=== PATIENT | female | born 1950 | race Caucasian/White ===

== ENCOUNTER → 2016-12-15 | Outpatient (CLI) | payer BC ==
[~2016-12-15] MED LIST: ACET-1256 PO; ALLO300T2 PO; CARV25TA2 PO; CLC6 PO; CLON0.1T12 PO; ERGO500037 PO; FRS/40 PO; HMLI SC; HYDR100T12 PO; INSDGI SC; ISOS30TA3 PO; LORA0.5T12 PO; LOSA50TA6 PO; PANT40TA PO; SIMV40TA2 PO
== END | disposition home or self-care (01) ==
LOC: C.PATHSPEC 14:11
PROVIDERS: ATTEND Dermatology
DX: D22.39 Melanocytic nevi of other parts of face (principal)

== ENCOUNTER → 2017-01-24 | Outpatient (CLI) | payer BC ==
[2017-01-24 13:48] VITALS: BP 151/55; PULSE 63; TEMP 36.9; O2SAT 96
--- NOTE | 2017-01-24 15:37 | Radiation Oncology Follow-Up ---
Radiation Oncology Follow-Up Date of Visit Jan 24, 2017. Reason For Visit 6 month follow-up Radiation Completion Date 05/09/16 Diagnosis (1) Non-Hodgkin's lymphoma of left eye Status: Resolved Onset Date: 03/10/2016 Histology Subtype: MALT lymphoma Permanent Comment: Incidental finding of mass left conjunctiva at the time of cataract surgery Status post excision 03/02/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 Status post completion of radiation [id number]/09/2016 received 3060 cGy Last Edited By: Colleen Jasso on May 18, 2016 16:36 History of Present Illness Ms. Marika Poe is a 66-year-old female who was being followed by the [facility]. She had shown no evidence of diabetic retinopathy however in July 2015 was noted to be developing a cataract in the right eye. She was referred to the [facility] for cataract evaluation and was seen by Dr. Gonzalez for evaluation of cataract surgery. During the procedure he noted a small salmon-colored lesion in the lateral conjunctiva of the left eye. The patient ultimately did undergo bilateral cataract surgery. The patient subsequently noted a sensation of "dirt" in her eye and did develop some sensitivity to light. On 02/29/2016 a biopsy of the lesion was performed. 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 The tissue removed measured 1.2 x 0.7 x 0.2 cm. Patient was subsequently sent to Dr. Javier Sagastume for medical oncology evaluation and treatment recommendations. He recommended a PET CT scan for staging. This is been scheduled for next Sunday. After reviewing the NCCN Guidelines with the patient recommended consideration of local radiation plus or minus Rituxan. She completed radiation therapy 05/09/2016 received 3060 cGy Interim History She continues to have some blurred vision of the left eye over this past 6 months. She's been seen regularly at the [facility]. She stated that there is a small area of scar tissue that is will require laser surgery. This is going be performed in February. She has some dryness of the eye. This does not require regular use of eyedrops. She requires glasses only for reading. She did have a skin lesion biopsied and then had cryo-treatment on the left cheek. She states this was a small area of cancer. She also had some "precancer" lesions on her nose. She also is currently having upper respiratory infection. She has a cough with congestion. This is mildly productive. She's had no fever or chills. She has had minimal wheezing. She does have a inhaler available. Allergies Coded Allergies: Tramadol (Unverified Allergy, Mild, "FELT WEIRD", 09/03/10) Uncoded Allergies: AMLODOPINE (Allergy, Intermediate, SWELLING, 03/16/16) Home Medications Scheduled Allopurinol (Zyloprim), 1 TAB PO DAILY Carvedilol (Coreg), 1 TAB PO BID Clonidine Hcl (Catapres), 1 TAB PO BID Ergocalciferol (Vitamin D 64879 Unit), 1 CAP PO MONTHLY Furosemide (Lasix), 40 MG PO QD Hydralazine Hcl (Apresoline), 1 TAB PO TID Insulin Glargine (Lantus), 75 UNITS SC HS Insulin Glargine (Lantus), 70 SC QAM Insulin Lispro (Humalog), 50 UNITS SC TID Isosorbide Mononitrate Ext Rel (Imdur Ext Rel), 1 TAB PO DAILY Losartan Potassium (Cozaar), 1 TAB PO DAILY Pantoprazole (Protonix), 40 MG PO DAILY Simvastatin (Zocor), 40 MG PO QPM Scheduled PRN Acetaminophen (Tylenol), 2 TAB PO Q6 PRN for Moderate Pain Colchicine (Colcrys), 1 TAB PO BID PRN for Documentation Review of Systems Gastrointestinal: Symptoms: WNL Oral: Symptoms: No Problems Respiratory: Symptoms: WNL, Dry Cough, SOB With Exertion Other Respiratory: patient currently has cold with dry cough and JOINER, moist cough at times Urinary: Symptoms: WNL Skin: Symptoms: No Problems Other Skin Symptoms: Residual hyperpigmentation around left eye; Physical Exam Vital Signs Date Time Temp Pulse Resp B/P Pulse Ox O2 Delivery O2 Flow Rate FiO2 01/24/17 13:48 36.9 63 18 151/55 96 Fatigue: None General Appearance: no apparent distress Eyes: normal inspection, EOMI, + pertinent finding (I examination is unchanged from previous. With both eyes distance is 20/50.) ENT: normal ENT inspection, hearing grossly normal Neck: no adenopathy, thyroid normal Respiratory/Chest: no respiratory distress, no accessory muscle use, + pertinent finding (mild transtracheal congestion, no wheezing) Cardiovascular: regular rate, rhythm, no gallop, no murmur Extremities: no pedal edema Neurologic/Psychiatric: no motor/sensory deficits, alert, normal mood/affect Skin: warm/dry Assessment & Plan Plan: Continue regular follow-up at [facility]. Continue regular follow- up with Dr. Rossi and her primary care physician. We asked her to return to our office in 1 year. She may call she has been questions or concerns in the interim. Total Time In Follow-Up I spent 20 minutes speaking to the patient performing examination. I spent 15 minutes reviewing information in completing this note. Copy To Piter Wei M.D.; Obie Sagastume D.O.
== END | disposition home or self-care (01) ==
LOC: C.ONC 13:37
PROVIDERS: ATTEND Physician Assistant Medical
DX: Z08 Encounter for follow-up examination after completed treatment for malignant neoplasm (principal); Z92.3 Personal history of irradiation; Z85.72 Personal history of non-Hodgkin lymphomas

== ENCOUNTER → 2017-02-07 | Outpatient (CLI) | payer BC ==
[~2017-02-07] MED LIST changes: -LORA0.5T12 PO
[2017-02-07 14:49] LABS: BLOOD UREA NITROGEN 34 mg/dl (7-18); BUN/CREATININE RATIO 20.3 (10-20); CALCIUM 9.1 mg/dl (8.5-10.1); CARBON DIOXIDE 28 mmol/L (21-32); CHLORIDE 106 mmol/L (98-107); GLUCOSE 142 mg/dl (70-99); POTASSIUM 4.3 mmol/L (3.5-5.1); SODIUM 142 mmol/L (136-145)
[2017-02-07 15:00] LABS: CHOLESTEROL 141 mg/dl (0-200); CHOLESTEROL/HDL RATIO 3.4; HDL CHOLESTEROL 41 mg/dl; LDL CHOLESTEROL CALCULATED 61 mg/dl; PHOSPHORUS 3.2 mg/dl (2.5-4.9); TRIGLYCERIDES 196 mg/dl (0-150); VERY LOW DENSITY LIPOPROT CALC 39 mg/dl
[2017-02-07 15:02] LABS: HEMATOCRIT 34.5 % (37-47); MEAN CELL VOLUME 85.8 fL (80-100); MEAN CORPUSCULAR HEMOGLOBIN 27.4 pg (25-34); MEAN CORPUSCULAR HGB CONC 31.9 g/dl (32-36); MEAN PLATELET VOLUME 9.5 fL (7.4-10.4); PLATELET COUNT 301 K/uL (130-400); RED BLOOD COUNT 4.02 M/uL (4.2-5.4); WHITE BLOOD COUNT 9.55 K/uL (4.8-10.8)
[2017-02-07 15:07] LABS: URINE APPEARANCE CLEAR (CLEAR); URINE BILIRUBIN NEG (NEG); URINE COLOR YELLOW; URINE EPITHELIAL CELL AUTO >30 /lpf (0-5); URINE NITRITE NEG (NEG); URINE PH 6.5 (4.5-7.5); URINE PROTIEN/CREAT RATIO 0.5 (0-0.2); URINE SPECIFIC GRAVITY 1.019 (1.000-1.030); URINE TOTAL PROTEIN 68.9 mg/dl (0-11.9); UROBILINOGEN NEG (NEG)
[2017-02-07 15:22] LABS: MANUAL MICROSCOPIC REQUIRED? NO; REVIEW REQ? NO
[2017-02-08 08:21] LABS: ESTIMATED AVERAGE GLUCOSE 160 mg/dl; HA1C FLAG Normal (Normal)
== END | disposition home or self-care (01) ==
LOC: C.LABBC 10:57
PROVIDERS: ATTEND Internal Medicine Nephrology
DX: E11.65 Type 2 diabetes mellitus with hyperglycemia (principal); E78.5 Hyperlipidemia, unspecified; I10 Essential (primary) hypertension; E55.9 Vitamin D deficiency, unspecified; D64.9 Anemia, unspecified; N18.3 Chronic kidney disease, stage 3 (moderate); N25.81 Secondary hyperparathyroidism of renal origin

== ENCOUNTER → 2017-02-09 | Outpatient (CLI) | payer BC ==
--- NOTE | 2017-02-12 15:15 | MAMMOGRAPHY REPORT ---
BILATERAL DIGITAL SCREENING MAMMOGRAM WITH CAD: 02/09/2017 CLINICAL HISTORY: Routine screening. Patient has no complaints. TECHNIQUE: Current study was also evaluated with a Computer Aided Detection (CAD) system. Bilatera l CC and MLO views were obtained. COMPARISON: Comparison is made to exams dated: 08/29/2013 mammogram, 09/09/2012 mammogram, 1 mammogram, and 08/19/2009 mammogram. BREAST COMPOSITION: There are scattered areas of fibroglandular density in both breasts. FINDINGS: There is a possible oval 8 mm mass seen within the right upper outer quadrant, for which spot compression tomosynthesis views and possible breast ultrasound are recommended for further eval uation. The remainder of both breasts are stable compared to prior exams, without suspicious masses, calcifi cations, or areas of architectural distortion noted. IMPRESSION: ACR BI-RADS CATEGORY 0: INCOMPLETE EVALUATION: NEED ADDITIONAL IMAGING EVALUATION Possible right upper outer quadrant breast mass, for which additional imaging evaluation is recommen ded. The patient will be called to schedule an appointment. Approximately 10% of breast cancers are not detected with mammography. A negative mammographic repor t should not delay biopsy if a clinically suggestive mass is present. Yvonne Catalan M.D. /:02/10/2017 12:27:40 Programming Internship: Lisbeth CAREY)([place]), [facility] letter sent: Addl Imaging 0 BI-RADS Code: ACR BI-RADS Category 0: Incomplete Evaluation: Need Additional Imaging Evaluation
== END | disposition home or self-care (01) ==
LOC: C.MAMM 14:19
PROVIDERS: ATTEND Internal Medicine Geriatric Medicine
DX: Z12.31 Encounter for screening mammogram for malignant neoplasm of breast (principal); R92.8 Other abnormal and inconclusive findings on diagnostic imaging of breast

== ENCOUNTER → 2017-02-23 | Outpatient (CLI) | payer BC ==
[~2017-02-23] MED LIST changes: +LORA0.5T12 PO
--- NOTE | 2017-02-23 14:58 | MAMMOGRAPHY REPORT ---
UNILATERAL RIGHT DIGITAL DIAGNOSTIC MAMMOGRAM TOMOSYNTHESIS AND TARGETED RIGHT ULTRASOUND: 02/23/2017 CLINICAL HISTORY: Callback from screening mammogram for possible right breast mass. TECHNIQUE: Breast tomosynthesis in addition to standard 2D mammography was performed. Spot alireza lyla right CC and MLO 2-D and tomosynthesis images were obtained. COMPARISON: Comparison is made to exams dated: 02/09/2017 mammogram - [facility], 08/29/2013 mammogram, 09/09/2012 mammogram, 08/24/2011 mammogram, and 08/19/2009 mammogram. BREAST COMPOSITION: There are scattered areas of fibroglandular density in the right breast. FINDINGS: The previously described asymmetry within the right upper outer quadrant effaces to a bas ny appearance on the additional views, with appearance of this region similar to prior exams incl uding the 2011 exam. No suspicious mass or architectural distortion is seen in this region on the a dditional views. Targeted ultrasound was performed of the right upper outer quadrant laterally in the region of the m ammographic asymmetry. No suspicious masses or other suspicious sonographic abnormalities are evide nt. IMPRESSION: ACR BI-RADS CATEGORY 2: BENIGN, TARGETED ULTRASOUND ACR BI-RADS CATEGORY 2: BENIGN The right upper outer quadrant asymmetry effaces to a baseline appearance on the additional views, w ithout corresponding suspicious sonographic abnormality evident. Findings are benign and likely rep resent normal fibroglandular tissue. There is no mammographic or targeted sonographic evidence of m alignancy. A 1 year screening mammogram is recommended. The patient has been verbally notified of t he results. Approximately 10% of breast cancers are not detected with mammography. A negative mammographic repor t should not delay biopsy if a clinically suggestive mass is present. Yvonne Catalan M.D. ah/:02/23/2017 10:22:58 Accountant Controller: Nathalia MARTINEZ(Donna)([place]), [facility] letter sent: Normal 1/2 BI-RADS Code: ACR BI-RADS Category 2: Benign Ultrasound BI-RADS: ACR BI-RADS Category 2: Benign
== END | disposition home or self-care (01) ==
LOC: C.MAMM 09:41
PROVIDERS: ATTEND Internal Medicine Geriatric Medicine
DX: N63 Unspecified lump in breast (principal)

== ENCOUNTER → 2017-05-25 | Outpatient (CLI) | payer BC ==
[~2017-05-25] MED LIST changes: -LORA0.5T12 PO
[2017-05-25 13:06] LABS: THYROID STIMULATING HORMONE 1.95 uIu/ml (0.300-4.500)
== END | disposition home or self-care (01) ==
LOC: C.LABPBG 09:25
PROVIDERS: ATTEND Internal Medicine Geriatric Medicine
DX: E03.9 Hypothyroidism, unspecified (principal)

== ENCOUNTER → 2017-05-29 | Outpatient (CLI) | payer BC ==
[2017-05-30 06:17] LABS: ESTIMATED AVERAGE GLUCOSE 157 mg/dl; HA1C FLAG Normal (Normal)
--- NOTE | 2017-06-05 09:19 | CODING QUERY MEDICAL NECESSITY ---
SUPPORTING DIAGNOSIS NEEDED A supporting diagnosis is required for the test/procedure performed on this patient in order for us to be reimbursed by the patient's insurance. Please provide a supporting diagnosis for the following test/procedure listed below next to the test name along with your signature. *If there is no additional diagnosis for this patient that would support the following test/procedure please document that below next to the test/procedure. Test(s)/Procedure(s) that require a supporting diagnosis: * VITAMIN B12 DIAGNOSIS: Provider Signature: Date: Thank you Latasha [place]lin[place] [employer] Once completed, please kindly fax back to [phone] For questions please call [phone]
== END | disposition home or self-care (01) ==
LOC: C.LABPBG 13:39
PROVIDERS: ATTEND Nurse Practitioner Family
DX: Z11.59 Encounter for screening for other viral diseases (principal); M10.9 Gout, unspecified; D64.9 Anemia, unspecified; E11.29 Type 2 diabetes mellitus with other diabetic kidney complication; E53.8 Deficiency of other specified B group vitamins

== ENCOUNTER → 2017-07-06 | Outpatient (CLI) | payer BC ==
[2017-07-06 12:22] LABS: HEMATOCRIT 36.1 % (37-47); MEAN CELL VOLUME 88.9 fL (80-100); MEAN CORPUSCULAR HEMOGLOBIN 27.8 pg (25-34); MEAN CORPUSCULAR HGB CONC 31.3 g/dl (32-36); PLATELET COUNT 298 K/uL (130-400); RED BLOOD COUNT 4.06 M/uL (4.2-5.4); WHITE BLOOD COUNT 9.31 K/uL (4.8-10.8)
[2017-07-06 12:59] LABS: URINE APPEARANCE CLOUDY (CLEAR); URINE BILIRUBIN NEG (NEG); URINE COLOR YELLOW; URINE EPITHELIAL CELL AUTO >30 /lpf (0-5); URINE NITRITE NEG (NEG); URINE SPECIFIC GRAVITY 1.019 (1.000-1.030); UROBILINOGEN NEG (NEG)
[2017-07-06 13:11] LABS: MANUAL MICROSCOPIC REQUIRED? NO; REVIEW REQ? NO
[2017-07-06 13:26] LABS: URINE PROTIEN/CREAT RATIO 0.6 (0-0.2); URINE TOTAL PROTEIN 68.9 mg/dl (0-11.9)
[2017-07-06 13:56] LABS: BLOOD UREA NITROGEN 41 mg/dl (7-18); BUN/CREATININE RATIO 25.6 (10-20); CALCIUM 9.1 mg/dl (8.5-10.1); CARBON DIOXIDE 27 mmol/L (21-32); CHLORIDE 106 mmol/L (98-107); GLUCOSE 208 mg/dl (70-99); POTASSIUM 4.3 mmol/L (3.5-5.1); SODIUM 140 mmol/L (136-145)
[2017-07-06 13:57] LABS: PHOSPHORUS 2.8 mg/dl (2.5-4.9)
== END | disposition home or self-care (01) ==
LOC: C.LABPBG 09:29
PROVIDERS: ATTEND Internal Medicine Nephrology
DX: I12.9 Hypertensive chronic kidney disease with stage 1 through stage 4 chronic kidney disease, or unspecified chronic kidney disease (principal); N18.3 Chronic kidney disease, stage 3 (moderate); E55.9 Vitamin D deficiency, unspecified; D64.9 Anemia, unspecified; R60.9 Edema, unspecified

== ENCOUNTER → 2017-10-02 | Outpatient (CLI) | payer BC ==
[2017-10-03 06:19] LABS: ESTIMATED AVERAGE GLUCOSE 157 mg/dl; HA1C FLAG Normal (Normal)
== END | disposition home or self-care (01) ==
LOC: C.LABPBG 13:04
PROVIDERS: ATTEND Nurse Practitioner Family
DX: E11.29 Type 2 diabetes mellitus with other diabetic kidney complication (principal)

== ENCOUNTER → 2017-11-08 | Day surgery (SDC) | payer BC ==
[2017-11-01 12:39] VITALS: BMI 43.0
[~2017-11-08] VITALS: Ht 162.6 cm; Wt 113.6 kg
[~2017-11-08] MED LIST changes: -HMLI SC; +INSPMPHMLG SC; +ISOS-10 PO; -ISOS30TA3 PO; +LIDOCAINE HCL 2% 2 ML VIAL (20MG/ML) ONE; +LOSA100T65 PO; -LOSA50TA6 PO; +OXGN; +PROPOFOL IV EMULSION 10 MG/ML 20 ML VIAL IV ONE; +SODIUM CHLORIDE 0.9% 500ML 500 ML IV ONE
[2017-11-08 08:03] VITALS: Ht 162.6 cm; Wt 113.6 kg
--- NOTE | 2017-11-08 08:50 | Endo History and Physical ---
History & Physical Date of Service: Nov 08, 2017. Chief Complaint: screening, anemia Referring Physician: Dr. Gomez History of Present Illness Anemia, for screening colonoscopy. Past Medical History Diabetes, Arthritis, Reflux, Cancer, High Cholesterol, Sleep Apnea, Heart Disease, Hypertension, Kidney Disease Past Surgical History Hx Cardiac Surgery: No Hx Internal Defibrillator: No Hx Pacemaker: No Hx Abdominal Surgery: Yes (CHERISE, D&C, TUBAL LIGATION) Hx of Implantable Prosthesis: No Hx Post-Op Nausea and Vomiting: No Hx Cancer Surgery: No Hx Thoracic Surgery: No Hx Orthopedic: Yes (RT CTR, RT/LEFT KNEE ARTHROSCOPY) Hx Urinary Tract Surgery: No Family History None Social History Smoking Status: Never Smoker Hx Substance Use: No Hx Alcohol Use: Yes (OCCASIONALLY) Allergies Coded Allergies: Tramadol (Unverified Allergy, Mild, "FELT WEIRD", 11/08/17) Amlodipine (Verified Allergy, Unknown, SWELLING, 11/08/17) Current Medications Reported Home Medications Medications Dose Route/Sig Max Daily Dose Days Date Category Dose Instructions Oxygen Gas 2 Liters NA HS 11/01/17 Reported Cozaar (Losartan Potassium) 100 Mg Tab 100 Mg PO QAM 11/01/17 Reported Isosorbide Mononitrate ER (Isosorbide Mononitrate) 60 Mg Tabcr 1 Tab PO QAM 11/01/17 Reported Humalog (Insulin Human Lispro) 1 Ea Inj 50 Units SC TID 11/01/17 Reported PT ALSO USES SLIDING SCALE Lantus (Insulin Glargine) 100 Unit/Ml Inj 75 Units SC BID 01/24/17 Reported Apresoline (Hydralazine Hcl) 100 Mg Tab 1 Tab PO TID 07/25/16 Reported Tylenol (Acetaminophen) 500 Mg Tab 2 Tab PO Q6 PRN 2 03/24/16 Reported Catapres (Clonidine Hcl) 0.1 Mg Tab 1 Tab PO BID 90 03/24/16 Reported Lasix (Furosemide) 40 Mg Tab 40 Mg PO QAM 03/16/16 Reported Vitamin D 56833 Unit (Ergocalciferol) 50,000 Unit Cap 1 Cap PO MONTHLY 28 03/16/16 Reported Colcrys (Colchicine) 0.6 Mg Tab 1 Tab PO BID PRN 03/16/16 Reported GOUT FLARE UPS Coreg (Carvedilol) 25 Mg Tab 1 Tab PO BID 90 03/16/16 Reported Zyloprim (Allopurinol) 300 Mg Tab 1 Tab PO QAM 30 03/16/16 Reported Zocor (Simvastatin) 40 Mg Tab 40 Mg PO QPM 09/01/10 Reported Protonix (Pantoprazole Sodium) 40 Mg Tab 40 Mg PO QAM 09/01/10 Reported Vital Signs Weight (Kilograms): 113.64 Height (Feet): 5 Height (Inches): 4 Date Time Temp Pulse Resp B/P (MAP) Pulse Ox O2 Delivery O2 Flow Rate FiO2 11/08/17 08:09 36.6 57 18 188/65 (106) 95 Room Air Physical Exam General Appearance: WD/WN, no apparent distress, + obese Respiratory/Chest: Auscultation: breath sounds normal, no wheezing Cardiovascular: Heart Auscultation: RRR, no murmurs Assessment and Plan Colonoscopy today.
--- NOTE | 2017-11-08 09:29 | GI REPORT ---
Procedure Date: 11/08/2017 8:44 AM Procedure: Colonoscopy Indications: Screening for colorectal malignant neoplasm, Incidental - Iron deficiency anemia Medicines: Monitored Anesthesia Care Complications: No immediate complications. Estimated blood loss: None. Estimated Blood Loss: Estimated blood loss: none. Procedure: Pre-Anesthesia Assessment: - Prior to the procedure, a History and Physical was performed, and patient medications, allergies and sensitivities were reviewed. The patient's tolerance of previous anesthesia was reviewed. - ASA Grade Assessment: III - A patient with severe systemic disease. After I obtained informed consent, the scope was passed under direct vision. Throughout the procedure, the patient's blood pressure, pulse, and oxygen saturations were monitored continuously. The Scope was introduced through the anus and advanced to the terminal ileum, with identification of the appendiceal orifice and IC valve. The colonoscopy was performed without difficulty. The patient tolerated the procedure well. The quality of the bowel preparation was adequate to identify polyps. The bowel preparation used was split dose MIralax. Findings: The entire examined colon appeared normal. Impression: - The entire examined colon is normal to the terminal ileum with retroflexed views of the rectum. - No specimens collected. Recommendation: - Repeat colonoscopy in 10 years for screening purposes. - Discharge patient to home (with escort). Jermain Vergara M.D. Jermain Vergara MD 11/08/2017 9:28:35 AM This report has been signed electronically. Note Initiated On: 11/08/2017 8:44 AM I attest to the content of the Intraoperative Record and orders documented therein, exceptions below
--- NOTE | 2017-11-08 09:34 | Discharge Instructions ---
Endoscopy Patient Instructions Date / Procedure(s) Performed Nov 08, 2017. Colonoscopy Allergy Information Coded Allergies: Tramadol (Unverified Allergy, Mild, "FELT WEIRD", 11/08/17) Amlodipine (Verified Allergy, Unknown, SWELLING, 11/08/17) Discharge Date / Findings Nov 08, 2017. Normal Colonoscopy Medication Instructions Stopped Medication(s): told to only take blood pressure medicine. Restart Stopped Medication(s): Restart all medication today Provider Instructions Activity Restrictions - No exercising or heavy lifting for 24 hours. - Do not drink alcohol the day of the procedure. - Do not drive a car or operate machinery until the day after the procedure. - Do not make any important decisions or sign important papers in 24 hours after the procedure. Following Day: - Return to full activity which may include returning to work/school. Diet Start your diet with liquids and light foods (jello, soup, juice, toast). Then eat your usual diet if not nauseated. Treatment For Common After Affects For mild abdominal pain, bloating, or excessive gas: - Rest - Eat lightly - Lie on right side Follow-Up Information Follow-up with Dr. Gomez as scheduled Anesthesia Information What You Should Know You have had a procedure that required some medicine to reduce anxiety and discomfort. This treatment is called moderate sedation. After receiving the treatment, you may be sleepy, but you will be able to breathe on your own. The effects of the treatment may last for several hours. Follow these instructions along with Activity/Diet recommendations noted above: * Do NOT do anything where dizziness or clumsiness would be dangerous. * Rest quietly at home today, then you can be up and about tomorrow. * Have a responsible person stay with you the rest of today. * You may have had an I.V. today. If so, you may take the dressing off later today. Recommendations Call your doctor if: * Trouble breathing * Continuous vomiting for more than 24 hours * Temperature above 101 degrees * Severe abdominal pain or bloating * Pain not relieved by pain medicine ordered * There is increased drainage or redness from any incision * A large amount of rectal bleeding greater than 2-3 tablespoons. (If you had a polyp/s removed or have hemorrhoids, a small amount of blood - from the rectum is to be expected.) * You have any unanswered questions or concerns. IN THE EVENT OF A SERIOUS EMERGENCY, GO TO THE NEAREST EMERGENCY ROOM Your discharge instructions were prepared by provider Jermain Vergara. Patient Instructions Signature Page Marika Poe Patient (or Guardian) Signature/Date: I have read and understand the instructions given to me by my caregivers. Caregiver/RN/Doctor Signature/Date: The above-named patient and/or guardian has received patient instructions on this date. + Original Patient Signature Page (only) stays with chart. Please make copy for patient.
--- NOTE | 2017-11-08 09:49 | Anesthesiology Progress Note ---
Anesthesia Post Op Note Date & Time Nov 08, 2017 at 09:49 Vital Signs Pain Intensity: 0 Vital Signs Past 12 Hours Date Time Temp Pulse Resp B/P (MAP) Pulse Ox O2 Delivery O2 Flow Rate FiO2 11/08/17 09:42 55 18 101/41 (61) 95 Room Air 11/08/17 09:27 60 18 106/44 (64) 93 Room Air 11/08/17 08:09 36.6 57 18 188/65 (106) 95 Room Air Notes Mental Status: alert / awake / arousable, participated in evaluation Pt Amnestic to Procedure: Yes Nausea / Vomiting: adequately controlled Pain: adequately controlled Airway Patency, RR, SpO2: stable & adequate BP & HR: stable & adequate Hydration State: stable & adequate Anesthetic Complications: no major complications apparent The patient did well. Her BSG in recovery was in the 60s so she was given orange juice and crackers. The patient feels fine.
[2017-11-08 09:57] VITALS: BP 136/45; PULSE 54; O2SAT 94
== END | disposition home or self-care (01) ==
LOC: C.GI 07:36
PROVIDERS: ATTEND Internal Medicine Gastroenterology
DX: Z12.11 Encounter for screening for malignant neoplasm of colon (principal); D50.9 Iron deficiency anemia, unspecified; E11.9 Type 2 diabetes mellitus without complications; M19.90 Unspecified osteoarthritis, unspecified site; K21.9 Gastro-esophageal reflux disease without esophagitis; E78.00 Pure hypercholesterolemia, unspecified; G47.30 Sleep apnea, unspecified; I51.9 Heart disease, unspecified; I10 Essential (primary) hypertension; N28.9 Disorder of kidney and ureter, unspecified; Z79.899 Other long term (current) drug therapy; Z79.4 Long term (current) use of insulin

== ENCOUNTER → 2017-11-22 | Outpatient (CLI) | payer BC ==
[~2017-11-22] VITALS: Ht 157.5 cm; Wt 118.1 kg
[~2017-11-22] MED LIST changes: -LIDOCAINE HCL 2% 2 ML VIAL (20MG/ML) ONE; -PROPOFOL IV EMULSION 10 MG/ML 20 ML VIAL IV ONE; -SODIUM CHLORIDE 0.9% 500ML 500 ML IV ONE
[2017-11-22 11:23] VITALS: BP 181/69; PULSE 63; Ht 157.5 cm; Wt 118.1 kg
== END | disposition home or self-care (01) ==
LOC: C.NEUR 10:42
PROVIDERS: ATTEND Internal Medicine Pulmonary Disease
DX: G47.33 Obstructive sleep apnea (adult) (pediatric) (principal)

== ENCOUNTER → 2018-01-22 | Outpatient (CLI) | payer BC ==
--- NOTE | 2018-01-22 11:16 | DIAGNOSTIC IMAGING REPORT ---
CHEST 2 VIEWS ROUTINE CLINICAL HISTORY: 67 years-old Female presenting with J20.9 illness for 2 weeks. TECHNIQUE: PA and lateral views of the chest were obtained. COMPARISON: 09/04/2010. FINDINGS: Atherosclerosis of aortic arch. Cardiac silhouette enlarged. Mild prominence of pulmonary vasculature. No focal opacity. Small left pleural effusion. No pneumothorax. Degenerative changes of the thoracic spine. Cholecystectomy clips noted. IMPRESSION: 1. Cardiomegaly with suggestion of volume overload and trace left pleural effusion. No annie pulmonary edema or other evidence of acute cardiopulmonary disease. Electronically signed by: Evan Jackson M.D. 01/22/2018 11:15 AM Dictated Date/Time: 01/22/2018 11:13 AM
[2018-01-22 13:12] LABS: HEMATOCRIT 33.3 % (37-47); HEMOGLOBIN 10.3 g/dL (12.0-16.0); MEAN CELL VOLUME 86.3 fL (80-100); MEAN CORPUSCULAR HEMOGLOBIN 26.7 pg (25-34); MEAN CORPUSCULAR HGB CONC 30.9 g/dl (32-36); MEAN PLATELET VOLUME 9.7 fL (7.4-10.4); PLATELET COUNT 288 K/uL (130-400); RED CELL DISTRIBUTION WIDTH CV 17.9 % (11.5-14.5); RED CELL DISTRIBUTION WIDTH SD 56.4 fL (36.4-46.3); WHITE BLOOD COUNT 10.41 K/uL (4.8-10.8)
[2018-01-22 14:07] LABS: BLOOD UREA NITROGEN 41 mg/dl (7-18); CALCIUM 8.8 mg/dl (8.5-10.1); CARBON DIOXIDE 24 mmol/L (21-32); GLUCOSE 211 mg/dl (70-99); PHOSPHORUS 3.2 mg/dl (2.5-4.9); POTASSIUM 4.4 mmol/L (3.5-5.1); SODIUM 137 mmol/L (136-145)
== END | disposition home or self-care (01) ==
LOC: C.RADBC 10:35
PROVIDERS: ATTEND Family Medicine
DX: J20.9 Acute bronchitis, unspecified (principal); I12.9 Hypertensive chronic kidney disease with stage 1 through stage 4 chronic kidney disease, or unspecified chronic kidney disease; E55.9 Vitamin D deficiency, unspecified; N18.3 Chronic kidney disease, stage 3 (moderate); N25.81 Secondary hyperparathyroidism of renal origin; D64.9 Anemia, unspecified; R60.9 Edema, unspecified; I51.7 Cardiomegaly

== ENCOUNTER → 2018-01-23 | Outpatient (CLI) | payer BC | END | disposition home or self-care (01) | LOC: C.LABPBG 08:50 | PROVIDERS: ATTEND Family Medicine | DX: I10 Essential (primary) hypertension (principal); E55.9 Vitamin D deficiency, unspecified; N18.3 Chronic kidney disease, stage 3 (moderate); N25.81 Secondary hyperparathyroidism of renal origin; D64.9 Anemia, unspecified; R60.9 Edema, unspecified; R06.02 Shortness of breath ==

== ENCOUNTER → 2018-01-29 | Outpatient (CLI) | payer BC ==
[~2018-01-29] MED LIST changes: +GUAISYP4 PO; +IPRA1AER2 INH; +PRT40 PO; +RGL10 PO
[2018-01-29 13:32] VITALS: BP 150/60; PULSE 58; TEMP 36.7; O2SAT 94
--- NOTE | 2018-01-29 16:58 | Radiation Oncology Follow-Up ---
Radiation Oncology Follow-Up Date of Visit Jan 29, 2018. Reason For Visit Annual follow-up Radiation Completion Date 05/09/16 Diagnosis (1) Non-Hodgkin's lymphoma of left eye Status: Resolved Onset Date: 03/10/2016 Permanent Comment: Incidental finding of mass left conjunctiva at the time of cataract surgery Status post excision 03/02/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 Status post completion of radiation [id number]/09/2016 received 3060 cGy Last Edited By: Colleen Jasso on May 18, 2016 16:36 History of Present Illness Ms. Marika Poe has been followed by the [facility]. She had shown no evidence of diabetic retinopathy however in July 2015 was noted to be developing a cataract in the right eye. She was referred to the [facility] for cataract evaluation and was seen by Dr. Gonzalez for evaluation of cataract surgery. During the procedure he noted a small salmon-colored lesion in the lateral conjunctiva of the left eye. The patient ultimately did undergo bilateral cataract surgery. The patient subsequently noted a sensation of "dirt " in her eye and did develop some sensitivity to light. On 02/29/2016 a biopsy of the lesion was performed. 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 The tissue removed measured 1.2 x 0.7 x 0.2 cm. Patient was subsequently sent to Dr. Javier Sagastume for medical oncology evaluation and treatment recommendations. He recommended a PET CT scan for staging. This is been scheduled for next Sunday. After reviewing the NCCN Guidelines with the patient recommended consideration of local radiation plus or minus Rituxan. She completed radiation therapy 05/09/2016 received 3060 cGy Interim History She has been doing well over this past year. She does have some dryness of her eye. She does not use eyedrops on a regular basis. Her vision is stable. She is seeing the facilities and grounds director on a regular basis. There is been no recurrence found on examination by the facilities and grounds director. She has had regular follow-ups with medical oncology. She has not required any recheck scanning. Laboratory studies have been followed. She has a mild anemia that is being rechecked. Allergies Coded Allergies: Tramadol (Unverified Allergy, Mild, "FELT WEIRD", 11/08/17) Amlodipine (Verified Allergy, Unknown, SWELLING, 11/08/17) Home Medications Scheduled Allopurinol (Zyloprim), 1 TAB PO QAM Carvedilol (Coreg), 1 TAB PO BID Clonidine Hcl (Catapres), 1 TAB PO BID Ergocalciferol (Vitamin D 84298 Unit), 1 CAP PO MONTHLY Furosemide (Lasix), 40 MG PO QAM Home O2 Therapy (Oxygen), 2 LITERS NA HS Hydralazine Hcl (Apresoline), 1 TAB PO TID Insulin Glargine (Lantus), 75 UNITS SC BID Insulin Human Lispro (Humalog), 50 UNITS SC TID Isosorbide Mononitrate (Isosorbide Mononitrate ER), 1 TAB PO QAM Losartan Potassium (Cozaar), 100 MG PO QAM Pantoprazole (Protonix), 40 MG PO QAM Simvastatin (Zocor), 40 MG PO QPM Scheduled PRN Acetaminophen (Tylenol), 2 TAB PO Q6 PRN for Moderate Pain Colchicine (Colcrys), 1 TAB PO BID PRN for Documentation Review of Systems Gastrointestinal: Symptoms: WNL Oral: Symptoms: No Problems Respiratory: Symptoms: Moist Cough Respiratory Comments: getting over a cough. Was SOB with chest congestion Other Respiratory: patient currently has cold with dry cough and JOINER, moist cough at times Urinary: Symptoms: WNL Skin: Symptoms: No Problems Other Skin Symptoms: Residual hyperpigmentation around left eye; Physical Exam Vital Signs Date Time Temp Pulse Resp B/P (MAP) Pulse Ox O2 Delivery O2 Flow Rate FiO2 01/29/18 13:32 36.7 58 18 150/60 94 Fatigue: None General Appearance: no apparent distress Eyes: normal inspection, PERRL, EOMI, + pertinent finding (Visual acuity examination was performed. The left eye was 20/40 in the right eye was 20/50. Inspection of the superior conjunctival fornix reveals no recurrence.) Neck: no adenopathy, thyroid normal Respiratory/Chest: lungs clear, no respiratory distress, no accessory muscle use Cardiovascular: regular rate, rhythm, no gallop, no murmur Extremities: no pedal edema Neurologic/Psychiatric: no motor/sensory deficits, alert, normal mood/affect Pain Management Patient Reports Pain: No Pain Location: None Patient Preferred Pain Scale: 0 - 10 Initial Pain Intensity: 0.0 Pain Management Plan She denies pain therefore requires no pain management. Laboratory Laboratory Results: were reviewed Laboratory Comments: Discussed in the interim history. Pathology Pathology Results: were reviewed, and pertinent findings noted in HPI Imaging Imaging Studies: were reviewed, and pertinent findings noted in HPI Assessment & Plan Plan: Continue regular follow-up with her primary care provider and medical oncologist. She has regular visits with the facilities and grounds director. We asked her to return to our office in 1 year. She may call if she has any questions or concerns. Total Time In Follow-Up I spent 20 minutes speaking to the patient in performing examination. I spent 15 minutes reviewing information and completing this note. Copy To Piter Wei M.D.; Obie Sagastume D.O.
== END | disposition home or self-care (01) ==
LOC: C.ONC 12:59
PROVIDERS: ATTEND Physician Assistant Medical
DX: Z08 Encounter for follow-up examination after completed treatment for malignant neoplasm (principal); Z92.3 Personal history of irradiation; Z85.72 Personal history of non-Hodgkin lymphomas

== ENCOUNTER → 2018-01-31 | Outpatient (CLI) | payer BC ==
[~2018-01-31] MED LIST changes: -GUAISYP4 PO; -IPRA1AER2 INH; -PRT40 PO; -RGL10 PO
[2018-01-31 12:54] LABS: BLOOD UREA NITROGEN 71 mg/dl (7-18); CALCIUM 8.7 mg/dl (8.5-10.1); CARBON DIOXIDE 28 mmol/L (21-32); CREATININE 2.04 mg/dl (0.60-1.20); GLUCOSE 72 mg/dl (70-99); POTASSIUM 3.7 mmol/L (3.5-5.1); SODIUM 139 mmol/L (136-145)
== END | disposition home or self-care (01) ==
LOC: C.LABPBG 08:48
PROVIDERS: ATTEND Family Medicine
DX: N18.3 Chronic kidney disease, stage 3 (moderate) (principal)

== ENCOUNTER 2018-02-11 12:43 | Inpatient (IN) | payer BC, OTHER ==
[~2018-02-11] VITALS: Ht 162.6 cm; Wt 113.7 kg
[2018-02-11] MEDS ORDERED: MAGNESIUM HYDROXIDE SUSP 30 ML UDC PO PRN (14:15)
[2018-02-11] MEDS ORDERED: ACETAMINOPHEN 500 MG TAB PO PRN (14:15)
[2018-02-11] MEDS ORDERED: GLUCAGON FOR INJ 1 MG VIAL SQ PRN (14:15)
[2018-02-11] MEDS ORDERED: ACETAMINOPHEN 325 MG TAB PO PRN (14:15)
[2018-02-11] MEDS ORDERED: GLUCOSE 40% GEL 15 GM TUBE PO PRN (14:15)
[2018-02-11] MEDS ORDERED: COLCHICINE 0.6 MG TAB PO PRN (14:15)
[2018-02-11] MEDS ORDERED: GLUCOSE 10 TABS/TUBE PO PRN (14:15)
[2018-02-11] MEDS ORDERED: ONDANSETRON INJ 2 MG/ML 2 ML VIAL IV PRN (14:15)
[2018-02-11] MEDS ORDERED: DEXTROSE 50% 50 ML SYR IV PRN (14:15)
[2018-02-11 14:44] VITALS: BP 199/70; PULSE 75; TEMP 36.9; O2SAT 90
[2018-02-11 14:52] LABS: HEMATOCRIT 33.7 % (37-47); HEMOGLOBIN 10.2 g/dL (12.0-16.0); MEAN CELL VOLUME 85.8 fL (80-100); MEAN CORPUSCULAR HGB CONC 30.3 g/dl (32-36); MEAN PLATELET VOLUME 8.6 fL (7.4-10.4); PLATELET COUNT 285 K/uL (130-400); RED CELL DISTRIBUTION WIDTH CV 17.8 % (11.5-14.5); RED CELL DISTRIBUTION WIDTH SD 55.7 fL (36.4-46.3)
[2018-02-11 15:09] LABS: BLOOD UREA NITROGEN 34 mg/dl (7-18); CARBON DIOXIDE 30 mmol/L (21-32); GLUCOSE 82 mg/dl (70-99); POTASSIUM 3.8 mmol/L (3.5-5.1); SODIUM 140 mmol/L (136-145)
[2018-02-11] MEDS ORDERED: HOME MED ADMINISTRATION ONE (15:15)
--- NOTE | 2018-02-11 15:15 | DIAGNOSTIC IMAGING REPORT ---
CHEST 2 VIEWS ROUTINE CLINICAL HISTORY: Congestive failure COMPARISON STUDY: 01/22/2018 FINDINGS: The heart is enlarged. There is no overt failure. There is equivocal trace right pleural effusion. Bibasilar opacities are likely atelectatic[ IMPRESSION: 1. Cardiomegaly with a probable trace right pleural effusion 2. No evidence of overt failure 3. Bibasilar opacities likely atelectatic. 4. No evidence of lobar consolidation Electronically signed by: Magdi Vogel M.D. 02/11/2018 3:14 PM Dictated Date/Time: 02/11/2018 3:13 PM
--- NOTE | 2018-02-11 15:24 | History and Physical ---
History & Physical Date & Time of Service: Feb 11, 2018 at 15:03 Chief Complaint: Copd Exacerbation Primary Care Physician: Shawanda Gomez DO History of Present Illness Source: patient, clinic records 67 y/o F who was a direct admit from Dr. Carpenter this afternoon for failed outpt management of CHF. Pt has been working with Dr. Carpenter for about 6 weeks for worsening cough and SOB. She has been on nebs, doxy, a steroid taper , and increased lasix without improvement of sx. She is currently on levaquin for L OM and has 3 days left. She states she did feel a bit better for about 2 days after the steroid taper, however this did not last. Her cough and SOB are worsening. She develops SOB with lying flat and ambulation now. She notes that she get LE "puffiness" frequently. She takes lasix 40mg daily at baseline. Dr. Carpenter had her add 20mg in the afternoon x5 days, however it was noted that her cr went from 1.7-2.0 with this change and Dr. Carpenter did not want to increase lasix further given this change. Pt states she has chest pressure at times as well but more related to prolonged coughing spells. She has been able to eat without issue, although she states nothing tastes good to her lately. Pt was noted to be 86% on RA in the office today, which is not usual for her. She was given a neb tx in the office, but she states this did not help. Pt denies fever, abd pain, n/v/c/d, LE pain. Past Medical/Surgical History Medical Problems: (1) CHF (congestive heart failure) (2) Non-Hodgkin's lymphoma of left eye DM HTN NAE--noncompliant due to mask issues CKD III, baseline cr 1.6-1.7 L otitis media, on levaquin Family History Mother with hx of NE and CVA Social History Smoking Status: Never Smoker Alcohol Use: occasionally (1 beer every , however not recently due to feeling unwell) Drug Use: none Marital Status: Housing status: lives with family Immunizations History of Influenza Vaccine: Yes Influenza Vaccine Date: Aug 16, 2015 History of Tetanus Vaccine?: Yes Tetanus Immunization Date: Oct 16, 2015 History of Pneumococcal: Unknown History of Hepatitis B Vaccine: Unknown Allergies Coded Allergies: Tramadol (Unverified Allergy, Mild, "FELT WEIRD", 11/08/17) Amlodipine (Verified Allergy, Unknown, SWELLING, 11/08/17) Home Medications Scheduled Allopurinol (Zyloprim), 1 TAB PO QAM Carvedilol (Coreg), 1 TAB PO BID Clonidine Hcl (Catapres), 1 TAB PO BID Ergocalciferol (Vitamin D 98435 Unit), 1 CAP PO MONTHLY Furosemide (Lasix), 40 MG PO QAM Home O2 Therapy (Oxygen), 2 LITERS NA HS Hydralazine Hcl (Apresoline), 1 TAB PO TID Insulin Glargine (Lantus), 75 UNITS SC BID Insulin Human Lispro (Humalog), 50 UNITS SC TID Isosorbide Mononitrate (Isosorbide Mononitrate ER), 1 TAB PO QAM Losartan Potassium (Cozaar), 100 MG PO QAM Pantoprazole (Protonix), 40 MG PO QAM Simvastatin (Zocor), 40 MG PO QPM Scheduled PRN Acetaminophen (Tylenol), 2 TAB PO Q6 PRN for Moderate Pain Colchicine (Colcrys), 1 TAB PO BID PRN for Documentation Review of Systems Pertinent positives and negatives reviewed in HPI--all others negative Physical Exam Vital Signs Date Time Temp Pulse Resp B/P (MAP) Pulse Ox O2 Delivery O2 Flow Rate FiO2 02/11/18 14:44 36.9 75 18 199/70 (113) 90 Room Air General Appearance: no apparent distress, + obese Head: normocephalic, atraumatic Eyes: normal inspection, sclerae normal Respiratory/Chest: no respiratory distress, + crackles Cardiovascular: regular rate, rhythm, normal peripheral pulses Abdomen/GI: non tender, soft Extremities/Musculoskelatal: no calf tenderness, + pedal edema (1+ pitting, b/l ) Neurologic/Psych: alert, normal mood/affect, oriented x 3 Skin: normal color, warm/dry Diagnostics Laboratory Results Results Past 24 Hours Test 02/11/18 14:26 Range/Units White Blood Count 13.60 4.8-10.8 K/uL Red Blood Count 3.93 4.2-5.4 M/uL Hemoglobin 10.2 12.0-16.0 g/dL Hematocrit 33.7 37-47 % Mean Corpuscular Volume 85.8 80-100 fL Mean Corpuscular Hemoglobin 26.0 25-34 pg Mean Corpuscular Hemoglobin Concent 30.3 32-36 g/dl RDW Standard Deviation 55.7 36.4-46.3 fL RDW Coefficient of Variation 17.8 11.5-14.5 % Platelet Count 285 130-400 K/uL Mean Platelet Volume 8.6 7.4-10.4 fL Impression Assessment and Plan 67 y/o F who was a direct admission from the office for cough, SOB. Cough, SOB: mild CHF noted on CXR 01/22/18 and failed outpt tx for this Repeat CXR pending Trop, BNP, CBC, PRP pending Continue home dose lasix 40mg PO and will add additional lasix pending labs and imaging findings Has been on nebs, prednisone, and multiple abx without improvement. Will hold on further for now unless CXR noted for PNA ECHO pending, last was 2009 and noted for LVH, EF 65-70%, and type II diastolic dysfunction If trop is neg, will not repeat serials given this has been ongoing for 6 weeks EKG pending Acute on chronic kidney disease: baseline cr is 1.6-1.7 Increased to 2.0 on outpt labs, repeat pending DM: as at home with SSI PRN HTN: stable, continue home meds Likely elevated at baseline in the setting of uncontrolled NAE NAE: noncompliant with CPAP due to mask issues L otitis media: finish course of levaquin, 3 doses left Other: Full code SCDs for DVT proph DM low sodium diet Resuscitation Status VTE Prophylaxis Will order VTE Prophylaxis: Yes
[2018-02-11 15:30] VITALS: O2SAT 90; O2SAT 94
[2018-02-11 15:53] VITALS: BP 199/70; PULSE 75; TEMP 36.9; O2SAT 94; BMI 44.4
--- NOTE | 2018-02-11 17:08 | DIAGNOSTIC IMAGING REPORT ---
(CHEST) THORAX WITHOUT CLINICAL HISTORY: 67 years-old Female presenting with cough, SOB. TECHNIQUE: Multidetector CT imaging of the chest was performed without the use of intravenous contrast. IV contrast: None. A dose lowering technique was used consistent with the principles of ALARA (as low as reasonably achievable). COMPARISON: Chest x-ray performed earlier the same day. CT DOSE (mGy.cm): The estimated cumulative dose is 820.89 mGy.cm. FINDINGS: [employer] topogram: Unremarkable. On soft tissue windows, normal thyroid and thoracic inlet. Scattered subcentimeter mediastinal lymph nodes possibly reactive. The largest in the subcarinal region measure up to 8 mm in the short axis. Evaluation of the eliseo is limited in the absence of intravenous contrast. Atherosclerosis of the aorta. Mild multichamber enlargement of the heart. Mild coronary artery, aortic valve, and mitral annular calcification. No pericardial or pleural effusion. Hepatic steatosis. Cholecystectomy clips. On lung windows, prominent bandlike opacities in the right middle and left lower lobes. Patchy and peripheral groundglass opacities with a basilar predominance. Smooth interlobular septal thickening evident in the left lower lobe. Respiratory motion artifact somewhat degrades evaluation of the lung parenchyma, especially the lung bases. The pulmonary arteries are enlarged relative to their adjacent bronchi. Bronchial wall thickening evident. Minimal subsegmental bronchial debris evident in the right lower lobe. No significant evidence of emphysema. Central airways patent. On bone windows, degenerative changes of the spine. IMPRESSION: 1. Cardiomegaly with suspected volume overload and congestive change. Developing pulmonary edema may be present. Infection is considered unlikely. 2. Extensive atelectasis. 3. Mildly prominent mediastinal lymph nodes possibly reactive. 4. Hepatic steatosis. Electronically signed by: Evan Jackson M.D. 02/11/2018 5:07 PM Dictated Date/Time: 02/11/2018 5:01 PM
[2018-02-11] MEDS: INSULIN ASPART 100 UNITS/ML 3 ML PEN SC SCH ×2 (17:38→20:41)
[2018-02-11] MEDS ORDERED: BUMETANIDE IV 1 MG in SYRINGE 0 ML IV ONE (18:00)
[2018-02-11] MEDS ORDERED: INSULIN ASPART 100 UNITS/ML 3 ML PEN SC SCH (20:00)
--- NOTE | 2018-02-11 20:16 | DIAGNOSTIC IMAGING REPORT ---
BILATERAL LOWER EXTREMITY VENOUS DOPPLER HISTORY: Acute shortness of breath with bilateral lower extremity swelling SOB COMPARISON STUDY: Duplex venous Doppler study 03/20/2014 FINDINGS: There is normal compressibility, flow, and augmentation within the bilateral lower extremity deep venous systems. IMPRESSION: No sonographic evidence of deep venous thrombosis within the right or left lower extremity. Electronically signed by: Britton Watts M.D. 02/11/2018 8:15 PM Dictated Date/Time: 02/11/2018 8:14 PM
[2018-02-11] MEDS: CLONIDINE HCL 0.1 MG TAB PO SCH (20:41)
[2018-02-11] MEDS: SIMVASTATIN 40 MG TAB PO SCH (20:41)
[2018-02-11] MEDS: CARVEDILOL 25 MG TAB PO SCH (20:41)
[2018-02-11] MEDS: INSULIN GLARGINE SC SCH (20:45)
[2018-02-11] MEDS ORDERED: BENZONATATE 100MG CAP PO ONE (22:00)
[2018-02-11 23:04] VITALS: BP 190/72; PULSE 77; TEMP 37.3; O2SAT 95
[2018-02-12] VITALS (9 sets, daily range): BP systolic 137–158; BP diastolic 61–80; PULSE 59–89; TEMP 36.3–36.9; O2SAT 90–98; BMI 44.4
[2018-02-12 06:44] LABS: HEMOGLOBIN A1C 7.5 % (4.5-5.6)
[2018-02-12] MEDS: PANTOprazole SOD 40 MG TAB PO SCH (08:14)
[2018-02-12] MEDS: BENZONATATE 100MG CAP PO SCH ×3 (08:14→20:34)
[2018-02-12] MEDS: ALLOPURINOL 300 MG TAB PO SCH (08:14)
[2018-02-12] MEDS: ISOSORBIDE MONONITRATE 60 MG TABCR PO SCH (08:14)
[2018-02-12] MEDS: LEVOFLOXACIN 250 MG TAB PO SCH (08:15)
[2018-02-12] MEDS: CLONIDINE HCL 0.1 MG TAB PO SCH ×2 (08:15→20:33)
[2018-02-12] MEDS: LOSARTAN POTASSIUM 50 MG TAB PO SCH (08:15)
[2018-02-12] MEDS: CARVEDILOL 25 MG TAB PO SCH ×2 (08:16→20:34)
[2018-02-12] MEDS: FUROSEMIDE 40 MG TAB PO SCH (08:16)
[2018-02-12] MEDS: INSULIN GLARGINE SC SCH ×2 (08:21→20:51)
[2018-02-12] MEDS: INSULIN ASPART 100 UNITS/ML 3 ML PEN SC SCH ×4 (08:22→20:49)
[2018-02-12] MEDS ORDERED: NURSING VERBAL MED ORDER ONE (08:30)
[2018-02-12] MEDS ORDERED: ALBUT/IPRATROP 3MG/0.5MG NEB 3 ML VIAL INH STA (08:31)
[2018-02-12] MEDS ORDERED: ALBUT/IPRATROP 3MG/0.5MG NEB 3 ML VIAL INH PRN (09:00)
--- NOTE | 2018-02-12 09:04 | Progress Note ---
Subjective Date of Service: Feb 12, 2018. Subjective this pt feels somewhat improved, she still have fairly significant shortness of breath and coughing with a deep breath Review of Systems Constitutional: + weakness, + fatigue, No fever, No chills Respiratory: + cough, + sputum (yellow), + wheezing, + shortness of breath, + dyspnea on exertion Cardiac: + edema, No chest pain Abdomen: No pain, No nausea, No vomiting, No diarrhea Musculoskeletal: No joint pain Female : No dysuria, No urinary frequency Psychiatric: No depression symptoms, No anhedonism Objective Vital Signs Date Time Temp Pulse Resp B/P (MAP) Pulse Ox O2 Delivery O2 Flow Rate FiO2 02/12/18 08:35 65 18 98 Nasal Cannula 2.0 02/12/18 06:51 36.9 59 14 151/61 (91) 98 Nasal Cannula 2.0 02/12/18 00:15 Nasal Cannula 2.0 02/11/18 23:04 37.3 77 18 190/72 (111) 95 Nasal Cannula 2.0 02/11/18 20:10 Nasal Cannula 2.0 02/11/18 15:53 36.9 75 18 199/70 94 Nasal Cannula 2.0 02/11/18 15:30 94 Nasal Cannula 2.0 02/11/18 15:30 90 Room Air 02/11/18 14:44 36.9 75 18 199/70 (113) 90 Room Air Physical Exam General Appearance: WD/WN, + mild distress, + obese Eyes: normal inspection, sclerae normal Neck: supple, no JVD Respiratory/Chest: + respiratory distress, + decreased breath sounds, + accessory muscle use, + rhonchi Cardiovascular: regular rate, rhythm, no murmur Abdomen: normal bowel sounds, non tender, soft Extremities: + pedal edema, + swelling Neurologic/Psychiatric: alert, oriented x 3 Laboratory Results Last 24 Hours Test 02/11/18 14:26 02/11/18 16:20 02/11/18 20:30 02/12/18 07:31 White Blood Count 13.60 K/uL Red Blood Count 3.93 M/uL Hemoglobin 10.2 g/dL Hematocrit 33.7 % Mean Corpuscular Volume 85.8 fL Mean Corpuscular Hemoglobin 26.0 pg Mean Corpuscular Hemoglobin Concent 30.3 g/dl RDW Standard Deviation 55.7 fL RDW Coefficient of Variation 17.8 % Platelet Count 285 K/uL Mean Platelet Volume 8.6 fL Sodium Level 140 mmol/L Potassium Level 3.8 mmol/L Chloride Level 104 mmol/L Carbon Dioxide Level 30 mmol/L Anion Gap 6.0 mmol/L Blood Urea Nitrogen 34 mg/dl Creatinine 2.40 mg/dl Estimated GFR () 23.6 Estimated GFR (Non- 20.4 BUN/Creatinine Ratio 14.2 Random Glucose 82 mg/dl Estimated Average Glucose 169 mg/dl Hemoglobin A1c 7.5 % Calcium Level 9.0 mg/dl Troponin I 0.017 ng/ml Pro-B-Type Natriuretic Peptide 373 pg/ml Hepatitis C Antibody Screen NEG Bedside Glucose 74 mg/dl 77 mg/dl 89 mg/dl Assessment and Plan 67 y/o F who was a direct admission from the office for cough, SOB, maybe reactive airway disease. Cough, SOB:initially thought to be HF, recent echo may only suggest Diastolic issues, is still sob will escalate treatment for reactive airway although no smoking by history but exposure to second hand smoke, will add iv steroids and scheduled b agonist and anticholinergic Acute on Chronic diastolic heart failure, continue home dose lasix 40mg PO ECHO pending, last was 2009 and noted for LVH, EF 65-70%, and type II diastolic dysfunction Acute on chronic kidney disease: baseline cr is 1.6-1.7 Increased to 2.0 on outpt labs, repeat pending DM: SSI PRN,uses large doses of lantus bid HTN: multiple medications, coreg, hydralazine Cozaar, isosorbide catapress NAE: noncompliant with CPAP due to mask issues L otitis media: finish course of levaquin, 3 doses left Other: Full code SCDs for DVT proph DM low sodium diet
[2018-02-12] MEDS: METHYLPREDNISOLONE IV 40 MG in SYRINGE 0 ML IV SCH ×2 (09:40→20:37)
[2018-02-12] MEDS: ALBUT/IPRATROP 3MG/0.5MG NEB 3 ML VIAL INH SCH ×3 (11:10→19:11)
[2018-02-12] MEDS: FORMOTEROL FUMA NEBULIZER SOLN 20 MCG/2 ML VIAL INH SCH (19:11)
--- NOTE | 2018-02-12 20:25 | ECHOCARDIOGRAM REPORT ---
*NOTICE TO RECEIVING CONSTITUTION PARTY AGENCY This information is strictly Confidential and protected under [place] law. [place] law prohibits you from making any further disclosure of this information unless further disclosure is expressly permitted by the written consent of the person to whom it pertains or is authorized by law. A general authorization for the release of medical or other information is not sufficient for this purpose. Hospital accepts no responsibility if the information is made available to any other person, INCLUDING THE PATIENT. Interpretation Summary * Name: COLE NEVES Study Date: 02/12/2018 09:16 AM BP: 190/72 mmHg * Patient Location: .4E\S\E415\S\1 HR: 111 * : 1950 (M/d/yyyy) Gender: Female Height: 64 in * Age: 67 yrs Ethnicity: CA Weight: 258 lb * Ordering Physician: Latasha Liu * Performed By: Dayana Parra RDCS * * Reason For Study: Congestive Heart Failure * BSA: 2.2 m2 * -- Conclusions -- * 1. Normal left ventricular size with hyperdynamic systolic function. EF > 70%. No regional wall motion abnormalities. Moderate concentric left ventricular hypertrophy. Type 2 diastolic dysfunction. * 2. Trace aortic regurgitation. * 3. Normal estimated right ventricular systolic pressure; 35mmHg. Procedure Details * A complete two-dimensional transthoracic echocardiogram was performed (2D, M-mode, Doppler and color flow Doppler). Left Ventricle * Normal left ventricular size with hyperdynamic systolic function. EF > 70%. No regional wall motion abnormalities. Moderate concentric left ventricular hypertrophy. Type 2 diastolic dysfunction. * Ejection Fraction = 60-65%. Right Ventricle * The right ventricle is normal in size and function. * The right ventricular systolic function is normal as assessed by tricuspid annular plane systolic excursion (TAPSE) (normal >1.5 cm). Atria * The left atrial size is normal. * Right atrial size is normal. * There is no evidence of atrial septal defect, but resolution does not allow assessment for a patent foramen ovale. Mitral Valve * There is mild mitral annular calcification. * There is no mitral valve stenosis. * Significant mitral regurgitation is absent. Tricuspid Valve * The tricuspid valve is not well visualized, but is grossly normal. * There is no tricuspid stenosis. * There is trace tricuspid regurgitation. Aortic Valve * The aortic valve is trileaflet. * No hemodynamically significant valvular aortic stenosis. * Trace aortic regurgitation. Pulmonic Valve * The pulmonary valve is inadequately visualized, but the Doppler data is adequate for interpretation. * There is no pulmonic valvular stenosis. * There is no significant pulmonary regurgitation. Great Vessels * The aortic root is normal size. * Normal pulmonary venous flow pattern. Pericardium/Pleural * Trace pericardial effusion. Great Vessels * Normal inferior vena cava size and collapsability with sniff indicates a normal right atrial pressure of 3 mmHg MMode 2D Measurements and Calculations IVSd 1.4 cm IVSs 1.7 cm LVIDd 4.6 cm LVIDs 2.9 cm LVPWd 1.4 cm LVPWs 1.7 cm IVS/LVPW 1.0 FS 38.0 % EDV(Teich) 99.6 ml ESV(Teich) 31.7 ml EF(Teich) 68.2 % EDV(cubed) 100.3 ml ESV(cubed) 23.9 ml EF(cubed) 76.2 % % IVS thick 21.6 % % LVPW thick 22.6 % LV mass(C)d 255.8 grams LV mass(C)dI 117.4 grams/m\S\2 LV mass(C)s 184.4 grams LV mass(C)sI 84.6 grams/m\S\2 SV(Teich) 68.0 ml SI(Teich) 31.2 ml/m\S\2 SV(cubed) 76.4 ml SI(cubed) 35.0 ml/m\S\2 Ao root diam 3.2 cm Ao root area 8.1 cm\S\2 ACS 2.1 cm LA dimension 3.9 cm LA/Ao 1.2 LVAd ap4 25.5 cm\S\2 LVLd ap4 7.8 cm EDV(MOD-sp4) 72.5 ml EDV(sp4-el) 71.2 ml LVAs ap4 11.8 cm\S\2 LVLs ap4 5.8 cm ESV(MOD-sp4) 21.4 ml ESV(sp4-el) 20.4 ml EF(MOD-sp4) 70.5 % EF(sp4-el) 71.3 % SV(MOD-sp4) 51.1 ml SI(MOD-sp4) 23.4 ml/m\S\2 SV(sp4-el) 50.8 ml SI(sp4-el) 23.3 ml/m\S\2 Doppler Measurements and Calculations MV E max nany 127.3 cm/sec MV A max nany 111.1 cm/sec MV E/A 1.1 MV dec time 0.20 sec Ao V2 max 203.9 cm/sec Ao max PG 16.6 mmHg Ao max PG (full) 9.6 mmHg Ao V2 mean 147.1 cm/sec Ao mean PG 9.8 mmHg Ao mean PG (full) 6.1 mmHg Ao V2 VTI 46.4 cm AI max nany 288.4 cm/sec AI max PG 33.3 mmHg LV V1 max PG 7.0 mmHg LV V1 mean PG 3.6 mmHg LV V1 max 132.4 cm/sec LV V1 mean 88.2 cm/sec LV V1 VTI 34.9 cm SV(Ao) 377.9 ml SI(Ao) 173.4 ml/m\S\2 PA V2 max 152.3 cm/sec PA max PG 9.3 mmHg TR max nany 281.6 cm/sec RVSP(TR) 34.8 mmHg RAP systole 3.0 mmHg
[2018-02-12] MEDS: SIMVASTATIN 40 MG TAB PO SCH (20:33)
[2018-02-13] VITALS (9 sets, daily range): BP systolic 136–179; BP diastolic 65–68; PULSE 64–80; TEMP 36.4–36.6; O2SAT 91–96; BMI 44.0
[2018-02-13] MEDS: FORMOTEROL FUMA NEBULIZER SOLN 20 MCG/2 ML VIAL INH SCH ×2 (07:06→19:27)
[2018-02-13] MEDS: ALBUT/IPRATROP 3MG/0.5MG NEB 3 ML VIAL INH SCH ×4 (07:06→19:27)
--- NOTE | 2018-02-13 07:29 | Clinical Documentation Query ---
KATIE Valdez : CLINICAL DOCUMENTATION QUERY Patient is a 67 year old female admitted for acute on chronic diastolic CHF. Documentation includes "acute on chronic kidney disease". This literally translates to acute kidney disease on chronic kidney disease. Acute kidney disease codes to an unspecified disorder of the kidney and is therefore not synonymous with YASEMIN or acute renal failure. Please clarify as clinically appropriate. Thank you. In your clinical opinion is this patient being managed for: ( xx ) Acute kidney failure ( ) Not Agree ( ) Other explanation of clinical findings (Please Explain) ( ) Unable to determine (Please Define) ( ) Need to Discuss The medical record reflects the following clinical findings, treatment, and risk factors. Clinical Indicators: As above. Serum creatinine 2.4 mg/dl 02/11. Treatment: Serial chemistries Risk Factors: Acute on chronic diastolic CHF Please clarify and document your clinical opinion in the progress notes and discharge summary. Terms such as "probable", "suspected", "likely", "questionable", "possible", or "still to be ruled out" are acceptable. IF IN AGREEMENT, YOU MUST DOCUMENT ABOVE DIAGNOSTIC STATEMENT IN DAILY PROGRESS NOTES AND DISCHARGE SUMMARY. This document is not part of the patient's record. Thank You, Fabien Beltran, RN [phone]
[2018-02-13] MEDS: ISOSORBIDE MONONITRATE 60 MG TABCR PO SCH (07:53)
[2018-02-13] MEDS: BENZONATATE 100MG CAP PO SCH ×3 (07:54→19:30)
[2018-02-13] MEDS: CLONIDINE HCL 0.1 MG TAB PO SCH ×2 (07:54→19:29)
[2018-02-13] MEDS: LOSARTAN POTASSIUM 50 MG TAB PO SCH (07:54)
[2018-02-13] MEDS: ALLOPURINOL 300 MG TAB PO SCH (07:55)
[2018-02-13] MEDS: FUROSEMIDE 40 MG TAB PO SCH (07:55)
[2018-02-13] MEDS: CARVEDILOL 25 MG TAB PO SCH ×2 (07:55→19:29)
[2018-02-13] MEDS: PANTOprazole SOD 40 MG TAB PO SCH (07:56)
[2018-02-13] MEDS: INSULIN ASPART 100 UNITS/ML 3 ML PEN SC SCH ×4 (08:46→21:14)
[2018-02-13] MEDS: INSULIN GLARGINE SC SCH ×2 (08:47→19:35)
[2018-02-13] MEDS: METHYLPREDNISOLONE IV 40 MG in SYRINGE 0 ML IV SCH (08:48)
[2018-02-13] MEDS ORDERED: INSULIN GLARGINE SC ONE (09:00)
[2018-02-13] MEDS: LEVOFLOXACIN 250 MG TAB PO SCH (11:00)
--- NOTE | 2018-02-13 13:04 | Progress Note ---
Subjective Date of Service: Feb 13, 2018. Subjective pt states she feels 'a lot' better today, she has better air movement and subjective feelings of less shortness of breath. less cough her glucoses are out of control and we have changed insulin doses daily to try to control Review of Systems Constitutional: + weakness, + fatigue, No fever, No chills Respiratory: + cough, + sputum, + shortness of breath, + dyspnea on exertion Cardiac: + chest pain, No edema Abdomen: No pain, No nausea, No vomiting, No diarrhea Musculoskeletal: No joint pain, No muscle pain Psychiatric: No depression symptoms, No anhedonism Objective Vital Signs Date Time Temp Pulse Resp B/P (MAP) Pulse Ox O2 Delivery O2 Flow Rate FiO2 02/13/18 11:03 71 18 92 Nasal Cannula 3.0 02/13/18 08:30 96 Nasal Cannula 4.0 02/13/18 07:39 36.6 77 18 179/68 (105) 96 Nasal Cannula 4.0 02/13/18 07:06 80 18 92 Nasal Cannula 3.0 02/13/18 00:00 Nasal Cannula 2.0 02/12/18 22:36 36.3 65 20 158/71 (100) 90 Nasal Cannula 3.0 02/12/18 20:31 66 158/68 (98) 02/12/18 19:13 76 18 90 Nasal Cannula 2.0 02/12/18 16:00 Nasal Cannula 2.0 02/12/18 15:39 75 18 93 Nasal Cannula 2.0 02/12/18 15:38 36.5 62 18 147/69 (95) 92 Nasal Cannula 2.0 02/12/18 13:49 89 137/80 (99) Physical Exam General Appearance: WD/WN, + mild distress Eyes: normal inspection, sclerae normal Respiratory/Chest: chest non-tender, + decreased breath sounds, + accessory muscle use Cardiovascular: regular rate, rhythm, no murmur Abdomen: normal bowel sounds, non tender, soft Extremities: no calf tenderness, + pedal edema Neurologic/Psychiatric: alert, oriented x 3 Skin: normal color, warm/dry, no rash Laboratory Results Last 24 Hours Test 02/12/18 16:35 02/12/18 19:54 02/12/18 22:27 02/13/18 07:29 Bedside Glucose 323 mg/dl 334 mg/dl 262 mg/dl 343 mg/dl Test 02/13/18 11:27 Bedside Glucose 390 mg/dl Assessment and Plan 67 y/o F who was a direct admission from the office for cough, SOB, maybe reactive airway disease. Cough, SOB:initially thought to be HF, recent echo may only suggest Diastolic issues, no smoking by history but exposure to second hand smoke, she has improved with steroids, b agonist and anticholinergics to suggests some reactive airway or copd, but will need outpt spirometry to make final diagnosis Acute on Chronic diastolic heart failure, continue home dose lasix 40mg PO ECHO pending, last was 2009 and noted for LVH, EF 65-70%, and type II diastolic dysfunction Acute kidney injury on chronic kidney disease: stage 4 based on diabetes, has slighlty worsened after attempts at diuresis, will have small amount of ivf and follow DM: SSI PRN,uses large doses of lantus bid, doses adjusted daily still high will taper steroids HTN: multiple medications, coreg, hydralazine Cozaar, isosorbide catapress, NAE: noncompliant with CPAP due to mask issues L otitis media: finish course of levaquin, complete course Other: Full code SCDs for DVT proph DM low sodium diet
[2018-02-13] MEDS ORDERED: SODIUM CHLORIDE 0.9% 1000ML 1,000 ML IV SCH (16:30)
[2018-02-13] MEDS: SIMVASTATIN 40 MG TAB PO SCH (19:30)
[2018-02-14] VITALS (9 sets, daily range): BP systolic 110–173; BP diastolic 70–81; PULSE 59–79; TEMP 36.4–36.7; O2SAT 92–95
[2018-02-14] MEDS: ALBUT/IPRATROP 3MG/0.5MG NEB 3 ML VIAL INH SCH ×4 (06:56→19:27)
[2018-02-14] MEDS: FORMOTEROL FUMA NEBULIZER SOLN 20 MCG/2 ML VIAL INH SCH ×2 (06:56→19:27)
[2018-02-14 07:43] LABS: CALCIUM 9.1 mg/dl (8.5-10.1); CREATININE 2.35 mg/dl (0.60-1.20); POTASSIUM 4.2 mmol/L (3.5-5.1)
[2018-02-14 07:47] LABS: HEMATOCRIT 33.9 % (37-47); HEMOGLOBIN 10.6 g/dL (12.0-16.0); MEAN CELL VOLUME 84.3 fL (80-100); MEAN CORPUSCULAR HEMOGLOBIN 26.4 pg (25-34); MEAN CORPUSCULAR HGB CONC 31.3 g/dl (32-36); MEAN PLATELET VOLUME 8.5 fL (7.4-10.4); PLATELET COUNT 393 K/uL (130-400); RED CELL DISTRIBUTION WIDTH CV 17.5 % (11.5-14.5); RED CELL DISTRIBUTION WIDTH SD 53.8 fL (36.4-46.3); WHITE BLOOD COUNT 15.58 K/uL (4.8-10.8)
[2018-02-14] MEDS ORDERED: SODIUM CHLORIDE 0.65% NA SOLN 45 ML (OCEAN) ONE (08:37)
[2018-02-14] MEDS: CLONIDINE HCL 0.1 MG TAB PO SCH ×2 (08:56→21:28)
[2018-02-14] MEDS: LOSARTAN POTASSIUM 50 MG TAB PO SCH (08:57)
[2018-02-14] MEDS: CARVEDILOL 25 MG TAB PO SCH ×2 (08:57→21:22)
[2018-02-14] MEDS: FUROSEMIDE 40 MG TAB PO SCH (08:58)
[2018-02-14] MEDS: PANTOprazole SOD 40 MG TAB PO SCH ×2 (08:58→21:23)
[2018-02-14] MEDS: ISOSORBIDE MONONITRATE 60 MG TABCR PO SCH (08:58)
[2018-02-14] MEDS: ALLOPURINOL 300 MG TAB PO SCH (08:59)
[2018-02-14] MEDS: BENZONATATE 100MG CAP PO SCH ×3 (08:59→21:29)
[2018-02-14] MEDS: INSULIN ASPART 100 UNITS/ML 3 ML PEN SC SCH ×4 (09:04→21:43)
[2018-02-14] MEDS: INSULIN GLARGINE SC SCH ×2 (09:06→21:42)
[2018-02-14] MEDS: LEVOFLOXACIN 250 MG TAB PO SCH (11:30)
--- NOTE | 2018-02-14 16:10 | Progress Note ---
Subjective Date of Service: Feb 14, 2018. Subjective This pt is still very short of breath with non productive cough, she is having better glucose control. Review of Systems Constitutional: No fever, No chills, No weakness, No fatigue Respiratory: No cough, No shortness of breath, No dyspnea on exertion Cardiac: No chest pain, No orthopnea, No edema Abdomen: No pain, No nausea, No vomiting, No diarrhea Female : No dysuria, No urinary frequency Neurologic: No memory loss Psychiatric: No depression symptoms, No anhedonism, No anxiety Objective Vital Signs Date Time Temp Pulse Resp B/P (MAP) Pulse Ox O2 Delivery O2 Flow Rate FiO2 02/14/18 15:35 36.6 76 20 149/70 (96) 92 Nasal Cannula 2.0 02/14/18 15:25 66 16 92 Nasal Cannula 2.0 02/14/18 11:04 79 16 95 Nasal Cannula 4.0 02/14/18 11:01 Nasal Cannula 4.0 02/14/18 09:00 64 02/14/18 07:14 36.7 59 20 173/75 (107) 92 Nasal Cannula 4.0 02/14/18 06:56 78 16 95 Nasal Cannula 3.0 02/14/18 00:06 36.6 65 20 164/71 (102) 95 Nasal Cannula 4.0 02/14/18 00:00 Nasal Cannula 3.0 02/13/18 19:35 178/65 (102) 02/13/18 19:30 78 16 93 Nasal Cannula 3.5 Physical Exam General Appearance: WD/WN, + mild distress Eyes: normal inspection, sclerae normal Neck: supple, no JVD Respiratory/Chest: chest non-tender, + decreased breath sounds, + accessory muscle use, + rhonchi Cardiovascular: regular rate, rhythm, no murmur Abdomen: normal bowel sounds, non tender, soft Extremities: no pedal edema, no calf tenderness Neurologic/Psychiatric: alert, oriented x 3 Laboratory Results Last 24 Hours Test 02/13/18 16:51 02/13/18 20:06 02/14/18 03:08 02/14/18 06:27 Bedside Glucose 339 mg/dl 344 mg/dl 149 mg/dl White Blood Count 15.58 K/uL Red Blood Count 4.02 M/uL Hemoglobin 10.6 g/dL Hematocrit 33.9 % Mean Corpuscular Volume 84.3 fL Mean Corpuscular Hemoglobin 26.4 pg Mean Corpuscular Hemoglobin Concent 31.3 g/dl RDW Standard Deviation 53.8 fL RDW Coefficient of Variation 17.5 % Platelet Count 393 K/uL Mean Platelet Volume 8.5 fL Sodium Level 138 mmol/L Potassium Level 4.2 mmol/L Chloride Level 103 mmol/L Carbon Dioxide Level 26 mmol/L Anion Gap 9.0 mmol/L Blood Urea Nitrogen 61 mg/dl Creatinine 2.35 mg/dl Est Creatinine Clear Calc Drug Dose 29.5 ml/min Estimated GFR () 24.2 Estimated GFR (Non- 20.9 BUN/Creatinine Ratio 26.0 Random Glucose 183 mg/dl Calcium Level 9.1 mg/dl Magnesium Level 2.3 mg/dl Test 02/14/18 07:42 02/14/18 11:43 Bedside Glucose 187 mg/dl 186 mg/dl Assessment and Plan 67 y/o F who was a direct admission from the office for cough, SOB, maybe reactive airway disease. Cough, SOB:initially thought to be HF, recent echo may only suggest mild Diastolic issues, no smoking by history but exposure to second hand smoke, she has improved with steroids, b agonist and anticholinergics to suggests some reactive airway or copd, she did regress somewhat with reducing the steroids Acute on Chronic diastolic heart failure, continue home dose lasix 40mg PO ECHO pending, LVH, EF 65-70%, and type II diastolic dysfunction Acute kidney injury on chronic kidney disease: stage 4 based on diabetes, remains with elevated Cr but slowly improving DM: SSI PRN,uses large doses of lantus bid, doses did augment lantus and is on a very tight scale HTN: multiple medications, coreg, hydralazine Cozaar, isosorbide catapress, NAE: noncompliant with CPAP due to mask issues L otitis media: finish course of levaquin, complete course Other: Full code SCDs for DVT proph DM low sodium diet
--- NOTE | 2018-02-14 20:44 | Pulmonary Consultation ---
History General Date of Service: Feb 14, 2018. Stated Complaint: Cough HPI The patient is a 67 year old female who presents to [facility] with complaints of Copd Exacerbation. The patient's primary care provider is Shawanda Gomez DO. Historian: patient, other (Records) Onset: other (Few weeks) Review of Systems Constitutional: denies: no symptoms, as stated in HPI, chills, diaphoresis, fever, malaise, weakness, weight gain, weight loss, other Eyes: denies: no symptoms, as stated in HPI, eye pain, tearing, itching, redness, discharge, double vision, visual changes, blurred vision, photophobia, other ENT: denies: no symptoms, as stated in HPI, ear pain, ear discharge, loss of hearing, tinnitus, nasal pain, nasal congestion, rhinorrhea, epistaxis, sore throat, stridor, throat swelling, mouth pain, mouth swelling, dental pain, gum swelling, other Cardiovascular: denies: no symptoms, as stated in HPI, chest pain, chest pressure, chest tightness, diaphoresis, edema, intermittent claudication, orthopnea, palpitations, syncope, other Respiratory: reports: cough, shortness of breath Gastrointestinal: reports: nausea, denies: no symptoms, as stated in HPI, abdominal pain, constipation, diarrhea, vomiting, hematemesis, hematochezia, hemorrhoids, anorexia, appetite changes, stool changes, flatulence, belching, food intolerance, jaundice, other Genitourinary - Female: denies: no symptoms, as stated in HPI, dysmenorrhea, dysuria, hematuria, hesitancy, menorrhagia, metrorrhagia, , rash, urinary frequency, urinary incontinence, urinary retention, urinary urgency, vaginal bleeding, vaginal discharge, vaginal itching, vulvadynia, other Musculoskeletal: denies: no symptoms, as stated in HPI, arthralgias, neck pain , back pain, joint pain, joint swelling, deformity, myalgias, muscle spasms, other Neurologic: denies: no symptoms, as stated in HPI, headache, dizziness, general weakness, focal weakness, numbness, tingling, paresthesia, pre-existing deficit, tremors, tics, vertigo, seizure, lethargy, memory loss, other Psychiatric: denies: no symptoms, as stated in HPI, anxiety, depression, suicidal ideation, homicidal ideation, visual hallucinations, auditory hallucinations, mood changes, alcohol abuse, drug abuse, other Endocrine: denies: no symptoms, as stated in HPI, cold intolerance, heat intolerance, hair changes, goiter, polydipsia, polyuria, skin changes, other Hematologic / Lymphatic: denies: no symptoms, as stated in HPI, abnormal clotting, adenopathy, anemia, easy bleeding, easy bruising, gums bleeding, petechiae, other Allergic / Immunologic: denies: no symptoms, as stated in HPI, eczema, environmental allergies, frequent infections, hives, multiple food allergies, seasonal allergies, pet sensitivities, poor healing, prolonged convalescence, other Past Medical History Past Medical History: History of chronic kidney disease, diabetes, hypertension, GERD in the past, no Coto's esophagus. Past Medical History: diabetes, gout, high cholesterol, hypertension Past Surgical History: cholecystectomy, other Family History Parent: Heart Disease Social History Hx Tobacco Use In Past Year?: No Smoking Status: Never Smoker Marital status: Housing status: lives with family Immunizations History of Influenza Vaccine: Yes Influenza Vaccine Date: Aug 16, 2015 History of Tetanus Vaccine?: Yes Tetanus Immunization Date: Oct 16, 2015 History of Pneumococcal: Unknown History of Hepatitis B Vaccine: Unknown History of MDRO History of MDRO: No Allergies Coded Allergies: Tramadol (Unverified Allergy, Mild, "FELT WEIRD", 11/08/17) Amlodipine (Verified Allergy, Unknown, SWELLING, 11/08/17) Current Medications Reported Home Medications Medications Dose Route/Sig Max Daily Dose Days Date Category Dose Instructions Oxygen Gas 2 Liters NA HS 11/01/17 Reported Cozaar (Losartan Potassium) 100 Mg Tab 100 Mg PO QAM 11/01/17 Reported Isosorbide Mononitrate ER (Isosorbide Mononitrate) 60 Mg Tabcr 1 Tab PO QAM 11/01/17 Reported Humalog (Insulin Human Lispro) 1 Ea Inj 50 Units SC TID 11/01/17 Reported PT ALSO USES SLIDING SCALE Lantus (Insulin Glargine) 100 Unit/Ml Inj 75 Units SC BID 01/24/17 Reported Apresoline (Hydralazine Hcl) 100 Mg Tab 1 Tab PO TID 07/25/16 Reported Tylenol (Acetaminophen) 500 Mg Tab 2 Tab PO Q6 PRN 2 03/24/16 Reported Catapres (Clonidine Hcl) 0.1 Mg Tab 1 Tab PO BID 90 03/24/16 Reported Lasix (Furosemide) 40 Mg Tab 40 Mg PO QAM 03/16/16 Reported Vitamin D 52879 Unit (Ergocalciferol) 50,000 Unit Cap 1 Cap PO MONTHLY 28 03/16/16 Reported Colcrys (Colchicine) 0.6 Mg Tab 1 Tab PO BID PRN 03/16/16 Reported GOUT FLARE UPS Coreg (Carvedilol) 25 Mg Tab 1 Tab PO BID 90 03/16/16 Reported Zyloprim (Allopurinol) 300 Mg Tab 1 Tab PO QAM 30 03/16/16 Reported Zocor (Simvastatin) 40 Mg Tab 40 Mg PO QPM 09/01/10 Reported Protonix (Pantoprazole Sodium) 40 Mg Tab 40 Mg PO QAM 09/01/10 Reported Physical Physical Exam Vital Signs: Date Time Temp Pulse Resp B/P (MAP) Pulse Ox O2 Delivery O2 Flow Rate FiO2 02/14/18 19:28 74 16 94 Nasal Cannula 2.0 02/14/18 16:00 Nasal Cannula 2.0 02/14/18 15:35 36.6 76 20 149/70 (96) 92 Nasal Cannula 2.0 02/14/18 15:25 66 16 92 Nasal Cannula 2.0 02/14/18 11:04 79 16 95 Nasal Cannula 4.0 02/14/18 11:01 Nasal Cannula 4.0 02/14/18 09:00 64 02/14/18 07:14 36.7 59 20 173/75 (107) 92 Nasal Cannula 4.0 02/14/18 06:56 78 16 95 Nasal Cannula 3.0 02/14/18 00:06 36.6 65 20 164/71 (102) 95 Nasal Cannula 4.0 02/14/18 00:00 Nasal Cannula 3.0 General Appearance: WELL-APPEARING, NO APPARENT DISTRESS Eyes: EOMI ENT: NORMAL THROAT EXAM Neck: TRACHEA MIDLINE, NO STRIDOR Respiratory: BREATH SOUNDS NORMAL Cardiovasular: REGULAR RATE/RHYTHM, NORMAL S1S2, NO M/G/R, NO MURMUR Abdomen: NON TENDER, NO MASSES, NO GUARDING Upper Extremities: NO EDEMA Lower Extremities: NO EDEMA Neuro: ALERT, ORIENTED x 3, NORMAL MOTOR EXAM Psychiatric: NORMAL AFFECT Diagnostics Labs Results Past 24 Hours Test 02/14/18 03:08 02/14/18 06:27 02/14/18 07:42 02/14/18 11:43 Range/Units Bedside Glucose 149 187 186 70-90 mg/dl White Blood Count 15.58 4.8-10.8 K/uL Red Blood Count 4.02 4.2-5.4 M/uL Hemoglobin 10.6 12.0-16.0 g/dL Hematocrit 33.9 37-47 % Mean Corpuscular Volume 84.3 80-100 fL Mean Corpuscular Hemoglobin 26.4 25-34 pg Mean Corpuscular Hemoglobin Concent 31.3 32-36 g/dl RDW Standard Deviation 53.8 36.4-46.3 fL RDW Coefficient of Variation 17.5 11.5-14.5 % Platelet Count 393 130-400 K/uL Mean Platelet Volume 8.5 7.4-10.4 fL Sodium Level 138 136-145 mmol/L Potassium Level 4.2 3.5-5.1 mmol/L Chloride Level 103 98-107 mmol/L Carbon Dioxide Level 26 21-32 mmol/L Anion Gap 9.0 3-11 mmol/L Blood Urea Nitrogen 61 7-18 mg/dl Creatinine 2.35 0.60-1.20 mg/dl Est Creatinine Clear Calc Drug Dose 29.5 ml/min Estimated GFR () 24.2 Estimated GFR (Non- 20.9 BUN/Creatinine Ratio 26.0 10-20 Random Glucose 183 70-99 mg/dl Calcium Level 9.1 8.5-10.1 mg/dl Magnesium Level 2.3 1.8-2.4 mg/dl Test 02/14/18 16:28 02/14/18 20:14 Range/Units Bedside Glucose 177 325 70-90 mg/dl Diagnostic Radiology Chest x-ray and CAT scan reviewed personally, dimension, the patient is non- smoker, she does have secondhand exposure to smoking in the past, she does not have any history of lung disease in the past. The findings on the chest x-ray and CAT scan are in support of increased pulmonary vascular congestion. Impression Assessment and Plan 1. Persistent cough, secondary to GERD, patient had all the substrate for it. Including chronic kidney disease, gastroparesis, diabetes and low esophageal sphincter pressure. The length of her symptoms apparently extend for the past year. 2. The patient was treated with SABA inhibitors in the past but she has been taken off it and change to ARB. It does cause cough but to a lesser degree. 3. Cardiomegaly with CHF, findings are incompatible with the patient's symptoms including cough mainly. However, the patient denies any shortness of breath to me. 4. Chronic kidney disease with a stable BUN/creatinine. 5. History of diabetes and hypertension. 6. Although the patient has chronic renal failure, the presence of persistent pulmonary vascular congestion on the CAT scan is concerning to me for renopulmonary syndrome or crest syndrome. Plan: 1. I will start the patient on PPI twice daily as well as Reglan. 2. I would expect the cough to get better in the next few days. 3. Her symptoms does not represent an infectious process. 4. If the symptoms are persistent, serology would be indicated. Thank you, will follow.
[2018-02-14] MEDS: SIMVASTATIN 40 MG TAB PO SCH (21:29)
[2018-02-14] MEDS: METOCLOPRAMIDE HCL 10 MG TAB PO SCH (21:44)
[2018-02-15] VITALS (9 sets, daily range): BP systolic 138–169; BP diastolic 52–66; PULSE 55–78; TEMP 36.4–36.8; O2SAT 92–95; Ht 162.6 cm; Wt 113.7 kg
[2018-02-15] MEDS: ALBUT/IPRATROP 3MG/0.5MG NEB 3 ML VIAL INH SCH ×4 (07:25→19:07)
[2018-02-15] MEDS: METOCLOPRAMIDE HCL 10 MG TAB PO SCH ×4 (07:26→20:35)
[2018-02-15] MEDS: FORMOTEROL FUMA NEBULIZER SOLN 20 MCG/2 ML VIAL INH SCH ×2 (07:28→19:07)
[2018-02-15] MEDS: ISOSORBIDE MONONITRATE 60 MG TABCR PO SCH (08:43)
[2018-02-15] MEDS: CARVEDILOL 25 MG TAB PO SCH ×2 (08:43→20:37)
[2018-02-15] MEDS: CLONIDINE HCL 0.1 MG TAB PO SCH ×2 (08:43→20:38)
[2018-02-15] MEDS: LOSARTAN POTASSIUM 50 MG TAB PO SCH (08:43)
[2018-02-15] MEDS: PANTOprazole SOD 40 MG TAB PO SCH ×2 (08:44→20:38)
[2018-02-15] MEDS: ALLOPURINOL 300 MG TAB PO SCH (08:44)
[2018-02-15] MEDS: BENZONATATE 100MG CAP PO SCH ×3 (08:44→20:35)
[2018-02-15] MEDS: FUROSEMIDE 40 MG TAB PO SCH (08:44)
[2018-02-15] MEDS: INSULIN ASPART 100 UNITS/ML 3 ML PEN SC SCH ×3 (08:52→20:43)
[2018-02-15] MEDS: INSULIN GLARGINE SC SCH ×2 (08:52→20:43)
--- NOTE | 2018-02-15 15:41 | Progress Note ---
Subjective Date of Service: Feb 15, 2018. Subjective this pt has improved since beginning treatment for reflux Review of Systems Constitutional: + weakness, No fever, No chills Respiratory: + cough, No shortness of breath, No dyspnea on exertion Cardiac: No chest pain, No orthopnea, No edema Abdomen: No pain, No nausea Musculoskeletal: + swelling, No joint pain, No muscle pain Psychiatric: No depression symptoms, No anhedonism Objective Vital Signs Date Time Temp Pulse Resp B/P (MAP) Pulse Ox O2 Delivery O2 Flow Rate FiO2 02/15/18 15:34 64 16 92 Nasal Cannula 2.0 02/15/18 14:55 36.6 55 18 138/65 (89) 93 Nasal Cannula 2.0 02/15/18 11:15 Nasal Cannula 2.0 02/15/18 11:14 71 16 94 Nasal Cannula 2.0 02/15/18 07:28 78 16 93 Nasal Cannula 2.0 02/15/18 07:20 36.7 60 18 161/66 (97) 95 Nasal Cannula 2.0 02/15/18 00:31 36.4 65 20 160/52 (88) 93 2.0 02/15/18 00:00 Nasal Cannula 2.0 02/14/18 21:18 36.4 70 16 110/81 (91) 92 Nasal Cannula 2.0 02/14/18 19:28 74 16 94 Nasal Cannula 2.0 02/14/18 16:00 Nasal Cannula 2.0 Physical Exam General Appearance: WD/WN, + obese Eyes: normal inspection, sclerae normal Neck: supple, no JVD Respiratory/Chest: chest non-tender, + decreased breath sounds, + accessory muscle use Cardiovascular: regular rate, rhythm, no murmur Abdomen: normal bowel sounds, non tender, soft Extremities: no pedal edema, no calf tenderness Neurologic/Psychiatric: alert, oriented x 3 Laboratory Results Last 24 Hours Test 02/14/18 16:28 02/14/18 20:14 02/15/18 07:40 02/15/18 11:41 Bedside Glucose 177 mg/dl 325 mg/dl 133 mg/dl 111 mg/dl Assessment and Plan 67 y/o F who was a direct admission from the office for cough, SOB, maybe reactive airway disease. Cough, SOB:initially thought to be HF, recent echo may only suggest mild Diastolic issues, no smoking by history but exposure to second hand smoke, she has improved with treatment of reflux that is worsened but her pre exisiting obesity and likely diabetic gastroparesis will stop steroids at this time. Acute on Chronic diastolic heart failure, continue home dose lasix 40mg PO ECHO no rwma, LVH, EF 65-70%, and type II diastolic dysfunction Acute kidney injury on chronic kidney disease: stage 4 based on diabetes, remains with elevated Cr but slowly improving DM: SSI PRN,uses large doses of lantus bid, doses did augment lantus will need to tighten scale HTN: coreg, hydralazine Cozaar, isosorbide catapress, NAE: noncompliant with CPAP due to mask issues, obesity impacts her breathing also L otitis media: finish course of levaquin, complete course Other: Full code SCDs for DVT proph DM low sodium diet
--- NOTE | 2018-02-15 19:20 | Pulmonology Progress Note ---
Pulmonary Progress Note Date of Service Feb 15, 2018. Attending Dr. Gaffney Subjective Cough has been better but not subsided, no shortness of breath, she was able to sleep overnight without any episode of cough according to her. Objective Physical exam on 02/15/2018 revealed vital signs are stable, O2 sat is been maintained, S1-S2 regular rate and rhythm, lungs are distant clear breath sounds , abdomen is benign no edema. Assessment & Plan 1. Cough secondary to GERD. 2. Gastroparesis related to her chronic kidney disease as well as gastroparesis from chronic history of diabetes. Plan: 1. Continue PPI twice daily and Reglan before meals and at bedtime for 28 days. Then also the dose to PPI nocturnally only and stop Reglan. 2. She would benefit from GI consult to evaluate for Coto's esophagus. 3. Patient can be discharged home from pulmonary standpoint. Thank you for your kind referral, will follow as needed. Data Medications: Current Inpatient Medications Medications (Trade) Dose Ordered Sig/Errol Route Start Time Stop Time Status Last Admin Dose Admin Allopurinol (Zyloprim Tab) 300 mg QAM PO 02/12/18 08:00 03/14/18 07:59 02/15/18 08:44 300 MG Carvedilol (Coreg Tab) 25 mg BID PO 02/11/18 20:00 03/13/18 19:59 02/15/18 08:43 25 MG Clonidine HCl (Catapres Tab) 0.1 mg BID PO 02/11/18 20:00 03/13/18 19:59 02/15/18 08:43 0.1 MG Colchicine (Colchicine Tab) 0.6 mg BID PRN PO 02/11/18 14:15 03/13/18 14:14 Furosemide (Lasix Tab) 40 mg QAM PO 02/12/18 08:00 03/14/18 07:59 02/15/18 08:44 40 MG Hydralazine HCl (Apresoline Tab) 100 mg TID PO 02/11/18 20:00 03/13/18 19:59 02/15/18 13:40 100 MG Isosorbide Mononitrate (Imdur Ext Rel Tab) 60 mg QAM PO 02/12/18 08:00 03/14/18 07:59 02/15/18 08:43 60 MG Losartan Potassium (coZAAR TAB) 100 mg QAM PO 02/12/18 08:00 03/14/18 07:59 02/15/18 08:43 100 MG Simvastatin (Zocor Tab) 40 mg QPM PO 02/11/18 21:00 03/13/18 20:59 02/14/18 21:29 40 MG Acetaminophen (Tylenol Tab) 650 mg Q4H PRN PO 02/11/18 14:15 03/13/18 14:14 Magnesium Hydroxide (Milk Of Magnesia Susp) 30 ml Q6H PRN PO 02/11/18 14:15 03/13/18 14:14 Ondansetron HCl (Zofran Inj) 4 mg Q6H PRN IV 02/11/18 14:15 03/13/18 14:14 Insulin Aspart (novoLOG ASPART) SLIDING SCALE If C... ACHS SC 02/11/18 16:30 03/13/18 16:29 02/15/18 12:21 7 UNITS Glucose (Glucose 40% Gel) 15-30 GRAMS 15 GRAMS... UD PRN PO 02/11/18 14:15 03/13/18 14:14 Glucose (Glucose Chew Tab) 4-8 Tablets 4 Tabl... UD PRN PO 02/11/18 14:15 03/13/18 14:14 Dextrose (Dextrose 50% 50ML Syringe) 25-50ML OF 50% DW IV FOR... UD PRN IV 02/11/18 14:15 03/13/18 14:14 Glucagon (Glucagon Inj) 1 mg UD PRN SQ 02/11/18 14:15 03/13/18 14:14 Benzonatate (Tessalon Perles Cap) 100 mg TID PO 02/12/18 08:00 03/14/18 07:59 02/15/18 13:40 100 MG Formoterol Fumarate (Perforomist 20MCG/2ML Neb Soln) 20 mcg BIDR INH 02/12/18 20:00 03/14/18 19:59 02/15/18 19:07 20 MCG Albuterol/ Ipratropium (Duoneb) 3 ml QIDR INH 02/12/18 12:00 03/14/18 11:59 02/15/18 15:34 3 ML Albuterol/ Ipratropium (Duoneb) 3 ml Q2H PRN INH 02/12/18 09:00 03/14/18 08:59 Insulin Glargine (Lantus Vial) 85 units BID SC 02/13/18 20:00 03/13/18 19:59 02/15/18 08:52 85 UNITS Pantoprazole Sodium (Protonix Tab) 40 mg BID PO 02/14/18 20:00 03/14/18 07:59 02/15/18 08:44 40 MG Metoclopramide HCl (Reglan Tab) 10 mg ACHS PO 02/14/18 21:00 03/16/18 20:59 02/15/18 16:02 10 MG I & O: 24-Hour Column 02/16/18 08:00 Intake Total 240 ml Output Total 1300 ml Balance -1060 ml Vital Signs: Date Time Temp Pulse Resp B/P (MAP) Pulse Ox O2 Delivery O2 Flow Rate FiO2 02/15/18 19:10 73 16 92 Nasal Cannula 2.0 02/15/18 16:00 95 Nasal Cannula 2.0 02/15/18 15:34 64 16 92 Nasal Cannula 2.0 02/15/18 14:55 36.6 55 18 138/65 (89) 93 Nasal Cannula 2.0 02/15/18 11:15 Nasal Cannula 2.0 02/15/18 11:14 71 16 94 Nasal Cannula 2.0 02/15/18 07:28 78 16 93 Nasal Cannula 2.0 02/15/18 07:20 36.7 60 18 161/66 (97) 95 Nasal Cannula 2.0 02/15/18 00:31 36.4 65 20 160/52 (88) 93 2.0 02/15/18 00:00 Nasal Cannula 2.0 02/14/18 21:18 36.4 70 16 110/81 (91) 92 Nasal Cannula 2.0 02/14/18 19:28 74 16 94 Nasal Cannula 2.0 Laboratory Results: Last 24 Hours Test 02/14/18 20:14 02/15/18 07:40 02/15/18 11:41 02/15/18 16:51 Bedside Glucose 325 mg/dl 133 mg/dl 111 mg/dl 151 mg/dl
[2018-02-15] MEDS: SIMVASTATIN 40 MG TAB PO SCH (20:34)
[2018-02-16] VITALS (7 sets, daily range): BP systolic 158; BP diastolic 64; PULSE 54–74; TEMP 36.7; O2SAT 2–96
[2018-02-16] MEDS: METOCLOPRAMIDE HCL 10 MG TAB PO SCH ×2 (06:02→12:11)
[2018-02-16] MEDS: FORMOTEROL FUMA NEBULIZER SOLN 20 MCG/2 ML VIAL INH SCH (07:20)
[2018-02-16] MEDS: ALBUT/IPRATROP 3MG/0.5MG NEB 3 ML VIAL INH SCH ×2 (07:21→11:15)
[2018-02-16 07:35] LABS: HEMATOCRIT 34.6 % (37-47); HEMOGLOBIN 10.9 g/dL (12.0-16.0); MEAN CELL VOLUME 84.2 fL (80-100); MEAN CORPUSCULAR HEMOGLOBIN 26.5 pg (25-34); MEAN CORPUSCULAR HGB CONC 31.5 g/dl (32-36); MEAN PLATELET VOLUME 8.2 fL (7.4-10.4); PLATELET COUNT 381 K/uL (130-400); RED CELL DISTRIBUTION WIDTH CV 17.7 % (11.5-14.5); RED CELL DISTRIBUTION WIDTH SD 54.5 fL (36.4-46.3); WHITE BLOOD COUNT 14.44 K/uL (4.8-10.8)
[2018-02-16] MEDS: BENZONATATE 100MG CAP PO SCH ×2 (08:07→14:14)
[2018-02-16] MEDS: FUROSEMIDE 40 MG TAB PO SCH (08:07)
[2018-02-16] MEDS: ALLOPURINOL 300 MG TAB PO SCH (08:08)
[2018-02-16] MEDS: LOSARTAN POTASSIUM 50 MG TAB PO SCH (08:08)
[2018-02-16] MEDS: ISOSORBIDE MONONITRATE 60 MG TABCR PO SCH (08:08)
[2018-02-16] MEDS: PANTOprazole SOD 40 MG TAB PO SCH (08:09)
[2018-02-16] MEDS: CARVEDILOL 25 MG TAB PO SCH (08:09)
[2018-02-16] MEDS: CLONIDINE HCL 0.1 MG TAB PO SCH (08:09)
[2018-02-16 08:15] LABS: CREATININE 2.38 mg/dl (0.60-1.20)
[2018-02-16] MEDS: INSULIN ASPART 100 UNITS/ML 3 ML PEN SC SCH ×2 (08:52→12:54)
[2018-02-16 09:06] LABS: POTASSIUM 3.6 mmol/L (3.5-5.1)
[2018-02-16] MEDS: INSULIN GLARGINE SC SCH (09:13)
[2018-02-16] MEDS ORDERED: OXGN (13:08)
[2018-02-16] MEDS ORDERED: IPRA1AER2 INH (13:09)
[2018-02-16] MEDS ORDERED: RGL10 PO (13:09)
[2018-02-16] MEDS ORDERED: PRT40 PO (13:09)
[2018-02-16] MEDS ORDERED: GUAISYP4 PO (13:09)
--- NOTE | 2018-02-16 13:11 | Discharge Instructions ---
Discharge Instructions Date of Service Feb 16, 2018. Admission Reason for Admission: Copd Exacerbation Discharge Discharge Diagnosis / Problem: reflux espphagitis Discharge Goals Goal(s): Diagnostic testing, Therapeutic intervention Activity Recommendations Activity Limitations: as noted below Lifting Limitations: gradually increase as tolerated . Current Hospital Diet Patient's current hospital diet: Diabetes Type 2 Diet, Low Sodium Diet (2gm Na) Discharge Diet Recommended Diet: Diabetes Type 2 Diet Pending Studies Studies pending at discharge: no Laboratory Results Hemoglobin A1c Test 02/11/18 14:26 Range/Units Estimated Average Glucose 169 mg/dl Hemoglobin A1c 7.5 H 4.5-5.6 % Medical Emergencies . Who to Call and When: Medical Emergencies: If at any time you feel your situation is an emergency, please call 911 immediately. . Non-Emergent Contact Non-Emergency issues call your: Primary Care Provider, [employer] Feeder Call Non-Emergent contact if: temperature is above 101, your pain is unusual for you . . "Provider Documentation" section prepared by Alvin Ramos. .
--- NOTE | 2018-02-16 13:14 | Discharge Summary ---
Discharge Summary Date of Service Feb 16, 2018. Discharge Summary Admission Date: Feb 11, 2018 at 13:45 Discharge Date: Feb 16, 2018 Discharge Disposition: Home with services Principal Diagnosis: reflux pneumonitis Immunizations: Have You Had Influenza Vaccine: Yes Influenza Vaccine Date: Aug 16, 2015 History of Tetanus Vaccine?: Yes Tetanus Immunization Date: Oct 16, 2015 History of Pneumococcal: Unknown History of Hepatitis B Vaccine: Unknown Medication Reconciliation New Medications: Guaifenesin/Codeine (Robitussin-Ac Syrup) Syrp 10 ML PO Q4H PRN for Cough for 4 Days, #240 ML sugar free if able Ipratropium-Albuterol (Combivent Respimat) 1 Aer Aer 1 PUFFS INH QID, #1 INH Metoclopramide HCl (Metoclopramide HCl) 10 Mg Tab 10 MG PO ACHS, #30 TAB Pantoprazole (Pantoprazole Sodium) 40 Mg Tab 40 MG PO BID, #60 TAB 6 Refills Continued Medications: Acetaminophen (Tylenol) 500 Mg Tab 2 TAB PO Q6 PRN for Moderate Pain for 2 Days, #20 TAB 3 Refills Allopurinol (Zyloprim) 300 Mg Tab 1 TAB PO QAM for 30 Days, #30 TAB 5 Refills Carvedilol (Coreg) 25 Mg Tab 1 TAB PO BID for 90 Days, #180 TAB 1 Refill Clonidine Hcl (Catapres) 0.1 Mg Tab 1 TAB PO BID for 90 Days, #180 TAB 1 Refill Colchicine (Colcrys) 0.6 Mg Tab 1 TAB PO BID PRN for Documentation GOUT FLARE UPS Ergocalciferol (Vitamin D 56078 Unit) 50,000 Unit Cap 1 CAP PO MONTHLY for 28 Days, #4 CAP 5 Refills Furosemide (Lasix) 40 Mg Tab 40 MG PO QAM, TAB Hydralazine Hcl (Apresoline) 100 Mg Tab 1 TAB PO TID, TAB Insulin Glargine (Lantus) 100 Unit/Ml Inj 75 UNITS SC BID, VIAL Insulin Human Lispro (Humalog) 1 Ea Inj 50 UNITS SC TID PT ALSO USES SLIDING SCALE Isosorbide Mononitrate (Isosorbide Mononitrate ER) 60 Mg Tabcr 1 TAB PO QAM Losartan Potassium (Cozaar) 100 Mg Tab 100 MG PO QAM, TAB Simvastatin (Zocor) 40 Mg Tab 40 MG PO QPM, 0 Refills Discontinued Medications: Pantoprazole (Protonix) 40 Mg Tab 40 MG PO QAM, #30 0 Refills Discharge Exam Review of Systems: Constitutional: No fever, No chills Respiratory: No cough, No sputum Abdomen: No pain, No nausea, No diarrhea Musculoskeletal: No joint pain, No muscle pain, No swelling Physical Exam: General Appearance: WD/WN, no apparent distress Neck: supple, thyroid normal Respiratory/Chest: chest non-tender, lungs clear, no respiratory distress, + decreased breath sounds Cardiovascular: regular rate, rhythm, no edema Hospital Course 67 y/o F who was a direct admission from the office for cough, SOB, maybe reactive airway disease. Cough, SOB:initially thought to be HF, recent echo may only suggest mild Diastolic issues, no smoking by history but exposure to second hand smoke, she has improved with treatment of reflux that is worsened but her pre exisiting obesity and likely diabetic gastroparesis, continue ppi but make it bid, and use reglan for one week, consider gatric emptying study, work on lifestyle modifications Acute on Chronic diastolic heart failure, continue home dose lasix 40mg PO ECHO no rwma, LVH, EF 65-70%, and type II diastolic dysfunction Acute kidney injury on chronic kidney disease: stage 4 based on diabetes, remains with elevated Cr but slowly improving DM: SSI PRN,uses large doses of lantus bid, was out of control with steroids, now back in better range HTN: coreg, hydralazine Cozaar, isosorbide catapress NAE: noncompliant with CPAP due to mask issues, obesity impacts her breathing also, did have a 2 step oxygen testing prior to leaving, did not require oxygen L otitis media: finish course of levaquin, completed course Total Time Spent: Greater than 30 minutes This includes examination of the patient, discharge planning, medication reconciliation, and communication with other providers. Discharge Instructions Please refer to the electronic Patient Visit Report (Discharge Instructions) for additional information.
[2018-02-16] MEDS ORDERED: INSULIN GLARGINE SC SCH (20:00)
--- NOTE | 2018-02-19 12:05 | EDITING REQUIRED CODING QUERY ---
CODING QUERY To promote full compliance with coding requirements relating to patient care, provider participation is requested in all cases of rail track layer uncertainty. Please assist us with the question(s) below: Coding Question(s): The Discharge Summary documents Principal Diagnosis of Reflux Pneumonitis. Please clarify below, in your clinical opinion. ( ) Reflux Pneumonitis means Reflux Esophagitis without any pneumonitis/pneumonia ( xx ) Reflux Pneumonitis means Aspiration Pneumonia or Pneumonitis due to inhalation of saliva ( ) Reflux Pneumonitis means Pneumonia, unspecified ( ) Reflux Pneumonitis means Other, Specify Physician's Response(s): Thank you Hanna Maradiaga Principal Diagnosis: "_that condition established after study, to be chiefly responsible for occasioning the admission of the patient to the hospital for care." Co-Existing Principal Diagnosis: "_when two or more diagnoses equally meet the criteria for principal diagnosis as determined by the circumstances of admission, diagnostic work up, and/or therapy provided, and the Alphabetic Index, Tabular List, or another coding guideline does not provide sequencing direction, any one of the diagnoses may be sequenced first." "When the physician has documented what appears to be a current diagnosis in the body of the record, but has not included the diagnosis in the final diagnostic statement, the physician should be asked whether the diagnosis should be added." ([facility] 2 QTR90. p3-4)
--- NOTE | 2018-02-26 06:05 | EDITING REQUIRED CODING QUERY ---
PRESENT ON ADMISSION QUERY To promote full compliance with coding requirements relating to pateint care, physician participation is requested in all cases of data coder operator uncertainty. Please assist us with the question(s) below: Please place an X within the parenthesis (x). The following diagnosis(es) listed in this patient's medical record require physician assistance to determine if they were present on admission (POA) or not. Please advise for each diagnosis whether it was present on admission, not present on admission, or if it was clinically undetermined. 1. Reflux Pneumonitis (documented on the Discharge Summary) (x ) Present On Admission ( ) Not Present On Admission ( ) Clinically Undetermined Thank you Hanna Maradiaga *Definition of the present on admission (POA)-Present on admission is defined as present at the time the order for inpatient admission occurs. Conditions that develop during an outpatient encounter prior to a written order for inpatient admission (including emergency department, observation, or outpatient surgery) are considered present on admission.
== END 2018-02-16 15:13 | disposition home or self-care (01) | DRG 177 ==
LOC: C.4E 13:45
PROVIDERS: ADMIT Family Medicine; ATTEND Internal Medicine
DX: J69.0 Pneumonitis due to inhalation of food and vomit (principal); I50.33 Acute on chronic diastolic (congestive) heart failure; I13.0 Hypertensive heart and chronic kidney disease with heart failure and stage 1 through stage 4 chronic kidney disease, or unspecified chronic kidney disease; Z68.41 Body mass index [BMI] 40.0-44.9, adult; N17.9 Acute kidney failure, unspecified; N18.4 Chronic kidney disease, stage 4 (severe); R09.02 Hypoxemia; E11.43 Type 2 diabetes mellitus with diabetic autonomic (poly)neuropathy; K21.0 Gastro-esophageal reflux disease with esophagitis; J45.909 Unspecified asthma, uncomplicated; H66.92 Otitis media, unspecified, left ear; E11.22 Type 2 diabetes mellitus with diabetic chronic kidney disease; G47.33 Obstructive sleep apnea (adult) (pediatric); E78.00 Pure hypercholesterolemia, unspecified; M10.9 Gout, unspecified; E66.9 Obesity, unspecified; Z79.899 Other long term (current) drug therapy; Z79.4 Long term (current) use of insulin; Z91.19 Patient's noncompliance with other medical treatment and regimen; Z77.22 Contact with and (suspected) exposure to environmental tobacco smoke (acute) (chronic); Z88.5 Allergy status to narcotic agent; Z88.8 Allergy status to other drugs, medicaments and biological substances; Z82.49 Family history of ischemic heart disease and other diseases of the circulatory system; Z82.3 Family history of stroke

== ENCOUNTER → 2018-02-28 | Outpatient (CLI) | payer BC ==
[~2018-02-28] MED LIST changes: +IPRA1AER2 INH; -OXGN; -PANT40TA PO; +PRT40 PO; +RGL10 PO
--- NOTE | 2018-03-01 14:19 | MAMMOGRAPHY REPORT ---
BILATERAL DIGITAL SCREENING MAMMOGRAM TOMOSYNTHESIS WITH CAD: 02/28/2018 CLINICAL HISTORY: Routine screening. Patient has no complaints. TECHNIQUE: Breast tomosynthesis in addition to standard 2D mammography was performed. Current study was also evaluated with a Computer Aided Detection (CAD) system. COMPARISON: Comparison is made to exams dated: 02/23/2017 mammogram, 02/23/2017 ultrasound, 02/09/2017 mammogram - [facility], 08/29/2013 mammogram, 09/09/2012 mammogram, and 08/24/2011 m ammogram. BREAST COMPOSITION: There are scattered areas of fibroglandular density in both breasts. FINDINGS: No suspicious masses, calcifications, or areas of architectural distortion are noted in ei ther breast. There has been no significant interval change compared to prior exams. IMPRESSION: ACR BI-RADS CATEGORY 1: NEGATIVE There is no mammographic evidence of malignancy. A 1 year screening mammogram is recommended. The pa tient will receive written notification of the results. Approximately 10% of breast cancers are not detected with mammography. A negative mammographic report should not delay biopsy if a clinically suggestive mass is present. Yvonne Catalan M.D. ah/:02/28/2018 13:29:55 Web Art Director: Diana MARTINEZ(Donna)(M), [facility] letter sent: Normal 1/2 BI-RADS Code: ACR BI-RADS Category 1: Negative
== END | disposition home or self-care (01) ==
LOC: C.MAMM 13:07
PROVIDERS: ATTEND Family Medicine
DX: Z12.31 Encounter for screening mammogram for malignant neoplasm of breast (principal)

== ENCOUNTER → 2018-03-01 | Outpatient (CLI) | payer BC ==
[2018-03-01 13:38] LABS: BASO % 0.2 %; BASO ABS # 0.02 K/uL (0-0.2); EOS % 2.4 %; EOS ABS # 0.23 K/uL (0-0.5); HEMATOCRIT 31.6 % (37-47); HEMOGLOBIN 9.7 g/dL (12.0-16.0); IG# 0.01 K/uL (0.00-0.02); LYMPH % 13.8 %; LYMPH ABS # 1.31 K/uL (1.2-3.4); MEAN CELL VOLUME 85.4 fL (80-100); MEAN CORPUSCULAR HEMOGLOBIN 26.2 pg (25-34); MEAN CORPUSCULAR HGB CONC 30.7 g/dl (32-36); MEAN PLATELET VOLUME 9.2 fL (7.4-10.4); MONO % 7.1 %; MONO ABS # 0.67 K/uL (0.11-0.59); NEUT % 76.4 %; NEUT ABS # 7.24 K/uL (1.4-6.5); PLATELET COUNT 252 K/uL (130-400); RED CELL DISTRIBUTION WIDTH CV 18.1 % (11.5-14.5); RED CELL DISTRIBUTION WIDTH SD 56.2 fL (36.4-46.3); WHITE BLOOD COUNT 9.48 K/uL (4.8-10.8)
== END | disposition home or self-care (01) ==
LOC: C.LABPBG 11:12
PROVIDERS: ATTEND Physician Assistant
DX: R05 Cough (principal)

== ENCOUNTER → 2018-03-04 | Outpatient (CLI) | payer BC ==
--- NOTE | 2018-03-04 08:23 | DIAGNOSTIC IMAGING REPORT ---
CHEST 2 VIEWS ROUTINE CLINICAL HISTORY: 67 years-old Female presenting with R05 Cough. TECHNIQUE: PA and lateral views of the chest were obtained. COMPARISON: 02/11/2018. FINDINGS: Atherosclerosis of aortic arch. Cardiac silhouette enlarged. Pulmonary vascular prominence similar to prior. Minimal added density at the lung bases. No other focal opacity. No large effusion or pneumothorax. Degenerative changes of the thoracic spine. Cholecystectomy clips noted. IMPRESSION: 1. Cardiomegaly with mild volume overload/congestive change. No annie pulmonary edema. Electronically signed by: Evan Jackson M.D. 03/04/2018 8:22 AM Dictated Date/Time: 03/04/2018 8:21 AM
== END | disposition home or self-care (01) ==
LOC: C.RAD 07:58
PROVIDERS: ATTEND Physician Assistant
DX: R05 Cough (principal)

== ENCOUNTER → 2018-03-04 | Outpatient (CLI) | payer BC ==
[2018-03-06 13:25] LABS: QUANTIF MITOGEN-NIL 9.93 IU/ML; QUANTIFERON POSITIVE (NEGATIVE); QUANTIFERON NIL 0.07 IU/ML
== END | disposition home or self-care (01) ==
LOC: C.LABPBG 09:29
PROVIDERS: ATTEND Physician Assistant
DX: R05 Cough (principal)

== ENCOUNTER → 2018-06-04 | Outpatient (CLI) | payer BC ==
[~2018-06-04] MED LIST changes: +PANT1TAB4 PO; -PRT40 PO
[2018-06-04 13:01] LABS: HEMATOCRIT 36.4 % (37-47); HEMOGLOBIN 11.3 g/dL (12.0-16.0); MEAN CELL VOLUME 85.4 fL (80-100); MEAN CORPUSCULAR HEMOGLOBIN 26.5 pg (25-34); MEAN PLATELET VOLUME 9.9 fL (7.4-10.4); PLATELET COUNT 265 K/uL (130-400); RED CELL DISTRIBUTION WIDTH CV 17.4 % (11.5-14.5); RED CELL DISTRIBUTION WIDTH SD 53.8 fL (36.4-46.3); WHITE BLOOD COUNT 7.68 K/uL (4.8-10.8)
[2018-06-04 13:43] LABS: ALBUMIN 3.1 gm/dl (3.4-5.0); ALKALINE PHOSPHATASE 86 U/L (45-117); ALT/SGPT 17 U/L (12-78); AST/SGOT 15 U/L (15-37); BLOOD UREA NITROGEN 59 mg/dl (7-18); CALCIUM 8.4 mg/dl (8.5-10.1); CARBON DIOXIDE 21 mmol/L (21-32); CHOLESTEROL 160 mg/dl (0-200); CREATININE 2.09 mg/dl (0.60-1.20); GLUCOSE 177 mg/dl (70-99); LDL CHOLESTEROL CALCULATED 64 mg/dl; POTASSIUM 4.9 mmol/L (3.5-5.1); SODIUM 137 mmol/L (136-145); TOTAL PROTEIN 7.6 gm/dl (6.4-8.2)
[2018-06-05 06:25] LABS: HEMOGLOBIN A1C 8.3 % (4.5-5.6)
== END | disposition home or self-care (01) ==
LOC: C.LABPBG 09:09
PROVIDERS: ATTEND Internal Medicine Nephrology
DX: E11.29 Type 2 diabetes mellitus with other diabetic kidney complication (principal); E55.9 Vitamin D deficiency, unspecified; D64.9 Anemia, unspecified; N18.3 Chronic kidney disease, stage 3 (moderate); N25.81 Secondary hyperparathyroidism of renal origin; E78.5 Hyperlipidemia, unspecified; I10 Essential (primary) hypertension

== ENCOUNTER 2021-07-25 17:39 | Observation (INO) ==
--- NOTE | 2021-07-25 20:11 | XRay Report ---
XR chest 1V portable HISTORY: illness COMPARISON: 07/15/2021. FINDINGS: No pneumothorax. No pleural effusion. The cardiac silhouette remains top normal in size. Pa tchy bibasilar densities have slightly improved. There is mild central pulmonary vascular congestion without overt edema. IMPRESSION: 1. Patchy bibasilar densities have improved in the interval. 2. Mild central pulmonary vascular congestion without overt edema. ACT 112: Negative or not required by law. Electronically signed by: Sohan Maciel M.D. 07/25/2021 8:10 PM
[2021-07-25 20:32] LABS: Basophils # (auto) 0.01 K/uL (0-0.2); Basophils % (auto) 0.1 %; Eosinophils # (auto) 0.21 K/uL (0-0.5); Eosinophils % (auto) 2.3 %; Hematocrit (blood only) 33.4 % (37-47); Hemoglobin 10.1 g/dL (12.0-16.0); Immature Granulocytes # (auto) 0.03 K/uL (0.00-0.02); Immature Granulocytes % (auto) 0.3 %; Lymphocytes # (auto) 1.42 K/uL (1.2-3.4); Lymphocytes % (auto) 15.5 %; Mean Corpuscular Hemoglobin 27.6 pg (25-34); Mean Corpuscular Hgb Conc 30.2 g/dL (32-36); Mean Corpuscular Volume 91.3 fL (80-100); Monocytes # (auto) 0.56 K/uL (0.11-0.59); Monocytes % (auto) 6.1 %; Neutrophils # (auto) 6.96 K/uL (1.4-6.5); Neutrophils % (auto) 75.7 %; Platelet Count 216 K/uL (130-400); RDW Coefficient of Variation 17.5 % (11.5-14.5); RDW Standard Deviation 57.9 fL (36.4-46.3); Red Blood Count 3.66 M/uL (4.2-5.4); White Blood Count 9.19 K/uL (4.8-10.8)
[2021-07-25 22:03] LABS: Albumin Globulin Ratio 0.7 (0.9-2); BUN Creatinine Ratio 22.3 (10-20); Bilirubin,Total 0.3 mg/dl (0.2-1); Calcium 9.3 mg/dl (8.5-10.1); Creatinine Clr Calc Pharmacy 17.6 ml/min; Est GFR (African American) 13.5 ml/min; Est GFR (Non-African American) 11.6 ml/min; Globulin 4.6 gm/dl (2.5-4.0); Total Protein 7.6 gm/dl (6.4-8.2)
[2021-07-25 22:08] LABS: Appearance Urine Clear (Clear); Bilirubin Urine Negative (Negative); Blood Urine Negative (Negative); Color Urine Yellow; Glucose Urine UA Trace (Negative); Ketones Urine Negative (Negative); Leukocyte Esterase Urine Negative (Negative); Nitrite Urine Negative (Negative); Protein Urine Negative (Negative); Specific Gravity Urine 1.009 (1.000-1.030); Urobilinogen Urine Negative (Negative)
[2021-07-25] MEDS ORDERED: NovoLIN-R INSULIN PER UNIT CHARGE IV STA (22:32)
[2021-07-25 22:51] LABS: Potassium 4.3 mmol/L (3.5-5.1)
[2021-07-25 22:59] LABS: Beta-Hydroxybutyrate 2.08 mg/dl (0.2-2.81)
[2021-07-25] MEDS ORDERED: SODIUM CHLORIDE 0.9% 1000ML 1,000 ML IV STA (23:46)
[2021-07-25] MEDS ORDERED: SODIUM CHLORIDE 0.9% 1000ML 500 ML IV ONE (23:46)
--- NOTE | 2021-07-25 23:59 | History & Physical Report ---
Date of Service July 25, 2021 Assessment & Plan (1) YASEMIN (acute kidney injury): Plan: Marika Poe is a 71-year-old female with past medical history for CKD stage IV, type 2 diabetes,, GERD, gout, hypertension, obstructive sleep apnea, obesity, hyperparathyroidism, congestive heart failure, with recent pneumonia s/p cefdinir and azithromycin; who presented to the ED at encouragement of her PCP following abnormal laboratory values. Acute kidney injury on chronic kidney disease: -Creatinine on admission of 3.73 (baseline appears to be approximately 2.4) -Potential contributions from dehydration versus recent uptake and Lasix usage -Hold all nephrotoxic agents at this point time -Nephrology consulted -Provide gentle fluid supplementation/rehydration in the setting of CHF -Continue to monitor BMPs daily Type 2 diabetes: -Last A1c in December 2020 of 9.7 -BSG's ACHS -Hold home treatment to sliding scale with glargine while inpatient -Repeat A1c in a.m. Pneumonia: -CXR from admission demonstrating improvement in bibasilar atelectasis/opacities -Likely representation of previous pneumonia with lack behind of radiologic findings -Patient completed 10-day course of cefdinir with prolonged course of azithromycin (2 rounds) -Currently asymptomatic, will continue to monitor Congestive heart failure: -Last echo in 2018 demonstrating grade 2 diastolic dysfunction with hyperdynamic systolic function and EF of 70% -Poorly compliant with low-salt diet Hypertension: -Hold home home losartan, Lasix in the setting of acute kidney injury -Continue hydralazine, clonidine, carvedilol while inpatient Dyslipidemia: -Continue home simvastatin 40 mg nightly Edema of the lower extremities: -Utilizes Lasix 40 mg 3 times daily at home -Poorly compliant with compression stockings Gout: -On allopurinol 300 mg daily as outpatient -Monitor for additional negative effects on kidney function GERD: -Continue Protonix 40 mg twice daily Diet: Heart healthy/carb consistent/low salt CODE STATUS: Full code DVT ppx: Heparin (2) Chronic kidney disease, stage 4 (severe): (3) Edema of both lower extremities: (4) Diabetes mellitus type 2 with complications: (5) Dyslipidemia: (6) Gout: (7) GERD (gastroesophageal reflux disease): (8) Hypertension: History of Present Illness Primary Care Provider: Shawanda Gomez DO Marika Poe is a 71-year-old female with past medical history for CKD stage IV, type 2 diabetes,, GERD, gout, hypertension, obstructive sleep apnea, obesity, hyperparathyroidism, congestive heart failure, with recent pneumonia s/p cefdinir and azithromycin; who presented to the ED at encouragement of her PCP following abnormal laboratory values. Approximately 2 weeks ago patient was seen and evaluated for concern of cough/shortness of breath, at that time was provided with a prescription of azithromycin, over the following several days had continuing worsening ultimately causing presentation to the ED on 07/15 at which she received treatment for community-acquired pneumonia with cefdinir and azithromycin. Has noticed that she has continued to have this cough but overall feels much better at this point time. Ultimately leading to her having a conversation with PCP last week in regards to her maintained peripheral edema in her lower extremities, has been working with PCP in an effort to reduce this peripheral edema, and the decision was made to increase Lasix from 40 mg 3 times daily to 40 mg 4 times daily for 3 days over the weekend in an effort to decrease the swelling. Additionally was recommended that she take/utilize low- salt diet recommendations and utilize compression stockings more regularly. As follow-up had lab studies this morning which demonstrated an increase in creatinine and ultimately she was recommended to come to the hospital for further evaluation. There was some confusion over white blood cell count also being elevated, however this appears to have been from 07/15 when she was treated for the pneumonia. Allergies Allergy/AdvReac Type Severity Reaction Status Date / Time tramadol Allergy Mild "FELT Verified 07/25/21 22:54 WEIRD" amlodipine Allergy Unknown SWELLING Verified 07/25/21 22:54 Home Medications Medication Instructions Recorded Confirmed Type acetaminophen 500 mg capsule 500 mg PO QID PRN 04/04/19 07/25/21 History cyanocobalamin (vitamin B-12) 1,000 mcg IM MONTHLY ml 04/04/19 07/25/21 History 1,000 mcg/mL injection solution Oxygen Home ea 09/04/19 07/22/21 History compress.stocking,knee,reg,med #2 ea 12/28/20 07/22/21 Rx blood sugar diagnostic (OneTouch #450 ea 02/08/21 07/22/21 Rx Ultra Blue Test Strip) carvedilol 25 mg tablet 25 mg PO BID #180 tab 02/08/21 07/25/21 Rx clonidine HCl 0.1 mg tablet See Rx Instructions PO BID #270 tab 02/08/21 07/25/21 Rx hydralazine 25 mg tablet 50 mg PO TID #540 tab 02/08/21 07/25/21 Rx lancets 33 gauge (OneTouch Delica #100 ea 02/08/21 07/22/21 Rx Lancets) pantoprazole 40 mg tablet,delayed 40 mg PO BID #180 tab 02/08/21 07/25/21 Rx release pen needle, diabetic 31 gauge x #200 ea 02/08/21 07/11/21 Rx 5/16" (BD Ultra-Fine Short Pen Needle) simvastatin 40 mg tablet 40 mg PO QPM #90 tab 02/08/21 07/25/21 Rx insulin glargine 100 unit/mL (3 85 unit SQ BID #11 box 03/04/21 07/25/21 Rx mL) subcutaneous pen (Lantus Solostar U-100 Insulin) ergocalciferol (vitamin D2) 1,250 1,250 mcg PO .COMPLEX #21 cap 03/16/21 07/25/21 Rx mcg (50,000 unit) capsule ipratropium 20 mcg-albuterol 100 1 puff INHALATION Q6H PRN #4 g 05/18/21 07/25/21 Rx mcg/actuation mist for inhalation (Combivent Respimat) allopurinol 300 mg tablet 300 mg PO DAILY #90 tab 05/24/21 07/25/21 Rx isosorbide mononitrate 60 mg 60 mg PO DAILY #90 tab 05/24/21 07/25/21 Rx tablet,extended release 24 hr losartan 100 mg tablet 100 mg PO DAILY #90 tab 05/24/21 07/25/21 Rx albuterol sulfate 90 mcg/actuation 2 puff INHALATION QID PRN #6.7 g 07/11/21 07/25/21 Rx aerosol inhaler codeine 10 mg-guaifenesin 100 mg/5 5 ml PO Q6H PRN #120 ml 07/11/21 07/25/21 Rx mL oral liquid diclofenac sodium 1 % topical gel 1 g TOPICAL TID PRN 07/15/21 07/25/21 History furosemide 40 mg tablet 40 mg PO TIDM 07/15/21 07/25/21 History insulin lispro 100 unit/mL 70 unit SQ TIDM 07/15/21 07/25/21 History subcutaneous pen (Humalog KwikPen (U-100) Insulin) Past Med/Surg History Medical History (Updated 07/26/21 @ 15:24 by Xavier Cates MD) Anemia CHF (congestive heart failure) Chronic kidney disease, stage 4 (severe) Chronic osteoarthritis Controlled diabetes mellitus with renal manifestations Diabetes mellitus type 2 with complications Dyslipidemia Dysplastic nevi Gastroparesis GERD (gastroesophageal reflux disease) Gout 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 to tuberculosis Hypertension Morbid obesity 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 Nocturnal hypoxia 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) "Incidental finding of mass left conjunctiva at the time of cataract surgery Status post excision 03/02/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 Status post completion of radiation [id number]/2016 received 3060 cGy" On 03/24/16 11:07 Colleen Cross Romero wrote "Incidental finding of mass left conjunctiva at the time of cataract surgery Status post excision 03/02/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" Obstructive sleep apnea of adult Personal history of malignant neoplasm of skin Secondary hyperparathyroidism Vitamin B12 deficiency Vitamin D deficiency Surgical History S/P cholecystectomy S/P dilatation and curettage S/P tubal ligation Family History Father Prostate cancer Mother Myocardial infarction Denies family history of Ovarian cancer Breast cancer Lung cancer Colorectal cancer Social History Smoking Status: Never smoker Second Hand Exposure: No; Hx Alcohol Use: Yes Alcohol type: beer Alcohol Intake Frequency: Monthly or Less Hx Substance Use: No Preferred Language: [place] Visual Impairment: No Limitations Hearing Ability: Normal Cupola Hoist Operator Required: No Beliefs That Will Affect Care: None marital status: Current Living Situation: Spouse Current Living Situation Comment: With current occupational status: retired Feels Safe at Home: Yes Childhood Exposure to Second-Hand Smoke: Yes Diet Comment: regular caffeine: Yes during the past year weight has: remained stable Dental Care, Regularly: Yes Physical Activity Frequency: 1-2 Times per Week Physical Activity Frequency Comment: walking Seatbelt Use: always Sunscreen Use: Yes Assistive Devices: None Review of Systems Review of Systems: All systems reviewed & are unremarkable except as noted in HPI & below Physical Exam Constitutional: WD/WN, vitals as above Eyes: PERRL, conjunctivae normal, anicteric sclerae Respiratory: normal respiratory effort; no respiratory distress and no labored breathing Auscultation: + rhonchi (trace over LLL); no crackles, no rales and no wheezes Cardiovascular: Rate/Rhythm: regular rate and regular rhythm Heart Sounds: no gallop, no murmur and no cardiac rub Vessels: normal peripheral pulses; no JVD Extremities: + pedal edema and + edema Gastrointestinal (Abdomen): Inspection/Auscultation: normal bowel sounds; abdomen not distended Percussion/Palpation: abdomen soft; abdomen nontender and no guarding Musculoskeletal: no cyanosis or clubbing, extremities motor strength 5/5 Skin: no rashes, warm and dry Neurologic: PERRL, EOMI, accommodation nl, no face palsy, no dysarthria CN's II-XI intact bilaterally and moves all extremities Psychiatric: Orientation: alert and oriented x 3 Results & Data Results & Data ([facility]) Vital Signs (Past 12 Hours) Vital Signs Temp Pulse Pulse Resp BP BP Pulse Ox 07/25/21 23:11 70 18 150/62 H 98 07/25/21 18:43 36.8 C 66 20 195/82 H 96 Laboratory Results 07/26/21 07/26/21 07/25/21 Range/Units 00:17 00:17 Unknown WBC (4.8-10.8) K/uL RBC (4.2-5.4) M/uL Hgb (12.0-16.0) g/dL Hct (37-47) % MCV (80-100) fL MCH (25-34) pg MCHC (32-36) g/dL RDW Std Deviation (36.4-46.3) fL RDW Coeff of Marcus (11.5-14.5) % Plt Count (130-400) K/uL MPV (7.4-10.4) fL Immature Gran % (Auto) % Neut % (Auto) % Lymph % (Auto) % Brooks % (Auto) % Eos % (Auto) % Baso % (Auto) % Neut # (Auto) (1.4-6.5) K/uL Lymph # (Auto) (1.2-3.4) K/uL Brooks # (Auto) (0.11-0.59) K/uL Eos # (Auto) (0-0.5) K/uL Baso # (Auto) (0-0.2) K/uL Immature Gran # (Auto) (0.00-0.02) K/uL Sodium 136 (136-145) mmol/L Potassium (3.5-5.1) mmol/L Chloride 99 (98-107) mmol/L Carbon Dioxide 27 (21-32) mmol/L Anion Gap 10.0 (3-11) BUN 83 H (7-18) mg/dl Creatinine 3.73 H D (0.6-1.2) mg/dl Est Cr Clr Drug Dosing 17.6 ml/min Est GFR ( Amer) 13.5 ml/min Est GFR (Non-Af Amer) 11.6 ml/min BUN/Creatinine Ratio 22.3 H (10-20) Glucose 330 H* (70-99) mg/dl Calcium 9.3 (8.5-10.1) mg/dl Total Bilirubin 0.3 (0.2-1) mg/dl AST (15-37) U/L ALT 21 (12-78) U/L Alkaline Phosphatase 79 (45-117) U/L Total Protein 7.6 (6.4-8.2) gm/dl Albumin 3.0 L (3.4-5.0) gm/dl Globulin 4.6 H (2.5-4.0) gm/dl Albumin/Globulin Ratio 0.7 L (0.9-2) Beta-Hydroxybutyric Acd (0.2-2.81) mg/dl Urine Color Urine Appearance (Clear) Urine pH (4.5-7.5) Ur Specific [place] (1.000-1.030) Urine Protein (Negative) Urine Glucose (UA) (Negative) Urine Ketones (Negative) Urine Blood (Negative) Urine Nitrite (Negative) Urine Bilirubin (Negative) Urine Urobilinogen (Negative) Ur Leukocyte Esterase (Negative) COVID-19 Eval Order Covid19 at [facility] SARS-CoV-2 (PCR) NEGATIVE (Negative) 07/25/21 07/25/21 07/25/21 Range/Units Unknown 22:24 21:48 WBC 9.19 (4.8-10.8) K/uL RBC 3.66 L (4.2-5.4) M/uL Hgb 10.1 L (12.0-16.0) g/dL Hct 33.4 L (37-47) % MCV 91.3 (80-100) fL MCH 27.6 (25-34) pg MCHC 30.2 L (32-36) g/dL RDW Std Deviation 57.9 H (36.4-46.3) fL RDW Coeff of Marcus 17.5 H (11.5-14.5) % Plt Count 216 (130-400) K/uL MPV 10.0 (7.4-10.4) fL Immature Gran % (Auto) 0.3 % Neut % (Auto) 75.7 % Lymph % (Auto) 15.5 % Brooks % (Auto) 6.1 % Eos % (Auto) 2.3 % Baso % (Auto) 0.1 % Neut # (Auto) 6.96 H (1.4-6.5) K/uL Lymph # (Auto) 1.42 (1.2-3.4) K/uL Brooks # (Auto) 0.56 (0.11-0.59) K/uL Eos # (Auto) 0.21 (0-0.5) K/uL Baso # (Auto) 0.01 (0-0.2) K/uL Immature Gran # (Auto) 0.03 H (0.00-0.02) K/uL Sodium (136-145) mmol/L Potassium 4.3 (3.5-5.1) mmol/L Chloride (98-107) mmol/L Carbon Dioxide (21-32) mmol/L Anion Gap (3-11) BUN (7-18) mg/dl Creatinine (0.6-1.2) mg/dl Est Cr Clr Drug Dosing ml/min Est GFR ( Amer) ml/min Est GFR (Non-Af Amer) ml/min BUN/Creatinine Ratio (10-20) Glucose (70-99) mg/dl Calcium (8.5-10.1) mg/dl Total Bilirubin (0.2-1) mg/dl AST 19 (15-37) U/L ALT (12-78) U/L Alkaline Phosphatase (45-117) U/L Total Protein (6.4-8.2) gm/dl Albumin (3.4-5.0) gm/dl Globulin (2.5-4.0) gm/dl Albumin/Globulin Ratio (0.9-2) Beta-Hydroxybutyric Acd 2.08 (0.2-2.81) mg/dl Urine Color Yellow Urine Appearance Clear (Clear) Urine pH 6.0 (4.5-7.5) Ur Specific [place] 1.009 (1.000-1.030) Urine Protein Negative (Negative) Urine Glucose (UA) Trace H (Negative) Urine Ketones Negative (Negative) Urine Blood Negative (Negative) Urine Nitrite Negative (Negative) Urine Bilirubin Negative (Negative) Urine Urobilinogen Negative (Negative) Ur Leukocyte Esterase Negative (Negative) COVID-19 Eval Order SARS-CoV-2 (PCR) (Negative) Diagnostic Findings Impressions Chest X-Ray 07/25/21 18:50 XR chest 1V portable HISTORY: illness COMPARISON: 07/15/2021. FINDINGS: No pneumothorax. No pleural effusion. The cardiac silhouette remains top normal in size. Patchy bibasilar densities have slightly improved. There is mild central pulmonary vascular congestion without overt edema. IMPRESSION: 1. Patchy bibasilar densities have improved in the interval. 2. Mild central pulmonary vascular congestion without overt edema. ACT 112: Negative or not required by law. Electronically signed by: Sohan Maciel M.D. 07/25/2021 8:10 PM Medications Administered Home Medication List Medication Instructions Recorded acetaminophen 500 mg capsule 500 mg PO QID PRN 04/04/19 cyanocobalamin (vitamin B-12) 1,000 mcg IM MONTHLY ml 04/04/19 1,000 mcg/mL injection solution Oxygen Home ea 09/04/19 compress.stocking,knee,reg,med #2 ea 12/28/20 blood sugar diagnostic (OneTouch #450 ea 02/08/21 Ultra Blue Test Strip) carvedilol 25 mg tablet 25 mg PO BID #180 tab 02/08/21 clonidine HCl 0.1 mg tablet See Rx Instructions PO BID #270 tab 02/08/21 hydralazine 25 mg tablet 50 mg PO TID #540 tab 02/08/21 lancets 33 gauge (OneTouch Delica #100 ea 02/08/21 Lancets) pantoprazole 40 mg tablet,delayed 40 mg PO BID #180 tab 02/08/21 release pen needle, diabetic 31 gauge x #200 ea 02/08/21 5/16" (BD Ultra-Fine Short Pen Needle) simvastatin 40 mg tablet 40 mg PO QPM #90 tab 02/08/21 insulin glargine 100 unit/mL (3 85 unit SQ BID #11 box 03/04/21 mL) subcutaneous pen (Lantus Solostar U-100 Insulin) ergocalciferol (vitamin D2) 1,250 1,250 mcg PO .COMPLEX #21 cap 03/16/21 mcg (50,000 unit) capsule ipratropium 20 mcg-albuterol 100 1 puff INHALATION Q6H PRN #4 g 05/18/21 mcg/actuation mist for inhalation (Combivent Respimat) allopurinol 300 mg tablet 300 mg PO DAILY #90 tab 05/24/21 isosorbide mononitrate 60 mg 60 mg PO DAILY #90 tab 05/24/21 tablet,extended release 24 hr losartan 100 mg tablet 100 mg PO DAILY #90 tab 05/24/21 albuterol sulfate 90 mcg/actuation 2 puff INHALATION QID PRN #6.7 g 07/11/21 aerosol inhaler codeine 10 mg-guaifenesin 100 mg/5 5 ml PO Q6H PRN #120 ml 07/11/21 mL oral liquid diclofenac sodium 1 % topical gel 1 g TOPICAL TID PRN 07/15/21 furosemide 40 mg tablet 40 mg PO TIDM 07/15/21 insulin lispro 100 unit/mL 70 unit SQ TIDM 07/15/21 subcutaneous pen (Humalog KwikPen (U-100) Insulin) Supervising Physician Co-Signing Physician Notes Attending addendum: I have physically seen this patient, have supervised the medical residents activities, and agree with the H&P unless as otherwise noted. Assessment and Plan: Acute kidney injury on CKD/hypertension/CHF- The patient will be admitted to telemetry for serial cardiac enzymes, serial EKG's, cardiac rhythm monitoring and a 2-D echocardiogram with Dopplers. Creatinine 3.73 upon admission, with range 2.97-3.21 NSS at 60 mils per hour x1 L overnight Repeat laboratories in a.m. Hold losartan and furosemide Continue hydralazine, clonidine and carvedilol with hold parameters Consult nephrology Diabetes mellitus- Placed on Accu-Cheks before meals and at bedtime with NovoLog coverage per scale Decreased insulin glargine from 85 units subcu twice daily to 60 units subcu twice daily while in hospital Pneumonia- Significantly improved imaging studies from last admission Finished a 10-day course of oral azithromycin as outpatient Asymptomatic, no further treatment Remaining orders and notations as noted Resident Activity Tracking Resident Involvement: Resident Care Provided Care Provided: Adult Hospital Medicine
--- NOTE | 2021-07-26 02:10 | Emergency Department Note ---
Impression & Plan YASEMIN (acute kidney injury), Edema of both lower extremities ED Provider Note INFORMANT: Patient and ED PROVIDER(S): Yaw Mcknight MD CHIEF COMPLAINT: Abnormal labs PLAN: Disposition: Admitted Condition: Good Outpatient prescription management: none Referral: None MEDICAL DECISION MAKING: Patient presented because of abnormal labs. These were rechecked. She was found to have YASEMIN with an elevation of her creatinine. She was also hyperglycemic. She was given IV insulin. The patient was hydrated. Consultation was made with Dr. Sheppard of nephrology. She recommended hydration and further management in the hospital for additional testing. CT imaging was ordered. Consultation was made with Dr. Campbell Brennan of the [facility] service. Patient was evaluated in the ER for further management. Triage Nursing notes reviewed and agree them. Vital Signs: reviewed and remarkable for hypertension Differential diagnosis: YASEMIN, infection, dehydration, metabolic abnormality, hypo/hyperglycemia, electro lyte disturbance, anemia, hypoxia, cardiac sources, intracerebral event, toxicologic, neurologic, as well as other pathologies. Diagnostics interpreted by me: EC Lead ECG performed and revealed Normal sinus rhythym at 91, lateral Q waves present, normal Bels[place], QRS normal. No elevation or depression. No PACs or PVCs Cardiac Monitoring: Cardiac monitoring ordered by me: The patient was placed on continuous cardiac monitoring and observed. It revealed a normal sinus rhythm at 81 beats per minute without ectopy or evidence of dysrhythmia. Imaging studies: CT imaging pending. HPI: The patient is a 71 year old female who presents to the Emergency Room with complaints of abnormal labs. This started this morning when blood work was done and primary care provider noted that she had an elevated creatinine and potassium. Patient was directed to the ER. The patient also notes the following associated symptoms, resolving cough from recent treatment of pneumonia, lower extremity edema. The patient has been prescribed no relieving factors. Current pain is rated as 0/10. Patient has a history of diabetes and renal insufficiency. Pt denies LOC, headache, fevers, chills, diaphoresis, visual changes, neck pain, chest pain, breathing difficulties, nausea, vomiting, abdominal pain, back pain, melena, hematochezia, urinary symptoms, numbness, we akness, lymphadenopathy, rash, or other complaints. ROS: See above HPI for pertinent positives & negatives. A total of 10 systems reviewed and were otherwise negative. PAST MEDICAL HISTORY:See Below , renal patient see, GERD, diabetes PAST SURGICAL HISTORY:See Below, FAMILY HISTORY:See Below SOCIAL HISTORY:See Below, HOME MEDICATIONS:See Below ALLERGIES:See Below VITALS:See Below PHYSICAL EXAMINATION: GENERAL: Awake, tired-appearing, in no distress HENT: Normocephalic, atraumatic. Oropharynx unremarkable. EYES: Normal conjunctiva. Sclera non-icteric. NECK: Inspection normal. Non-tender. Supple. No nuchal rigidity. FROM. No masses. RESPIRATORY: Clear to auscultation. No wheezes. No rales. Normal respiratory effort. CARDIAC: Normal rate. Normal rhythm. No murmurs. No rubs. Extremities warm and well perfused. Pulses equal. No JVD. GI: Soft, non-distended. No tenderness to palpation. No rebound or guarding. No masses. RECTAL: Deferred. MUSCULOSKELETAL: Atraumatic. Chest examination reveals no tenderness. The back is symmetrical on inspection without obvious abnormality. There is no CVA tenderness to palpation. No joint edema. LOWER EXTREMITIES: Calves are equal size bilaterally and non-tender. 2+edema. No discoloration. NEURO: Normal sensorium. No sensory or motor deficits noted. SKIN: No rash or jaundice noted. 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) "Incidental finding of mass left conjunctiva at the time of cataract surgery Status post excision 03/02/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 Status post completion of radiation [id number]/2016 received 3060 cGy" On 03/24/16 11:07 Colleen Jasso wrote "Incidental finding of mass left conjunctiva at the time of cataract surgery Status post excision 03/02/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" Obstructive sleep apnea of adult Personal history of malignant neoplasm of skin Secondary hyperparathyroidism Vitamin B12 deficiency Vitamin D deficiency Surgical History S/P cholecystectomy S/P dilatation and curettage S/P tubal ligation Family History Father Prostate cancer Mother Myocardial infarction Denies family history of Ovarian cancer Breast cancer Lung cancer Colorectal cancer Social History Smoking Status: Never smoker Second Hand Exposure: No; Hx Alcohol Use: Yes Alcohol type: beer Alcohol Intake Frequency: Monthly or Less Hx Substance Use: No Preferred Language: Mohawk Visual Impairment: No Limitations Hearing Ability: Normal Beliefs That Will Affect Care: None marital status: Current Living Situation: Spouse current occupational status: retired Feels Safe at Home: Yes Childhood Exposure to Second-Hand Smoke: Yes Diet Comment: regular caffeine: Yes during the past year weight has: remained stable Dental Care, Regularly: Yes Physical Activity Frequency: 1-2 Times per Week Physical Activity Frequency Comment: walking Seatbelt Use: always Sunscreen Use: Yes Allergies Allergies Allergy/AdvReac Type Severity Reaction Status Date / Time tramadol Allergy Mild "FELT Verified 07/25/21 22:54 WEIRD" amlodipine Allergy Unknown SWELLING Verified 07/25/21 22:54 Home Meds Home Medications Medication Instructions Recorded Confirmed acetaminophen 500 mg capsule 500 mg PO QID PRN 04/04/19 07/25/21 cyanocobalamin (vitamin B-12) 1,000 mcg IM MONTHLY ml 04/04/19 07/25/21 1,000 mcg/mL injection solution Oxygen Home ea 09/04/19 07/22/21 diclofenac sodium 1 % topical gel 1 g TOPICAL TID PRN 07/15/21 07/25/21 furosemide 40 mg tablet 40 mg PO TIDM 07/15/21 07/25/21 insulin lispro 100 unit/mL 70 unit SQ TIDM 07/15/21 07/25/21 subcutaneous pen (Humalog KwikPen (U-100) Insulin) Previous Rx's Medication Instructions Recorded compress.stocking,knee,reg,med #2 ea 12/28/20 blood sugar diagnostic (OneTouch #450 ea 02/08/21 Ultra Blue Test Strip) carvedilol 25 mg tablet 25 mg PO BID #180 tab 02/08/21 clonidine HCl 0.1 mg tablet See Rx Instructions PO BID #270 tab 02/08/21 hydralazine 25 mg tablet 50 mg PO TID #540 tab 02/08/21 lancets 33 gauge (OneTouch Delica #100 ea 02/08/21 Lancets) pantoprazole 40 mg tablet,delayed 40 mg PO BID #180 tab 02/08/21 release pen needle, diabetic 31 gauge x #200 ea 02/08/2103/13" (BD Ultra-Fine Short Pen Needle) simvastatin 40 mg tablet 40 mg PO QPM #90 tab 02/08/21 insulin glargine 100 unit/mL (3 85 unit SQ BID #11 box 03/04/21 mL) subcutaneous pen (Lantus Solostar U-100 Insulin) ergocalciferol (vitamin D2) 1,250 1,250 mcg PO .COMPLEX #21 cap 03/16/21 mcg (50,000 unit) capsule ipratropium 20 mcg-albuterol 100 1 puff INHALATION Q6H PRN #4 g 05/18/21 mcg/actuation mist for inhalation (Combivent Respimat) allopurinol 300 mg tablet 300 mg PO DAILY #90 tab 05/24/21 isosorbide mononitrate 60 mg 60 mg PO DAILY #90 tab 05/24/21 tablet,extended release 24 hr losartan 100 mg tablet 100 mg PO DAILY #90 tab 05/24/21 albuterol sulfate 90 mcg/actuation 2 puff INHALATION QID PRN #6.7 g 07/11/21 aerosol inhaler codeine 10 mg-guaifenesin 100 mg/5 5 ml PO Q6H PRN #120 ml 07/11/21 mL oral liquid Results & Data (ED) Vital Signs Vital Signs - 24 hr 07/25/21 18:43 07/25/21 23:11 07/26/21 01:36 Temperature 36.8 C Temperature Source Temporal Artery Scan Pulse Rate 66 Pulse Rate [Apical] 70 81 Respiratory Rate 20 18 20 Respiratory Effort / Characteristics Non-Labored Spontaneous Respiratory Depth Normal Respiratory Pattern Regular Blood Pressure 195/82 H Blood Pressure [Left Arm] 150/62 H Blood Pressure Mean 119 Blood Pressure Mean [Left Arm] 91 Blood Pressure Position Sitting Blood Pressure Position [Left Arm] Sitting Pulse Oximetry 96 98 93 Oxygen Delivery Method Room Air Room Air Room Air Sepsis Recent Fever Within 48 Hours No Sepsis New/Unexplained Change in Mental Status No Sepsis Action Taken by Nursing No Action Required Laboratory Data Result diagrams: 07/25/21 Unknown 07/25/21 Unknown Lab Results 07/25/21 07/25/21 07/25/21 Range/Units 21:48 22:24 Unknown WBC 9.19 (4.8-10.8) K/uL RBC 3.66 L (4.2-5.4) M/uL Hgb 10.1 L (12.0-16.0) g/dL Hct 33.4 L (37-47) % MCV 91.3 (80-100) fL MCH 27.6 (25-34) pg MCHC 30.2 L (32-36) g/dL RDW Std Deviation 57.9 H (36.4-46.3) fL RDW Coeff of Marcus 17.5 H (11.5-14.5) % Plt Count 216 (130-400) K/uL MPV 10.0 (7.4-10.4) fL Immature Gran % (Auto) 0.3 % Neut % (Auto) 75.7 % Lymph % (Auto) 15.5 % Dane % (Auto) 6.1 % Eos % (Auto) 2.3 % Baso % (Auto) 0.1 % Neut # (Auto) 6.96 H (1.4-6.5) K/uL Lymph # (Auto) 1.42 (1.2-3.4) K/uL Dane # (Auto) 0.56 (0.11-0.59) K/uL Eos # (Auto) 0.21 (0-0.5) K/uL Baso # (Auto) 0.01 (0-0.2) K/uL Immature Gran # (Auto) 0.03 H (0.00-0.02) K/uL Sodium (136-145) mmol/L Potassium 4.3 (3.5-5.1) mmol/L Chloride (98-107) mmol/L Carbon Dioxide (21-32) mmol/L Anion Gap (3-11) BUN (7-18) mg/dl Creatinine (0.6-1.2) mg/dl Est Cr Clr Drug Dosing ml/min Est GFR ( Amer) ml/min Est GFR (Non-Af Amer) ml/min BUN/Creatinine Ratio (10-20) Glucose (70-99) mg/dl Calcium (8.5-10.1) mg/dl Total Bilirubin (0.2-1) mg/dl AST 19 (15-37) U/L ALT (12-78) U/L Alkaline Phosphatase (45-117) U/L Total Protein (6.4-8.2) gm/dl Albumin (3.4-5.0) gm/dl Globulin (2.5-4.0) gm/dl Albumin/Globulin Ratio (0.9-2) Beta-Hydroxybutyric Acd 2.08 (0.2-2.81) mg/dl Urine Color Yellow Urine Appearance Clear (Clear) Urine pH 6.0 (4.5-7.5) Ur Specific Bradley 1.009 (1.000-1.030) Urine Protein Negative (Negative) Urine Glucose (UA) Trace H (Negative) Urine Ketones Negative (Negative) Urine Blood Negative (Negative) Urine Nitrite Negative (Negative) Urine Bilirubin Negative (Negative) Urine Urobilinogen Negative (Negative) Ur Leukocyte Esterase Negative (Negative) COVID-19 Eval Order SARS-CoV-2 (PCR) (Negative) 07/25/21 07/26/21 07/26/21 Range/Units Unknown 00:17 00:17 WBC (4.8-10.8) K/uL RBC (4.2-5.4) M/uL Hgb (12.0-16.0) g/dL Hct (37-47) % MCV (80-100) fL MCH (25-34) pg MCHC (32-36) g/dL RDW Std Deviation (36.4-46.3) fL RDW Coeff of Marcus (11.5-14.5) % Plt Count (130-400) K/uL MPV (7.4-10.4) fL Immature Gran % (Auto) % Neut % (Auto) % Lymph % (Auto) % Dane % (Auto) % Eos % (Auto) % Baso % (Auto) % Neut # (Auto) (1.4-6.5) K/uL Lymph # (Auto) (1.2-3.4) K/uL Dane # (Auto) (0.11-0.59) K/uL Eos # (Auto) (0-0.5) K/uL Baso # (Auto) (0-0.2) K/uL Immature Gran # (Auto) (0.00-0.02) K/uL Sodium 136 (136-145) mmol/L Potassium (3.5-5.1) mmol/L Chloride 99 (98-107) mmol/L Carbon Dioxide 27 (21-32) mmol/L Anion Gap 10.0 (3-11) BUN 83 H (7-18) mg/dl Creatinine 3.73 H D (0.6-1.2) mg/dl Est Cr Clr Drug Dosing 17.6 ml/min Est GFR ( Amer) 13.5 ml/min Est GFR (Non-Af Amer) 11.6 ml/min BUN/Creatinine Ratio 22.3 H (10-20) Glucose 330 H* (70-99) mg/dl Calcium 9.3 (8.5-10.1) mg/dl Total Bilirubin 0.3 (0.2-1) mg/dl AST (15-37) U/L ALT 21 (12-78) U/L Alkaline Phosphatase 79 (45-117) U/L Total Protein 7.6 (6.4-8.2) gm/dl Albumin 3.0 L (3.4-5.0) gm/dl Globulin 4.6 H (2.5-4.0) gm/dl Albumin/Globulin Ratio 0.7 L (0.9-2) Beta-Hydroxybutyric Acd (0.2-2.81) mg/dl Urine Color Urine Appearance (Clear) Urine pH (4.5-7.5) Ur Specific Bradley (1.000-1.030) Urine Protein (Negative) Urine Glucose (UA) (Negative) Urine Ketones (Negative) Urine Blood (Negative) Urine Nitrite (Negative) Urine Bilirubin (Negative) Urine Urobilinogen (Negative) Ur Leukocyte Esterase (Negative) COVID-19 Eval Order Covid19 at [facility] SARS-CoV-2 (PCR) NEGATIVE (Negative) Administered Medications Discontinued Medications Sodium Chloride (Nss 1000ml) 500 mls @ 999 mls/hr IV .Q31M ONE Stop: 07/26/21 00:16 Last Infusion: 09/28/21 01:33 Dose: 0 mls/hr Documented by: [id number] Admin: 07/25/21 23:51 Dose: 999 mls/hr Documented by: [id number] Insulin Human Regular (Novolin-R Insulin Per Unit Charge) 10 units IV NOW STA Stop: 07/25/21 22:33 Last Admin: 07/25/21 23:09 Dose: 10 units Documented by: [id number] Cosigned by: [id number] Imaging Data Radiologist's Impression: Chest X-Ray 07/25/21 18:50 XR chest 1V portable HISTORY: illness COMPARISON: 07/15/2021. FINDINGS: No pneumothorax. No pleural effusion. The cardiac silhouette remains top normal in size. Patchy bibasilar densities have slightly improved. There is mild central pulmonary vascular congestion without overt edema. IMPRESSION: 1. Patchy bibasilar densities have improved in the interval. 2. Mild central pulmonary vascular congestion without overt edema. ACT 112: Negative or not required by law. Electronically signed by: Sohan Maciel M.D. 07/25/2021 8:10 PM Discharge Plan Visit Data Chief Complaint: Abnormal Labs/Diagnostic Testing Stated Complaint: BLOOD WORK DONE, KIDNEY FUNCTION DOWN ED Provider: Yaw Mcknight Discharge Problem: YASEMIN (acute kidney injury), Edema of both lower extremities Forms Stand Alone Forms: [facility] [employer] Prescriptions Prescriptions: No Action (DME) OneTouch Ultra Blue Test Strip Strip See Dose Instructions .ROUTE .MEDSUPPLY Qty: 450 RF: 1 carvedilol 25 mg tablet 25 mg PO BID Qty: 180 RF: 1 clonidine HCl 0.1 mg tablet See Rx Instructions PO BID Qty: 270 RF: 1 hydralazine 25 mg tablet 50 mg PO TID Qty: 540 RF: 1 (DME) lancets [OneTouch Delica Lancets] 33 gauge misc See Dose Instructions .ROUTE .MEDSUPPLY Qty: 100 RF: 0 pantoprazole 40 mg tablet,delayed release (DR/EC) 40 mg PO BID Qty: 180 RF: 1 (DME) pen needle, diabetic [BD Ultra-Fine Short Pen Needle] 31 gauge x 5/16" needle See Rx Instructions .ROUTE .MEDSUPPLY Qty: 200 RF: 0 simvastatin 40 mg tablet 40 mg PO QPM Qty: 90 RF: 1 Combivent Respimat 20-100 mcg/actuation mist 1 puff inhalation Q6H PRN (Reason: sob/wheezing) Qty: 4 RF: 3 allopurinol 300 mg tablet 300 mg PO DAILY Qty: 90 RF: 1 isosorbide mononitrate 60 mg tablet extended release 24 hr 60 mg PO DAILY Qty: 90 RF: 1 losartan 100 mg tablet 100 mg PO DAILY Qty: 90 RF: 1 cyanocobalamin (vitamin B-12) 1,000 mcg/mL solution 1,000 mcg IM MONTHLY RF: 0 acetaminophen 500 mg capsule 500 mg PO QID PRN (Reason: Pain) RF: 0 ergocalciferol (vitamin D2) 1,250 mcg (50,000 unit) capsule 1,250 mcg PO .COMPLEX Qty: 21 RF: 0 (DME) Oxygen Home Liters Per Minute See Dose Instructions .ROUTE .MEDSUPPLY RF: 0 (DME) compress.stocking,knee,reg,med Misc See Rx Instructions .ROUTE .MEDSUPPLY Qty: 2 RF: 0 Lantus Solostar U-100 Insulin 100 unit/mL (3 mL) insulin pen 85 unit SQ BID Qty: 11 RF: 3 albuterol sulfate 90 mcg/actuation HFA aerosol inhaler 2 puff inhalation QID PRN (Reason: shortness of breath or wheezing) Qty: 6.7 RF: 0 codeine-guaifenesin 10-100 mg/5 mL liquid 5 ml PO Q6H PRN (Reason: cough) Qty: 120 RF: 0 furosemide 40 mg tablet 40 mg PO TIDM RF: 0 insulin lispro [Humalog KwikPen Insulin] 100 unit/mL insulin pen 70 unit SQ TIDM RF: 0 diclofenac sodium 1 % gel 1 g topical TID PRN (Reason: Pain) RF: 0 Referrals Referrals: Shawanda Gomez DO [Primary Care Provider] -
[2021-07-26] MEDS ORDERED: IPRATROPIUM BROMIDE/ALBUTEROL respimat INH INH PRN (03:27)
[2021-07-26] MEDS ORDERED: ACETAMINOPHEN 325 MG TAB PO PRN (03:27)
[2021-07-26] MEDS ORDERED: GLUCOSE 40% GEL 15 GM TUBE PO PRN (03:27)
[2021-07-26] MEDS ORDERED: ONDANSETRON INJ 2 MG/ML 2 ML VIAL IV PRN (03:27)
[2021-07-26] MEDS ORDERED: DEXTROSE 50% 50 ML SYRINGE IV PRN (03:27)
[2021-07-26] MEDS ORDERED: POLYETHYLENE (MIRALAX) 17 GM PACK PO PRN (03:27)
[2021-07-26] MEDS ORDERED: GLUCAGON FOR INJ 1 MG VIAL SQ PRN (03:27)
[2021-07-26] MEDS ORDERED: CARBOHYDRATES FOR HYPOGLYCEMIA PO PRN (03:27)
[2021-07-26] MEDS ORDERED: MAGNESIUM HYDROXIDE SUSP 30 ML UDC PO PRN (03:27)
[2021-07-26] MEDS ORDERED: ALBUTEROL HFA 8 GM INHALER INH PRN ×2 (03:27→03:46)
[2021-07-26] MEDS ORDERED: ALUMINUM/MAGNESIUM SUSP 30 ML UDC PO PRN (03:27)
[2021-07-26] MEDS ORDERED: GLUCOSE 10 TABS/TUBE PO PRN (03:27)
[2021-07-26] MEDS ORDERED: Nursing to Pharmacy Communication SCH (03:45)
[2021-07-26] MEDS ORDERED: IPRATROPIUM BROMIDE HFA INHALER INH PRN (03:46)
[2021-07-26 06:34] LABS: Basophils # (auto) 0.03 K/uL (0-0.2); Basophils % (auto) 0.3 %; Eosinophils # (auto) 0.29 K/uL (0-0.5); Eosinophils % (auto) 3.2 %; Hematocrit (blood only) 29.9 % (37-47); Hemoglobin 9.3 g/dL (12.0-16.0); Immature Granulocytes # (auto) 0.01 K/uL (0.00-0.02); Immature Granulocytes % (auto) 0.1 %; Lymphocytes # (auto) 1.97 K/uL (1.2-3.4); Lymphocytes % (auto) 21.8 %; Mean Corpuscular Hemoglobin 27.7 pg (25-34); Mean Corpuscular Hgb Conc 31.1 g/dL (32-36); Mean Platelet Volume 9.2 fL (7.4-10.4); Monocytes # (auto) 0.57 K/uL (0.11-0.59); Monocytes % (auto) 6.3 %; Neutrophils # (auto) 6.16 K/uL (1.4-6.5); Neutrophils % (auto) 68.3 %; Platelet Count 239 K/uL (130-400); RDW Coefficient of Variation 17.4 % (11.5-14.5); RDW Standard Deviation 56.3 fL (36.4-46.3); Red Blood Count 3.36 M/uL (4.2-5.4); White Blood Count 9.03 K/uL (4.8-10.8)
[2021-07-26 07:08] LABS: BUN Creatinine Ratio 25.7 (10-20); Calcium 8.9 mg/dl (8.5-10.1); Creatinine Clr Calc Pharmacy 20.1 ml/min; Est GFR (African American) 15.8 ml/min; Est GFR (Non-African American) 13.6 ml/min; Magnesium 1.8 mg/dl (1.8-2.4); Phosphorus 3.5 mg/dl (2.5-4.9); Potassium 4.1 mmol/L (3.5-5.1)
[2021-07-26 07:21] LABS: Beta-Hydroxybutyrate 3.51 mg/dl (0.2-2.81)
[2021-07-26 07:29] LABS: Estimated Average Glucose 249 mg/dl; Hemoglobin A1C 10.3 % (4.5-5.6)
--- NOTE | 2021-07-26 08:05 | CT Scan Report ---
CT abd pelvis wo con CLINICAL INDICATION: MN ^CTR C11B ^mona. TECHNIQUE: Helical axial images of the abdomen and pelvis were obtained and displayed at 5 and 1 mm i ntervals. Automated dose lowering techniques and/or adjustment according to patient size were utilize d for this exam. This exam was performed with intravenous contrast. COMPARISON: None available at the time of this dictation. FINDINGS: Exam is limited by patient motion. Lower chest: Cardiomegaly with biatrial enlargement is noted. Bilateral atelectasis is seen. Liver: Unremarkable. No focal lesions are seen. Gallbladder and biliary tree: Patient is status post cholecystectomy. No intra- or extrahepatic bilia ry ductal dilation. Pancreas: Unremarkable, no focal lesions. Spleen: Unremarkable. Adrenals: Unremarkable. Kidneys and ureters: Perinephric stranding is noted bilaterally. Bladder: Limited evaluation due to underdistention. Bowel: Unremarkable. The appendix is unremarkable. Lymph nodes Retroperitoneal: Subcentimeter nasreen hepatis lymph nodes are seen. There is a prominent para-aortic n ode above the diaphragmatic edna. Mesenteric: Unremarkable. Pelvic: Unremarkable. Reproductive organs: A calcified fibroid is incidentally noted. Peritoneum: Normal Vessels: Atherosclerotic calcifications are seen. Abdominal wall: A tiny umbilical helical hernia is seen. There is bilateral fat stranding in the ante rior pannus which may represent hematoma or injection granuloma. Bones: Degenerative changes in the visualized spine. IMPRESSION: No acute abnormality, in particular no evidence of hydronephrosis. ACT 112: Negative or not required by law. Electronically signed by: Christ Magaña M.D. 07/26/2021 8:03 AM
[2021-07-26] MEDS: carvediloL 25 MG TAB PO SCH ×2 (08:17→17:30)
[2021-07-26] MEDS: cloNIDine HCL 0.1 MG TAB PO SCH (08:18)
[2021-07-26] MEDS: PANTOprazole 40 MG TAB PO SCH ×2 (08:18→20:14)
[2021-07-26] MEDS: ISOSORBIDE MONO EXTENDED REL 60 MG TABCR PO SCH (08:18)
[2021-07-26] MEDS: hydrALAZINE TAB 50 MG TAB PO SCH ×3 (08:18→20:14)
[2021-07-26] MEDS: INSULIN ASPART 100 UNITS/ML 3 ML PEN SC SCH ×4 (08:20→20:11)
[2021-07-26] MEDS ORDERED: allopurinoL 300 MG TAB PO SCH (09:00)
[2021-07-26] MEDS ORDERED: PHARMACY GLYCEMIC MGMT CONSULT PRN (10:24)
[2021-07-26] MEDS ORDERED: INSULIN GLARGINE 100 UNIT/ML VIAL SC ONE (10:45)
[2021-07-26] MEDS ORDERED: INSULIN ASPART 100 UNITS/ML 3 ML PEN SC ONE (10:45)
--- NOTE | 2021-07-26 10:46 | Pharmacy Report ---
Pharmacy Glycemic Short Note 2 - Date of Service July 26, 2021 - Glycemic Short BSG Results (Last 24 hours): 07/25/21 07/26/21 07/26/21 Unknown 06:04 07:35 Glucose 330 H* 376 H* POC Glucose 372 H* 07/26/21 07:36 Glucose POC Glucose 369 H* OUTPATIENT ANTIDIABETIC REGIMEN: * Lantus 85 units SQ BID * NovoLog 70 units SQ TIDM * A1c = 10.3% on 07/26/21 ASSESSMENT: * 71yo T2DM female with poor outpatient control per recent A1c. Pt is maintained on high dose SQ basal bolus insulin regimen * Pt did not receive her Lantus last evening or this morning despite BSGs > 300 * Will give 1.5x her AM Lantus dose (to make up half of dose from last evening) and give additional NovoLog since CF/CR ordered are too conservative based on outpatient needs. * Will consider IV insulin infusion at lunch if BSGs not trending downwards. PLAN FOR INPATIENT GLYCEMIC CONTROL: * Basal insulin * Lantus 130 units SQ x 1 dose this AM; Will re-evaluate PM dose based on BSG trends- likely 85+ units this evening * Bolus insulin * NovoLog per scale ACHS or Q6hrs while NPO * Goal Range: Low 100 mg/dL - High 140 mg/dL * Correction Factor: 8 mg/dL/unit * Nutritional / Prandial insulin per carb ratio of 1 unit per 2 grams CHO consumed PLAN FOR DISCHARGE: * TBD
[2021-07-26] MEDS ORDERED: STAT IV Infusion **Titration per Protocol STA (12:24)
[2021-07-26] MEDS ORDERED: INSULIN PROTOCOL GOAL RANGE ONE (12:24)
--- NOTE | 2021-07-26 12:35 | Nephrology Consultation ---
Date of Consultation July 26, 2021 Assessment & Plan (1) YASEMIN (acute kidney injury): (2) Chronic kidney disease, stage 4 (severe): (3) Anemia: (4) Edema of both lower extremities: 71-year-old female with stage IV CKD, baseline creatinine 2.2-2.5, admitted with YASEMIN found on routine labs, creatinine was 3.7, electrolyte was acceptable. Multiple factors could have contributed to the YASEMIN including a recent antibiotic exposure as well as high dose of diuretics, although urinalysis was not suggestive off interstitial nephritis. -- renal function already started to improve slowly, creatinine down to 3.3, electrolyte acceptable. She has been voiding normally. -- Continue to hold the diuretics today however with her history of chronic lower extremity edema with diastolic dysfunction, elevated blood pressure, eventually will have to start her back on diuretics. we may have to accept worsening azotemia to improve her lower extremity edema. Continue on low-salt diet. Advised her to keep her leg elevated, were compression stockings. -- If renal function continue to improve she may be able to get discharged tomorrow. Before discharge will have to make decision regarding her diuretic regimen. Will probably have to start her on a lower dose than what she was taking over the weekend. Will follow Thank you for allowing me to participate in your patient's care. It was a pleasure to see Marika History of Present Illness Reason for Consultation: acute kidney injury Attending Physician: Xavier Cates MD History of Present Illness Marika Poe is a 71-year-old F with PMH of Stage 4 CKD, T2DM, GERD, gout, HTN, obesity, hyperparathyroidism, CHF admitted with YASEMIN found on outpt lab. nephr ology consult was requested to manage AK with history of advanced CKD. EMR records are reviewed in detail during patients visit. Marika was referred to ED after she was found to have elevated creatinine of 3.7 on outpatient labs. She was seen and evaluated for cough/shortness of breath 2 weeks ago and was treated with a prescription of azithromycin but It did not seem to help as she continued to have symptoms and presented to ED again on 07/15/2021 when she was treated for community-acquired pneumonia with cefdinir and azithromycin. She has continued to have cough but overall feels much better. Diuretics has been on hold and she is getting IV fluid. She has chronic lower extremities with history of chronic CHF with grade 2 diastolic dysfunction but normal EF. she has been on Lasix 40 mg daily which was recently increased to 40 mg three a day however, over last few days she noticed worsening of lower extremity edema and she was advised to take Lasix 40 mg 4 times a day which she did over the weekend. She had the follow-up lab yesterday which showed worsening of creatinine. Urinalysis was unremarkable. Renal imaging was otherwise unremarkable. She did not take any NSAID recently. Never smoker. No known family history of chronic kidney disease except her dad was noted to have some kidney function abnormality but details are not available. Has stage IV CKD with baseline creatinine around 2.2-2.5, secondary to diabetic nephropathy and microvascular disease, has low-grade proteinuria. Currently she is otherwise feeling well except the persistence of cough but no shortness of breath. Blood pressure has been elevated. Allergies Allergy/AdvReac Type Severity Reaction Status Date / Time tramadol Allergy Mild "FELT Verified 07/25/21 22:54 WEIRD" amlodipine Allergy Unknown SWELLING Verified 07/25/21 22:54 Home Medications Medication Instructions Recorded Confirmed Type acetaminophen 500 mg capsule 500 mg PO QID PRN 04/04/19 07/25/21 History cyanocobalamin (vitamin B-12) 1,000 mcg IM MONTHLY ml 04/04/19 07/25/21 History 1,000 mcg/mL injection solution Oxygen Home ea 09/04/19 07/22/21 History compress.stocking,knee,reg,med #2 ea 12/28/20 07/22/21 Rx blood sugar diagnostic ([facility] #450 ea 02/08/21 07/22/21 Rx Ultra Blue Test Strip) carvedilol 25 mg tablet 25 mg PO BID #180 tab 02/08/21 07/25/21 Rx clonidine HCl 0.1 mg tablet See Rx Instructions PO BID #270 tab 02/08/21 07/25/21 Rx hydralazine 25 mg tablet 50 mg PO TID #540 tab 02/08/21 07/25/21 Rx lancets 33 gauge ([facility]ica #100 ea 02/08/21 07/22/21 Rx Lancets) pantoprazole 40 mg tablet,delayed 40 mg PO BID #180 tab 02/08/21 07/25/21 Rx release pen needle, diabetic 31 gauge x #200 ea 02/08/21 07/11/21 Rx 5/16" (BD Ultra-Fine Short Pen Needle) simvastatin 40 mg tablet 40 mg PO QPM #90 tab 02/08/21 07/25/21 Rx insulin glargine 100 unit/mL (3 85 unit SQ BID #11 box 03/04/21 07/25/21 Rx mL) subcutaneous pen (Lantus Solostar U-100 Insulin) ergocalciferol (vitamin D2) 1,250 1,250 mcg PO .COMPLEX #21 cap 03/16/21 07/25/21 Rx mcg (50,000 unit) capsule ipratropium 20 mcg-albuterol 100 1 puff INHALATION Q6H PRN #4 g 05/18/21 07/25/21 Rx mcg/actuation mist for inhalation (Combivent Respimat) allopurinol 300 mg tablet 300 mg PO DAILY #90 tab 05/24/21 07/25/21 Rx isosorbide mononitrate 60 mg 60 mg PO DAILY #90 tab 05/24/21 07/25/21 Rx tablet,extended release 24 hr losartan 100 mg tablet 100 mg PO DAILY #90 tab 05/24/21 07/25/21 Rx albuterol sulfate 90 mcg/actuation 2 puff INHALATION QID PRN #6.7 g 07/11/21 07/25/21 Rx aerosol inhaler codeine 10 mg-guaifenesin 100 mg/5 5 ml PO Q6H PRN #120 ml 07/11/21 07/25/21 Rx mL oral liquid diclofenac sodium 1 % topical gel 1 g TOPICAL TID PRN 07/15/21 07/25/21 History furosemide 40 mg tablet 40 mg PO TIDM 07/15/21 07/25/21 History insulin lispro 100 unit/mL 70 unit SQ TIDM 07/15/21 07/25/21 History subcutaneous pen (Humalog KwikPen (U-100) Insulin) Patient History Medical History (Updated 07/26/21 @ 02:10 by Yaw Mcknight MD) Anemia CHF (congestive heart failure) Chronic kidney disease, stage 4 (severe) Chronic osteoarthritis Controlled diabetes mellitus with renal manifestations Diabetes mellitus type 2 with complications Dyslipidemia Dysplastic nevi Gastroparesis GERD (gastroesophageal reflux disease) Gout 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 to tuberculosis Hypertension Morbid obesity 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 Nocturnal hypoxia 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) "Incidental finding of mass left conjunctiva at the time of cataract surgery Status post excision 03/02/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 Status post completion of radiation [id number]/2016 received 3060 cGy" On 03/24/16 11:07 Colleen Jasso wrote "Incidental finding of mass left conjunctiva at the time of cataract surgery Status post excision 03/02/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" Obstructive sleep apnea of adult Personal history of malignant neoplasm of skin Secondary hyperparathyroidism Vitamin B12 deficiency Vitamin D deficiency Surgical History S/P cholecystectomy S/P dilatation and curettage S/P tubal ligation Family History Father Prostate cancer Mother Myocardial infarction Denies family history of Ovarian cancer Breast cancer Lung cancer Colorectal cancer Social History Smoking Status: Never smoker Second Hand Exposure: No; Do You Dip or Chew Tobacco: No; Tobacco Cessation Education Requested by Patient: No Hx Alcohol Use: Yes Alcohol type: beer Alcohol Intake Frequency: Monthly or Less Hx Substance Use: No Preferred Language: Irish Visual Impairment: No Limitations Hearing Ability: Normal Eye Glass Frame Polisher Required: No Beliefs That Will Affect Care: None marital status: Current Living Situation: Spouse Current Living Situation Comment: With current occupational status: retired Other Information That Helps Us Care for You: No Feels Safe at Home: Yes Safety Concerns: Feels Safe At This Time Childhood Exposure to Second-Hand Smoke: Yes Diet Comment: regular caffeine: Yes during the past year weight has: remained stable Dental Care, Regularly: Yes Physical Activity Frequency: 1-2 Times per Week Physical Activity Frequency Comment: walking Seatbelt Use: always Sunscreen Use: Yes Assistive Devices: None Review of Systems Review of Systems: Detail ROS was otherwise unremarkable. Results & Data ([facility] [place]) Vital Signs (Past 12 Hours) Vital Signs Temp Pulse Pulse Resp BP BP Pulse Ox 07/26/21 07:41 36.3 C L 63 18 172/59 H 97 07/26/21 07:00 62 07/26/21 03:31 36.9 C 69 18 174/95 H 95 07/26/21 03:29 82 07/26/21 02:35 82 20 161/78 H 95 07/26/21 01:36 81 20 93 PG Care Time/CCT Total # of Minutes Spent Total Time Spent with Patient: Total time spent is greater than 50% in coordination of care (as documented) at patient's floor/unit and/or counseling patient: Coding Level of Care Code 27589 Initial Inpt Care Lvl 3 Diagnoses YASEMIN (acute kidney injury) N17.9 Chronic kidney disease, stage 4 (severe) N18.4 Anemia D64.9 Edema of both lower extremities R60.0
[2021-07-26] MEDS ORDERED: INSULIN REGULAR 250 UNITS in SODIUM CHLORIDE 0.9% 247.5 ML IV SCH (12:45)
[2021-07-26] MEDS ORDERED: INSULIN HUMAN REGULAR IV BOLUS 10 UNITS in SYRINGE 0 ML IV ONE (12:45)
--- NOTE | 2021-07-26 15:36 | Hospitalist Progress Note ---
Date of Service July 26, 2021 Assessment & Plan (1) YASEMIN (acute kidney injury): Plan: Baseline Cr 2.2 - 2.5. Cr on admission was 3.7. Likely from higher dose of furosemide. - Down to 3.3 today. - Hold diuretics; will need to plan regimen on discharge with nephrology. (2) Diabetes mellitus type 2 with complications: Plan: A1c is 10.3% this admission which is higher than priors and continually going up. - DM educator visited the patient - Glycemic pharmacy consulted as her insulin needs are very high -> Presently on insulin gtt (3) Hypertension: Plan: BP today is 150 - 170/60. - Continue home carvedilol, clonidine, hydralazine, Imdur - Monitor (4) Cough: Plan: Prior diagnosis of pneumonia with 10-day course of abx. Still with cough, but no leukocytosis, no fevers. - Check procalcitonin with AM labs - Echo to check heart -> Had been ordered by PCP for concern for CHF. - Symptomatic treatment for cough (5) Chronic kidney disease, stage 4 (severe): Plan: As above (6) Dyslipidemia: Plan: - Continue statin (7) Obstructive sleep apnea of adult: Plan: Not sure if on CPAP. - Offer/discuss with patient (8) Gout: Plan: - Dose reduce allopurinol to 50 mg every other day for renal dysfunction (9) GERD (gastroesophageal reflux disease): Plan: - Continue PPI PO BID (10) DVT prophylaxis: Plan: Heparin 5,000 units SQ Q12h Admission and Anticipated Discharge Date Admission Date: July 25, 2021 Subjective Doing well today. More energy today. Reports no fevers/chills, chest pain, shortness of breath, abdominal pain, nausea, or vomiting. Physical Exam Constitutional: WD/WN, vitals as above Eyes: EOM intact bilaterally; no conjunctival abnormality ENMT: external ear and nose normal, oropharynx normal Neck: trachea midline, no thyromegaly normal visual inspection Respiratory: normal respiratory effort, lungs clear to auscultation no respiratory distress Cardiovascular: RRR, no murmur, no edema Gastrointestinal (Abdomen): Inspection/Auscultation: abdomen normal to inspection; abdomen not distended Musculoskeletal: no cyanosis or clubbing, extremities motor strength 5/5 Skin: no rashes, warm and dry Neurologic: moves all extremities and awake Psychiatric: Orientation: alert, oriented to person and cooperative Results & Data Results & Data ([facility]) Vital Signs (Past 12 Hours) Vital Signs Temp Pulse Pulse Resp BP Pulse Ox 07/26/21 14:59 36.6 C 60 18 156/62 H 91 07/26/21 07:41 36.3 C L 63 18 172/59 H 97 07/26/21 07:00 62 07/26/21 03:31 36.9 C 69 18 174/95 H 95 07/26/21 03:29 82 PG Care Time/CCT Total # of Minutes Spent Total Time Spent with Patient: Total time spent is greater than 50% in coordination of care (as documented) at patient's floor/unit and/or counseling patient: Coding Level of Care Code 92620 Subseq Hosp Care Lvl 3 Diagnoses YASEMIN (acute kidney injury) N17.9 Cough R05 Chronic kidney disease, stage 4 (severe) N18.4 Diabetes mellitus type 2 with complications E11.8 Dyslipidemia E78.5 Hypertension I10 Obstructive sleep apnea of adult G47.33 DVT prophylaxis Z29.9 Gout M10.9 GERD (gastroesophageal reflux disease) K21.9
[2021-07-26] MEDS ORDERED: guaiFENesin 600 MG TABCR PO PRN (15:37)
[2021-07-26] MEDS: INSULIN GLARGINE 100 UNIT/ML VIAL SC SCH (20:12)
[2021-07-26] MEDS: HEPARIN SOD 5,000 UNIT/0.5 ML VIAL SQ SCH (20:13)
[2021-07-26] MEDS ORDERED: cloNIDine HCL 0.1 MG TAB PO SCH (21:00)
[2021-07-26] MEDS ORDERED: SIMVASTATIN 40 MG TAB PO SCH (21:00)
[2021-07-27] MEDS ORDERED: INSULIN ASPART 100 UNITS/ML 3 ML PEN SC ONE (03:00)
--- NOTE | 2021-07-27 05:58 | Billing Data ---
Date of Service July 27, 2021 Coding Level of Care Code 66487 Initial Inpt Care Lvl 3
--- NOTE | 2021-07-27 06:22 | Electrocardiogram Report ---
Test Reason : Blood Pressure : / mmHG Vent. Rate : 091 BPM Atrial Rate : 091 BPM P-R Int : 170 ms QRS Dur : 078 ms QT Int : 376 ms P-R-T Axes : 117 123 131 degrees QTc Int : 462 ms Poor data quality, interpretation may be adversely affected Normal sinus rhythm Limb lead reversal Nonspecific ST abnormality Abnormal ECG When compared with ECG of 15-JUL-2021 15:05, Limb lead reversal is now present Confirmed by Fracisco Nathan ([id number]) on 07/27/2021 6:21:51 AM Referred By: Shawanda Gomez Confirmed By:Fracisco Nathan
[2021-07-27 06:26] LABS: Basophils # (auto) 0.01 K/uL (0-0.2); Basophils % (auto) 0.1 %; Eosinophils # (auto) 0.31 K/uL (0-0.5); Eosinophils % (auto) 3.7 %; Hematocrit (blood only) 30.1 % (37-47); Hemoglobin 9.3 g/dL (12.0-16.0); Immature Granulocytes # (auto) 0.02 K/uL (0.00-0.02); Immature Granulocytes % (auto) 0.2 %; Lymphocytes # (auto) 1.19 K/uL (1.2-3.4); Mean Corpuscular Hemoglobin 27.4 pg (25-34); Mean Corpuscular Hgb Conc 30.9 g/dL (32-36); Mean Corpuscular Volume 88.8 fL (80-100); Mean Platelet Volume 9.1 fL (7.4-10.4); Monocytes % (auto) 8.3 %; Neutrophils # (auto) 6.25 K/uL (1.4-6.5); Neutrophils % (auto) 73.7 %; Platelet Count 223 K/uL (130-400); RDW Coefficient of Variation 17.5 % (11.5-14.5); RDW Standard Deviation 56.9 fL (36.4-46.3); Red Blood Count 3.39 M/uL (4.2-5.4); White Blood Count 8.48 K/uL (4.8-10.8)
[2021-07-27 07:03] LABS: BUN Creatinine Ratio 27.7 (10-20); Calcium 9.2 mg/dl (8.5-10.1); Creatinine Clr Calc Pharmacy 24.7 ml/min; Est GFR (African American) 20.3 ml/min; Est GFR (Non-African American) 17.5 ml/min; Potassium 3.7 mmol/L (3.5-5.1)
[2021-07-27 07:08] LABS: Phosphorus 3.6 mg/dl (2.5-4.9)
[2021-07-27] MEDS: cloNIDine HCL 0.1 MG TAB PO SCH (07:36)
[2021-07-27] MEDS: ISOSORBIDE MONO EXTENDED REL 60 MG TABCR PO SCH (07:36)
[2021-07-27] MEDS: hydrALAZINE TAB 50 MG TAB PO SCH ×2 (07:37→14:46)
[2021-07-27] MEDS: PANTOprazole 40 MG TAB PO SCH (07:37)
[2021-07-27] MEDS: carvediloL 25 MG TAB PO SCH ×2 (07:37→17:25)
[2021-07-27] MEDS: HEPARIN SOD 5,000 UNIT/0.5 ML VIAL SQ SCH (07:37)
[2021-07-27] MEDS: INSULIN ASPART 100 UNITS/ML 3 ML PEN SC SCH ×3 (08:50→17:25)
[2021-07-27] MEDS: INSULIN GLARGINE 100 UNIT/ML VIAL SC SCH (08:51)
--- NOTE | 2021-07-27 09:51 | Pharmacy Report ---
Pharmacy Glycemic Short Note 2 - Date of Service July 27, 2021 - Glycemic Short BSG Results (Last 24 hours): 07/26/21 07/26/21 07/26/21 11:22 11:24 12:02 Glucose POC Glucose 395 H* 384 H* 395 H* 07/26/21 07/26/21 07/26/21 12:03 13:46 13:47 Glucose POC Glucose 379 H* 466 H* 485 H* 07/26/21 07/26/21 07/26/21 14:48 14:49 15:53 Glucose POC Glucose 387 H* 382 H* 366 H* 07/26/21 07/26/21 07/26/21 15:54 16:52 16:52 Glucose POC Glucose 381 H* 331 H* 346 H* 07/26/21 07/26/21 07/26/21 17:52 17:53 18:51 Glucose POC Glucose 365 H* 412 H* 313 H* 07/26/21 07/26/21 07/26/21 18:52 19:56 21:10 Glucose POC Glucose 349 H* 270 H 227 H 07/26/21 07/26/21 07/27/21 21:59 22:51 00:02 Glucose POC Glucose 196 H 148 H 117 H 07/27/21 07/27/21 07/27/21 00:58 01:59 03:05 Glucose POC Glucose 84 74 63 L* 07/27/21 07/27/21 07/27/21 03:22 04:07 04:42 Glucose POC Glucose 72 68 L* 100 H 07/27/21 07/27/21 05:49 07:44 Glucose 109 H POC Glucose 134 H OUTPATIENT ANTIDIABETIC REGIMEN: * Lantus 85 units SQ BID * NovoLog 70 units SQ TIDM * A1c = 10.3% on 07/26/21 ASSESSMENT: 07/27 * Pt required IV insulin infusion yesterday afternoon d/t SEVERE hyperglycemia - not responding to SQ insulin doses. * IV insulin infusion stopped/held around midnight last evening. IV insulin infusion titrated up to 20+units/hr * Pt with LOW BSG this morning. May be secondary to high IV insulin infusion rates with extra SQ insulin dosing yesterday. * Will resume outpatient dosing today since basal deficit now repleted. Will continue to titrate insulin based on BSG trends. May need dose decrease in insulin once steady state is reached since patients typically need less than outpatient dosing in house with controlled CHO intake. 07/26 * 71yo T2DM female with poor outpatient control per recent A1c. Pt is maintained on high dose SQ basal bolus insulin regimen * Pt did not receive her Lantus last evening or this morning despite BSGs > 300 * Will give 1.5x her AM Lantus dose (to make up half of dose from last evening) and give additional NovoLog since CF/CR ordered are too conservative based on outpatient needs. * Will consider IV insulin infusion at lunch if BSGs not trending downwards. PLAN FOR INPATIENT GLYCEMIC CONTROL: * Basal insulin * Lantus 85 units SQ BID * Bolus insulin * NovoLog per scale ACHS or Q6hrs while NPO * Goal Range: Low 100 mg/dL - High 140 mg/dL * Correction Factor: 8 mg/dL/unit * Nutritional / Prandial insulin per carb ratio of 1 unit per 2 grams CHO consumed PLAN FOR DISCHARGE: * TBD
--- NOTE | 2021-07-27 10:31 | Nephrology Progress Note ---
Date of Service July 27, 2021 Assessment & Plan (1) YASEMIN (acute kidney injury): (2) Chronic kidney disease, stage 4 (severe): (3) Anemia: (4) Edema of both lower extremities: Plan: 71-year-old female with stage IV CKD, baseline creatinine 2.2-2.5, admitted with YASEMIN found on routine labs, creatinine was 3.7, electrolyte was acceptable. Multiple factors could have contributed to the YASEMIN including a recent antibiotic exposure as well as high dose of diuretics, although urinalysis was not suggestive off interstitial nephritis. Renal function continues to improve, electrolyte acceptable. She has been voiding normally off of diuretics. Weight has been relatively stable. Blood pressure slightly elevated off of diuretic and SABA-inhibitor. -- Continue to hold the diuretics today As she has been voiding normally without diuretics and volume status relatively stable, however with her history of chronic lower extremity edema with diastolic dysfunction, elevated blood pressure, eventually will have to start her back on diuretics. we may have to accept worsening azotemia to improve her lower extremity edema. -- advised to Continue on low-salt diet, keep leg elevated, use compression stockings. If she noticed significant weight gain or worsening of lower extremity edema advised to start back on Lasix at 40 mg p.o. daily and increase as needed however, would like to continue to hold at this point -- okay to be discharged with close outpatient lab monitoring, if discharged today, advised to have renal panel done Sunday morning and the results should be copied to Dr. France. schedule 2-4 weeks follow-up with Dr. France Will follow while inpatient Admission and Anticipated Discharge Date Admission Date: July 25, 2021 Harsh Hairston was seen in her room this morning, overall she is feeling well, no acute overnight even. Continues to have some lower extremity edema but no worsening. No respiratory distress. Renal function continues to improve, creatinine down to 2.7, close to her baseline, electrolyte acceptable. Review of Systems Review of Systems: Detail ROS was otherwise unremarkable. Physical Exam Constitutional: well developed and well nourished; no acute distress Respiratory: normal respiratory effort, lungs clear to auscultation Cardiovascular: Rate/Rhythm: regular rate and regular rhythm Heart Sounds: normal S1 and normal S2 Extremities: + edema Neurologic: moves all extremities and awake; no focal motor deficits and not confused Psychiatric: A+Ox3, euthymic affect Results & Data ([facility]) Vital Signs (Past 12 Hours) Vital Signs Temp Pulse Pulse Pulse Resp BP Pulse Ox 07/27/21 07:19 36.6 C 65 18 152/53 H 95 07/27/21 07:00 63 07/27/21 03:18 36.5 C 58 L 16 151/73 H 96 07/27/21 02:58 36.6 C 76 16 172/72 H 95 07/26/21 23:21 37 C 65 18 181/67 H 95 PG Care Time/CCT Total # of Minutes Spent Total Time Spent with Patient: Total time spent is greater than 50% in coor dination of care (as documented) at patient's floor/unit and/or counseling patient: Coding Level of Care Code 95506 Subseq Hosp Care Lvl 3 Diagnoses YASEMIN (acute kidney injury) N17.9 Chronic kidney disease, stage 4 (severe) N18.4 Anemia D64.9 Edema of both lower extremities R60.0
--- NOTE | 2021-07-27 16:34 | XCELERA ---
[id number]
--- NOTE | 2021-07-27 17:16 | Discharge Summary ---
Date of Service July 27, 2021 Admission HPI Per Admitting Provider Marika Poe is a 71-year-old female with past medical history for CKD stage IV, type 2 diabetes,, GERD, gout, hypertension, obstructive sleep apnea, obesity, hyperparathyroidism, congestive heart failure, with recent pneumonia s/p cefdinir and azithromycin; who presented to the ED at encouragement of her PCP following abnormal laboratory values. Approximately 2 weeks ago patient was seen and evaluated for concern of cough/shortness of breath, at that time was provided with a prescription of azithromycin, over the following several days had continuing worsening ultimately causing presentation to the ED on 07/15 at which she received treatment for community-acquired pneumonia with cefdinir and azithromycin. Has noticed that she has continued to have this cough but overall feels much better at this point time. Ultimately leading to her having a conversation with PCP last week in regards to her maintained peripheral edema in her lower extremities, has been working with PCP in an effort to reduce this pe ripheral edema, and the decision was made to increase Lasix from 40 mg 3 times daily to 40 mg 4 times daily for 3 days over the weekend in an effort to decrease the swelling. Additionally was recommended that she take/utilize low- salt diet recommendations and utilize compression stockings more regularly. As follow-up had lab studies this morning which demonstrated an increase in creatinine and ultimately she was recommended to come to the hospital for further evaluation. There was some confusion over white blood cell count also being elevated, however this appears to have been from 07/15 when she was treated for the pneumonia. Principal Diagnosis Acute kidney injury due to furosemide/prerenal Discharge Exam Constitutional WD/WN, vitals as above Eyes EOM intact bilaterally; no conjunctival abnormality ENMT external ear and nose normal, oropharynx normal Neck trachea midline, no thyromegaly normal visual inspection Respiratory normal respiratory effort, lungs clear to auscultation no respiratory distress Cardiovascular RRR, no murmur, no edema Gastrointestinal (Abdomen) Inspection/Auscultation: abdomen normal to inspection; abdomen not distended Musculoskeletal no cyanosis or clubbing, extremities motor strength 5/5 Skin no rashes, warm and dry Neurologic moves all extremities and awake Psychiatric Orientation: alert, oriented to person and cooperative Discharge Data Allergies Allergy/AdvReac Type Severity Reaction Status Date / Time tramadol Allergy Mild "FELT Verified 07/25/21 22:54 WEIRD" amlodipine Allergy Unknown SWELLING Verified 07/25/21 22:54 Consultations 07/25/21 23:50 ED Decision to Admit Stat 07/26/21 03:27 Consult Nephrology Routine Ordered Studies 07/25/21 23:47 CT abd pelvis wo con Urgent Diabetes Follow up Diabetes Follow-up Needed for HgbA1c >9% Hospital Course (1) YASEMIN (acute kidney injury): Baseline Cr 2.2 - 2.5. Cr on admission was 3.7. Likely from higher dose of furosemide. - Down to 2.66 today. - Held diuretics; furosemide down to daily PRN on discharge. Will need to weigh herself and watch leg edema. Labs on Sunday to be sent to nephrology. Follow up with Dr. France in 2 weeks. (2) Diabetes mellitus type 2 with complications: A1c is 10.3% this admission which is higher than priors and continually going up. - DM educator visited the patient - Glycemic pharmacy consulted as her insulin needs are very high -> Temporarily on insulin gtt. By discharge, was actually back on her home insulin basal dosing (it had been cut when she first was admitted). Blood sugars were stable. -> Discussed with glycemic pharmacist. Discharge on stable home regimen. (3) Hypertension: BP today is 150 - 170/60. - Continued home carvedilol, clonidine, hydralazine, Imdur - Restart losartan on discharge. (4) Cough: Prior diagnosis of pneumonia with 10-day course of abx. Still with cough, but no leukocytosis, no fevers. - Procalcitonin & BNP were normal. - Echo on 07/27 with normal EF and stable diastolic dysfunction. Do NOT think the cough was related to heart dysfunction. Do NOT have evidence of diastolic heart failure at this time. - Symptomatic treatment for cough (5) Chronic kidney disease, stage 4 (severe): As above (6) Dyslipidemia: - Continue statin (7) Obstructive sleep apnea of adult: Not sure if on CPAP. 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 France in 2 weeks for follow-up. ) Shawanda Gomez DO [Primary Care Provider] - 08/04/21 9:20 am Diet: Carb Consistent or DM2 and Dialysis Renal Ambulatory Orders: Basic Metabolic Panel (Routine) Timeframe: 3 Days Location: Determined by Patient Ordered By: Xavier Vasquez Attending Provider Instructions: You were admitted to the hospital due to renal failure that we think was due to taking too much diuretic to help with your leg swelling. Luckily, your kidney numbers have gone back to normal. Your echo is pending, but if it looks good, we will discharge you home to follow up with Dr. France in 2 weeks. Please weigh yourself today and then weigh yourself daily to see if your weight is changing. If you see extra swelling in your legs or your weight starts to increase, please restart your Lasix at 40 mg once per day. We also did lower your allopurinol dose. With your kidney function, your dosage was too high and we don't want it to build up in your system. Please get your labs checked this Sunday and follow up with Dr. France. Pending Studies at Discharge: No Stand-Alone Forms: [email or web address], Smoking Cessation Medications and DC Order Prescriptions: New allopurinol 100 mg Tablet 50 mg PO Q48H Qty: 30 RF: 0 Continued (DME) OneTouch Ultra Blue Test Strip Strip See Dose Instructions .ROUTE .MEDSUPPLY Qty: 450 RF: 1 carvedilol 25 mg tablet 25 mg PO BID Qty: 180 RF: 1 clonidine HCl 0.1 mg tablet See Rx Instructions PO BID Qty: 270 RF: 1 hydralazine 25 mg tablet 50 mg PO TID Qty: 540 RF: 1 (DME) lancets [OneTouch Delica Lancets] 33 gauge misc See Dose Instructions .ROUTE .MEDSUPPLY Qty: 100 RF: 0 pantoprazole 40 mg tablet,delayed release (DR/EC) 40 mg PO BID Qty: 180 RF: 1 (DME) pen needle, diabetic [BD Ultra-Fine Short Pen Needle] 31 gauge x 5/16" needle See Rx Instructions .ROUTE .MEDSUPPLY Qty: 200 RF: 0 simvastatin 40 mg tablet 40 mg PO QPM Qty: 90 RF: 1 Combivent Respimat 20-100 mcg/actuation mist 1 puff inhalation Q6H PRN (Reason: sob/wheezing) Qty: 4 RF: 3 isosorbide mononitrate 60 mg tablet extended release 24 hr 60 mg PO DAILY Qty: 90 RF: 1 losartan 100 mg tablet 100 mg PO DAILY Qty: 90 RF: 1 cyanocobalamin (vitamin B-12) 1,000 mcg/mL solution 1,000 mcg IM MONTHLY RF: 0 acetaminophen 500 mg capsule 500 mg PO QID PRN (Reason: Pain) RF: 0 ergocalciferol (vitamin D2) 1,250 mcg (50,000 unit) capsule 1,250 mcg PO .COMPLEX Qty: 21 RF: 0 (DME) Oxygen Home Liters Per Minute See Dose Instructions .ROUTE .MEDSUPPLY RF: 0 (DME) compress.stocking,knee,reg,med Misc See Rx Instructions .ROUTE .MEDSUPPLY Qty: 2 RF: 0 Lantus Solostar U-100 Insulin 100 unit/mL (3 mL) insulin pen 85 unit SQ BID Qty: 11 RF: 3 albuterol sulfate 90 mcg/actuation HFA aerosol inhaler 2 puff inhalation QID PRN (Reason: shortness of breath or wheezing) Qty: 6.7 RF: 0 codeine-guaifenesin 10-100 mg/5 mL liquid 5 ml PO Q6H PRN (Reason: cough) Qty: 120 RF: 0 insulin lispro [Humalog KwikPen Insulin] 100 unit/mL insulin pen 70 unit SQ TIDM RF: 0 diclofenac sodium 1 % gel 1 g topical TID PRN (Reason: Pain) RF: 0 Changed furosemide 40 mg tablet 40 mg PO DAILY PRN (Reason: Leg swelling or weight change) Qty: 0 RF: 0 Discontinued allopurinol 300 mg tablet 300 mg PO DAILY Qty: 90 RF: 1 Discharge Orders: Discharge Order (Routine); Ordered 07/27/21 Ordered By: Xavier Cates Admission Data Admit Date/Time: 07/25/21 23:58 Attending Provider: Xavier Cates Admit Provider: Adal Phelan Primary Care Provider: Shawanda Gomez Other Providers: Mindi Mckeon ; Xavier Cates Other Interventions: Discharge Summary Assessment (RN) Last Done: 07/27/21 14:39 Coding Level of Care Code D/C DAY MANAGEMENT >30 MINS Diagnoses YASEMIN (acute kidney injury) N17.9 Diabetes mellitus type 2 with complications E11.8 Hypertension I10 Cough R05 Chronic kidney disease, stage 4 (severe) N18.4 Dyslipidemia E78.5 Obstructive sleep apnea of adult G47.33 Gout M10.9 GERD (gastroesophageal reflux disease) K21.9 DVT prophylaxis Z29.9
[2021-07-28] MEDS ORDERED: allopurinoL 100 MG TAB PO SCH (09:00)
== END 2021-07-27 18:57 | disposition home or self-care (01) ==
LOC: ED 17:39 → SUATTDRO 23:58 → INTOOBSV 23:58 → 2N 23:58
DX: N17.9 Acute kidney failure, unspecified; Z79.899 Other long term (current) drug therapy; R60.0 Localized edema; G47.33 Obstructive sleep apnea (adult) (pediatric); I13.0 Hypertensive heart and chronic kidney disease with heart failure and stage 1 through stage 4 chronic kidney disease, or unspecified chronic kidney disease; Z20.822 Contact with and (suspected) exposure to COVID-19; E66.01 Morbid (severe) obesity due to excess calories; N25.81 Secondary hyperparathyroidism of renal origin; C85.90 Non-Hodgkin lymphoma, unspecified, unspecified site; R05 Cough; E11.22 Type 2 diabetes mellitus with diabetic chronic kidney disease; K21.9 Gastro-esophageal reflux disease without esophagitis; M10.9 Gout, unspecified; Z79.4 Long term (current) use of insulin; N18.4 Chronic kidney disease, stage 4 (severe); Z82.49 Family history of ischemic heart disease and other diseases of the circulatory system; E78.5 Hyperlipidemia, unspecified; K31.84 Gastroparesis

== ENCOUNTER 2023-06-12 15:23 | Inpatient (IN) ==
[2023-06-12] MEDS ORDERED: SODIUM CHLORIDE 0.9% 500 ML IV STA (15:33)
[2023-06-12 15:55] LABS: Basophils # (auto) 0.05 K/uL (0-0.2); Basophils % (auto) 0.4 %; Eosinophils # (auto) 0.16 K/uL (0-0.50); Eosinophils % (auto) 1.2 %; Hematocrit (blood only) 29.1 % (37.0-47.0); Hemoglobin 9.5 g/dl (12.0-16.0); Immature Granulocytes # (auto) 0.07 K/uL (0.01-0.20); Immature Granulocytes % (auto) 0.5 %; Lymphocytes # (auto) 1.21 K/uL (1.2-3.4); Lymphocytes % (auto) 9.3 %; Mean Corpuscular Hemoglobin 30.6 pg (25.0-34.0); Mean Corpuscular Hgb Conc 32.6 g/dL (32.0-36.0); Mean Corpuscular Volume 93.9 fL (80.0-100.0); Mean Platelet Volume 9.5 fL (9.4-12.4); Monocytes # (auto) 0.74 K/uL (0.11-0.59); Monocytes % (auto) 5.7 %; Neutrophils # (auto) 10.85 K/uL (1.40-6.50); Neutrophils % (auto) 82.9 %; Platelet Count 288 K/uL (130-400); RDW Coefficient of Variation 17.2 % (11.5-14.5); RDW Standard Deviation 58.4 fL (36.4-46.3); White Blood Count 13.08 K/ul (4.8-10.8)
[2023-06-12 16:12] LABS: Albumin Globulin Ratio 1.1 (0.9-2); Albumin Level 4.2 gm/dl (3.4-5.0); BUN Creatinine Ratio 15.5 (10-20); Bilirubin,Total 0.3 mg/dl (0.2-1.0); Calcium 10.6 mg/dl (8.6-10.3); Creatinine Clr Calc Pharmacy 9.7 ml/min; Est GFR (African American) 6.8 ml/min; Est GFR (Non-African American) 5.8 ml/min; Globulin 3.7 gm/dl (2.5-4.0); Potassium 5.3 mmol/L (3.5-5.1); Total Protein 7.9 gm/dl (6.0-8.3)
--- NOTE | 2023-06-12 17:00 | Emergency Department Note ---
Impression & Plan YASEMIN (acute kidney injury), HTN (hypertension), Leukocytosis, Anemia ED Provider Note NAME: COLE NEVES AGE: 73 SEX: F : 1950 ARRIVES VIA: Walk-In INFORMANT: Patient ED PROVIDER(S): Jorge Mesa DO CHIEF COMPLAINT: YASEMIN HPI: Patient is a 73-year-old female who presents to the ER for kidney failure. Patient was seen and evaluated by her manager game who referred her in. She denies any headache or change in vision. No chest pain or shortness of breath. No nausea, vomiting, or diarrhea. She does admit to some dysuria, urgency, and frequency which has been present for the past several days. She has been eating and drinking normally. No other exacerbating or remitting factors. PAST MEDICAL HISTORY:See Below PAST SURGICAL HISTORY:See Below FAMILY HISTORY:See Below SOCIAL HISTORY:See Below HOME MEDICATIONS:See Below ALLERGIES:See Below VITALS:See Below PHYSICAL EXAMINATION: GENERAL: Sitting up in bed, alert, well appearing, well nourished, no distress, non-toxic EYE EXAM: normal conjunctiva. OROPHARYNX: no exudate, no erythema, lips, buccal mucosa, and tongue normal and mucous membranes are moist NECK: supple, no nuchal rigidity, no adenopathy, non-tender LUNGS: Clear to auscultation. Normal chest wall mechanics HEART: no murmurs, S1 normal and S2 normal ABDOMEN: abdomen soft, non-tender, normo-active bowel sounds, no masses, no rebound or guarding. UPPER EXTREMITIES: upper extremities are grossly normal. LOWER EXTREMITIES: No pitting edema. NEURO EXAM: Normal sensorium, cranial nerves II-XII grossly intact, normal speech, no gross weakness of arms, no gross weakness of legs. MEDICAL DECISION MAKING: Patient is a 73-year-old female who presents ER for above-stated complaint. IV was established blood work was obtained. External records reviewed. Labs show mild leukocytosis of 13,000. Mild anemia 9.5 fairly consistent with previous. BMP with a creatinine of 6.5 up from baseline of about 2. Potassium mildly elevated at 5.3. Mild gap at 14. LFTs bilirubin was unremarkable. Again she denies any chest pain or shortness of breath. No new swelling in the legs. Patient was updated bedside. Discussed the hospitalist admitted for further work-up. UA was contaminated. Patient was given IV fluids while in the ER as well. CT abdomen pelvis was unremarkable. Triage Nursing notes reviewed. Limited review of prior medical records performed Vital Signs: reviewed and remarkable for HTN Differential diagnosis: Differential diagnoses includes but is not limited to gastritis, peptic ulcer disease, GERD, gallbladder disease, pancreatitis, small bowel obstruction, merrill endicitis, diverticulitis, hernia, urinary tract infection, torsion, perforation, trauma, infectious. ER treatment provided: See below Diagnostics interpreted by me include EKG and cardiac monitoring as listed below: -Cardiac Monitoring: An order was placed for continuous cardiac monitoring. The monitor shows a rate of 80 with sinus rhythm. -ECG sinus rhythm rate of 69 Normal axis No PVCs QTc 420 -Laboratory studies:Interpreted by me as stated above in MDM and shown below. Imaging studies: Xrays: As interpreted by me:none CTs show: CT abdomen pelvis per my read showed no obvious obstruction CT abdomen pelvis per radiology was unremarkable Consultation(s): As described in MDM Procedures:none Critical Care: None Past Med/Surg History Medical History Anemia Chronic diastolic heart failure Chronic kidney disease, stage 4 (severe) Chronic venous insufficiency Cirrhosis of liver COPD (chronic obstructive pulmonary disease) Diabetic peripheral neuropathy associated with type 2 diabetes mellitus DVT (deep venous thrombosis) (10/2021) Dyslipidemia Gastroparesis GERD (gastroesophageal reflux disease) Gout 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 to tuberculosis Hypertension Loss of protective sensation of skin of foot Morbid obesity 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 Nocturnal hypoxia Obstructive sleep apnea of adult Personal history of malignant neoplasm of skin Secondary hyperparathyroidism Type 2 diabetes mellitus with diabetic neuropathy, unspecified Venous stasis ulcers Venous ulcer Surgical History S/P cholecystectomy S/P colonoscopy S/P dilatation and curettage S/P tubal ligation Status post endovenous radiofrequency ablation (RFA) of saphenous vein Family History Father Prostate cancer Mother Myocardial infarction Deep vein thrombosis Denies family history of Ovarian cancer Breast cancer Lung cancer Colorectal cancer Social History Smoking Status: Never smoker Second Hand Exposure: No; Do You Dip or Chew Tobacco: No; Hx Alcohol Use: Yes Alcohol type: beer Alcohol Intake Frequency: Monthly or Less Hx Substance Use: No Preferred Language: Arabic Communication Ability: Effective Visual Impairment: No Limitations Hearing Ability: Normal Nylon Operator Required: No Beliefs That Will Affect Care: None marital status: Current Living Situation: Spouse current occupational status: retired Feels Safe at Home: Yes Childhood Exposure to Second-Hand Smoke: Yes Diet: regular Diet Comment: Regular caffeine: Yes during the past year weight has: remained stable Dental Care, Regularly: Yes Physical Activity Frequency: 1-2 Times per Week Physical Activity Frequency Comment: walking Seatbelt Use: always Sunscreen Use: Yes Assistive Devices: Cane, Glasses and Oxygen - at Night Allergies Allergies Allergy/AdvReac Type Severity Reaction Status Date / Time tramadol Allergy Mild "FELT Verified 06/11/23 13:31 WEIRD" amlodipine Allergy Unknown SWELLING Verified 06/11/23 13:31 Home Meds Home Medications Medication Instructions Recorded Confirmed acetaminophen 500 mg capsule 500 mg PO QID PRN Pain 04/04/19 06/12/23 cyanocobalamin (vitamin B-12) 1,000 mcg IM MONTHLY 04/04/19 06/12/23 1,000 mcg/mL injection solution Oxygen Home 09/04/19 06/11/23 blood-glucose meter,continuous 08/23/21 06/12/23 (Dexcom G6 Power Plant Installer) blood-glucose sensor (Dexcom G6 08/23/21 06/11/23 Sensor device) blood-glucose transmitter (Dexcom 08/23/21 06/11/23 G6 Transmitter device) clonidine HCl 0.1 mg tablet See Rx Instructions .Route .COMPLEX 06/12/23 0 06/12/23 Previous Rx's Medication Instructions Recorded triamcinolone acetonide 0.5 % 1 applic topical BID PRN skin 09/21/21 topical cream irritation #60 grams lancets 33 gauge (OneTouch Delica #100 ea 06/29/22 Lancets) Walking Cane #1 ea 10/05/22 ipratropium 20 mcg-albuterol 100 1 puff inhalation Q6H PRN 10/11/22 mcg/actuation mist for inhalation sob/wheezing #4 grams (Combivent Respimat) insulin lispro 100 unit/mL 80 unit (0.8 mL) subcut TID #210 mL 12/14/22 subcutaneous pen (Humalog KwikPen (U-100) Insulin) pen needle, diabetic 31 gauge x #500 ea 12/14/2203/13" (BD Ultra-Fine Short Pen Needle) carvedilol 25 mg tablet 25 mg PO BID #180 tabs 12/21/22 insulin glargine 100 unit/mL (3 90 unit (0.9 mL) subcut BID #165 mL 01/03/23 mL) subcutaneous pen (Lantus Solostar U-100 Insulin) pantoprazole 40 mg tablet,delayed 40 mg PO QAM #90 tabs 01/03/23 release hydralazine 100 mg tablet 100 mg PO TID #270 tabs 01/08/23 isosorbide mononitrate 60 mg 60 mg PO QAM #90 tabs 01/15/23 tablet,extended release 24 hr losartan 100 mg tablet 100 mg PO QAM #90 tabs 01/15/23 spironolactone 25 mg tablet 25 mg PO DAILY #90 tabs 02/26/23 gabapentin 300 mg capsule 300 mg PO HS #30 caps 03/27/23 allopurinol 100 mg tablet 200 mg PO QAM #180 tabs 04/02/23 calcitriol 0.5 mcg capsule 0.5 mcg PO QAM #90 caps 04/02/23 simvastatin 40 mg tablet 40 mg PO QPM #90 tabs 04/02/23 diclofenac sodium 1 % topical gel 1 g topical TID PRN Pain #100 grams 04/03/23 OneTouch Ultra Test (blood sugar #50 ea 05/15/23 diagnostic) albuterol sulfate 90 mcg/actuation 2 puff inhalation QID PRN 05/15/23 aerosol inhaler shortness of breath or wheezing #6.7 grams furosemide 40 mg tablet 80 mg PO DAILY Leg swelling or 05/15/23 weight change #180 tabs Results & Data (ED) Vital Signs Vital Signs - 24 hr 06/12/23 15:29 06/12/23 17:22 06/12/23 17:22 Temperature 36.2 C L Temperature Source Temporal Artery Scan Pulse Rate 77 70 Pulse Rate from SpO2 Sensor Respiratory Rate 20 Respiratory Effort / Characteristics Non-Labored Respiratory Depth Normal Blood Pressure 213/70 H 175/55 H Blood Pressure Mean 117 73 Pulse Oximetry 95 Oxygen Delivery Method Room Air Sepsis Recent Fever Within 48 Hours No Sepsis New/Unexplained Change in Mental Status N/A Sepsis Action Taken by Nursing No Action Required 06/12/23 17:23 06/12/23 17:30 06/12/23 17:30 Temperature Temperature Source Pulse Rate 70 69 Pulse Rate from SpO2 Sensor 71 68 Respiratory Rate 21 13 Respiratory Effort / Characteristics Respiratory Depth Blood Pressure 163/74 H Blood Pressure Mean 99 Pulse Oximetry 95 94 Oxygen Delivery Method Sepsis Recent Fever Within 48 Hours Sepsis New/Unexplained Change in Mental Status Sepsis Action Taken by Nursing 06/12/23 18:00 06/12/23 18:00 06/12/23 18:30 Temperature Temperature Source Pulse Rate 64 Pulse Rate from SpO2 Sensor 65 Respiratory Rate 16 Respiratory Effort / Characteristics Respiratory Depth Blood Pressure 174/66 H 180/68 H Blood Pressure Mean 81 115 Pulse Oximetry 94 Oxygen Delivery Method Room Air Sepsis Recent Fever Within 48 Hours Sepsis New/Unexplained Change in Mental Status Sepsis Action Taken by Nursing 06/12/23 18:30 Temperature Temperature Source Pulse Rate 64 Pulse Rate from SpO2 Sensor 63 Respiratory Rate 20 Respiratory Effort / Characteristics Respiratory Depth Blood Pressure Blood Pressure Mean Pulse Oximetry 96 Oxygen Delivery Method Room Air Sepsis Recent Fever Within 48 Hours Sepsis New/Unexplained Change in Mental Status Sepsis Action Taken by Nursing Laboratory Data 06/12/23 15:43 06/12/23 15:43 Lab Results 06/12/23 06/12/23 06/12/23 Range/Units 15:43 15:43 17:24 WBC 13.08 H (4.8-10.8) K/ul RBC 3.10 L (4.20-5.40) M/uL Hgb 9.5 L (12.0-16.0) g/dl Hct 29.1 L (37.0-47.0) % MCV 93.9 (80.0-100.0) fL MCH 30.6 (25.0-34.0) pg MCHC 32.6 (32.0-36.0) g/dL RDW Std Deviation 58.4 H (36.4-46.3) fL RDW Coeff of Marcus 17.2 H (11.5-14.5) % Plt Count 288 (130-400) K/uL MPV 9.5 (9.4-12.4) fL Immature Gran % (Auto) 0.5 % Neut % (Auto) 82.9 % Lymph % (Auto) 9.3 % Callahan % (Auto) 5.7 % Eos % (Auto) 1.2 % Baso % (Auto) 0.4 % Neut # (Auto) 10.85 H (1.40-6.50) K/uL Lymph # (Auto) 1.21 (1.2-3.4) K/uL Callahan # (Auto) 0.74 H (0.11-0.59) K/uL Eos # (Auto) 0.16 (0-0.50) K/uL Baso # (Auto) 0.05 (0-0.2) K/uL Immature Gran # (Auto) 0.07 (0.01-0.20) K/uL Sodium 136 (136-145) mmol/L Potassium 5.3 H (3.5-5.1) mmol/L Chloride 97 L (98-107) mmol/L Carbon Dioxide 25 (21-32) mmol/L Anion Gap 14 H (3-11) BUN 101 H (6-23) mg/dl Creatinine 6.51 H* (0.6-1.2) mg/dl Est Cr Clr Drug Dosing 9.7 ml/min Est GFR ( Amer) 6.8 ml/min Est GFR (Non-Af Amer) 5.8 ml/min BUN/Creatinine Ratio 15.5 (10-20) Glucose 175 H (70-99(Fasting)) mg/dl Calcium 10.6 H (8.6-10.3) mg/dl Total Bilirubin 0.3 (0.2-1.0) mg/dl AST 14 (13-39) U/L ALT 10 (7-52) U/L Alkaline Phosphatase 62 (34-104) U/L Total Protein 7.9 (6.0-8.3) gm/dl Albumin 4.2 (3.4-5.0) gm/dl Globulin 3.7 (2.5-4.0) gm/dl Albumin/Globulin Ratio 1.1 (0.9-2) Urine Color Yellow Urine Appearance Clear (Clear) Urine pH 7.5 (4.5-7.5) Ur Specific [place] 1.009 (1.000-1.030) Urine Protein Trace H (Negative) Urine Glucose (UA) Negative (Negative) Urine Ketones Negative (Negative) Urine Blood Trace H (Negative) Urine Nitrite Negative (Negative) Urine Bilirubin Negative (Negative) Urine Urobilinogen Negative (Negative) Ur Leukocyte Esterase 1+ H (Negative) Urine WBC (Auto) >30 H (0-5) /hpf Urine RBC (Auto) 0-4 (0-4) /hpf U Hyaline Cast (Auto) 1-5 (0-5) /lpf U Epithel Cells (Auto) >30 H (0-5) /lpf Urine Bacteria (Auto) Negative (Negative) Administered Medications Discontinued Medications Sodium Chloride (Nss) 500 mls @ 999 mls/hr IV .Q31M STA Stop: 06/12/23 16:03 Last Infusion: 06/12/23 18:22 Dose: 0 mls/hr Documented By: Admin: 06/12/23 17:18 Dose: 999 mls/hr Documented By: KESHIA Imaging Data Radiologist's Impression: Abdomen/Pelvis CT 06/12/23 16:[address] WITHOUT CONTRAST CT DOSE: 1310.39 mGy.cm HISTORY: Lower abdominal pain. Urinary pressure. TECHNIQUE: Multiaxial CT images of the abdomen and pelvis were performed without contrast. A dose lowering technique was utilized adhering to the principles of ALARA. COMPARISON STUDY: Abdomen and pelvis CT 07/26/2021. FINDINGS: The lung bases are essentially clear. No pneumoperitoneum. No pneumatosis. No acute fractures. The heart remains mildly enlarged. There is mild circumferential thickening of the distal esophagus, unchanged. Skin thickening and subcutaneous fat stranding within the lower abdominal wall likely represent prior medication injection. Small fat and fluid containing umbilical hernia is again noted. Prior cholecystectomy. Subtle nodular contour to the liver may represent early cirrhosis. The unenhanced spleen, adrenal glands, and pancreas are unremarkable. Stable subcentimeter periportal lymph nodes. No retroperitoneal lymphadenopathy. Mild calcified plaque within the normal caliber abdominal aorta. Mild to moderate bilateral cortical renal atrophy again noted. There are bilateral renal hypodense lesions. These are incompletely characters on this noncontrast study but favor cysts. No renal or ureteral stones. No hydronephrosis. Bilateral perinephric edema, unchanged. This is likely chronic. The bladder is mildly distended. No bladder wall thickening. Calcified uterine fibroid again noted. No pelvic lymphadenopathy or pelvic free fluid. Suboptimal evaluation for bowel pathology due to the lack of intravenous and oral contrast. However, there is no definite bowel wall thickening or obstruction. Normal appendix. IMPRESSION: 1. No bowel wall thickening or obstruction. 2. Mildly distended bladder. No bladder wall thickening. 3. No hydronephrosis. 4. Normal appendix. 5. Subtle nodular contour to the liver suggestive of early cirrhosis. 6. Additional findings as described above ACT 112: Negative or not required by law. Electronically signed by: Sohan Maciel M.D. 06/12/2023 5:16 PM Discharge Plan Visit Data Chief Complaint: Flank Pain Stated Complaint: ABNORMAL KIDNEYS ED Provider: Jorge Mesa Discharge Problem: YASEMIN (acute kidney injury), HTN (hypertension), Leukocytosis, Anemia Forms Stand Alone Forms: [employer] Prescriptions Prescriptions: No Action (DME) Walking Cane Misc See Rx Instructions .Route Qty: 1 0RF Rx Instructions: As directed Combivent Respimat 20-100 mcg/actuation mist 1 puff inhalation Q6H PRN (Reason: sob/wheezing) Qty: 4 3RF carvedilol 25 mg tablet 25 mg PO BID Qty: 180 3RF Rx Instructions: must administer with a meal/food pantoprazole 40 mg tablet,delayed release (DR/EC) 40 mg PO QAM Qty: 90 2RF insulin glargine [Lantus Solostar U-100 Insulin] 100 unit/mL (3 mL) insulin pen 90 unit SQ BID Qty: 165 3RF Rx Instructions: Inject 90 units twice daily; TDD 180 units losartan 100 mg tablet 100 mg PO QAM Qty: 90 1RF isosorbide mononitrate 60 mg tablet extended release 24 hr 60 mg PO QAM Qty: 90 1RF simvastatin 40 mg tablet 40 mg PO QPM Qty: 90 1RF allopurinol 100 mg tablet 200 mg PO QAM Qty: 180 1RF calcitriol 0.5 mcg capsule 0.5 mcg PO QAM Qty: 90 3RF diclofenac sodium 1 % gel 1 g topical TID PRN (Reason: Pain) Qty: 100 3RF furosemide 40 mg tablet 80 mg PO DAILY Qty: 180 1RF Patient Comments: Pt reports that they have been taking daily. Rx Instructions: ordered as needed but takes rouinely albuterol sulfate 90 mcg/actuation HFA aerosol inhaler 2 puff inhalation QID PRN (Reason: shortness of breath or wheezing) Qty: 6.7 1RF (DME) OneTouch Ultra Test Strip See Rx Instructions .ROUTE .MEDSUPPLY Qty: 50 5RF Dose Instruction: As directed Rx Instructions: Test blood sugar once daily PRN cyanocobalamin (vitamin B-12) 1,000 mcg/mL solution 1,000 mcg IM MONTHLY acetaminophen 500 mg capsule 500 mg PO QID PRN (Reason: Pain) triamcinolone acetonide 0.5 % cream 1 applic topical BID PRN (Reason: skin irritation) Qty: 60 1RF hydralazine 100 mg tablet 100 mg PO TID Qty: 270 3RF spironolactone 25 mg tablet 25 mg PO DAILY Qty: 90 3RF (DME) Dexcom G6 Sensor Device See Rx Instructions .Route Rx Instructions: As directed (DME) Dexcom G6 Power Plant Installer Misc See Rx Instructions .Route Rx Instructions: As directed (DME) Dexcom G6 Transmitter Device See Rx Instructions .Route Rx Instructions: As directed (DME) Oxygen Home Liters Per Minute See Dose Instructions .ROUTE .MEDSUPPLY Rx Instructions: 2 liters HS (DME) lancets [OneTouch Delica Lancets] 33 gauge misc See Rx Instructions .ROUTE .MEDSUPPLY Qty: 100 1RF Rx Instructions: Test blood sugar once daily PRN insulin lispro [Humalog KwikPen Insulin] 100 unit/mL insulin pen 80 unit SQ TID Qty: 210 3RF (DME) pen needle, diabetic [BD Ultra-Fine Short Pen Needle] 31 gauge x 5/16" needle See Rx Instructions .ROUTE .MEDSUPPLY Qty: 500 3RF Rx Instructions: Inject insulin five times a day gabapentin 300 mg capsule 300 mg PO HS Qty: 30 3RF clonidine HCl 0.1 mg tablet See Rx Instructions .ROUTE .COMPLEX Rx Instructions: take 2 tablets orally in the morning,take 1 tablet orally in the afternoon and evening. Referrals Referrals: Shawanda Gomez DO [Primary Care Provider] -
--- NOTE | 2023-06-12 17:17 | CT Scan Report ---
ABDOMEN AND PELVIS CT WITHOUT CONTRAST CT DOSE: 1310.39 mGy.cm HISTORY: Lower abdominal pain. Urinary pressure. TECHNIQUE: Multiaxial CT images of the abdomen and pelvis were performed without contrast. A dose lo wering technique was utilized adhering to the principles of ALARA. COMPARISON STUDY: Abdomen and pelvis CT 07/26/2021. FINDINGS: The lung bases are essentially clear. No pneumoperitoneum. No pneumatosis. No acute fractur es. The heart remains mildly enlarged. There is mild circumferential thickening of the distal esophag us, unchanged. Skin thickening and subcutaneous fat stranding within the lower abdominal wall likely represent prior medication injection. Small fat and fluid containing umbilical hernia is again noted. Prior cholecystectomy. Subtle nodular contour to the liver may represent early cirrhosis. The unenha nced spleen, adrenal glands, and pancreas are unremarkable. Stable subcentimeter periportal lymph nod es. No retroperitoneal lymphadenopathy. Mild calcified plaque within the normal caliber abdominal aor ta. Mild to moderate bilateral cortical renal atrophy again noted. There are bilateral renal hypodens e lesions. These are incompletely characters on this noncontrast study but favor cysts. No renal or u reteral stones. No hydronephrosis. Bilateral perinephric edema, unchanged. This is likely chronic. Th e bladder is mildly distended. No bladder wall thickening. Calcified uterine fibroid again noted. No pelvic lymphadenopathy or pelvic free fluid. Suboptimal evaluation for bowel pathology due to the lac k of intravenous and oral contrast. However, there is no definite bowel wall thickening or obstructio n. Normal appendix. IMPRESSION: 1. No bowel wall thickening or obstruction. 2. Mildly distended bladder. No bladder wall thickening. 3. No hydronephrosis. 4. Normal appendix. 5. Subtle nodular contour to the liver suggestive of early cirrhosis. 6. Additional findings as described above ACT 112: Negative or not required by law. Electronically signed by: Sohan Maciel M.D. 06/12/2023 5:16 PM
[2023-06-12 17:41] LABS: Appearance Urine Clear (Clear); Bacteria Urine Automated Negative (Negative); Bilirubin Urine Negative (Negative); Blood Urine Trace (Negative); Color Urine Yellow; Epithelial Cell Urine Auto >30 /lpf (0-5); Glucose Urine UA Negative (Negative); Ketones Urine Negative (Negative); Leukocyte Esterase Urine 1+ (Negative); Nitrite Urine Negative (Negative); RBC Urine Automated 0-4 /hpf (0-4); Specific Gravity Urine 1.009 (1.000-1.030); Urobilinogen Urine Negative (Negative); WBC Urine Automated >30 /hpf (0-5); pH Urine 7.5 (4.5-7.5)
[2023-06-12 17:54] LABS: Protein Urine Trace (Negative)
--- NOTE | 2023-06-12 18:46 | History & Physical Report ---
Date of Service June 12, 2023 Assessment & Plan (1) YASEMIN (acute kidney injury): Plan: Creatinine 6.5 from baseline of 2.8, BUN up to 101, with associated mild hyperkalemia but no uremia or acidosis. With volume overload with lower extremity edema but no evidence of hypoxia or shortness of breath CT abdomen/pelvis without evidence of tract obstruction Urinalysis without definite infection but she continues to have symptoms of dysuria She was started on spironolactone in 12/2022 which possibly contributed -Admit to PCU to monitor for arrhythmia -Treating hyperkalemia as below -Consult nephrology for further recommendations -Check echocardiogram -Hold losartan, spironolactone, and furosemide for now but will defer diuretic dosing to nephrology in the morning -Follow BMP in the morning -Check repeat urinalysis as the first 1 appears contaminated and she continues to have urinary symptoms (2) Hyperkalemia: Plan: Potassium 5.3, related to acute kidney injury ECG normal Give 1 dose of Lokelma now Hold spironolactone Follow BMP in the morning Start renal diet/low potassium/low sodium (3) Chronic kidney disease, stage 4 (severe): Plan: Baseline creatinine around 2.[address] in [address] and is approaching need for dialysis With acute kidney injury and hyperkalemia as above -Avoid nephrotoxins -renally dose meds when appropriate -follow BMP (4) HTN (hypertension): Plan: Blood pressures are elevated initially but now improved Continue home carvedilol, clonidine which was recently increased to 0.2 Mg p.o. 3 times daily, hydralazine, and isosorbide Holding home diuretics and losartan for acute kidney injury (5) Chronic diastolic heart failure: Plan: With volume overload from renal failure Continue blood pressure control with carvedilol, clonidine, hydralazine, and isosorbide Holding losartan and diuretics for acute kidney injury Low-sodium diet (6) Leukocytosis: Plan: WBC count elevated at 13, no evidence of infection as UA appears contaminated No fevers Could be reactive to anemia or renal failure? Follow CBC (7) Anemia: Plan: Likely anemia of iron deficiency and CKD Check B12, iron studies, folate in the morning Recent TSH normal Follow CBC (8) Vitamin D deficiency: Plan: Continue calcitriol (9) Diabetes mellitus type 2 with complications: Plan: Hemoglobin A1c 8.0% follows with endocrinology Continue Lantus 90 units twice a day Typically takes insulin lispro 80 units 3 times a day-hold this for now and give NovoLog with meals starting with correction factor 20 and carb ratio 12, goal range 100-140 Likely will not need as high of an insulin regimen with renal failure and with different diet in the hospital (10) COPD (chronic obstructive pulmonary disease): Plan: No acute issues Continue as needed inhalers (11) Diabetic peripheral neuropathy associated with type 2 diabetes mellitus: Plan: Continue gabapentin and monitor for need for change for renal dosing (12) Dyslipidemia: Plan: Continue simvastatin (13) GERD (gastroesophageal reflux disease): Plan: Continue PPI (14) Gout: Plan: Continue prophylactic allopurinol, renally dosed (15) Secondary hyperparathyroidism: Plan: Continue calcitriol (16) Vitamin B12 deficiency: Plan: Continue home supplement injections (17) Obstructive sleep apnea of adult: Plan: Continue 2 L O2 at bedtime Plan DVT prophylaxis-SCDs, heparin SQ Disposition-admit to PCU Full code History of Present Illness Chief Complaint: Kidney failure Primary Care Provider: Shawanda Gomez DO This patient is a 73-year-old female with a history of CKD stage IV, gout, HTN, DM2 with neuropathy, hyperlipidemia, chronic diastolic CHF, venous stasis ulcers, B12 and vitamin D deficiencies, anemia of CKD and iron deficiency, NAE not on CPAP who presents to the ER at the direction of her patch setter for worsening kidney failure and elevated potassium found on routine blood work today. Her creatinine is up to 6.2 from a baseline of 2.8 and her potassium was 5.3, phosphorus elevated at 6.2. She has been having progressive leg swelling with venous stasis ulcers and also is describing UTI symptoms with dysuria and frequency despite recently taking a 7-day course of amoxicillin for a leg wound. She denies chest pain, shortness of breath. She always sleeps in a recliner so she is not sure if she has orthopnea. She does report that she has lost 10 pounds of weight since starting on spironolactone 5 months ago. She already has an AV fistula in place and is approaching need for dialysis. Her urinalysis here was contaminated with epithelial cells but also had greater than 30 WBCs and trace protein. CT abdomen/pelvis did not show any hydronephrosis or distention of the bladder, but only showed subtle nodular contour to the liver suggestive of early cirrhosis. She will be admitted for acute kidney injury in the setting of CKD stage IV along with hyperkalemia. Allergies Allergy/AdvReac Type Severity Reaction Status Date / Time tramadol Allergy Mild "FELT Verified 06/11/23 13:31 WEIRD" amlodipine Allergy Unknown SWELLING Verified 06/11/23 13:31 Home Medications Medication Instructions Recorded Confirmed Type acetaminophen 500 mg capsule 500 mg PO QID PRN Pain 04/04/19 06/12/23 History cyanocobalamin (vitamin B-12) 1,000 mcg IM MONTHLY 04/04/19 06/12/23 History 1,000 mcg/mL injection solution Oxygen Home 09/04/19 06/11/23 History blood-glucose meter,continuous 08/23/21 06/12/23 History (Dexcom G6 Procurement Accountant) blood-glucose sensor (Dexcom G6 08/23/21 06/11/23 History Sensor device) blood-glucose transmitter (Dexcom 08/23/21 06/11/23 History G6 Transmitter device) triamcinolone acetonide 0.5 % 1 applic topical BID PRN skin 09/21/21 06/12/23 Rx topical cream irritation #60 grams lancets 33 gauge (OneTouch Delica #100 ea 06/29/22 06/12/23 Rx Lancets) Walking Cane #1 ea 10/05/22 06/12/23 Rx ipratropium 20 mcg-albuterol 100 1 puff inhalation Q6H PRN 10/11/22 06/12/23 Rx mcg/actuation mist for inhalation sob/wheezing #4 grams (Combivent Respimat) insulin lispro 100 unit/mL 80 unit (0.8 mL) subcut TID #210 mL 12/14/22 06/12/23 Rx subcutaneous pen (Humalog KwikPen (U-100) Insulin) pen needle, diabetic 31 gauge x #500 ea 12/14/22 06/12/23 Rx 5/16" (BD Ultra-Fine Short Pen Needle) carvedilol 25 mg tablet 25 mg PO BID #180 tabs 12/21/22 06/12/23 Rx insulin glargine 100 unit/mL (3 90 unit (0.9 mL) subcut BID #165 mL 01/03/23 Rx mL) subcutaneous pen (Lantus Solostar U-100 Insulin) pantoprazole 40 mg tablet,delayed 40 mg PO QAM #90 tabs 01/03/23 06/12/23 Rx release hydralazine 100 mg tablet 100 mg PO TID #270 tabs 01/08/23 06/12/23 Rx isosorbide mononitrate 60 mg 60 mg PO QAM #90 tabs 01/15/23 06/12/23 Rx tablet,extended release 24 hr losartan 100 mg tablet 100 mg PO QAM #90 tabs 01/15/23 06/12/23 Rx spironolactone 25 mg tablet 25 mg PO DAILY #90 tabs 02/26/23 06/12/23 Rx gabapentin 300 mg capsule 300 mg PO HS #30 caps 03/27/23 06/12/23 Rx allopurinol 100 mg tablet 200 mg PO QAM #180 tabs 04/02/23 06/12/23 Rx calcitriol 0.5 mcg capsule 0.5 mcg PO QAM #90 caps 04/02/23 06/12/23 Rx simvastatin 40 mg tablet 40 mg PO QPM #90 tabs 04/02/23 06/12/23 Rx diclofenac sodium 1 % topical gel 1 g topical TID PRN Pain #100 grams 04/03/23 06/12/23 Rx OneTouch Ultra Test (blood sugar #50 ea 05/15/23 06/11/23 Rx diagnostic) albuterol sulfate 90 mcg/actuation 2 puff inhalation QID PRN 05/15/23 06/12/23 Rx aerosol inhaler shortness of breath or wheezing #6.7 grams furosemide 40 mg tablet 80 mg PO DAILY Leg swelling or 05/15/23 06/12/23 Rx weight change #180 tabs clonidine HCl 0.1 mg tablet See Rx Instructions .Route .COMPLEX 06/12/23 06/12/23 History Past Med/Surg History Medical History Anemia follows with [facility] heme/onc and [facility]-IV iron infusions, most recent 05/2022 Chronic diastolic heart failure Chronic kidney disease, stage 4 (severe) Follows with [facility]- no current dialysis Chronic venous insufficiency Cirrhosis of liver COPD (chronic obstructive pulmonary disease) stable per pt Diabetic peripheral neuropathy associated with type 2 diabetes mellitus DVT (deep venous thrombosis) (10/2021) 10/2021 right knee, treated with eliquis for several months Dyslipidemia Gastroparesis GERD (gastroesophageal reflux disease) controlled, stable per pt Gout Last episode Jul 2022- no issues since 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 to tuberculosis Hypertension controlled, stable per pt Loss of protective sensation of skin of foot Morbid obesity 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 "Stable" Nocturnal hypoxia Obstructive sleep apnea of adult 2 lpm O2 HS Personal history of malignant neoplasm of skin S/p removal - follows with derm Secondary hyperparathyroidism Type 2 diabetes mellitus with diabetic neuropathy, unspecified IDDM (has Dexcom reader) Venous stasis ulcers Venous ulcer Discharged by OR wound clinic Surgical History S/P cholecystectomy S/P colonoscopy S/P dilatation and curettage S/P tubal ligation Status post endovenous radiofrequency ablation (RFA) of saphenous vein LLE and RLE 2021 Family History Father Prostate cancer Mother Myocardial infarction Deep vein thrombosis Denies family history of Ovarian cancer Breast cancer Lung cancer Colorectal cancer Social History Smoking Status: Never smoker Second Hand Exposure: No; Do You Dip or Chew Tobacco: No; Hx Alcohol Use: Yes Alcohol type: beer Alcohol Intake Frequency: Monthly or Less Hx Substance Use: No Preferred Language: Uzbek Communication Ability: Effective Visual Impairment: No Limitations Hearing Ability: Normal Claims Account Specialist Required: No Beliefs That Will Affect Care: None marital status: Current Living Situation: Spouse current occupational status: retired Feels Safe at Home: Yes Childhood Exposure to Second-Hand Smoke: Yes Diet: regular Diet Comment: Regular caffeine: Yes during the past year weight has: remained stable Dental Care, Regularly: Yes Physical Activity Frequency: 1-2 Times per Week Physical Activity Frequency Comment: walking Seatbelt Use: always Sunscreen Use: Yes Assistive Devices: Cane, Glasses and Oxygen - at Night Review of Systems Review of Systems: All systems reviewed & are unremarkable except as noted in HPI & below No recent fevers or chills, no cough or cold symptoms Physical Exam Constitutional: WD/WN, vitals as above + morbidly obese Eyes: PERRL, conjunctivae normal, anicteric sclerae ENMT: external ear and nose normal, oropharynx normal Neck: trachea midline, no thyromegaly Respiratory: normal respiratory effort, lungs clear to auscultation Cardiovascular: Rate/Rhythm: regular rate and regular rhythm Heart Sounds: no murmur Extremities: + edema (1+ pitting edema legs bilaterally) and + AV fistula (Left upper arm with thrill and bruit) Chest (Breasts): Chest: normal inspection of chest Gastrointestinal (Abdomen): normal bowel sounds, soft, nontender, no hepatosplenomegaly Musculoskeletal: Extremities: no cyanosis and no clubbing Skin: no rashes, warm and dry Neurologic: moves all extremities and awake; no focal motor deficits Psychiatric: A+Ox3, euthymic affect Results & Data Results & Data Vital Signs (Past 12 Hours) Vital Signs Temp Pulse Resp BP Pulse Ox O2 Del Method 06/12/23 18:00 64 16 94 Room Air 06/12/23 18:00 174/66 H 06/12/23 17:30 69 13 94 06/12/23 17:30 163/74 H 06/12/23 17:23 70 21 95 06/12/23 17:22 175/55 H 06/12/23 17:22 70 06/12/23 15:29 36.2 C L 77 20 213/70 H 95 Room Air Laboratory Results CBC, CMP phosphorus, UA reviewed Diagnostic Findings Abdomen/Pelvis CT 06/12/23 16:[address] WITHOUT CONTRAST CT DOSE: 1310.39 mGy.cm HISTORY: Lower abdominal pain. Urinary pressure. TECHNIQUE: Multiaxial CT images of the abdomen and pelvis were performed without contrast. A dose lowering technique was utilized adhering to the principles of ALARA. COMPARISON STUDY: Abdomen and pelvis CT 07/26/2021. FINDINGS: The lung bases are essentially clear. No pneumoperitoneum. No pneumatosis. No acute fractures. The heart remains mildly enlarged. There is mild circumferential thickening of the distal esophagus, unchanged. Skin thickening and subcutaneous fat stranding within the lower abdominal wall likely represent prior medication injection. Small fat and fluid containing umbilical hernia is again noted. Prior cholecystectomy. Subtle nodular contour to the liver may represent early cirrhosis. The unenhanced spleen, adrenal glands, and pancreas are unremarkable. Stable subcentimeter periportal lymph nodes. No retroperitoneal lymphadenopathy. Mild calcified plaque within the normal caliber abdominal aorta. Mild to moderate bilateral cortical renal atrophy again noted. There are bilateral renal hypodense lesions. These are incompletely characters on this noncontrast study but favor cysts. No renal or ureteral stones. No hydronephrosis. Bilateral perinephric edema, unchanged. This is likely chronic. The bladder is mildly distended. No bladder wall thickening. Calcified uterine fibroid again noted. No pelvic lymphadenopathy or pelvic free fluid. Suboptimal evaluation for bowel pathology due to the lack of intravenous and oral contrast. However, there is no definite bowel wall thickening or obstruction. Normal appendix. IMPRESSION: 1. No bowel wall thickening or obstruction. 2. Mildly distended bladder. No bladder wall thickening. 3. No hydronephrosis. 4. Normal appendix. 5. Subtle nodular contour to the liver suggestive of early cirrhosis. 6. Additional findings as described above ACT 112: Negative or not required by law. Electronically signed by: Sohan Maciel M.D. 06/12/2023 5:16 PM ECG Additional Comments: ECG on 06/12/2023 at 1716 with normal sinus rhythm, rate 69, no ischemic changes or signs of hyperkalemia Code Status & VTE Plan Code Status Full code VTE Prophylaxis Plan VTE Prophylaxis will be ordered: Yes PG Care Time/CCT Total # of Minutes Spent Total Time Spent with Patient: Total time spent is greater than 50% in coordination of care (as documented) at patient's floor/unit and/or counseling patient: Coding Level of Care Code 23985 INT INP/OBS CARE 3/75MIN Diagnoses YASEMIN (acute kidney injury) N17.9 Hyperkalemia E87.5 Chronic kidney disease, stage 4 (severe) N18.4 HTN (hypertension) I10 Chronic diastolic heart failure I50.32 Leukocytosis D72.829 Anemia D64.9 Vitamin D deficiency E55.9 Diabetes mellitus type 2 with complications E11.8 COPD (chronic obstructive pulmonary disease) J44.9 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 Secondary hyperparathyroidism N25.81 Vitamin B12 deficiency E53.8 Obstructive sleep apnea of adult G47.33
[2023-06-12] MEDS ORDERED: GLUCOSE 40% GEL 15 GM TUBE PO PRN (21:05)
[2023-06-12] MEDS ORDERED: DEXTROSE 50% 50 ML SYRINGE IV PRN (21:05)
[2023-06-12] MEDS ORDERED: POLYETHYLENE (MIRALAX) 17 GM PACK PO PRN (21:05)
[2023-06-12] MEDS ORDERED: GLUCOSE 10 TAB/TUBE PO PRN (21:05)
[2023-06-12] MEDS ORDERED: CARBOHYDRATES FOR HYPOGLYCEMIA PO PRN (21:05)
[2023-06-12] MEDS ORDERED: SODIUM ZIRCONIUM CYCLOSILICATE 10 GM PACKET PO ONE (21:05)
[2023-06-12] MEDS ORDERED: GLUCAGON FOR INJ 1 MG VIAL SQ PRN (21:05)
[2023-06-12] MEDS ORDERED: ALBUTEROL HFA 8 GM INHALER INH PRN (21:05)
[2023-06-12] MEDS: GABAPENTIN 300 MG CAP PO SCH (22:13)
[2023-06-12] MEDS: INSULIN ASPART PER UNIT CHARGE SC SCH (22:13)
[2023-06-12] MEDS: LANTUS PER UNIT CHARGE SQ SCH (22:14)
[2023-06-12] MEDS: hydrALAZINE TAB 50 MG TAB PO SCH (22:15)
[2023-06-12] MEDS: cloNIDine HCL 0.1 MG TAB PO SCH (22:15)
[2023-06-12] MEDS: carvediloL 25 MG TAB PO SCH (22:16)
[2023-06-12] MEDS: HEPARIN SOD 5,000 UNIT/0.5 ML VIAL SQ SCH (22:17)
[2023-06-12] MEDS: SIMVASTATIN 40 MG TAB PO SCH (22:18)
[2023-06-13 07:36] LABS: Folate (Folic Acid),Ser orPlas 8.63 ng/ml (>5.38)
[2023-06-13 07:37] LABS: Appearance Urine Cloudy (Clear); Bacteria Urine Automated 4+ (Negative); Bilirubin Urine Negative (Negative); Blood Urine Negative (Negative); Color Urine Yellow; Epithelial Cell Urine Auto 20-30 /lpf (0-5); Glucose Urine UA Negative (Negative); Ketones Urine Negative (Negative); Leukocyte Esterase Urine 1+ (Negative); Nitrite Urine Negative (Negative); Protein Urine Trace (Negative); RBC Urine Automated 0-4 /hpf (0-4); Specific Gravity Urine 1.014 (1.000-1.030); Urobilinogen Urine Negative (Negative); WBC Urine Automated >30 /hpf (0-5); pH Urine 6.5 (4.5-7.5)
[2023-06-13 07:37] LABS: Vitamin B12 > 1500 pg/ml (180-914)
[2023-06-13 07:51] LABS: Basophils # (auto) 0.06 K/uL (0-0.2); Basophils % (auto) 0.5 %; Eosinophils # (auto) 0.23 K/uL (0-0.50); Immature Granulocytes # (auto) 0.06 K/uL (0.01-0.20); Immature Granulocytes % (auto) 0.5 %; Lymphocytes # (auto) 2.33 K/uL (1.2-3.4); Lymphocytes % (auto) 20.3 %; Mean Corpuscular Hemoglobin 30.1 pg (25.0-34.0); Mean Corpuscular Hgb Conc 32.1 g/dL (32.0-36.0); Mean Corpuscular Volume 93.6 fL (80.0-100.0); Mean Platelet Volume 10.5 fL (9.4-12.4); Monocytes # (auto) 0.94 K/uL (0.11-0.59); Monocytes % (auto) 8.2 %; Neutrophils # (auto) 7.86 K/uL (1.40-6.50); Neutrophils % (auto) 68.5 %; Ovalocytes 1+; Platelet Count 258 K/uL (130-400); Platelet Estimate Normal (Normal); RDW Coefficient of Variation 17.1 % (11.5-14.5); RDW Standard Deviation 58.3 fL (36.4-46.3); Red Blood Count 2.99 M/uL (4.20-5.40); Tear Drop Cells 1+; White Blood Count 11.48 K/ul (4.8-10.8)
[2023-06-13 08:12] LABS: Calcium 10.1 mg/dl (8.6-10.3); Magnesium 1.7 mg/dl (1.7-2.4); Potassium 4.7 mmol/L (3.5-5.1)
[2023-06-13] MEDS: ISOSORBIDE MONO EXTENDED REL 60 MG TABCR PO SCH (08:15)
[2023-06-13] MEDS: HEPARIN SOD 5,000 UNIT/0.5 ML VIAL SQ SCH ×2 (08:15→20:33)
[2023-06-13] MEDS: allopurinoL 100 MG TAB PO SCH (08:15)
[2023-06-13] MEDS: PANTOprazole 40 MG TAB PO SCH (08:15)
[2023-06-13] MEDS: CALCITRIOL 0.25 MCG CAPSULE PO SCH (08:15)
[2023-06-13] MEDS: hydrALAZINE TAB 50 MG TAB PO SCH ×3 (08:15→20:33)
[2023-06-13] MEDS: carvediloL 25 MG TAB PO SCH ×2 (08:16→20:33)
[2023-06-13] MEDS: cloNIDine HCL 0.1 MG TAB PO SCH ×3 (08:21→20:33)
[2023-06-13] MEDS: INSULIN ASPART PER UNIT CHARGE SC SCH ×4 (08:21→20:38)
[2023-06-13] MEDS: LANTUS PER UNIT CHARGE SQ SCH ×2 (08:22→20:38)
--- NOTE | 2023-06-13 08:24 | Nephrology Consultation ---
Date of Consultation June 13, 2023 Assessment & Plan (1) End stage chronic kidney disease: * No recent exposure to nephrotoxic agents. No obstruction on admission CT. Clinically suspect worsening R heart failure and progressive DKD. Patient now appears to have advanced to ESKD * Indications/benefits/risks/alternatives to GLOBAL POSITION SYSTEM TECHNICIAN discussed w/ Mrs. Poe today. She is agreeable to starting HD * HD today for 2 hours, attempt 1L UF. Plan 2nd dialysis treatment tomorrow * Recommend diabetic, HD diet * Will consult case management to set up outpatient HD at [facility] w/ Dr. 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 Poe is a 73 year old white female who is seen at the request of the hospitalist service for evaluation of CKD. Information for the HPI is obtained from patient interview and review of EMR. HPI is summarized as follows: Mrs. Poe had CKD stage G4/A2 (advanced impairment). She was last seen in the Nephrology office 02/18. Creatinine at that time was 2.9. Her CKD has been attributed to DKD, hypertensive nephrosclerosis, R heart failure and microvascular disease. In anticipation of progressive renal dysfunction, Mrs. Poe did undergo L BC AVF creation 12/22/[address] Tello. On 06/12/23 Mrs. Poe completed blood work for her upcoming Nephrology office visit. Creatinine had risen to 6.2 w/ potassium 5.3. Admission was advised for renal, cardiac imaging and initiation of GLOBAL POSITION SYSTEM TECHNICIAN. Mrs. Poe currently denies fever, flank pain, gross hematuria or uremic symptoms. She denies the use of NSAIDS and has not recently started any new medication other than Spironolactone. Abdominal CT performed in the EMD was negative for hydronephrosis. 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 Allergies Allergy/AdvReac Type Severity Reaction Status Date / Time tramadol Allergy Mild "FELT Verified 06/11/23 13:31 WEIRD" amlodipine Allergy Unknown SWELLING Verified 06/11/23 13:31 Home Medications Medication Instructions Recorded Confirmed Type acetaminophen 500 mg capsule 500 mg PO QID PRN Pain 04/04/19 06/12/23 History cyanocobalamin (vitamin B-12) 1,000 mcg IM MONTHLY 04/04/19 06/12/23 History 1,000 mcg/mL injection solution Oxygen Home 09/04/19 06/11/23 History blood-glucose meter,continuous 08/23/21 06/12/23 History (Dexcom G6 Drafter Refrigeration) blood-glucose sensor (Dexcom G6 08/23/21 06/11/23 History Sensor device) blood-glucose transmitter (Dexcom 08/23/21 06/11/23 History G6 Transmitter device) triamcinolone acetonide 0.5 % 1 applic topical BID PRN skin 09/21/21 06/12/23 Rx topical cream irritation #60 grams lancets 33 gauge (OneTouch Delica #100 ea 06/29/22 06/12/23 Rx Lancets) Walking Cane #1 ea 10/05/22 06/12/23 Rx ipratropium 20 mcg-albuterol 100 1 puff inhalation Q6H PRN 10/11/22 06/12/23 Rx mcg/actuation mist for inhalation sob/wheezing #4 grams (Combivent Respimat) insulin lispro 100 unit/mL 80 unit (0.8 mL) subcut TID #210 mL 12/14/22 06/12/23 Rx subcutaneous pen (Humalog KwikPen (U-100) Insulin) pen needle, diabetic 31 gauge x #500 ea 12/14/22 06/12/23 Rx 5/16" (BD Ultra-Fine Short Pen Needle) carvedilol 25 mg tablet 25 mg PO BID #180 tabs 12/21/22 06/12/23 Rx insulin glargine 100 unit/mL (3 90 unit (0.9 mL) subcut BID #165 mL 01/03/23 06/12/23 Rx mL) subcutaneous pen (Lantus Solostar U-100 Insulin) pantoprazole 40 mg tablet,delayed 40 mg PO QAM #90 tabs 01/03/23 06/12/23 Rx release hydralazine 100 mg tablet 100 mg PO TID #270 tabs 01/08/23 06/12/23 Rx isosorbide mononitrate 60 mg 60 mg PO QAM #90 tabs 01/15/23 06/12/23 Rx tablet,extended release 24 hr losartan 100 mg tablet 100 mg PO QAM #90 tabs 01/15/23 06/12/23 Rx spironolactone 25 mg tablet 25 mg PO DAILY #90 tabs 02/26/23 06/12/23 Rx gabapentin 300 mg capsule 300 mg PO HS #30 caps 03/27/23 06/12/23 Rx allopurinol 100 mg tablet 200 mg PO QAM #180 tabs 04/02/23 06/12/23 Rx calcitriol 0.5 mcg capsule 0.5 mcg PO QAM #90 caps 04/02/23 06/12/23 Rx simvastatin 40 mg tablet 40 mg PO QPM #90 tabs 04/02/23 06/12/23 Rx diclofenac sodium 1 % topical gel 1 g topical TID PRN Pain #100 grams 04/03/23 06/12/23 Rx OneTouch Ultra Test (blood sugar #50 ea 05/15/23 06/11/23 Rx diagnostic) albuterol sulfate 90 mcg/actuation 2 puff inhalation QID PRN 05/15/23 06/12/23 Rx aerosol inhaler shortness of breath or wheezing #6.7 grams furosemide 40 mg tablet 80 mg PO DAILY Leg swelling or 05/15/23 06/12/23 Rx weight change #180 tabs clonidine HCl 0.1 mg tablet See Rx Instructions .Route .COMPLEX 06/12/23 06/12/23 History Patient History Medical History Anemia follows with [facility] heme/onc and [facility]-IV iron infusions, most recent 05/2022 Chronic diastolic heart failure Chronic kidney disease, stage 4 (severe) Follows with [facility]- no current dialysis Chronic venous insufficiency Cirrhosis of liver COPD (chronic obstructive pulmonary disease) stable per pt Diabetic peripheral neuropathy associated with type 2 diabetes mellitus DVT (deep venous thrombosis) (10/2021) 10/2021 right knee, treated with eliquis for several months Dyslipidemia Gastroparesis GERD (gastroesophageal reflux disease) controlled, stable per pt Gout Last episode Jul 2022- no issues since 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 to tuberculosis Hypertension controlled, stable per pt Loss of protective sensation of skin of foot Morbid obesity 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 "Stable" Nocturnal hypoxia Obstructive sleep apnea of adult 2 lpm O2 HS Personal history of malignant neoplasm of skin S/p removal - follows with derm Secondary hyperparathyroidism Type 2 diabetes mellitus with diabetic neuropathy, unspecified IDDM (has Dexcom reader) Venous stasis ulcers Venous ulcer Discharged by [facility] Surgical History S/P cholecystectomy S/P colonoscopy S/P dilatation and curettage S/P tubal ligation Status post endovenous radiofrequency ablation (RFA) of saphenous vein LLE and RLE 2021 Family History Father Prostate cancer Mother Myocardial infarction Deep vein thrombosis Denies family history of Ovarian cancer Breast cancer Lung cancer Colorectal cancer Social History Smoking Status: Never smoker Second Hand Exposure: No; Do You Dip or Chew Tobacco: No; Hx Alcohol Use: Yes Alcohol type: wine Alcohol Intake Frequency: Monthly or Less Hx Substance Use: No Preferred Language: Jamaican Communication Ability: Effective Visual Impairment: No Limitations Hearing Ability: Normal Packager Required: No Beliefs That Will Affect Care: None marital status: Current Living Situation: Spouse Current Living Situation Comment: Patient lives at home with spouse and pet dog current occupational status: retired Other Information That Helps Us Care for You: No Feels Safe at Home: Yes Safety Concerns: Feels Safe At This Time Childhood Exposure to Second-Hand Smoke: Yes Diet: regular Diet Comment: Regular caffeine: Yes during the past year weight has: remained stable Dental Care, Regularly: Yes Physical Activity Frequency: 1-2 Times per Week Physical Activity Frequency Comment: walking Seatbelt Use: always Sunscreen Use: Yes Assistive Devices: Cane, Glasses and Oxygen - at Night Review of Systems Constitutional: no fever Eyes: no problem reported Ear, Nose, Mouth, Throat: no problem reported Respiratory: no cough and no dyspnea Cardiovascular: no chest pain Gastrointestinal: no abdominal pain, no nausea, no vomiting and no diarrhea/loose stools Genitourinary: no hematuria Integumentary: no rash Neurologic: no falls and no localized weakness Physical Exam Constitutional: not in distress Eyes: PERRL, conjunctivae normal, anicteric sclerae ENMT: external ear and nose normal, oropharynx normal Neck: trachea midline, no thyromegaly Respiratory: normal respiratory effort, lungs clear to auscultation Cardiovascular: Rate/Rhythm: regular rate and regular rhythm Heart Sounds: no cardiac rub Extremities: + edema (tense bilateral LE swelling) and + AV fistula (L BC AVF + bruit) Gastrointestinal (Abdomen): normal bowel sounds, soft, nontender, no hepatosplenomegaly Skin: no rashes Neurologic: Speech / Cognition: normal speech and normal cognition Psychiatric: Affect: euthymic affect Results & Data Vital Signs (Past 12 Hours) Vital Signs Temp Pulse Pulse Resp BP BP Pulse Ox 06/13/23 08:14 36.4 C L 60 20 132/66 95 06/13/23 03:00 37.0 C 64 19 121/63 95 06/13/23 00:00 67 06/12/23 23:00 36.9 C 67 18 143/74 H 96 06/12/23 21:15 06/12/23 21:05 36.8 C 70 18 175/62 H 92 06/12/23 21:14 36.7 C 70 18 175/62 H 92 06/12/23 20:31 68 20 166/53 H 94 06/12/23 20:30 64 23 96 O2 Del Method 06/13/23 08:14 Room Air 06/13/23 03:00 Room Air 06/13/23 00:00 06/12/23 23:00 Room Air 06/12/23 21:15 Room Air 06/12/23 21:05 Room Air 06/12/23 21:14 Room Air 06/12/23 20:31 06/12/23 20:30 Laboratory Results Laboratory Tests 06/13/23 06/13/23 06/13/23 05:53 05:53 05:53 WBC 11.48 H Hgb 9.0 L Hct 28.0 L Sodium 139 Potassium 4.7 Chloride 101 Carbon Dioxide 24 BUN 97 H Creatinine 6.08 H* D Calcium 10.1 Phosphorus 5.6 H Transferrin % Sat 20 Ferritin Pending Vitamin B12 > 1500 H Folate 8.63 Diagnostic Findings 06/12/[address]: 1. No bowel wall thickening or obstruction. 2. Mildly distended bladder. No bladder wall thickening. 3. No hydronephrosis. 4. Normal appendix. 5. Subtle nodular contour to the liver suggestive of early cirrhosis. 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
[2023-06-13 08:26] LABS: Creatinine Clr Calc Pharmacy 10.3 ml/min; Est GFR (African American) 7.4 ml/min; Est GFR (Non-African American) 6.3 ml/min; Phosphorus 5.6 mg/dl (2.5-4.9)
[2023-06-13] MEDS ORDERED: SODIUM CHLORIDE 0.9% 1000ML 1,000 ML IV PRN (10:00)
[2023-06-13] MEDS ORDERED: EPOETIN ALFA 10,000 UNITS/ML VIAL IV ONE (10:00)
[2023-06-13] MEDS: cefTRIAXone SODIUM 2,000 MG in DEXTROSE 5% 50 ML IV SCH (12:18)
[2023-06-13 13:50] LABS: Ferritin 90.4 ng/ml (8-388)
--- NOTE | 2023-06-13 14:22 | XCELERA ---
[id number] \\[id number]
--- NOTE | 2023-06-13 15:37 | Electrocardiogram Report ---
Test Reason : Blood Pressure : / mmHG Vent. Rate : 069 BPM Atrial Rate : 069 BPM P-R Int : 162 ms QRS Dur : 078 ms QT Int : 392 ms P-R-T Axes : 048 030 044 degrees QTc Int : 420 ms Normal sinus rhythm Normal ECG When compared with ECG of 06-JUL-2022 13:39, No significant change was found Confirmed by Jermain Camacho ([id number]) on 06/13/2023 3:37:15 PM Referred By: Joel France Confirmed By:Jermain Camacho
--- NOTE | 2023-06-13 19:32 | Hospitalist Progress Note ---
Date of Service June 13, 2023 Assessment & Plan (1) End stage chronic kidney disease: Plan: Creatinine 6.5 from baseline of 2.8 4 months ago, BUN up to 101, with associated mild hyperkalemia but no uremia or acidosis. With volume overload with lower extremity edema but no evidence of hypoxia or shortness of breath CT abdomen/pelvis without evidence of tract obstruction Urinalysis now with evidence of infection and continues w/ symptoms of dysuria She was started on spironolactone in 12/2022 which possibly contributed Admitted and treated with Lokelma x 1 dose, 500mL NS IVFs, and held spironolactone, lasix, and losartan Marketing Professor slightly improved to 6.0 Attempted to initiate HD 06/13 but AVF unable to be cannulated ECHO normal -Consult nephrology appreciated -start HD-will attempt HD again tomorrow with different RN to canulate AVF but is deep so may need revision and temporary tunneled IJ dialysis catheter placed -continue to hold losartan, spironolactone, and furosemide -Follow BMP in the morning -treat UTI-add ceftriaxone, follow Ur cx (2) UTI (urinary tract infection): Plan: as above, start ceftriaxone and follow Ur cx (3) Hyperkalemia: Plan: Potassium 5.3 on admission, related to worsening renal function and aldactone use ECG normal received 1 dose of Lokelma and now resolved Hold spironolactone Follow BMP in the morning continue renal diet/low potassium/low sodium (4) HTN (hypertension): Plan: Blood pressures are mildly elevated Continue home carvedilol, clonidine which was recently increased to 0.2 Mg p.o. 3 times daily, hydralazine, and isosorbide Holding home diuretics and losartan for acute kidney injury (5) Chronic diastolic heart failure: Plan: and right sided HF With volume overload from renal failure Continue blood pressure control with carvedilol, clonidine, hydralazine, and isosorbide Holding losartan and diuretics for acute kidney injury Low-sodium diet (6) Leukocytosis: Plan: WBC count elevated at 13, and now down to 11 UA now with evidence of infection No fevers Could be reactive to anemia or renal failure? Start ceftriaxone for UTI Follow CBC (7) Anemia: Plan: Likely anemia of iron deficiency and CKD B12, iron studies, folate all normal Start RAYMOND tx with HD as per Nephro Recent TSH normal Follow CBC (8) Vitamin D deficiency: Plan: Continue calcitriol (9) Diabetes mellitus type 2 with complications: Plan: Hemoglobin A1c 8.0% follows with endocrinology With some borderline hypoglycemia here Decrease Lantus to 80 units twice a day Typically takes insulin lispro 80 units 3 times a day-hold this for now and give NovoLog with meals starting with correction factor 20 and carb ratio 12, goal range 100-140 Likely will not need as high of an insulin regimen with renal failure and with different diet in the hospital (10) COPD (chronic obstructive pulmonary disease): Plan: No acute issues Continue as needed inhalers (11) Diabetic peripheral neuropathy associated with type 2 diabetes mellitus: Plan: Continue gabapentin (12) Dyslipidemia: Plan: Continue simvastatin (13) GERD (gastroesophageal reflux disease): Plan: Continue PPI (14) Gout: Plan: Continue prophylactic allopurinol, renally dosed (15) Secondary hyperparathyroidism: Plan: Continue calcitriol (16) Vitamin B12 deficiency: Plan: Continue home supplement injections (17) Obstructive sleep apnea of adult: Plan: Continue 2 L O2 at bedtime Plan DVT prophylaxis-SCDs, heparin SQ Disposition-continued stay on PCU Full code Admission and Anticipated Discharge Date Admission Date: June 12, 2023 Anticipated date of discharge: 06/18/23 Subjective Pt feels ok today, no conerns except couldn't sleep last night. Had attempted HD today but RN unable to cannulate AVF. Is making urine, moving bowels. Denies nausea, is eating. Tele with NSR, PVCs, rates 60s I discussed her care with Nephrology Physical Exam Constitutional: WD/WN, vitals as above + morbidly obese Neck: trachea midline, no thyromegaly Respiratory: normal respiratory effort, lungs clear to auscultation Cardiovascular: Rate/Rhythm: regular rate and regular rhythm Heart Sounds: no murmur Extremities: + edema (1+ pitting edema legs bilaterally,coban wraps in place) Chest (Breasts): Chest: normal inspection of chest Gastrointestinal (Abdomen): normal bowel sounds, soft, nontender, no hepatosplenomegaly Musculoskeletal: Extremities: no cyanosis and no clubbing Skin: no rashes, warm and dry Neurologic: moves all extremities and awake; no focal motor deficits Psychiatric: A+Ox3, euthymic affect Results & Data Results & Data Vital Signs (Past 12 Hours) Vital Signs Temp Pulse Pulse Resp BP Pulse Ox O2 Del Method 06/13/23 15:51 36.6 C 65 20 146/73 H 96 Room Air 06/13/23 11:36 36.6 C 61 19 146/66 H 94 Room Air 06/13/23 08:00 62 06/13/23 08:14 36.4 C L 60 20 132/66 95 Room Air Laboratory Results CBC, Fe studies, B12, folate, BMP, magnesium reviewed UA positive for infection PG Care Time/CCT Total # of Minutes Spent Total Time Spent with Patient: Total time spent is greater than 50% in coordination of care (as documented) at patient's floor/unit and/or counseling patient: Coding Level of Care Code 47185 SUB INP/OBS CARE 3/50MIN Diagnoses End stage chronic kidney disease N18.6 UTI (urinary tract infection) N39.0 Hyperkalemia E87.5 HTN (hypertension) I10 Chronic diastolic heart failure I50.32 Leukocytosis D72.829 Anemia D64.9 Vitamin D deficiency E55.9 Diabetes mellitus type 2 with complications E11.8 COPD (chronic obstructive pulmonary disease) J44.9 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 Secondary hyperparathyroidism N25.81 Vitamin B12 deficiency E53.8 Obstructive sleep apnea of adult G47.33
[2023-06-13] MEDS: GABAPENTIN 300 MG CAP PO SCH (20:33)
[2023-06-13] MEDS: SIMVASTATIN 40 MG TAB PO SCH (20:33)
[2023-06-13] MEDS: MELATONIN 3 MG TAB PO SCH (22:14)
[2023-06-14] MEDS ORDERED: EPOETIN ALFA 10,000 UNITS/ML VIAL IV ONE (07:00)
[2023-06-14] MEDS ORDERED: SODIUM CHLORIDE 0.9% 1000ML 1,000 ML IV PRN (07:00)
[2023-06-14] MEDS: hydrALAZINE TAB 50 MG TAB PO SCH ×3 (07:41→20:31)
[2023-06-14] MEDS: ISOSORBIDE MONO EXTENDED REL 60 MG TABCR PO SCH (07:42)
[2023-06-14] MEDS: CALCITRIOL 0.25 MCG CAPSULE PO SCH (07:42)
[2023-06-14] MEDS: cloNIDine HCL 0.1 MG TAB PO SCH ×3 (07:42→20:31)
[2023-06-14] MEDS: carvediloL 25 MG TAB PO SCH ×2 (07:42→20:31)
[2023-06-14] MEDS: PANTOprazole 40 MG TAB PO SCH (07:43)
[2023-06-14] MEDS: allopurinoL 100 MG TAB PO SCH (07:43)
[2023-06-14] MEDS: HEPARIN SOD 5,000 UNIT/0.5 ML VIAL SQ SCH ×2 (07:44→20:31)
[2023-06-14] MEDS: INSULIN ASPART PER UNIT CHARGE SC SCH ×4 (07:48→20:44)
[2023-06-14] MEDS: LANTUS PER UNIT CHARGE SQ SCH ×2 (07:48→20:43)
[2023-06-14 08:49] LABS: Hematocrit (blood only) 27.8 % (37.0-47.0); Hemoglobin 9.1 g/dl (12.0-16.0); Mean Corpuscular Hemoglobin 30.6 pg (25.0-34.0); Mean Corpuscular Hgb Conc 32.7 g/dL (32.0-36.0); Mean Corpuscular Volume 93.6 fL (80.0-100.0); Mean Platelet Volume 9.6 fL (9.4-12.4); Platelet Count 274 K/uL (130-400); RDW Coefficient of Variation 17.1 % (11.5-14.5); RDW Standard Deviation 57.9 fL (36.4-46.3); Red Blood Count 2.97 M/uL (4.20-5.40); White Blood Count 10.34 K/ul (4.8-10.8)
[2023-06-14 09:25] LABS: BUN Creatinine Ratio 15.3 (10-20); Calcium 9.7 mg/dl (8.6-10.3); Creatinine Clr Calc Pharmacy 10.7 ml/min; Est GFR (African American) 7.6 ml/min; Est GFR (Non-African American) 6.6 ml/min; Potassium 5.1 mmol/L (3.5-5.1)
--- NOTE | 2023-06-14 09:33 | Nephrology Progress Note ---
Date of Service June 14, 2023 Assessment & Plan (1) End stage chronic kidney disease: Plan: * No recent exposure to nephrotoxic agents. No obstruction on admission CT. Clinically suspect progressive DKD. 06/20 Echocardiogram was negative for RV failure. Patient now appears to have advanced to ESKD * Indications/benefits/risks/alternatives to 911 DISPATCHER discussed w/ Mrs. Poe. She is agreeable to starting HD * Dialysis was attempted yesterday but staff occupational therapist was unable to place venous needle * Will attempt to access fistula this morning and provide 1st run HD. If unsuccessful, will then consult Vascular Surgery * Recommend diabetic, HD diet * Case management has been consulted to set up outpatient HD at [facility] w/ Dr. Mckeon * Protect L upper arm dialysis access (2) Hyperkalemia: Plan: * Corrected (3) Anemia: Plan: * Iron saturation 20%, ferritin 90.4 * Will provide IV iron and RAYMOND w/ HD today (4) Venous stasis ulcer of both lower extremities without varicose veins: Plan: * Patient underwent bilateral GSV endovenous ablation 01/17 * Unable to wear diabetic shoes due to severe pedal edema * Undergoing care at [facility] due to bilateral venous stasis ulcers (5) Chronic diastolic heart failure: Plan: * 06/13/23 Echocardiogram: LVEF 60-65%, mild LVH. RV poorly visualized but normal function. Normal IVC. 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 Poe was evaluated in her hospital room this morning. She denied dyspnea, angina or uremic symptoms. She is agreeable to attempting use of AVF again this morning. Review of Systems Constitutional: no fever Eyes: no problem reported Ear, Nose, Mouth, Throat: no problem reported Cardiovascular: no chest pain Gastrointestinal: no abdominal pain, no nausea, no vomiting and no diarrhe a/loose stools Genitourinary: no hematuria Integumentary: no rash Neurologic: no falls and no localized weakness Physical Exam Constitutional: not in distress Eyes: PERRL, conjunctivae normal, anicteric sclerae ENMT: external ear and nose normal, oropharynx normal Neck: trachea midline, no thyromegaly Respiratory: normal respiratory effort, lungs clear to auscultation Cardiovascular: Rate/Rhythm: regular rate and regular rhythm Heart Sounds: no cardiac rub Extremities: + edema (tense bilateral LE swelling) and + AV fistula (L BC AVF + bruit) Gastrointestinal (Abdomen): normal bowel sounds, soft, nontender, no hepatosplenomegaly Skin: no rashes Neurologic: Speech / Cognition: normal speech and normal cognition Psychiatric: Affect: euthymic affect Results & Data Vital Signs (Past 12 Hours) Vital Signs Temp Pulse Pulse Resp BP Pulse Ox O2 Del Method 06/14/23 07:29 36.6 C 64 18 133/65 92 Room Air 06/14/23 06:03 67 06/14/23 03:46 36.8 C 60 18 154/71 H 97 Room Air 06/13/23 21:59 68 06/13/23 23:05 36.7 C 70 18 148/65 H 96 Nasal Cannula O2 Flow Rate 06/14/23 07:29 06/14/23 06:03 06/14/23 03:46 06/13/23 21:59 06/13/23 23:05 2 Laboratory Results Laboratory Tests 06/14/23 06/14/23 08:08 08:08 WBC 10.34 Hgb 9.1 L Hct 27.8 L Plt Count 274 Sodium 138 Potassium 5.1 Chloride 102 Carbon Dioxide 25 BUN 90 H Creatinine 5.90 H* Est GFR (Non-Af Amer) 6.6 Glucose 120 H Calcium 9.7 Laboratory Tests 06/13/23 05:53 Transferrin % Sat 20 Ferritin 90.4 Diagnostic Findings 06/13/23 Echocardiogram: LVEF 60-65%, mild LVH. RV poorly visualized but normal function. Normal IVC. 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
[2023-06-14] MEDS ORDERED: IRON SUCROSE 200 MG in 0.9 % SODIUM CHLORIDE 100 ML IV ONE (10:00)
[2023-06-14] MEDS: cefTRIAXone SODIUM 2,000 MG in DEXTROSE 5% 50 ML IV SCH (12:44)
--- NOTE | 2023-06-14 19:37 | Hospitalist Progress Note ---
Date of Service June 14, 2023 Assessment & Plan (1) End stage chronic kidney disease: Plan: Creatinine 6.5 from baseline of 2.8 four months ago, BUN up to 101, with associated mild hyperkalemia but no uremia or acidosis. 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 now down to 5.9 K+ remains normal Attempted to initiate HD 06/13 and again on 06/14 but AVF unable to be cannulated both times as it is too deep ECHO normal -Consult nephrology appreciated -starting HD- AVF is deep and needs revision -plan for temporary tunneled IJ dialysis catheter tomorrow with Vascular SUrgery-NPO after midnight -continue to hold losartan, spironolactone, and furosemide -Follow BMP in the morning -treating UTI-ceftriaxone, follow Ur cx-GNR thus far (2) UTI (urinary tract infection): Plan: as above, start ceftriaxone and follow Ur cx (3) Hyperkalemia: Plan: Potassium 5.3 on admission, related to worsening renal function and aldactone use ECG normal received 1 dose of Lokelma and now resolved continue to hold spironolactone Follow BMP in the morning continue renal diet/low potassium/low sodium (4) HTN (hypertension): Plan: Blood pressures are mildly elevated Continue home carvedilol, clonidine which was recently increased to 0.2 Mg p.o. 3 times daily, hydralazine, and isosorbide Holding home diuretics and losartan for acute kidney injury (5) Chronic diastolic heart failure: Plan: and right sided HF With volume overload from renal failure Continue blood pressure control with carvedilol, clonidine, hydralazine, and isosorbide Holding losartan and diuretics for acute kidney injury Low-sodium diet (6) Leukocytosis: Plan: WBC count elevated at 13, and now down to 10 UA on repeat clean sample with evidence of infection No fevers Could be reactive to anemia or renal failure? Started ceftriaxone for UTI and now resolved Follow CBC (7) Anemia: Plan: Likely anemia of iron deficiency and CKD B12, iron studies, folate all normal Start RAYMOND tx with HD as per Nephro Venofer x 1 dose given Recent TSH normal Follow CBC (8) Vitamin D deficiency: Plan: Continue calcitriol (9) Diabetes mellitus type 2 with complications: Plan: Hemoglobin A1c 8.0% follows with endocrinology With some borderline hypoglycemia here initially and Lantus dose lowered a bit Now with some hyperglycemia- increase Lantus back up to 85 units twice a day Typically takes insulin lispro 80 units 3 times a day-hold this for now and give NovoLog with meals with correction factor 20 and carb ratio 12, goal range 100- 140 Likely will not need as high of an insulin regimen with renal failure and with different diet in the hospital (10) COPD (chronic obstructive pulmonary disease): Plan: No acute issues Continue as needed inhalers (11) Diabetic peripheral neuropathy associated with type 2 diabetes mellitus: Plan: Continue gabapentin (12) Dyslipidemia: Plan: Continue simvastatin (13) GERD (gastroesophageal reflux disease): Plan: Continue PPI (14) Gout: Plan: Continue prophylactic allopurinol, renally dosed (15) Secondary hyperparathyroidism: Plan: Continue calcitriol (16) Vitamin B12 deficiency: Plan: Continue home supplement injections (17) Obstructive sleep apnea of adult: Plan: Continue 2 L O2 at bedtime Plan DVT prophylaxis-SCDs, heparin SQ Disposition-continued stay on PCU Full code Admission and Anticipated Discharge Date Admission Date: June 12, 2023 Subjective Attempted HD again today and still could not have her AVF cannulated. SHe is keeping her spirits up and plan for TDC IJ tomorrow. Denies SOB, CP. Is making urine and reports her urinary urgency and dysuria is now resolved since starting antibiotics Tele with NSR rates 60-70s Physical Exam Constitutional: WD/WN, vitals as above + morbidly obese Neck: trachea midline, no thyromegaly Respiratory: normal respiratory effort, lungs clear to auscultation Cardiovascular: Rate/Rhythm: regular rate and regular rhythm Heart Sounds: no murmur Extremities: + edema (1+ pitting edema legs bilaterally,tubi occupational therapist assistants in place) and + AV fistula (Left upper arm with thrill and bruit) Chest (Breasts): Chest: normal inspection of chest Gastrointestinal (Abdomen): normal bowel sounds, soft, nontender, no hepatosplenomegaly Musculoskeletal: Extremities: no cyanosis and no clubbing Skin: no rashes, warm and dry Neurologic: moves all extremities and awake; no focal motor deficits Psychiatric: A+Ox3, euthymic affect Results & Data Results & Data Vital Signs (Past 12 Hours) Vital Signs Temp Pulse Resp BP Pulse Ox O2 Del Method 06/14/23 15:05 36.4 C L 63 18 156/66 H 94 Room Air 06/14/23 11:17 36.7 C 70 18 148/66 H 94 Room Air Laboratory Results CBC, BMP, Ur cx reviewed PG Care Time/CCT Total # of Minutes Spent Total Time Spent with Patient: Total time spent is greater than 50% in coordination of care (as documented) at patient's floor/unit and/or counseling patient: Coding Level of Care Code 27298 SUB INP/OBS CARE 2/35MIN Diagnoses End stage chronic kidney disease N18.6 UTI (urinary tract infection) N39.0 Hyperkalemia E87.5 HTN (hypertension) I10 Chronic diastolic heart failure I50.32 Leukocytosis D72.829 Anemia D64.9 Vitamin D deficiency E55.9 Diabetes mellitus type 2 with complications E11.8 COPD (chronic obstructive pulmonary disease) J44.9 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 Secondary hyperparathyroidism N25.81 Vitamin B12 deficiency E53.8 Obstructive sleep apnea of adult G47.33
[2023-06-14] MEDS: SIMVASTATIN 40 MG TAB PO SCH (20:31)
[2023-06-14] MEDS: GABAPENTIN 300 MG CAP PO SCH ×2 (20:32→20:53)
[2023-06-14] MEDS: MELATONIN 3 MG TAB PO SCH (22:00)
[2023-06-15] MEDS ORDERED: Nursing to Pharmacy Communication SCH (01:30)
[2023-06-15] MEDS: INSULIN ASPART PER UNIT CHARGE SC SCH ×4 (06:16→20:10)
[2023-06-15] MEDS ORDERED: EPOETIN ALFA 10,000 UNITS/ML VIAL IV ONE (07:00)
[2023-06-15] MEDS ORDERED: SODIUM CHLORIDE 0.9% 1000ML 1,000 ML IV PRN (07:00)
[2023-06-15 07:21] LABS: Hematocrit (blood only) 26.5 % (37.0-47.0); Hemoglobin 8.7 g/dl (12.0-16.0); Mean Corpuscular Hemoglobin 30.5 pg (25.0-34.0); Mean Corpuscular Hgb Conc 32.8 g/dL (32.0-36.0); Mean Platelet Volume 9.4 fL (9.4-12.4); Platelet Count 259 K/uL (130-400); RDW Coefficient of Variation 16.8 % (11.5-14.5); RDW Standard Deviation 57.2 fL (36.4-46.3); Red Blood Count 2.85 M/uL (4.20-5.40); White Blood Count 10.87 K/ul (4.8-10.8)
[2023-06-15 08:20] LABS: BUN Creatinine Ratio 15.4 (10-20); Calcium 9.6 mg/dl (8.6-10.3); Creatinine Clr Calc Pharmacy 11.1 ml/min; Est GFR (African American) 7.9 ml/min; Est GFR (Non-African American) 6.9 ml/min; Potassium 4.8 mmol/L (3.5-5.1)
--- NOTE | 2023-06-15 09:01 | Nephrology Progress Note ---
Date of Service June 15, 2023 Assessment & Plan (1) End stage chronic kidney disease: Plan: * No recent exposure to nephrotoxic agents. No obstruction on admission CT. Clinically suspect progressive DKD. 06/20 Echocardiogram was negative for RV failure. Patient now appears to have advanced to ESKD * Indications/benefits/risks/alternatives to FRATERNITY ADVISER discussed w/ Mrs. Poe. She is agreeable to starting HD * Dialysis was attempted x2. HD industrial staff nurse unable to cannulate venous limb of AVF * Vascular Surgery will place IJ TCC today. Plan 1st run HD today, 2nd treatment on Sunday * Recommend diabetic, HD diet * Case management has been consulted to set up outpatient HD at [facility] Kristina w/ Dr. Mckeon * Protect L upper arm dialysis access (2) Hyperkalemia: Plan: * Corrected (3) Anemia: Plan: * Iron saturation 20%, ferritin 90.4 * Will provide IV iron and RAYMOND w/ HD today (4) Venous stasis ulcer of both lower extremities without varicose veins: Plan: * Patient underwent bilateral GSV endovenous ablation 01/17 * Unable to wear diabetic shoes due to severe pedal edema * Undergoing care at [facility] due to bilateral venous stasis ulcers (5) Chronic diastolic heart failure: Plan: * 06/13/23 Echocardiogram: LVEF 60-65%, mild LVH. RV poorly visualized but normal function. Normal IVC. 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 Poe was evaluated in the pre-op holding area this morning. She denies fever, angina or dyspnea. She voiced no new medical concerns Review of Systems Constitutional: no fever Eyes: no problem reported Ear, Nose, Mouth, Throat: no problem reported Cardiovascular: no chest pain Gastrointestinal: no abdominal pain, no nausea, no vomiting and no diarrhea/loose stools Genitourinary: no hematuria Integumentary: no rash Neurologic: no falls and no localized weakness Physical Exam Constitutional: not in distress Eyes: PERRL, conjunctivae normal, anicteric sclerae ENMT: external ear and nose normal, oropharynx normal Neck: trachea midline, no thyromegaly Respiratory: normal respiratory effort, lungs clear to auscultation Cardiovascular: Rate/Rhythm: regular rate and regular rhythm Heart Sounds: no cardiac rub Extremities: + edema (tense bilateral LE swelling) and + AV fistula (L BC AVF + bruit) Gastrointestinal (Abdomen): normal bowel sounds, soft, nontender, no hepatosplenomegaly Skin: no rashes Neurologic: Speech / Cognition: normal speech and normal cognition Psychiatric: Affect: euthymic affect Results & Data Vital Signs (Past 12 Hours) Vital Signs Temp Pulse Pulse Resp BP Pulse Ox O2 Del Method 06/15/23 08:43 36.5 C 62 18 171/61 H 97 Room Air 06/15/23 07:08 36.4 C L 61 18 154/64 H 95 Room Air 06/15/23 04:25 36.5 C 63 18 156/69 H 99 Nasal Cannula 06/14/23 22:19 64 06/14/23 23:18 36.7 C 63 18 152/60 H 96 Room Air O2 Flow Rate 06/15/23 08:43 06/15/23 07:08 06/15/23 04:25 2 06/14/23 22:19 06/14/23 23:18 Laboratory Results Laboratory Tests 06/15/23 06/15/23 06:25 06:25 WBC 10.87 H Hgb 8.7 L Hct 26.5 L Plt Count 259 Sodium 138 Potassium 4.8 Chloride 102 Carbon Dioxide 24 BUN 88 H Creatinine 5.70 H* Est GFR (Non-Af Amer) 6.9 Glucose 98 PG Care Time/CCT Total # of Minutes Spent Total Time Spent with Patient: Total time spent is greater than 50% in coordination of care (as documented) at patient's floor/unit and/or counseling patient: Coding Level of Care Code 51198 SUB INP/OBS CARE 3/50MIN Diagnoses End stage chronic kidney disease N18.6 Hyperkalemia E87.5 Anemia D64.9 Venous stasis ulcer of both lower extremities without varicose veins I87.2; L97.919; L97.929 Chronic diastolic heart failure I50.32 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
--- NOTE | 2023-06-15 09:09 | Consultation ---
Date of Consultation June 15, 2023 Assessment & Plan (1) End stage chronic kidney disease: Pt with LUE AVF since 12/21, matured but difficult to access d/t depth. Will obtain new US to reeval for depth and consider superficialization in near future. Planning to place permcath for HD later this morning. Procedure, risks, benefits, and alternatives discussed with pt by myself at Dr Tello's request. She expresses understanding and agreement. History of Present Illness Reason for Consultation: ESRD Attending Physician: Muna Garvey MD History of Present Illness 73 yo f with hx of CKD, HTN, COPD, DMII, anemia, lymphedema, DVT and venous insufficiency, CHF, dyslipidemia, gout, NAE, gastroparesis, admitted with UTI an d worsening renal fx, seen in consultation today for permcath insertion for HD initiation. Pt known to Dr Tello, she has had a LUE AC cephalic V AVF creation in 12/21. She was seen in 03/20 for a follow up appt, at which time her AVF demonstrated adequate flow and size, but was 2.2cm deep in the upper arm. It was expected that more time to mature may allow for the AVF to superficialize on its own, however, she now needs urgent HD. Inpt HD unit attempted to access her, but was unable to place the venous needle. Pt admits fatigue/malaise, and swelling worse than usual. Is seen at [facility] for venous ulcerations to BLE. Arterial studies were essentially normal. She has undergone Denies BUCKNER, fever, chest pain, SOB, abd pain, N/V, rest pain, claudication, other complaints. 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 Technician) blood-glucose sensor (Dexcom G6 08/23/21 06/11/23 History Sensor device) blood-glucose transmitter (Dexcom 08/23/21 06/11/23 History G6 Transmitter device) triamcinolone acetonide 0.5 % 1 applic topical BID PRN skin 09/21/21 06/12/23 Rx topical cream irritation #60 grams lancets 33 gauge (OneTouch Delica #100 ea 06/29/22 06/12/23 Rx Lancets) Walking Cane #1 ea 10/05/22 06/12/23 Rx ipratropium 20 mcg-albuterol 100 1 puff inhalation Q6H PRN 10/11/22 06/12/23 Rx mcg/actuation mist for inhalation sob/wheezing #4 grams (Combivent Respimat) insulin lispro 100 unit/mL 80 unit (0.8 mL) subcut TID #210 mL 12/14/22 06/12/23 Rx subcutaneous pen (Humalog KwikPen (U-100) Insulin) pen needle, diabetic 31 gauge x #500 ea 12/14/22 06/12/23 Rx 5/16" (BD Ultra-Fine Short Pen Needle) carvedilol 25 mg tablet 25 mg PO BID #180 tabs 12/21/22 06/12/23 Rx insulin glargine 100 unit/mL (3 90 unit (0.9 mL) subcut BID #165 mL 01/03/23 06/12/23 Rx mL) subcutaneous pen (Lantus Solostar U-100 Insulin) pantoprazole 40 mg tablet,delayed 40 mg PO QAM #90 tabs 01/03/23 06/12/23 Rx release hydralazine 100 mg tablet 100 mg PO TID #270 tabs 01/08/23 06/12/23 Rx isosorbide mononitrate 60 mg 60 mg PO QAM #90 tabs 01/15/23 06/12/23 Rx tablet,extended release 24 hr losartan 100 mg tablet 100 mg PO QAM #90 tabs 01/15/23 06/12/23 Rx spironolactone 25 mg tablet 25 mg PO DAILY #90 tabs 02/26/23 06/12/23 Rx gabapentin 300 mg capsule 300 mg PO HS #30 caps 03/27/23 06/12/23 Rx allopurinol 100 mg tablet 200 mg PO QAM #180 tabs 04/02/23 06/12/23 Rx calcitriol 0.5 mcg capsule 0.5 mcg PO QAM #90 caps 04/02/23 06/12/23 Rx simvastatin 40 mg tablet 40 mg PO QPM #90 tabs 04/02/23 06/12/23 Rx diclofenac sodium 1 % topical gel 1 g topical TID PRN Pain #100 grams 04/03/23 06/12/23 Rx OneTouch Ultra Test (blood sugar #50 ea 05/15/23 06/11/23 Rx diagnostic) albuterol sulfate 90 mcg/actuation 2 puff inhalation QID PRN 05/15/23 06/12/23 Rx aerosol inhaler shortness of breath or wheezing #6.7 grams furosemide 40 mg tablet 80 mg PO DAILY Leg swelling or 05/15/23 06/12/23 Rx weight change #180 tabs clonidine HCl 0.1 mg tablet See Rx Instructions .Route .COMPLEX 06/12/23 06/12/23 History Patient History Medical History Anemia follows with [facility] heme/onc and [facility]-IV iron infusions, most recent 05/2022 Chronic diastolic heart failure Chronic kidney disease, stage 4 (severe) Follows with [facility]- no current dialysis Chronic venous insufficiency Cirrhosis of liver COPD (chronic obstructive pulmonary disease) stable per pt Diabetic peripheral neuropathy associated with type 2 diabetes mellitus DVT (deep venous thrombosis) (10/2021) 10/2021 right knee, treated with eliquis for several months Dyslipidemia Gastroparesis GERD (gastroesophageal reflux disease) controlled, stable per pt Gout Last episode Jul 2022- no issues since 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 to tuberculosis Hypertension controlled, stable per pt Loss of protective sensation of skin of foot Morbid obesity 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 "Stable" Nocturnal hypoxia Obstructive sleep apnea of adult 2 lpm O2 HS Personal history of malignant neoplasm of skin S/p removal - follows with derm Secondary hyperparathyroidism Type 2 diabetes mellitus with diabetic neuropathy, unspecified IDDM (has Dexcom reader) Venous stasis ulcers Venous ulcer Discharged by [facility] Surgical History S/P cholecystectomy S/P colonoscopy S/P dilatation and curettage S/P tubal ligation Status post endovenous radiofrequency ablation (RFA) of saphenous vein LLE and RLE 2021 Family History Father Prostate cancer Mother Myocardial infarction Deep vein thrombosis Denies family history of Ovarian cancer Breast cancer Lung cancer Colorectal cancer Social History Smoking Status: Never smoker Second Hand Exposure: No; Do You Dip or Chew Tobacco: No; Hx Alcohol Use: Yes Alcohol type: wine Alcohol Intake Frequency: Monthly or Less Hx Substance Use: No Preferred Language: Irish Communication Ability: Effective Visual Impairment: No Limitations Hearing Ability: Normal City Collector Required: No Beliefs That Will Affect Care: None marital status: Current Living Situation: Spouse Current Living Situation Comment: Patient lives at home with spouse and pet dog current occupational status: retired Feels Safe at Home: Yes Childhood Exposure to Second-Hand Smoke: Yes Diet: regular Diet Comment: Regular caffeine: Yes during the past year weight has: remained stable Dental Care, Regularly: Yes Physical Activity Frequency: 1-2 Times per Week Physical Activity Frequency Comment: walking Seatbelt Use: always Sunscreen Use: Yes Assistive Devices: Cane Review of Systems Review of Systems: All systems reviewed & are unremarkable except as noted in HPI & below Physical Exam Constitutional: WD/WN, vitals as above + morbidly obese, cooperative and comfortable; not in distress Neck: trachea midline Respiratory: normal respiratory effort, lungs clear to auscultation Auscultation: + diminished lung sounds Cardiovascular: Rate/Rhythm: regular rate and regular rhythm Vessels: posterior tibial pulses present, dorsalis pedis pulses present and radial pulses present; + abnormal peripheral pulses Extremities: normal capillary refill, + edema and + AV fistula (LUE +thrill/bruit, difficult to feel distally) Gastrointestinal (Abdomen): Inspection/Auscultation: abdomen normal to inspection and normal bowel sounds Percussion/Palpation: abdomen soft; abdomen nontender Musculoskeletal: no cyanosis or clubbing, extremities motor strength 5/5 Skin: no rashes, warm and dry (venous ulcers) Neurologic: moves all extremities and awake; no focal motor deficits and not confused Psychiatric: A+Ox3, euthymic affect Results & Data Vital Signs (Past 12 Hours) Vital Signs Temp Pulse Pulse Resp BP Pulse Ox O2 Del Method 06/15/23 08:43 36.5 C 62 18 171/61 H 97 Room Air 06/15/23 07:08 36.4 C L 61 18 154/64 H 95 Room Air 06/15/23 04:25 36.5 C 63 18 156/69 H 99 Nasal Cannula 06/14/23 22:19 64 06/14/23 23:18 36.7 C 63 18 152/60 H 96 Room Air O2 Flow Rate 06/15/23 08:43 06/15/23 07:08 06/15/23 04:25 2 06/14/23 22:19 06/14/23 23:18
--- NOTE | 2023-06-15 12:25 | Pre Anesthesia Assessment ---
Date of Service June 15, 2023 Pre Sedation Assessment Vital Signs Temp Pulse Pulse Resp BP Pulse Ox Pulse Ox 06/15/23 08:00 64 06/15/23 08:00 06/15/23 08:43 36.5 C 62 18 171/61 H 97 06/15/23 07:08 36.4 C L 61 18 154/64 H 95 06/15/23 04:25 36.5 C 63 18 156/69 H 99 06/14/23 22:19 64 06/14/23 23:18 36.7 C 63 18 152/60 H 96 06/14/23 21:00 95 06/14/23 19:15 06/14/23 19:00 36.7 C 63 18 184/69 H 95 06/14/23 15:05 36.4 C L 63 18 156/66 H 94 O2 Del Method O2 Del Method O2 Flow Rate 06/15/23 08:00 06/15/23 08:00 Room Air 06/15/23 08:43 Room Air 06/15/23 07:08 Room Air 06/15/23 04:25 Nasal Cannula 2 06/14/23 22:19 06/14/23 23:18 Room Air 06/14/23 21:00 Room Air 06/14/23 19:15 Room Air 06/14/23 19:00 Room Air 06/14/23 15:05 Room Air Cardiovascular RRR, no murmur, no edema Respiratory normal respiratory effort, lungs clear to auscultation Pre-Sedation Airway Assessment Smoking Status: Never smoker Hx Sleep Apnea: Yes Short, Thick Neck: Yes Thyromental Distance: > or= 3.5 Finger Breadths Oral Cavity: + WNL Mallampati Class: III ASA: ASA3 NPO Status Date of Last Intake of Fluids: 06/14/23 Time of Last Intake of Fluids: 23:00 Date of Last Intake of Solid Food: 06/14/23 Time of Last Intake of Solid Foods: 18:00 Procedure Planning Contraindications for Sedation: none Current Medications Reviewed: Yes Notes The planned sedation has been discussed with the patient. Informed Consent was o btained. I have identified the patient, determined the appropriateness of sedation and have assessed the patient immediately prior to the procedure. All medicine(s) and interventions are by my order.
[2023-06-15 13:28] LABS: HBSAG NON-REACTIVE (NON-REACTIVE); Hepatitis B Core Antibody IgM NON-REACTIVE (NON-REACTIVE)
[2023-06-15] MEDS ORDERED: HEPARIN SOD (PORCINE) 5,000 UNITS/ML VIAL ONE (13:36)
[2023-06-15] MEDS ORDERED: MIDAZOLAM HCL 1 MG/ML 2ML VIAL ONE (13:36)
[2023-06-15] MEDS ORDERED: fentaNYL citrate PF 100 MCG/2 ML VIAL ONE (13:36)
[2023-06-15] MEDS ORDERED: LIDOCAINE 1% LOCAL 20 ML VIAL ONE (13:36)
[2023-06-15] MEDS: HEPARIN SOD 5,000 UNIT/0.5 ML VIAL SQ SCH ×2 (13:39→21:51)
[2023-06-15] MEDS: hydrALAZINE TAB 50 MG TAB PO SCH ×2 (13:40→20:10)
[2023-06-15] MEDS: LANTUS PER UNIT CHARGE SQ SCH ×2 (13:40→20:11)
--- NOTE | 2023-06-15 14:13 | Operative Report ---
Post Operative Report Pre & Post Diagnosis Operation Date: 06/15/23 09:35 Pre-Op Diagnosis: End Stage Renal Disease Post-Op Diagnosis: End Stage Renal Disease I identified the patient and participated in the time-out.: Yes Procedure Operation Date: 06/15/23 09:35 Actual Procedures p Insertion of Perm Catheter Right Jugular Vein, Fluoroscopy for Postioning, Ultrasound Localization of Right Jugular Vein, Moderate Sedation 1357- 1410(Right) - Satnam Tello MD Surgeon Satnam Tello MD Rental Agent none Estimated Blood Loss 3 Findings Consistent with Post-Op Diagnosis Specimens none Anesthesia Type RN Sedation Complications none Disposition Accompanied Patient To Recovery: No Disposition: Recovery Room Indications This is a 73-year-old female with end-stage renal disease now in need of dialysis. She does have a fistula in her left upper arm which is too deep for the needles to penetrate. PermCath was recommended for dialysis. I have discussed the risks options and benefits of the procedure with the patient. The patient understands the risks options and benefits and agrees to the procedure. Description of Procedure Patient was taken to the angio suite and placed in the supine position. The right side of the neck and chest wall were prepped and draped in a sterile manner. The patient was identified and a timeout performed. Local anesthesia was then administered to the appropriate areas of the neck and chest wall. Ultrasound was then used to locate the right internal jugular vein. The vein compressed easily, had no filing defects, and was patent. The vein was then punctured under direct ultrasound imaging. A guidewire was then passed centrally under fluoroscopic imaging. A stab wound was then made in the anterior chest wall and a 19 cm permcath was passed from the stab wound on the chest wall to the puncture site on the neck. The puncture site was then dilated till the 14Fr peel away sheath was inserted. The permcath was then inserted through the sheath to a central position in the distal superior vena cava. The peel away sheath was then removed. The catheter was then sutured in place using nylon sutures. The puncture was then closed using a 4-0 Vicryl subcuticular suture. Dermabond was used for a dressing on the puncture site. Both ports aspirated and flushed easily and were then packed with heparin. A sterile dressing was applied to the catheter. The patient left the operation room in satisfactory condition and tolerated the procedure well. All needle and sponge counts were correct at the end of the procedure. I attest to the content of the Intraoperative Record and any orders documented therein. Any exceptions are noted below.
[2023-06-15] MEDS: carvediloL 25 MG TAB PO SCH ×2 (15:14→20:10)
[2023-06-15] MEDS: CALCITRIOL 0.25 MCG CAPSULE PO SCH (15:14)
[2023-06-15] MEDS: cloNIDine HCL 0.1 MG TAB PO SCH ×2 (16:00→20:10)
[2023-06-15] MEDS: CEFEPIME 1,000 MG in SYRINGE 0 ML IV SCH (17:19)
[2023-06-15] MEDS: ISOSORBIDE MONO EXTENDED REL 60 MG TABCR PO SCH (17:21)
[2023-06-15] MEDS: PANTOprazole 40 MG TAB PO SCH (17:21)
[2023-06-15] MEDS: allopurinoL 100 MG TAB PO SCH (17:21)
[2023-06-15] MEDS: MELATONIN 3 MG TAB PO SCH (20:09)
[2023-06-15] MEDS: SIMVASTATIN 40 MG TAB PO SCH (20:10)
--- NOTE | 2023-06-15 20:30 | Hospitalist Progress Note ---
Date of Service June 15, 2023 Assessment & Plan (1) End stage chronic kidney disease: Plan: Creatinine 6.5 from baseline of 2.8 four months ago, BUN up to 101, with associated mild hyperkalemia but no uremia or acidosis. 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 each day now down to 5.7 K+ remains normal Attempted to initiate HD 06/13 and again on 06/14 but AVF unable to be cannulated both times as it is too deep ECHO normal Had tunneled IJ HD catheter placed 06/15 and then had first HD session removing 2L fluid-tolerated well -Consult nephrology appreciated -starting HD-will have second session tomorrow -continue to hold losartan, spironolactone, and furosemide -Follow BMP in the morning -treating UTI -checking LUE US AVF by Vascular to assess for superficialization procedure -follow BMP in AM (2) UTI (urinary tract infection): Plan: Started on ceftriaxone but Ur cx growing Enterobacter resistant to ctx--> convert to cefepime on 06/15 and complete 7 day course of abx (3) Hyperkalemia: Plan: Potassium 5.3 on admission, related to worsening renal function and aldactone use ECG normal received 1 dose of Lokelma and now resolved continue to hold spironolactone Follow BMP in the morning continue renal diet/low potassium/low sodium now on HD (4) HTN (hypertension): Plan: Blood pressures are mildly elevated Continue home carvedilol, clonidine which was recently increased to 0.2 Mg p.o. 3 times daily, hydralazine, and isosorbide Holding home diuretics and losartan for acute kidney injury (5) Chronic diastolic heart failure: Plan: and right sided HF With volume overload from renal failure Continue blood pressure control with carvedilol, clonidine, hydralazine, and isosorbide Holding losartan and diuretics for acute kidney injury Low-sodium diet started HD for volume management (6) Leukocytosis: Plan: WBC count elevated at 13, and now down to 10 UA on repeat clean sample with evidence of infection No fevers Could be reactive to anemia or renal failure? Started abx for UTI and now resolved Follow CBC (7) Anemia: Plan: Likely anemia of iron deficiency and CKD B12, iron studies, folate all normal Start RAYMOND tx with HD as per Nephro Venofer x 1 dose and Epo x 1 dose given Recent TSH normal Follow CBC (8) Vitamin D deficiency: Plan: Continue calcitriol (9) Diabetes mellitus type 2 with complications: Plan: Hemoglobin A1c 8.0% follows with endocrinology With some borderline hypoglycemia here initially and Lantus dose lowered a bit Then with some hyperglycemia- increased Lantus back up to 85 units twice a day and now glucose excellent Typically takes insulin lispro 80 units 3 times a day-hold this for now and give NovoLog with meals with correction factor 20 and carb ratio 12, goal range 100- 140 Likely will not need as high of an insulin regimen with renal failure and with different diet in the hospital (10) COPD (chronic obstructive pulmonary disease): Plan: No acute issues Continue as needed inhalers (11) Diabetic peripheral neuropathy associated with type 2 diabetes mellitus: Plan: Continue gabapentin (12) Dyslipidemia: Plan: Continue simvastatin (13) GERD (gastroesophageal reflux disease): Plan: Continue PPI (14) Gout: Plan: Continue prophylactic allopurinol, renally dosed (15) Secondary hyperparathyroidism: Plan: Continue calcitriol (16) Vitamin B12 deficiency: Plan: Continue home supplement injections (17) Obstructive sleep apnea of adult: Plan: Continue 2 L O2 at bedtime Plan DVT prophylaxis-SCDs, heparin SQ Disposition-continued stay on PCU, improving. Needs next HD session. [employer] making arrangements for outpt HD to be set up-tentatively set up for T//Sat at 10:30. Could possibly discharge to home on Sunday then Full code Admission and Anticipated Discharge Date Admission Date: June 12, 2023 Subjective Pt had her tunneled IJ dialysis catheter placed today and first session of HD removing 2 L. SHe tolerated it well and had no problems. She did not sleep well last night because she was anxious about the procedure. No CP, SOB. 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) and + AV fistula (Left upper arm with thrill and bruit) Chest (Breasts): Chest: + vascular access device or port (right tunneled IJ in place) Gastrointestinal (Abdomen): normal bowel sounds, soft, nontender, no hepatosplenomegaly Musculoskeletal: Extremities: no cyanosis and no clubbing Skin: no rashes, warm and dry Neurologic: moves all extremities and awake; no focal motor deficits Psychiatric: A+Ox3, euthymic affect Results & Data Results & Data Vital Signs (Past 12 Hours) Vital Signs Temp Pulse Pulse Pulse Resp BP BP 06/15/23 19:00 37.0 C 70 21 185/95 H 06/15/23 18:10 69 06/15/23 17:04 36.6 C 63 19 150/66 H 06/15/23 16:00 69 154/51 H 06/15/23 15:30 69 150/45 H 06/15/23 15:00 67 180/69 H 06/15/23 14:30 66 155/49 H 06/15/23 14:15 36.5 C 67 06/15/23 14:10 74 18 150/54 H 06/15/23 14:05 74 18 157/54 H 06/15/23 13:55 74 18 186/78 H 06/15/23 14:00 74 18 154/53 H 06/15/23 13:50 74 18 06/15/23 08:43 36.5 C 62 18 171/61 H Pulse Ox O2 Del Method O2 Flow Rate 06/15/23 19:00 94 Room Air 06/15/23 18:10 06/15/23 17:04 94 Room Air 06/15/23 16:00 06/15/23 15:30 06/15/23 15:00 06/15/23 14:30 06/15/23 14:15 06/15/23 14:10 100 Oxymask 4 06/15/23 14:05 100 Oxymask 4 06/15/23 13:55 100 Oxymask 4 06/15/23 14:00 100 Oxymask 4 06/15/23 13:50 100 Oxymask 4 06/15/23 08:43 97 Room Air Laboratory Results CBC, BMP reviewed Ur cx with Enterobacter resistant to ceftriaxone PG Care Time/CCT Total # of Minutes Spent Total Time Spent with Patient: Total time spent is greater than 50% in coordination of care (as documented) at patient's floor/unit and/or counseling patient: Coding Level of Care Code 17540 SUB INP/OBS CARE 2/35MIN Diagnoses End stage chronic kidney disease N18.6 UTI (urinary tract infection) N39.0 Hyperkalemia E87.5 HTN (hypertension) I10 Chronic diastolic heart failure I50.32 Leukocytosis D72.829 Anemia D64.9 Vitamin D deficiency E55.9 Diabetes mellitus type 2 with complications E11.8 COPD (chronic obstructive pulmonary disease) J44.9 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 Secondary hyperparathyroidism N25.81 Vitamin B12 deficiency E53.8 Obstructive sleep apnea of adult G47.33
[2023-06-15] MEDS: GABAPENTIN 300 MG CAP PO SCH (21:51)
[2023-06-16] MEDS: ACETAMINOPHEN 325 MG TAB PO PRN ×3 (03:06→21:39)
--- NOTE | 2023-06-16 06:56 | Ultrasound Report ---
US hemodialysis access HISTORY: 73 years-old Female LUE aVF for depth, size, flow follow-up study in a patient with left up per extremity AV fistula COMPARISON: None TECHNIQUE: Multiple real-time sonographic images of the left upper extremity AV fistula were obtained assessing grayscale appearance, color and spectral flow FINDINGS: The AV fistula at the antecubital fossa is 0.82 cm from the skin surface measuring 0.92 cm transverse ly. At the level of the mid upper arm is 1.34 cm from the skin surface and measures 0.84 cm transvers sonny. Lastly, at the level of the proximal upper arm it is positioned 2.0 cm from the skin surface and measures 0.59 cm transversely. Patency of the AV fistula with peak systolic velocities measuring up to 273 cm/s. IMPRESSION: Patent AV fistula with measurements as above. ACT 112: Negative or not required by law. The above report was generated using voice recognition software. It may contain grammatical, syntax o r spelling errors. Electronically signed by: Anibal Watts M.D. 06/16/2023 6:55 AM
[2023-06-16] MEDS ORDERED: SODIUM CHLORIDE 0.9% 1000ML 1,000 ML IV PRN (07:00)
[2023-06-16 07:07] LABS: BUN Creatinine Ratio 14.1 (10-20); Calcium 9.5 mg/dl (8.6-10.3); Creatinine Clr Calc Pharmacy 12.9 ml/min; Est GFR (African American) 9.6 ml/min; Est GFR (Non-African American) 8.3 ml/min
[2023-06-16 07:29] LABS: Hematocrit (blood only) 27.7 % (37.0-47.0); Hemoglobin 8.9 g/dl (12.0-16.0); Mean Corpuscular Hemoglobin 30.4 pg (25.0-34.0); Mean Corpuscular Hgb Conc 32.1 g/dL (32.0-36.0); Mean Corpuscular Volume 94.5 fL (80.0-100.0); Mean Platelet Volume 9.5 fL (9.4-12.4); Nucleated RBC # (auto) 0.03 K/uL (0-0.12); Nucleated RBC % (auto) 0.2 %; Platelet Count 274 K/uL (130-400); RDW Standard Deviation 58.7 fL (36.4-46.3); Red Blood Count 2.93 M/uL (4.20-5.40); White Blood Count 13.63 K/ul (4.8-10.8)
[2023-06-16] MEDS: INSULIN ASPART PER UNIT CHARGE SC SCH ×4 (08:46→19:56)
[2023-06-16] MEDS: cloNIDine HCL 0.1 MG TAB PO SCH ×3 (08:47→19:54)
[2023-06-16] MEDS: LANTUS PER UNIT CHARGE SQ SCH ×2 (08:47→19:56)
[2023-06-16] MEDS: PANTOprazole 40 MG TAB PO SCH (08:49)
[2023-06-16] MEDS: carvediloL 25 MG TAB PO SCH ×2 (08:49→19:55)
[2023-06-16] MEDS: hydrALAZINE TAB 50 MG TAB PO SCH ×3 (08:50→19:55)
[2023-06-16] MEDS: CALCITRIOL 0.25 MCG CAPSULE PO SCH (08:50)
[2023-06-16] MEDS: allopurinoL 100 MG TAB PO SCH (08:50)
[2023-06-16] MEDS: ISOSORBIDE MONO EXTENDED REL 60 MG TABCR PO SCH (08:51)
[2023-06-16] MEDS: HEPARIN SOD 5,000 UNIT/0.5 ML VIAL SQ SCH ×2 (08:52→19:55)
--- NOTE | 2023-06-16 12:16 | Nephrology Progress Note ---
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 Prior renal imaging was otherwise unremarkable. Had low-grade proteinuria. --Having second dialysis treatment today, blood pressure slightly elevated but tolerating UF. Waiting for outpatient dialysis set up at [facility] [place]. -- Received Epogen 10,000 units with dialysis on 06/15/23. Next epogen on Sunday --Start on renal vitamin once a day and Renvela 1 tab 3 times daily with meals as phosphate binder -- Dose medications for EGFR less than 10, left arm nephrology precaution. Will follow Admission and Anticipated Discharge Date Admission Date: June 12, 2023 Harsh Hairston was seen and evaluated during dialysis this morning. Has been tolerating dialysis, blood pressure was running high, has been tolerating UF. Tunneled dialysis catheter is functioning well. Review of Systems Review of Systems: Detailed review of system was done and pertinent positives and negatives were mentioned above Physical Exam Constitutional: WD/WN, vitals as above no acute distress Eyes: + anicteric sclerae Neck: normal visual inspection Respiratory: Auscultation: lungs clear to auscultation bilaterally Cardiovascular: Rate/Rhythm: regular rate and regular rhythm Extremities: + edema Skin: no rashes, warm and dry Neurologic: no focal motor deficits Psychiatric: Orientation: alert and oriented x 3 Results & Data Vital Signs (Past 12 Hours) Vital Signs Temp Pulse Pulse Resp BP BP Pulse Ox 06/16/23 11:30 66 155/58 H 06/16/23 11:00 66 174/48 H 06/16/23 10:30 67 163/53 H 06/16/23 10:00 71 189/62 H 06/16/23 09:38 36.7 C 67 06/16/23 08:00 60 06/16/23 07:07 36.7 C 65 19 152/74 H 97 06/16/23 03:00 37.0 C 70 16 152/69 H 98 O2 Del Method 06/16/23 11:30 06/16/23 11:00 06/16/23 10:30 06/16/23 10:00 06/16/23 09:38 06/16/23 08:00 06/16/23 07:07 Room Air 06/16/23 03:00 Room Air PG Care Time/CCT Total # of Minutes Spent Total Time Spent with Patient: Total time spent is greater than 50% in coordination of care (as documented) at patient's floor/unit and/or counseling patient: Coding Level of Care Code 48862 SUB INP/OBS CARE 2/35MIN Diagnoses End stage chronic kidney disease N18.6 HTN (hypertension) I10 Anemia D64.9
[2023-06-16] MEDS: CEFEPIME 1,000 MG in SYRINGE 0 ML IV SCH (13:40)
[2023-06-16] MEDS: SEVELAMER HCL 800 MG TABLET PO SCH (16:53)
--- NOTE | 2023-06-16 18:40 | Hospitalist Progress Note ---
Date of Service June 16, 2023 Assessment & Plan (1) End stage chronic kidney disease: Plan: Creatinine 6.5 from baseline of 2.8 four months ago, BUN up to 101, with associated mild hyperkalemia but no uremia or acidosis. 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 now down to 4.8 after starting dialysis K+ remains normal especially since starting dialysis Attempted to initiate HD 06/13 and again on 06/14 but AVF unable to be cannulated both times as it is too deep ECHO normal Had tunneled IJ HD catheter placed 06/15 and then had first HD session removing 2L fluid and a second session on 06/16 also removing 2 L-tolerated well with some fatigue and dizziness -Consult nephrology appreciated -Initiated HD this admission-plan for repeat dialysis on Sunday and then hopefully discharge Sunday if outpatient dialysis is arranged -Discontinued losartan, spironolactone, and furosemide -Follow BMP in the morning -treating UTI -checking LUE US AVF by Vascular to assess for superficialization procedure- performed, follow-up with vascular as an outpatient -follow BMP in AM (2) UTI (urinary tract infection): Plan: Started on ceftriaxone but Ur cx growing Enterobacter resistant to ctx--> converted to cefepime on 06/15 and complete 7 day course of abx on 06/21 (3) Hyperkalemia: Plan: Potassium 5.3 on admission, related to worsening renal function and aldactone use ECG normal received 1 dose of Lokelma and now resolved Discontinued spironolactone Follow BMP in the morning continue renal diet/low potassium/low sodium now on HD (4) HTN (hypertension): Plan: Blood pressures are mildly elevated but improving Continue home carvedilol, clonidine which was recently increased to 0.2 Mg p.o. 3 times daily, hydralazine, and isosorbide Discontinued home diuretics and losartan for acute kidney injury (5) Chronic diastolic heart failure: Plan: and right sided HF With volume overload from renal failure-improving peripheral edema with dialysis Continue blood pressure control with carvedilol, clonidine, hydralazine, and isosorbide Discontinued losartan and diuretics for acute kidney injury Low-sodium diet started HD for volume management (6) Leukocytosis: Plan: WBC count elevated at 13, then down to 10, back up today to 13 but no evidence of infection otherwise-no fevers UA on repeat clean sample with evidence of infection Could be reactive to anemia or renal failure? Starting dialysis? Started abx for UTI and now resolved Follow CBC (7) Anemia: Plan: Likely anemia of iron deficiency and CKD. Hemoglobin stable at 8.9 B12, iron studies, folate all normal Start RAYMOND tx with HD as per Nephro Venofer x 1 dose and Epo x 1 dose given Recent TSH normal Follow CBC (8) Vitamin D deficiency: Plan: Continue calcitriol (9) Diabetes mellitus type 2 with complications: Plan: Hemoglobin A1c 8.0% follows with endocrinology With some borderline hypoglycemia here initially and Lantus dose lowered a bit Then with some hyperglycemia- increased Lantus back up to 85 units twice a day and now glucose excellent Typically takes insulin lispro 80 units 3 times a day-hold this for now and give NovoLog with meals with correction factor 20 and carb ratio 12, goal range 100- 140 Likely will not need as high of an insulin regimen with renal failure and with different diet in the hospital (10) COPD (chronic obstructive pulmonary disease): Plan: No acute issues Continue as needed inhalers (11) Diabetic peripheral neuropathy associated with type 2 diabetes mellitus: Plan: Continue gabapentin (12) Dyslipidemia: Plan: Continue simvastatin (13) GERD (gastroesophageal reflux disease): Plan: Continue PPI (14) Gout: Plan: Continue prophylactic allopurinol, renally dosed (15) Secondary hyperparathyroidism: Plan: Continue calcitriol (16) Vitamin B12 deficiency: Plan: Continue home supplement injections (17) Obstructive sleep apnea of adult: Plan: Continue 2 L O2 at bedtime Plan DVT prophylaxis-SCDs, heparin SQ Disposition-continued stay on PCU, improving. Big Data Lead making arrangements for outpt HD to be set up-tentatively set up for //Sun at 10:30 but patient requesting this be changed to MWF.. Could possibly discharge to home on Sunday or Sunday Full code Admission and Anticipated Discharge Date Admission Date: June 12, 2023 Subjective Had a second session of dialysis today and felt a little bit dizzy with it but blood pressures were actually high. Feels wiped out now. Otherwise no shortness of breath or chest pain, no other complaints. 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 in plac) and + AV fistula (Left upper arm with thrill and bruit) Chest (Breasts): Chest: normal inspection of chest and + vascular access device or port (right tunneled IJ in place) Gastrointestinal (Abdomen): normal bowel sounds, soft, nontender, no hepatosplenomegaly Musculoskeletal: Extremities: no cyanosis and no clubbing Skin: no rashes, warm and dry Neurologic: moves all extremities and awake; no focal motor deficits Psychiatric: A+Ox3, euthymic affect Results & Data Results & Data Vital Signs (Past 12 Hours) Vital Signs Temp Pulse Pulse Resp BP BP Pulse Ox 06/16/23 15:59 36.7 C 68 19 136/59 L 95 06/16/23 12:50 36.7 C 78 158/59 H 06/16/23 13:17 36.7 C 77 18 155/50 H 96 06/16/23 12:30 67 130/62 06/16/23 12:00 64 149/49 H 06/16/23 11:30 66 155/58 H 06/16/23 11:00 66 174/48 H 06/16/23 10:30 67 163/53 H 06/16/23 10:00 71 189/62 H 06/16/23 09:38 36.7 C 67 06/16/23 08:00 60 06/16/23 07:07 36.7 C 65 19 152/74 H 97 O2 Del Method 06/16/23 15:59 Room Air 06/16/23 12:50 06/16/23 13:17 Room Air 06/16/23 12:30 06/16/23 12:00 06/16/23 11:30 06/16/23 11:00 06/16/23 10:30 06/16/23 10:00 06/16/23 09:38 06/16/23 08:00 06/16/23 07:07 Room Air Laboratory Results CBC, BMP reviewed PG Care Time/CCT Total # of Minutes Spent Total Time Spent with Patient: Total time spent is greater than 50% in coordination of care (as documented) at patient's floor/unit and/or counseling patient: Coding Level of Care Code 45699 SUB INP/OBS CARE 2/35MIN Diagnoses End stage chronic kidney disease N18.6 UTI (urinary tract infection) N39.0 Hyperkalemia E87.5 HTN (hypertension) I10 Chronic diastolic heart failure I50.32 Leukocytosis D72.829 Anemia D64.9 Vitamin D deficiency E55.9 Diabetes mellitus type 2 with complications E11.8 COPD (chronic obstructive pulmonary disease) J44.9 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 Secondary hyperparathyroidism N25.81 Vitamin B12 deficiency E53.8 Obstructive sleep apnea of adult G47.33
[2023-06-16] MEDS: MELATONIN 3 MG TAB PO SCH (19:55)
[2023-06-16] MEDS: SIMVASTATIN 40 MG TAB PO SCH (19:55)
[2023-06-16] MEDS: GABAPENTIN 300 MG CAP PO SCH (20:05)
[2023-06-16 20:20] LABS: Patient Weight 124.4 kg
[2023-06-16 22:34] LABS: Creatinine 24 Hour Urine 1.4 gm/24 HR (0.6-2.5); Creatinine Clearance Urine 15.7 ml/min (88-128); Urine Creatinine 152.8 mg/dl
[2023-06-16 22:45] LABS: Urine Total Protein 99.9 mg/dl
[2023-06-16 22:53] LABS: Total Protein 24 Hour Urine 899.1 mg/24 Hr (0-149.1)
[2023-06-16] MEDS: ONDANSETRON INJ 2 MG/ML 2 ML VIAL IV PRN (23:21)
[2023-06-17 08:25] LABS: Albumin Level 4.1 gm/dl (3.4-5.0); BUN Creatinine Ratio 10.4 (10-20); Calcium 9.3 mg/dl (8.6-10.3); Creatinine Clr Calc Pharmacy 15.6 ml/min; Est GFR (African American) 12.3 ml/min; Est GFR (Non-African American) 10.7 ml/min; Ferritin 200.2 ng/ml (8-388); Phosphorus 3.6 mg/dl (2.5-4.9); Potassium 4.6 mmol/L (3.5-5.1)
[2023-06-17] MEDS: INSULIN ASPART PER UNIT CHARGE SC SCH ×4 (08:35→21:06)
[2023-06-17] MEDS: ACETAMINOPHEN 325 MG TAB PO PRN ×2 (08:35→21:00)
[2023-06-17] MEDS: ONDANSETRON INJ 2 MG/ML 2 ML VIAL IV PRN (08:35)
[2023-06-17] MEDS: LANTUS PER UNIT CHARGE SQ SCH ×2 (08:36→21:11)
[2023-06-17] MEDS: ISOSORBIDE MONO EXTENDED REL 60 MG TABCR PO SCH (08:37)
[2023-06-17] MEDS: HEPARIN SOD 5,000 UNIT/0.5 ML VIAL SQ SCH ×2 (08:37→21:01)
[2023-06-17] MEDS: hydrALAZINE TAB 50 MG TAB PO SCH ×3 (08:37→21:04)
[2023-06-17] MEDS: allopurinoL 100 MG TAB PO SCH (08:38)
[2023-06-17] MEDS: cloNIDine HCL 0.1 MG TAB PO SCH ×3 (08:38→21:02)
[2023-06-17] MEDS: CALCITRIOL 0.25 MCG CAPSULE PO SCH (08:38)
[2023-06-17] MEDS: carvediloL 25 MG TAB PO SCH ×2 (08:39→21:01)
[2023-06-17] MEDS: PANTOprazole 40 MG TAB PO SCH (08:39)
[2023-06-17] MEDS: NEPHROCAPS PO SCH (08:39)
[2023-06-17] MEDS: SEVELAMER HCL 800 MG TABLET PO SCH ×3 (08:39→17:13)
--- NOTE | 2023-06-17 11:20 | Nephrology Progress Note ---
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 Prior renal imaging was otherwise unremarkable. Had low-grade proteinuria. Had second dialysis treatment yesterday, blood pressure improved. Waiting for outpatient dialysis set up at [facility] [place]. -- dialysis tomorrow -- Received Epogen 10,000 units with dialysis on 06/15/23. Next epogen on Sunday --on renal vitamin once a day and Renvela 1 tab 3 times daily with meals as phosphate binder --Dose medications for eGFR less than 10, left arm nephrology precaution. Will follow Admission and Anticipated Discharge Date Admission Date: June 12, 2023 Harsh Hairston was seen and evaluated during dialysis this morning. Had second dialysis yesterday, blood pressure improved. Tunneled dialysis catheter is functioning well. Review of Systems Review of Systems: Detailed review of system was done and pertinent positives and negatives were mentioned above Physical Exam Constitutional: WD/WN, vitals as above no acute distress Eyes: + anicteric sclerae Neck: normal visual inspection Respiratory: Auscultation: lungs clear to auscultation bilaterally Cardiovascular: Rate/Rhythm: regular rate and regular rhythm Extremities: + edema Skin: no rashes, warm and dry Neurologic: no focal motor deficits Psychiatric: Orientation: alert and oriented x 3 Results & Data Vital Signs (Past 12 Hours) Vital Signs Temp Pulse Pulse Resp BP Pulse Ox O2 Del Method 06/17/23 11:06 36.4 C L 63 135/58 L 93 Room Air 06/17/23 08:00 76 06/17/23 07:55 36.8 C 67 18 126/62 93 Room Air 06/17/23 03:26 36.7 C 63 18 138/57 L 96 Room Air PG Care Time/CCT Total # of Minutes Spent Total Time Spent with Patient: Total time spent is greater than 50% in coordination of care (as documented) at patient's floor/unit and/or counseling patient: Coding Level of Care Code 39473 SUB INP/OBS CARE 2/35MIN Diagnoses End stage chronic kidney disease N18.6 HTN (hypertension) I10 Anemia D64.9
[2023-06-17] MEDS: CEFEPIME 1,000 MG in SYRINGE 0 ML IV SCH (13:25)
--- NOTE | 2023-06-17 19:23 | Hospitalist Progress Note ---
Date of Service June 17, 2023 Assessment & Plan (1) End stage chronic kidney disease: Plan: Creatinine 6.5 from baseline of 2.8 four months ago, BUN up to 101, with associated mild hyperkalemia but no uremia or acidosis. With volume overload with lower extremity edema but no evidence of hypoxia or shortness of breath CT abdomen/pelvis without evidence of tract obstruction Urinalysis now with evidence of infection and w/ symptoms of dysuria She was started on spironolactone in 12/2022 which possibly contributed Admitted and treated with Lokelma x 1 dose, 500mL NS IVFs, and held spironolactone, lasix, and losartan Linotypist improving after starting dialysis K+ remains normal especially since starting dialysis Attempted to initiate HD 06/13 and again on 06/14 but AVF unable to be cannulated both times as it is too deep ECHO normal Had tunneled IJ HD catheter placed 06/15 and then had first HD session removing 2L fluid and a second session on 06/16 also removing 2 L-tolerated well with some fatigue and dizziness -Consult nephrology appreciated -Initiated HD this admission-plan for repeat dialysis on Sunday and then hopefully discharge Sunday if outpatient dialysis is arranged -Discontinued losartan, spironolactone, and furosemide -started sevelamer for phosphate binder and Nephrocaps -treating UTI -checked LUE US AVF by Vascular to assess for superficialization procedure- performed, follow-up with vascular as an outpatient -follow BMP in AM (2) UTI (urinary tract infection): Plan: Started on ceftriaxone but Ur cx growing Enterobacter resistant to ctx--> converted to cefepime on 06/15 and complete 7 day course of abx on 06/21 (3) Hyperkalemia: Plan: Potassium 5.3 on admission, related to worsening renal function and aldactone use ECG normal received 1 dose of Lokelma and now resolved Discontinued spironolactone Follow BMP in the morning continue renal diet/low potassium/low sodium now on HD (4) HTN (hypertension): Plan: Blood pressures are mildly elevated but improving Continue home carvedilol, clonidine which was recently increased to 0.2 Mg p.o. 3 times daily, hydralazine, and isosorbide Discontinued home diuretics and losartan for acute kidney injury (5) Chronic diastolic heart failure: Plan: and right sided HF With volume overload from renal failure-improving peripheral edema with dialysis Continue blood pressure control with carvedilol, clonidine, hydralazine, and isosorbide Discontinued losartan and diuretics for acute kidney injury Low-sodium diet started HD for volume management (6) Leukocytosis: Plan: WBC count elevated at 13, then down to 10, back up to 13 but no evidence of infection otherwise-no fevers UA on repeat clean sample with evidence of infection Could be reactive to anemia or renal failure? Starting dialysis? continue abx for UTI Follow CBC (7) Anemia: Plan: Likely anemia of iron deficiency and CKD. Hemoglobin stable at 8.9 B12, iron studies, folate all normal Start RAYMOND tx with HD as per Nephro Venofer x 1 dose and Epo x 1 dose given Recent TSH normal Follow CBC (8) Vitamin D deficiency: Plan: Continue calcitriol (9) Diabetes mellitus type 2 with complications: Plan: Hemoglobin A1c 8.0% follows with endocrinology glucose controlled -continue Lantus 85 units twice a day Typically takes insulin lispro 80 units 3 times a day-hold this for now and give NovoLog with meals with correction factor 20 and carb ratio 12, goal range 100- 140 Likely will not need as high of an insulin regimen with renal failure and with different diet in the hospital (10) COPD (chronic obstructive pulmonary disease): Plan: No acute issues Continue as needed inhalers (11) Diabetic peripheral neuropathy associated with type 2 diabetes mellitus: Plan: Continue gabapentin (12) Dyslipidemia: Plan: Continue simvastatin (13) GERD (gastroesophageal reflux disease): Plan: Continue PPI (14) Gout: Plan: Continue prophylactic allopurinol, renally dosed (15) Secondary hyperparathyroidism: Plan: Continue calcitriol (16) Vitamin B12 deficiency: Plan: Continue home supplement injections (17) Obstructive sleep apnea of adult: Plan: Continue 2 L O2 at bedtime Plan DVT prophylaxis-SCDs, heparin SQ Disposition-continued stay on PCU, improving. Financial Services Assistant making arrangements for outpt HD to be set up-tentatively set up for T//Sat at 10:30 but patient requesting this be changed to MWF.. Could possibly discharge to home on Sunday or Sunday Full code Admission and Anticipated Discharge Date Admission Date: June 12, 2023 Subjective Has a mild headache today. Otherwise no complaints. 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) and + AV fistula (Left upper arm with thrill and bruit) Chest (Breasts): Chest: normal inspection of chest and + vascular access device or port (right tunneled IJ in place) Gastrointestinal (Abdomen): normal bowel sounds, soft, nontender, no hepatosplenomegaly Musculoskeletal: Extremities: no cyanosis and no clubbing Skin: erythematous and moist skin underneath abdominal pannus into groins bilat Neurologic: moves all extremities and awake; no focal motor deficits Psychiatric: A+Ox3, euthymic affect Results & Data Results & Data Vital Signs (Past 12 Hours) Vital Signs Temp Pulse Pulse Resp BP Pulse Ox O2 Del Method 06/17/23 16:22 59 L 06/17/23 16:16 36.5 C 68 18 128/59 L 95 Room Air 06/17/23 11:06 36.4 C L 63 135/58 L 93 Room Air 06/17/23 08:00 76 06/17/23 07:55 36.8 C 67 18 126/62 93 Room Air Laboratory Results BMP, iron studies, ferritin, phos all reviewed PG Care Time/CCT Total # of Minutes Spent Total Time Spent with Patient: Total time spent is greater than 50% in coordination of care (as documented) at patient's floor/unit and/or counseling patient: Coding Level of Care Code 40501 SUB INP/OBS CARE 2/35MIN Diagnoses End stage chronic kidney disease N18.6 UTI (urinary tract infection) N39.0 Hyperkalemia E87.5 HTN (hypertension) I10 Chronic diastolic heart failure I50.32 Leukocytosis D72.829 Anemia D64.9 Vitamin D deficiency E55.9 Diabetes mellitus type 2 with complications E11.8 COPD (chronic obstructive pulmonary disease) J44.9 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 Secondary hyperparathyroidism N25.81 Vitamin B12 deficiency E53.8 Obstructive sleep apnea of adult G47.33
[2023-06-17] MEDS ORDERED: MICONAZOLE NITRATE 2% CR 30 GM TUBE EXT SCH (21:00)
[2023-06-17] MEDS: GABAPENTIN 300 MG CAP PO SCH (21:02)
[2023-06-17] MEDS: MELATONIN 3 MG TAB PO SCH (21:02)
[2023-06-17] MEDS: SIMVASTATIN 40 MG TAB PO SCH (21:03)
[2023-06-17] MEDS: MICONAZOLE NITRATE POWDER 85 GM EXT SCH (21:08)
[2023-06-18] MEDS: ACETAMINOPHEN 325 MG TAB PO PRN ×4 (03:24→19:32)
[2023-06-18 06:45] LABS: Basophils # (auto) 0.05 K/uL (0-0.2); Basophils % (auto) 0.4 %; Eosinophils # (auto) 0.26 K/uL (0-0.50); Eosinophils % (auto) 1.9 %; Hematocrit (blood only) 28.3 % (37.0-47.0); Immature Granulocytes # (auto) 0.11 K/uL (0.01-0.20); Immature Granulocytes % (auto) 0.8 %; Mean Corpuscular Hemoglobin 30.5 pg (25.0-34.0); Mean Corpuscular Hgb Conc 31.8 g/dL (32.0-36.0); Mean Corpuscular Volume 95.9 fL (80.0-100.0); Mean Platelet Volume 9.1 fL (9.4-12.4); Monocytes % (auto) 8.8 %; Neutrophils # (auto) 10.56 K/uL (1.40-6.50); Neutrophils % (auto) 77.1 %; Nucleated RBC # (auto) 0.02 K/uL (0-0.12); Nucleated RBC % (auto) 0.1 %; Platelet Count 231 K/uL (130-400); RDW Coefficient of Variation 17.2 % (11.5-14.5); Red Blood Count 2.95 M/uL (4.20-5.40); White Blood Count 13.68 K/ul (4.8-10.8)
[2023-06-18 07:10] LABS: BUN Creatinine Ratio 10.3 (10-20); Calcium 9.2 mg/dl (8.6-10.3); Creatinine Clr Calc Pharmacy 12.6 ml/min; Est GFR (African American) 9.7 ml/min; Est GFR (Non-African American) 8.3 ml/min; Magnesium 2.1 mg/dl (1.7-2.4); Potassium 4.6 mmol/L (3.5-5.1)
[2023-06-18] MEDS: ONDANSETRON INJ 2 MG/ML 2 ML VIAL IV PRN ×3 (07:41→20:40)
--- NOTE | 2023-06-18 08:14 | Nephrology Progress Note ---
Date of Service June 18, 2023 Assessment & Plan (1) End stage chronic kidney disease: (2) HTN (hypertension): (3) Anemia: Plan ESRD secondary to microvascular disease with history of hypertension and diabetes, started on hemodialysis, AV fistula too deep for cannulation, will need transposition in future, had tunneled dialysis catheter placed. Prior renal imaging was otherwise unremarkable. Had low-grade proteinuria. Had second dialysis treatment yesterday, blood pressure improved. Waiting for outpatient dialysis set up at [facility] [place]. -- dialysis now, UF 1.5 L as tolerated. -- has outpatient dialysis set up at [facility] [place], starting at 10:30 am TTS . -- Received Epogen 10,000 units with dialysis on 06/15/23. Next epogen on Sunday --on renal vitamin once a day and Renvela 1 tab 3 times daily with meals as phosphate binder --Dose medications for eGFR less than 10, left arm nephrology precaution. --OK to be discharged Will follow Admission and Anticipated Discharge Date Admission Date: June 12, 2023 Subjective Marika was seen and evaluated during dialysis this morning. Overall feeling poorly, has nausea and some headache. BP was initially high but started to improve. Tunneled dialysis catheter is functioning well. Review of Systems Review of Systems: Detailed review of system was done and pertinent positives and negatives were mentioned above Physical Exam Constitutional: WD/WN, vitals as above no acute distress Eyes: + anicteric sclerae Neck: normal visual inspection Respiratory: Auscultation: lungs clear to auscultation bilaterally Cardiovascular: Rate/Rhythm: regular rate and regular rhythm Extremities: no edema Skin: no rashes, warm and dry Neurologic: no focal motor deficits Psychiatric: Orientation: alert and oriented x 3 Results & Data Vital Signs (Past 12 Hours) Vital Signs Temp Pulse Pulse Resp BP Pulse Ox O2 Del Method 06/18/23 03:12 36.7 C 69 20 145/71 H 95 Room Air 06/17/23 23:57 71 06/17/23 22:59 37.0 C 64 16 118/59 L 98 Room Air PG Care Time/CCT Total # of Minutes Spent Total Time Spent with Patient: Total time spent is greater than 50% in coordination of care (as documented) at patient's floor/unit and/or counseling patient: Coding Level of Care Code 13468 SUB INP/OBS CARE MIN Diagnoses End stage chronic kidney disease N18.6 HTN (hypertension) I10 Anemia D64.9
[2023-06-18] MEDS: NEPHROCAPS PO SCH (08:21)
[2023-06-18] MEDS: CALCITRIOL 0.25 MCG CAPSULE PO SCH (08:22)
[2023-06-18] MEDS: allopurinoL 100 MG TAB PO SCH (08:22)
[2023-06-18] MEDS: SEVELAMER HCL 800 MG TABLET PO SCH ×3 (08:22→17:09)
[2023-06-18] MEDS: PANTOprazole 40 MG TAB PO SCH (08:23)
[2023-06-18] MEDS: HEPARIN SOD 5,000 UNIT/0.5 ML VIAL SQ SCH ×2 (08:24→20:40)
[2023-06-18] MEDS: MICONAZOLE NITRATE POWDER 85 GM EXT SCH ×2 (08:24→20:42)
[2023-06-18] MEDS: LANTUS PER UNIT CHARGE SQ SCH ×2 (08:30→20:39)
[2023-06-18] MEDS: INSULIN ASPART PER UNIT CHARGE SC SCH ×4 (08:30→20:38)
[2023-06-18] MEDS ORDERED: EPOETIN ALFA 10,000 UNITS/ML VIAL IV ONE (09:00)
[2023-06-18] MEDS: cloNIDine HCL 0.1 MG TAB PO SCH ×3 (13:14→20:40)
[2023-06-18] MEDS: ISOSORBIDE MONO EXTENDED REL 60 MG TABCR PO SCH (13:14)
[2023-06-18] MEDS: hydrALAZINE TAB 50 MG TAB PO SCH ×4 (13:14→20:40)
[2023-06-18] MEDS: carvediloL 25 MG TAB PO SCH ×2 (13:15→20:41)
[2023-06-18] MEDS: CEFEPIME 1,000 MG in SYRINGE 0 ML IV SCH (14:46)
--- NOTE | 2023-06-18 16:47 | Hospitalist Progress Note ---
Date of Service June 18, 2023 Assessment & Plan (1) End stage chronic kidney disease: Plan: Hemodialysis completed again today, June 18. Outpatient hemodialysis has been arranged for Tuesdays, , and Saturdays. Appreciate nephrology consultation and recommendations. (2) UTI (urinary tract infection): Plan: Enterobacter isolated. Currently on cefepime. Home on oral Cipro. (3) Hyperkalemia: Plan: Present on admission. Treated and resolved. Spironolactone and losartan have been discontinued. Serial labs (4) HTN (hypertension): Plan: Hydralazine uptitrated from 3 times daily dosing to 4 times daily dosing. Continue carvedilol and clonidine. She is also on Imdur. Losartan discontinued due to hyperkalemia (5) Chronic diastolic heart failure: Plan: Along right sided HF. Improved with hemodialysis. Spironolactone discontinued due to hyperkalemia. Losartan also has been discontinued. Continue blood pressure control with carvedilol, clonidine, hydralazine, and isosorbide. Monitor intake and output (6) Leukocytosis: Plan: Due to acute infection. Serial labs. Improved (7) Anemia: Plan: Due to chronic kidney disease. No evidence of GI blood loss. Serial labs. (8) Vitamin D deficiency: Plan: Continue calcitriol (9) Diabetes mellitus type 2 with complications: Plan: Hemoglobin A1c 8.0% . Follows with endocrinology. Currently on high-dose Lantus therapy. (10) COPD (chronic obstructive pulmonary disease): Plan: Stable. Continue as needed inhalers (11) Diabetic peripheral neuropathy associated with type 2 diabetes mellitus: Plan: Stable. Continue gabapentin (12) Dyslipidemia: Plan: Stable. Continue simvastatin (13) GERD (gastroesophageal reflux disease): Plan: Stable. Continue PPI (14) Gout: Plan: Stable. Continue allopurinol Plan Anticipate discharge to home tomorrow morning, June 19. Outpatient hemodialysis has been arranged in [place] on Tuesdays, , and Saturdays Full code Admission and Anticipated Discharge Date Admission Date: June 12, 2023 Subjective Alert and oriented. She has had nausea and a headache today. Blood pressures running high. Hydralazine increased from 3 times a day to 4 times a day dosing. Spironolactone and losartan have been discontinued due to hyperkalemia present on admission. She had hemodialysis again today. Outpatient hemodialysis has been set up for Sunday, , and Saturdays. Hopeful discharge to home early tomorrow morning on oral Cipro for her Enterobacter UTI. Review of Systems Review of Systems: Constitutional-no fever or chills ENT-no blurred vision, no double vision, no epistaxis, no sore throat Respiratory-no cough, no wheezing, no shortness of breath Cardiac-no palpitations, no chest pain, no syncope GI-nauseated. No vomiting, diarrhea, melena, hematochezia -no urinary retention, no urinary incontinence, no dysuria, no hematuria Musculoskeletal-no joint pain, no muscle tenderness Skin-no bruising, no rashes, no pruritus Neuro-no isolated weakness, no paresthesia. Headache today Psych-no depression, no anxiety Physical Exam Physical Exam: General-alert and oriented x3, no fevers, no chills. Obese HEENT-head atraumatic and normocephalic, pupils equal and reactive to light, extraocular muscles intact Neck-no lymphadenopathy or thyromegaly, trachea midline Chest-clear to auscultation percussion. No rales wheezing or rhonchi Cardiac-regular rate and rhythm, normal S1 and S2 Abdomen-normal bowel sounds, nontender, no hepatosplenomegaly Extremities-no cyanosis, clubbing, or edema Neuro-cranial nerves II through XII intact, motor and sensory function within normal limits, strength symmetrical , no focal deficits Psych-normal affect, normal mood Results & Data Results & Data Vital Signs (Past 12 Hours) Vital Signs Temp Pulse Pulse Pulse Resp BP BP 06/18/23 14:10 166/81 H 06/18/23 13:10 36.7 C 69 173/78 H 06/18/23 13:13 68 195/61 H 06/18/23 12:30 72 145/99 H 06/18/23 12:00 63 165/47 H 06/18/23 12:00 36.7 C 77 H 149/77 H 06/18/23 11:30 68 161/70 H 06/18/23 11:00 64 178/67 H 06/18/23 10:30 71 135/65 06/18/23 10:00 66 166/55 H 06/18/23 09:30 65 184/52 H 06/18/23 09:15 66 171/55 H 06/18/23 08:55 36.8 C 70 06/18/23 09:38 54 L 06/18/23 08:00 36.5 C 78 20 135/76 Pulse Ox O2 Del Method 06/18/23 14:10 06/18/23 13:10 06/18/23 13:13 06/18/23 12:30 06/18/23 12:00 06/18/23 12:00 97 Room Air 06/18/23 11:30 06/18/23 11:00 06/18/23 10:30 06/18/23 10:00 06/18/23 09:30 06/18/23 09:15 06/18/23 08:55 06/18/23 09:38 06/18/23 08:00 97 Room Air Laboratory Results 06/18/23 06:18 06/18/23 06:18 PG Care Time/CCT Total # of Minutes Spent Total Time Spent with Patient: Total time spent is greater than 50% in coordination of care (as documented) at patient's floor/unit and/or counseling patient: Coding Level of Care Code 62130 SUB INP/OBS CARE 3/50MIN Diagnoses End stage chronic kidney disease N18.6 UTI (urinary tract infection) N39.0 Hyperkalemia E87.5 HTN (hypertension) I10 Chronic diastolic heart failure I50.32 Leukocytosis D72.829 Anemia D64.9 Vitamin D deficiency E55.9 Diabetes mellitus type 2 with complications E11.8 COPD (chronic obstructive pulmonary disease) J44.9 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
[2023-06-18] MEDS: GABAPENTIN 300 MG CAP PO SCH (20:35)
[2023-06-18] MEDS: SIMVASTATIN 40 MG TAB PO SCH (20:41)
[2023-06-18] MEDS: MELATONIN 3 MG TAB PO SCH (21:39)
[2023-06-19] MEDS: ACETAMINOPHEN 325 MG TAB PO PRN (05:27)
[2023-06-19 07:27] LABS: Basophils # (auto) 0.09 K/uL (0-0.2); Basophils % (auto) 0.6 %; Eosinophils # (auto) 0.23 K/uL (0-0.50); Eosinophils % (auto) 1.6 %; Hematocrit (blood only) 31.4 % (37.0-47.0); Hemoglobin 9.9 g/dl (12.0-16.0); Immature Granulocytes % (auto) 1.4 %; Lymphocytes # (auto) 1.61 K/uL (1.2-3.4); Lymphocytes % (auto) 11.2 %; Mean Corpuscular Hemoglobin 30.8 pg (25.0-34.0); Mean Corpuscular Hgb Conc 31.5 g/dL (32.0-36.0); Mean Corpuscular Volume 97.8 fL (80.0-100.0); Mean Platelet Volume 9.4 fL (9.4-12.4); Monocytes # (auto) 1.37 K/uL (0.11-0.59); Monocytes % (auto) 9.5 %; Neutrophils # (auto) 10.91 K/uL (1.40-6.50); Neutrophils % (auto) 75.7 %; Nucleated RBC # (auto) 0.06 K/uL (0-0.12); Nucleated RBC % (auto) 0.4 %; Platelet Count 235 K/uL (130-400); RDW Coefficient of Variation 17.5 % (11.5-14.5); Red Blood Count 3.21 M/uL (4.20-5.40); White Blood Count 14.41 K/ul (4.8-10.8)
[2023-06-19 08:09] LABS: BUN Creatinine Ratio 7.2 (10-20); Calcium 9.2 mg/dl (8.6-10.3); Creatinine Clr Calc Pharmacy 17.2 ml/min; Est GFR (African American) 13.9 ml/min; Potassium 4.2 mmol/L (3.5-5.1)
[2023-06-19] MEDS: ONDANSETRON INJ 2 MG/ML 2 ML VIAL IV PRN (08:49)
[2023-06-19] MEDS: hydrALAZINE TAB 50 MG TAB PO SCH (08:49)
[2023-06-19] MEDS: PANTOprazole 40 MG TAB PO SCH (08:50)
[2023-06-19] MEDS: CALCITRIOL 0.25 MCG CAPSULE PO SCH (08:50)
[2023-06-19] MEDS: cloNIDine HCL 0.1 MG TAB PO SCH (08:50)
[2023-06-19] MEDS: HEPARIN SOD 5,000 UNIT/0.5 ML VIAL SQ SCH (08:50)
[2023-06-19] MEDS: allopurinoL 100 MG TAB PO SCH (08:51)
[2023-06-19] MEDS: SEVELAMER HCL 800 MG TABLET PO SCH (08:51)
[2023-06-19] MEDS: ISOSORBIDE MONO EXTENDED REL 60 MG TABCR PO SCH (08:51)
[2023-06-19] MEDS: MICONAZOLE NITRATE POWDER 85 GM EXT SCH (08:52)
[2023-06-19] MEDS: carvediloL 25 MG TAB PO SCH (08:52)
[2023-06-19] MEDS: NEPHROCAPS PO SCH (08:52)
[2023-06-19] MEDS: INSULIN ASPART PER UNIT CHARGE SC SCH (09:06)
[2023-06-19] MEDS: LANTUS PER UNIT CHARGE SQ SCH (09:06)
--- NOTE | 2023-06-19 09:16 | Discharge Summary ---
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 Her creatinine is up to 6.2 from a baseline of 2.8 and her potassium was 5.3, phosphorus elevated at 6.2. She has been having progressive leg swelling with venous stasis ulcers and also is describing UTI symptoms with dysuria and frequency despite recently taking a 7-day course of amoxicillin for a leg wound. She denies chest pain, shortness of breath. She always sleeps in a recliner so she is not sure if she has orthopnea. She does report that she has lost 10 pounds of weight since starting on spironolactone 5 months ago. She already has an AV fistula in place and is approaching need for dialysis. Her urinalysis here was contaminated with epithelial cells but also had greater than 30 WBCs and trace protein. CT abdomen/pelvis did not show any hydronephrosis or distention of the bladder, but only showed subtle nodular contour to the liver suggestive of early cirrhosis. She will be admitted for acute kidney injury in the setting of CKD stage IV along with hyperkalemia. Principal Diagnosis Volume overload due to end-stage renal disease, Enterobacter UTI, hyperkalemia Discharge Exam General-alert and oriented x3, no fevers, no chills. Obese HEENT-head atraumatic and normocephalic, pupils equal and reactive to light, extraocular muscles intact Neck-no lymphadenopathy or thyromegaly, trachea midline Chest-clear to auscultation percussion. No rales wheezing or rhonchi Cardiac-regular rate and rhythm, normal S1 and S2 Abdomen-normal bowel sounds, nontender, no hepatosplenomegaly Extremities-no cyanosis, clubbing, or edema Neuro-cranial nerves II through XII intact, motor and sensory function within normal limits, strength symmetrical , no focal deficits Psych-normal affect, normal mood Discharge Data Allergies Allergy/AdvReac Type Severity Reaction Status Date / Time tramadol Allergy Mild "FELT Verified 06/11/23 13:31 WEIRD" amlodipine Allergy Unknown SWELLING Verified 06/11/23 13:31 Consultations 06/12/23 16:44 ED Decision to Admit Stat 06/12/23 21:05 Consult Nephrology Routine 06/14/23 10:53 Consult Vascular Surgery Routine Procedures Performed Operation Date: 06/15/23 09:35 Actual Procedures p Insertion of Perm Catheter Right Jugular Vein, Fluoroscopy for Postioning, Ultrasound Localization of Right Jugular Vein, Moderate Sedation 1357- 1410(Right) - Satnam Tello MD Ordered Studies 06/12/23 16:35 CT abd pelvis wo con Stat 06/15/23 07:26 US EV guide vascular access Routine 06/15/23 09:24 US hemodialysis access Routine 06/15/23 13:42 EV 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 Outpatient hemodialysis has been arranged for Tuesdays, , and Saturdays. She will undergo hemodialysis today, June 19. Appreciate nephrology consultation and recommendations. (2) UTI (urinary tract infection): Enterobacter isolated. Currently on cefepime. Home on oral Cipro. (3) Hyperkalemia: Present on admission. Treated and resolved. Spironolactone and losartan have been discontinued. Serial labs (4) HTN (hypertension): Hydralazine has been uptitrated from 3 times daily dosing to 4 times daily dosing. Systolic blood pressure is acceptable. Continue carvedilol and clonidine. She is also on Imdur. Losartan discontinued due to hyperkalemia (5) Chronic diastolic heart failure: Along with right sided HF. Improved with hemodialysis. Spironolactone discontinued due to hyperkalemia. Losartan also has been discontinued. Continue blood pressure control with carvedilol, clonidine, hydralazine, and isosorbide. Monitor intake and output (6) Leukocytosis: Due to acute infection. Serial labs. Improved (7) Anemia: Due to chronic kidney disease. No evidence of GI blood loss. Serial labs. (8) Vitamin D deficiency: Continue calcitriol (9) Diabetes mellitus type 2 with complications: Hemoglobin A1c 8.0% . Follows with endocrinology. Currently on high-dose Lantus therapy. (10) COPD (chronic obstructive pulmonary disease): Stable. Continue as needed inhalers (11) Diabetic peripheral neuropathy associated with type 2 diabetes mellitus: Stable. Continue gabapentin (12) Dyslipidemia: Stable. Continue simvastatin (13) GERD (gastroesophageal reflux disease): Stable. Continue PPI (14) Gout: Stable. Continue allopurinol Plan Home today, June 19. Outpatient hemodialysis has been arranged in [place] on Tuesdays, , and Saturdays Full code Total Time Total Time Spent Total Time Spent (In Minutes): 40 minutes Discharge Plan Discharge Items Patient Disposition: Home - Self-Care Reason For Visit: YASEMIN Discharge Diagnosis: Volume overload due to end-stage renal disease, Enterobacter UTI, hyperkalemia Activity: Resume your previous activity Non-emergency contact: Primary Care Provider and Movie Producer Call non-emergency contact if: you have any medication questions Follow-up/Referrals: Shawanda Gomez DO [Primary Care Provider] - Diet: Carb Consistent or DM2 and Dialysis Renal Addtl Attending Provider Instructions: Spironolactone and losartan have been discontinued. Hydralazine is 100 mg 4 times a day. Take Cipro for 3 more days. Use Zofran as needed for nausea. Dialysis has been set up for Sunday, , Sunday Pending Studies at Discharge: No Stand-Alone Forms: My Jack Erwin, Smoking Cessation Medications and DC Order Prescriptions: New sevelamer HCl 800 mg Tablet 800 mg PO TIDM Qty: 100 0RF hydralazine 50 mg Tablet 100 mg PO QID Qty: 120 0RF Renal Caps 1 mg Capsule 1 cap PO QAM Qty: 30 0RF ondansetron 4 mg tablet,disintegrating 4 mg PO Q6H PRN (Reason: nausea and vomiting) Qty: 20 0RF ciprofloxacin HCl [Cipro] 250 mg tablet 250 mg PO BID Qty: 6 0RF Continued (DME) Walking Cane Misc See Rx Instructions .Route Qty: 1 0RF Rx Instructions: As directed Combivent Respimat 20-100 mcg/actuation mist 1 puff inhalation Q6H PRN (Reason: sob/wheezing) Qty: 4 3RF carvedilol 25 mg tablet 25 mg PO BID Qty: 180 3RF Rx Instructions: must administer with a meal/food pantoprazole 40 mg tablet,delayed release (DR/EC) 40 mg PO QAM Qty: 90 2RF insulin glargine [Lantus Solostar U-100 Insulin] 100 unit/mL (3 mL) insulin pen 90 unit SQ BID Qty: 165 3RF Rx Instructions: Inject 90 units twice daily; TDD 180 units isosorbide mononitrate 60 mg tablet extended release 24 hr 60 mg PO QAM Qty: 90 1RF simvastatin 40 mg tablet 40 mg PO QPM Qty: 90 1RF allopurinol 100 mg tablet 200 mg PO QAM Qty: 180 1RF calcitriol 0.5 mcg capsule 0.5 mcg PO QAM Qty: 90 3RF diclofenac sodium 1 % gel 1 g topical TID PRN (Reason: Pain) Qty: 100 3RF furosemide 40 mg tablet 80 mg PO DAILY Qty: 180 1RF Patient Comments: Pt reports that they have been taking daily. Rx Instructions: ordered as needed but takes rouinely albuterol sulfate 90 mcg/actuation HFA aerosol inhaler 2 puff inhalation QID PRN (Reason: shortness of breath or wheezing) Qty: 6.7 1RF (DME) OneTouch Ultra Test Strip See Rx Instructions .ROUTE .MEDSUPPLY Qty: 50 5RF Dose Instruction: As directed Rx Instructions: Test blood sugar once daily PRN cyanocobalamin (vitamin B-12) 1,000 mcg/mL solution 1,000 mcg IM MONTHLY acetaminophen 500 mg capsule 500 mg PO QID PRN (Reason: Pain) triamcinolone acetonide 0.5 % cream 1 applic topical BID PRN (Reason: skin irritation) Qty: 60 1RF (DME) Dexcom G6 Sensor Device See Rx Instructions .Route Rx Instructions: As directed (DME) Dexcom G6 Manager Reading Misc See Rx Instructions .Route Rx Instructions: As directed (DME) Dexcom G6 Transmitter Device See Rx Instructions .Route Rx Instructions: As directed (DME) Oxygen Home Liters Per Minute See Dose Instructions .ROUTE .MEDSUPPLY Rx Instructions: 2 liters HS (DME) lancets [OneTouch Delica Lancets] 33 gauge misc See Rx Instructions .ROUTE .MEDSUPPLY Qty: 100 1RF Rx Instructions: Test blood sugar once daily PRN insulin lispro [Humalog KwikPen Insulin] 100 unit/mL insulin pen 80 unit SQ TID Qty: 210 3RF (DME) pen needle, diabetic [BD Ultra-Fine Short Pen Needle] 31 gauge x 5/16" needle See Rx Instructions .ROUTE .MEDSUPPLY Qty: 500 3RF Rx Instructions: Inject insulin five times a day gabapentin 300 mg capsule 300 mg PO HS Qty: 30 3RF clonidine HCl 0.1 mg tablet See Rx Instructions .ROUTE .COMPLEX Rx Instructions: take 2 tablets orally in the morning,take 1 tablet orally in the afternoon and evening. Discontinued losartan 100 mg tablet 100 mg PO QAM Qty: 90 1RF hydralazine 100 mg tablet 100 mg PO TID Qty: 270 3RF spironolactone 25 mg tablet 25 mg PO DAILY Qty: 90 3RF Discharge Orders: Discharge Order (Routine); Ordered 06/19/23 Ordered By: Len Foster Admission Data Admit Date/Time: 06/12/23 19:17 Attending Provider: Len Foster Admit Provider: Muna Garvey Primary Care Provider: Shawanda Gomez Other Providers: Muna Garvey ; Joel France ; Satnam Tello Coding Level of Care Code 15300 INP/OBS DISCH >30 MIN Diagnoses End stage chronic kidney disease N18.6 UTI (urinary tract infection) N39.0 Hyperkalemia E87.5 HTN (hypertension) I10 Chronic diastolic heart failure I50.32 Leukocytosis D72.829 Anemia D64.9 Vitamin D deficiency E55.9 Diabetes mellitus type 2 with complications E11.8 COPD (chronic obstructive pulmonary disease) J44.9 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
== END 2023-06-19 10:14 | disposition home or self-care (01) | DRG 683 ==
LOC: ED 15:23 → SUATTDRO 19:17 → 2S 19:17
DX: Z79.899 Other long term (current) drug therapy; N25.81 Secondary hyperparathyroidism of renal origin; E78.5 Hyperlipidemia, unspecified; N39.0 Urinary tract infection, site not specified; E11.42 Type 2 diabetes mellitus with diabetic polyneuropathy; E55.9 Vitamin D deficiency, unspecified; D63.1 Anemia in chronic kidney disease; B95.2 Enterococcus as the cause of diseases classified elsewhere; M10.9 Gout, unspecified; I50.32 Chronic diastolic (congestive) heart failure; N18.6 End stage renal disease; E87.5 Hyperkalemia; J44.9 Chronic obstructive pulmonary disease, unspecified; Z79.4 Long term (current) use of insulin; K21.9 Gastro-esophageal reflux disease without esophagitis; G47.33 Obstructive sleep apnea (adult) (pediatric); C83.00 Small cell B-cell lymphoma, unspecified site; N17.9 Acute kidney failure, unspecified; Z88.8 Allergy status to other drugs, medicaments and biological substances

== ENCOUNTER 2024-07-17 15:52 | Inpatient (IN) ==
[2024-07-17] MEDS: ONDANSETRON INJ 2 MG/ML 2 ML VIAL IV STA (16:54)
[2024-07-17 17:18] LABS: Basophils # (auto) 0.04 K/uL (0.00-0.20); Basophils % (auto) 0.3 %; Eosinophils # (auto) 0.07 K/uL (0.00-0.50); Eosinophils % (auto) 0.6 %; Hematocrit (blood only) 40.2 % (37.0-47.0); Hemoglobin 13.7 g/dl (12.0-16.0); Immature Granulocytes # (auto) 0.08 K/uL (0.01-0.20); Immature Granulocytes % (auto) 0.7 %; Lymphocytes # (auto) 0.86 K/uL (1.20-3.40); Lymphocytes % (auto) 7.3 %; Mean Corpuscular Hemoglobin 32.9 pg (25.0-34.0); Mean Corpuscular Hgb Conc 34.1 g/dL (32.0-36.0); Mean Corpuscular Volume 96.4 fL (80.0-100.0); Mean Platelet Volume 9.1 fL (9.4-12.4); Monocytes # (auto) 0.58 K/uL (0.11-0.59); Monocytes % (auto) 4.9 %; Neutrophils # (auto) 10.23 K/uL (1.40-6.50); Neutrophils % (auto) 86.2 %; Platelet Count 255 K/uL (130-400); RDW Coefficient of Variation 14.4 % (11.5-14.5); Red Blood Count 4.17 M/uL (4.20-5.40); White Blood Count 11.86 K/ul (4.8-10.8)
[2024-07-17 17:31] LABS: Pregnancy Test, Serum Negative (Negative)
[2024-07-17 17:34] LABS: Alanine Aminotransferase 16 U/L (7-52); Albumin Globulin Ratio 1.1 (0.9-2); Albumin Level 3.9 gm/dl (3.4-5.0); Alkaline Phosphatase 96 U/L (34-104); Anion Gap 11 (3-11); Aspartate Aminotransferase 33 U/L (13-39); BUN Creatinine Ratio 11.2 (10-20); Bilirubin,Total 0.4 mg/dl (0.2-1.0); Blood Urea Nitrogen 30 mg/dl (6-23); Calcium 9.7 mg/dl (8.6-10.3); Carbon Dioxide 34 mmol/L (21-32); Chloride 99 mmol/L (98-107); Est GFR (African American) 19.6 ml/min; Est GFR (Non-African American) 16.9 ml/min; Globulin 3.4 gm/dl (2.5-4.0); Glucose 164 mg/dl (70-99(Fasting)); Lipase 36 U/L (11-82); Potassium 3.8 mmol/L (3.5-5.1); Sodium 144 mmol/L (136-145); Total Protein 7.3 gm/dl (6.0-8.3)
--- NOTE | 2024-07-17 17:49 | Emergency Department Note ---
Impression & Plan Acute intractable headache, Hypertension, Elevated troponin I level ED Provider Note NAME: COLE NEVES AGE: 74 SEX: F : 1950 ARRIVES VIA: Walk-In INFORMANT: Patient, the patient's daughter ED PROVIDER(S): Jermain Mayo DO CHIEF COMPLAINT: Headache HPI: The patient is a 74-year-old female who presented to the emergency department with severe headache. She states that she started having headache symptoms over the course of the evening. The patient started noticing her blood pressure was elevated. She came to the emergency department for further evaluation. She denies having any abdominal pain. She does do peritoneal dialysis at home. She notices no abdominal pain or fever. She notices no neck stiffness. She does not notice any cloudiness to her diastole. The patient been compliant with her outpatient medications. She denies having any trauma. ROS: See above HPI for pertinent positives & negatives. A total of 10 systems reviewed and were otherwise negative. PAST MEDICAL HISTORY: See Below PAST SURGICAL HISTORY: See Below FAMILY HISTORY: See Below SOCIAL HISTORY: See Below HOME MEDICATIONS: See Below ALLERGIES: See Below VITALS: See Below PHYSICAL EXAMINATION: GENERAL: Patient is awake alert in no acute distress patient is resting comfortably and showing no signs of anxiety EYES: The conjunctivae are clear. The pupils are round and reactive. EARS, NOSE, MOUTH AND THROAT: The nose is without any evidence of any deformity. NECK: The neck is nontender and supple. RESPIRATORY: Normal respiratory effort is noted there is no evidence of wheezing rhonchi or rales CARDIOVASCULAR: Regular rate and rhythm noted there no murmurs rubs or gallops normal S1 normal S2. GASTROINTESTINAL: The abdomen is soft. Abdomen is nontender. MUSCULOSKELETAL/EXTREMITIES: There is no evidence of gross deformity full range of motion is noted in the hips and shoulders. SKIN: Chronic venous stasis changes were noted in both lower extremities. Skin was warm and dry. NEUROLOGIC: Patient is awake alert and oriented x3. Gait was steady. MEDICAL DECISION MAKING: The patient is a 4-year-old female who presented to the emergency department for an evaluation of headache. The patient started having headache and vomiting over the course the last 24 hours. The patient did not have any nuchal rigidity. She had no fever. The patient was treated with a migraine cocktail in the emergency department. She was reevaluated multiple times. She was also treated with IV hydralazine for elevated blood pressure. I discussed the patient's laboratory and radiographic studies with her and her daughter. Ultimately her symptoms did improve slightly but given her elevated blood pressure as well as her history of renal insufficiency I do feel the patient would be a better candidate for inpatient management. I will discuss her condition with the on-call [facility] hospitalist. Triage Nursing notes reviewed. Prior medical records reviewed Vital Signs: reviewed and remarkable for elevated blood pressure. Differential diagnosis: Migraine headache, meningitis, sinusitis, CO exposure, ICH, SAH, infection, tumor, headache, sinus thrombosis, arterial dissection, as well as other pathologies. ER treatment provided: See below Diagnostics interpreted by me: ECG: EKG was obtained in the emergency department. My interpretation is normal sinus rhythm at 74 bpm. There was no ectopy. There was no acute ST segment abnormalities noted. This was compared to a tracing from June 12, 2023. No changes were noted. Cardiac Monitoring: An order was placed for continuous cardiac monitoring. The monitor shows a rate of 71 bpm with sinus rhythm. Laboratory studies: As stated above and show below. Imaging studies: See below. Radiographic imaging was reviewed by myself Consultation(s): I discussed this case with Jey who is on-call for the [facility] hospitalist group. 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) "Incidental finding of mass left conjunctiva at the time of cataract surgery Status post excision 03/02/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 Status post completion of radiation [id number]/2016 received 3060 cGy" On 03/24/16 11:07 Colleen Jasso wrote "Incidental finding of mass left conjunctiva at the time of cataract surgery Status post excision 03/02/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" Dysplastic nevi Controlled diabetes mellitus with renal manifestations Chronic osteoarthritis Stasis dermatitis Abnormal TSH Metabolic syndrome Uncontrolled hypertension Arthritis of right knee Chronic acquired lymphedema End stage chronic kidney disease UTI (urinary tract infection) Medical History Port-A-Cath in place unknown details type, right chest History of anesthesia reaction had nerve block for av fistual Nov 2022 - arm limp for about a week after - prefers not to have nerve block if possible for upcoming procedure. History of recent hospitalization [facility] last week /kidney failure. Anemia HTN (hypertension) Venous stasis ulcer of both lower extremities without varicose veins Venous stasis ulcers COPD (chronic obstructive pulmonary disease) stable per pt Diabetic peripheral neuropathy associated with type 2 diabetes mellitus Loss of protective sensation of skin of foot Venous ulcer size of pin hole/current right leg - upcoming wound clinic Jun 25 2023 - to evaluate for discharge. Type 2 diabetes mellitus with diabetic neuropathy, unspecified IDDM (has Dexcom reader) Cirrhosis of liver Chronic venous insufficiency DVT (deep venous thrombosis) (10/2021) 10/2021 right knee, treated with eliquis for several months Chronic diastolic heart failure Chronic kidney disease, stage 4 (severe) Follows with [facility]-dialysis Tues, Thur and Sat. 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 History of vascular access device a port right chest / ? type. S/P colonoscopy Status post endovenous radiofrequency ablation (RFA) of saphenous vein LLE and RLE 2021 S/P dilatation and curettage S/P tubal ligation S/P cholecystectomy Family History Father Prostate cancer Mother Myocardial infarction Deep vein thrombosis Denies family history of Ovarian cancer Breast cancer Lung cancer Colorectal cancer Social History Smoking Status: Never smoker Second Hand Exposure: No; Do You Dip or Chew Tobacco: No; Hx Alcohol Use: Yes Alcohol type: wine Alcohol Intake Frequency: Monthly or Less Hx Substance Use: No Preferred Language: Syriac Communication Ability: Effective Visual Impairment: No Limitations Hearing Ability: Normal Cheese Production Supervisor Required: No Beliefs That Will Affect Care: None marital status: Current Living Situation: Spouse Current Living Situation Comment: Patient lives at home with spouse and pet dog current occupational 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 How many Children do You have: 4 Feels Safe at Home: Yes Childhood Exposure to Second-Hand Smoke: Yes Diet: regular Diet Comment: Regular caffeine: Yes during the past year weight has: remained stable Dental Care, Regularly: Yes Physical Activity Frequency: 1-2 Times per Week Physical Activity Frequency Comment: walking Seatbelt Use: always Sunscreen Use: Yes Assistive Devices: Cane Allergies Allergies Allergy/AdvReac Type Severity Reaction Status Date / Time amlodipine Allergy Intermediate swelling Verified 07/17/24 16:52 of feet tramadol Allergy Intermediate "FELT Verified 07/17/24 16:52 WEIRD" Home Meds Home Medications Medication Instructions Recorded Confirmed acetaminophen 500 mg capsule 500 mg PO QID PRN Pain 04/04/19 03/27/24 cyanocobalamin (vitamin B-12) 1,000 mcg IM MONTHLY 04/04/19 03/27/24 1,000 mcg/mL injection solution Oxygen Home 09/04/19 03/27/24 blood-glucose meter,continuous 08/23/21 03/27/24 (Dexcom G6 Interior Design Teacher) blood-glucose sensor (Dexcom G6 08/23/21 03/27/24 Sensor device) blood-glucose transmitter (Dexcom 08/23/21 03/27/24 G6 Transmitter device) triamcinolone acetonide 0.5 % 1 applic topical BID PRN skin 08/17/23 03/27/24 topical cream (Triderm) irritation sevelamer carbonate 800 mg tablet 800 mg PO TID 12/13/23 03/27/24 Previous Rx's Medication Instructions Recorded lancets 33 gauge (OneTouch Delica #100 ea 06/29/22 Lancets) Walking Cane #1 ea 10/05/22 ipratropium 20 mcg-albuterol 100 1 puff inhalation Q6H PRN 10/11/22 mcg/actuation mist for inhalation sob/wheezing #4 grams (Combivent Respimat) pen needle, diabetic 31 gauge x #500 ea 12/14/2203/13" (BD Ultra-Fine Short Pen Needle) vitamin B complex and vitamin C 1 cap PO QAM #30 caps 06/19/23 no.20-folic acid 1 mg capsule (Renal Caps) diclofenac sodium 1 % topical gel 1 g topical TID PRN Pain #100 grams 08/22/23 albuterol sulfate 90 mcg/actuation 2 puff inhalation QID PRN 09/07/23 aerosol inhaler shortness of breath or wheezing #6.7 grams simvastatin 40 mg tablet (Zocor) 40 mg PO QPM #90 tabs 10/30/23 pantoprazole 40 mg tablet,delayed 40 mg PO QAM #90 tabs 11/12/23 release colchicine 0.6 mg tablet (Colcrys) See Rx Instructions .Route 03/27/24 .COMPLEX #3 tabs gabapentin 300 mg capsule 300 mg PO HS #90 caps 03/27/24 hydralazine 100 mg tablet 100 mg PO QID #360 tabs 03/27/24 isosorbide mononitrate 60 mg 60 mg PO QAM #90 tabs 03/27/24 tablet,extended release 24 hr carvedilol 25 mg tablet 25 mg PO BID #180 tabs 05/12/24 semaglutide 2 mg/dose (8 mg/3 mL) 2 mg (0.75 mL) subcut Q7D #3 mL 05/30/24 subcutaneous pen injector (Ozempic) insulin glargine 100 unit/mL (3 75 unit (0.75 mL) subcut BID 90 06/24/24 mL) subcutaneous pen (Lantus days #135 mL Solostar U-100 Insulin) insulin lispro 100 unit/mL 60 unit (0.6 mL) subcut TID 90 06/24/24 subcutaneous pen (Humalog KwikPen days #165 mL (U-100) Insulin) OneTouch Ultra Test (blood sugar #50 ea 07/01/24 diagnostic) allopurinol 100 mg tablet 200 mg (2 x 100 mg) PO QAM #180 07/01/24 tabs clonidine HCl 0.1 mg tablet 0.2 mg (2 x 0.1 mg) PO TID #540 07/01/24 tabs furosemide 40 mg tablet (Lasix) 80 mg (2 x 40 mg) PO BID Leg 07/01/24 swelling or weight change #360 tabs Results & Data (ED) Vital Signs Vital Signs - 24 hr 07/17/24 15:53 07/17/24 17:42 07/17/24 17:52 Temperature 36.6 C Temperature Source Temporal Artery Scan Pulse Rate 70 68 Pulse Rate [Left Finger] 72 Pulse Rhythm [Left Finger] Pulse Strength Normal Respiratory Rate 18 16 Respiratory Depth Blood Pressure 207/75 H Blood Pressure [Left Arm] 223/92 H Blood Pressure Mean 119 Blood Pressure Mean [Left Arm] 135 Pulse Oximetry 94 98 Oxygen Delivery Method Oxygen Flow Rate Sepsis Recent Fever Within 48 Hours No Sepsis New/Unexplained Change in Mental Status N/A Sepsis Action Taken by Nursing No Action Required 07/17/24 19:00 07/17/24 19:15 07/17/24 19:40 Temperature Temperature Source Pulse Rate Pulse Rate [Left Finger] 71 71 71 Pulse Rhythm [Left Finger] Regular Pulse Strength Respiratory Rate 20 20 20 Respiratory Depth Normal Normal Normal Blood Pressure Blood Pressure [Left Arm] 129/102 H 166/138 H 202/79 H Blood Pressure Mean Blood Pressure Mean [Left Arm] 111 147 120 Pulse Oximetry 94 85 L 97 Oxygen Delivery Method Room Air Room Air Nasal Cannula Oxygen Flow Rate 2 Sepsis Recent Fever Within 48 Hours Sepsis New/Unexplained Change in Mental Status Sepsis Action Taken by Long Term Medications Current Medication List: was personally reviewed by me Laboratory Data Attestation: I reviewed the patient's lab results. 07/17/24 16:55 07/17/24 16:55 Lab Results 07/17/24 07/17/24 07/17/24 Range/Units 16:55 17:51 18:25 WBC 11.86 H (4.8-10.8) K/ul RBC 4.17 L (4.20-5.40) M/uL Hgb 13.7 (12.0-16.0) g/dl Hct 40.2 (37.0-47.0) % MCV 96.4 (80.0-100.0) fL MCH 32.9 (25.0-34.0) pg MCHC 34.1 (32.0-36.0) g/dL RDW Std Deviation 51.0 H (36.4-46.3) fL RDW Coeff of Marcus 14.4 (11.5-14.5) % Plt Count 255 (130-400) K/uL MPV 9.1 L (9.4-12.4) fL Immature Gran % (Auto) 0.7 % Neut % (Auto) 86.2 % Lymph % (Auto) 7.3 % [place] % (Auto) 4.9 % Eos % (Auto) 0.6 % Baso % (Auto) 0.3 % Neut # (Auto) 10.23 H (1.40-6.50) K/uL Lymph # (Auto) 0.86 L (1.20-3.40) K/uL [place] # (Auto) 0.58 (0.11-0.59) K/uL Eos # (Auto) 0.07 (0.00-0.50) K/uL Baso # (Auto) 0.04 (0.00-0.20) K/uL Immature Gran # (Auto) 0.08 (0.01-0.20) K/uL PT Cancelled 11.4 INR Cancelled 1.1 APTT Cancelled 24 PTT Ratio Cancelled 0.9 Sodium 144 (136-145) mmol/L Potassium 3.8 (3.5-5.1) mmol/L Chloride 99 (98-107) mmol/L Carbon Dioxide 34 H (21-32) mmol/L Anion Gap 11 (3-11) BUN 30 H (6-23) mg/dl Creatinine 2.69 H (0.6-1.2) mg/dl Est Cr Clr Drug Dosing Not Reportable Est GFR ( Amer) 19.6 ml/min Est GFR (Non-Af Amer) 16.9 ml/min BUN/Creatinine Ratio 11.2 (10-20) Glucose 164 H (70-99(Fasting)) mg/dl Calcium 9.7 (8.6-10.3) mg/dl Total Bilirubin 0.4 (0.2-1.0) mg/dl AST 33 (13-39) U/L ALT 16 (7-52) U/L Alkaline Phosphatase 96 (34-104) U/L Troponin I High Sens 68.0 H* (0-14) pg/ml Total Protein 7.3 (6.0-8.3) gm/dl Albumin 3.9 (3.4-5.0) gm/dl Globulin 3.4 (2.5-4.0) gm/dl Albumin/Globulin Ratio 1.1 (0.9-2) Lipase 36 (11-82) U/L HCG, Qual Negative (Negative) Urine Color Yellow Urine Appearance Clear (Clear) Urine pH >= 9.0 H (4.5-7.5) Ur Specific [place] 1.017 (1.000-1.030) Urine Protein 3+ H (Negative) Urine Glucose (UA) Negative (Negative) Urine Ketones Negative (Negative) Urine Blood Negative (Negative) Urine Nitrite Negative (Negative) Urine Bilirubin Negative (Negative) Urine Urobilinogen Negative (Negative) Ur Leukocyte Esterase Negative (Negative) Urine WBC (Auto) 0-5 (0-5) /hpf Urine RBC (Auto) 0-2 (0-2) /hpf U Hyaline Cast (Auto) 0-2 (0-2) /lpf U Epithel Cells (Auto) 6-10 H (0-2) /hpf Urine Bacteria (Auto) None Seen (None Seen) SARS-CoV-2 (PCR) (Negative) Influenza Type A (PCR) (Neg) Influenza Type B (PCR) (Neg) RSV (RT-PCR) (Neg) 07/17/24 Range/Units 19:24 WBC (4.8-10.8) K/ul RBC (4.20-5.40) M/uL Hgb (12.0-16.0) g/dl Hct (37.0-47.0) % MCV (80.0-100.0) fL MCH (25.0-34.0) pg MCHC (32.0-36.0) g/dL RDW Std Deviation (36.4-46.3) fL RDW Coeff of Marcus (11.5-14.5) % Plt Count (130-400) K/uL MPV (9.4-12.4) fL Immature Gran % (Auto) % Neut % (Auto) % Lymph % (Auto) % [place] % (Auto) % Eos % (Auto) % Baso % (Auto) % Neut # (Auto) (1.40-6.50) K/uL Lymph # (Auto) (1.20-3.40) K/uL [place] # (Auto) (0.11-0.59) K/uL Eos # (Auto) (0.00-0.50) K/uL Baso # (Auto) (0.00-0.20) K/uL Immature Gran # (Auto) (0.01-0.20) K/uL PT INR APTT PTT Ratio Sodium (136-145) mmol/L Potassium (3.5-5.1) mmol/L Chloride (98-107) mmol/L Carbon Dioxide (21-32) mmol/L Anion Gap (3-11) BUN (6-23) mg/dl Creatinine (0.6-1.2) mg/dl Est Cr Clr Drug Dosing Est GFR ( Amer) ml/min Est GFR (Non-Af Amer) ml/min BUN/Creatinine Ratio (10-20) Glucose (70-99(Fasting)) mg/dl Calcium (8.6-10.3) mg/dl Total Bilirubin (0.2-1.0) mg/dl AST (13-39) U/L ALT (7-52) U/L Alkaline Phosphatase (34-104) U/L Troponin I High Sens (0-14) pg/ml Total Protein (6.0-8.3) gm/dl Albumin (3.4-5.0) gm/dl Globulin (2.5-4.0) gm/dl Albumin/Globulin Ratio (0.9-2) Lipase (11-82) U/L HCG, Qual (Negative) Urine Color Urine Appearance (Clear) Urine pH (4.5-7.5) Ur Specific [place] (1.000-1.030) Urine Protein (Negative) Urine Glucose (UA) (Negative) Urine Ketones (Negative) Urine Blood (Negative) Urine Nitrite (Negative) Urine Bilirubin (Negative) Urine Urobilinogen (Negative) Ur Leukocyte Esterase (Negative) Urine WBC (Auto) (0-5) /hpf Urine RBC (Auto) (0-2) /hpf U Hyaline Cast (Auto) (0-2) /lpf U Epithel Cells (Auto) (0-2) /hpf Urine Bacteria (Auto) (None Seen) SARS-CoV-2 (PCR) NEGATIVE (Negative) Influenza Type A (PCR) Negative (Neg) Influenza Type B (PCR) Negative (Neg) RSV (RT-PCR) Negative (Neg) Administered Medications Discontinued Medications Diphenhydramine HCl (Diphenhydramine 50 Mg/Ml Vial) 12.5 mg IV NOW STA Stop: 07/17/24 17:46 Last Admin: 07/17/24 17:59 Dose: 12.5 mg Documented By: PARKER Hydralazine HCl (Hydralazine Hcl 20 Mg/Ml Vial) 5 mg IV NOW ONE Stop: 07/17/24 19:20 Last Admin: 07/17/24 19:32 Dose: 5 mg Documented By: RICARDO Promethazine HCl (Phenergan) 12.5 mg in 50.5 mls @ 202 mls/hr IV NOW STA Stop: 07/17/24 17:59 Last Infusion: 07/17/24 19:07 Dose: Infused Documented By: Admin: 07/17/24 18:07 Dose: 202 mls/hr Documented By: PARKER Acetaminophen (Ofirmev) 1,000 mg in 100 mls @ 400 mls/hr IV NOW STA Stop: 07/17/24 17:59 Last Infusion: 07/17/24 19:07 Dose: Infused Documented By: Admin: 07/17/24 18:03 Dose: 400 mls/hr Documented By: PARKER Ondansetron HCl (Ondansetron Inj 2 Mg/Ml 2 Ml Vial) 4 mg IV NOW STA Stop: 07/17/24 16:02 Last Admin: 07/17/24 16:54 Dose: 4 mg Documented By: LUC Imaging Data Attestation: I personally reviewed and interpreted this imaging study as follows: My Impression: CT of the brain was obtained in the emergency department. My interpretation is no intracranial hemorrhage or mass effect, final report pending. 1 view chest x-ray was obtained in the emergency department. Interpretation is cardiomegaly, no definite infiltrate, final report pending. Radiologist's Impression: Head CT 07/17/24 17:45 Exam(s): CT HEAD Without Contrast EXAM: CT Head Without Intravenous Contrast CLINICAL HISTORY: Reason for exam: BUCKNER. TECHNIQUE: Axial computed tomography images of the head/brain without intravenous contrast. CTDI is 35.51 mGy and DLP is 624.41 mGy-cm. Automated exposure control was utilized for the study. A dose lowering technique was utilized adhering to the principles of ALARA. COMPARISON: CT head on 09/01/2010 FINDINGS: Brain: No acute infarct or hemorrhage identified. No extra-axial fluid collection. No mass effect or midline shift. Scattered areas of hypoattenuation in the supratentorial white matter likely represent chronic small vessel ischemic changes. Ventricles and sulci: Prominence of the ventricles and sulci is likely secondary to cerebral volume loss. Bones: Normal. No bony lesion or acute fracture. Subcutaneous tissues: Normal. Sinuses: Moderate mucosal thickening in the left maxillary sinus. Minimal mucosal thickening in the right maxillary sinus. Mastoid air cells: Normal. Orbits: Bilateral lens implants. Other: Atherosclerotic calcifications in the intracranial vasculature. IMPRESSION: 1. No acute intracranial abnormality. 2. Mild chronic small vessel ischemic changes and cerebral volume loss. Electronically signed by: Kristin Chow M.D. 07/17/24 20:12 PM Discharge Plan Visit Data Chief Complaint: Vomiting Stated Complaint: VOMITING, THROBBING HEADACHE, HYPERTENSION ED Provider: Jermain Mayo Discharge Problem: Acute intractable headache, Hypertension, Elevated troponin I level Patient Disposition: Being Evaluated by Hospitalist Forms Stand Alone Forms: My [facility] [employer] Prescriptions Prescriptions: No Action (DME) Walking Cane Misc See Rx Instructions .Route Qty: 1 0RF Rx Instructions: As directed Combivent Respimat 20-100 mcg/actuation mist 1 puff inhalation Q6H PRN (Reason: sob/wheezing) Qty: 4 3RF diclofenac sodium 1 % gel 1 g topical TID PRN (Reason: Pain) Qty: 100 3RF albuterol sulfate 90 mcg/actuation HFA aerosol inhaler 2 puff inhalation QID PRN (Reason: shortness of breath or wheezing) Qty: 6.7 1RF simvastatin [Zocor] 40 mg tablet 40 mg PO QPM Qty: 90 3RF pantoprazole 40 mg tablet,delayed release (DR/EC) 40 mg PO QAM Qty: 90 2RF carvedilol 25 mg tablet 25 mg PO BID Qty: 180 1RF Rx Instructions: must administer with a meal/food cyanocobalamin (vitamin B-12) 1,000 mcg/mL solution 1,000 mcg IM ONCE Qty: 1 0RF Ozempic 2 mg/dose (8 mg/3 mL) pen injector 2 mg subcut Q7D Qty: 3 1RF insulin glargine [Lantus Solostar U-100 Insulin] 100 unit/mL (3 mL) insulin pen 75 unit SQ BID 90 Days Qty: 135 3RF insulin lispro [Humalog KwikPen Insulin] 100 unit/mL insulin pen 60 unit SQ TID 90 Days Qty: 165 3RF furosemide [Lasix] 40 mg tablet 80 mg PO BID Qty: 360 1RF Rx Instructions: ordered as needed but takes rouinely (DME) OneTouch Ultra Test Strip See Rx Instructions .ROUTE .MEDSUPPLY Qty: 50 5RF Dose Instruction: As directed Rx Instructions: Test blood sugar once daily PRN allopurinol 100 mg tablet 200 mg PO QAM Qty: 180 1RF clonidine HCl 0.1 mg tablet 0.2 mg PO TID Qty: 540 1RF cyanocobalamin (vitamin B-12) 1,000 mcg/mL solution 1,000 mcg IM MONTHLY acetaminophen 500 mg capsule 500 mg PO QID PRN (Reason: Pain) sevelamer carbonate 800 mg tablet 800 mg PO TID (DME) Dexcom G6 Sensor Device See Rx Instructions .Route Rx Instructions: As directed (DME) Dexcom G6 Interior Design Teacher Misc See Rx Instructions .Route Rx Instructions: As directed (DME) Dexcom G6 Transmitter Device See Rx Instructions .Route Rx Instructions: As directed (DME) Oxygen Home Liters Per Minute See Dose Instructions .ROUTE .MEDSUPPLY Rx Instructions: 2 liters HS (DME) lancets [OneTouch Delica Lancets] 33 gauge misc See Rx Instructions .ROUTE .MEDSUPPLY Qty: 100 1RF Rx Instructions: Test blood sugar once daily PRN (DME) pen needle, diabetic [BD Ultra-Fine Short Pen Needle] 31 gauge x 5/16" needle See Rx Instructions .ROUTE .MEDSUPPLY Qty: 500 3RF Rx Instructions: Inject insulin five times a day hydralazine 100 mg tablet 100 mg PO QID Qty: 360 2RF gabapentin 300 mg capsule 300 mg PO HS Qty: 90 3RF isosorbide mononitrate 60 mg tablet extended release 24 hr 60 mg PO QAM Qty: 90 1RF colchicine [Colcrys] 0.6 mg tablet See Rx Instructions .Route .COMPLEX Qty: 3 1RF Rx Instructions: Take 2 tabs PO x 1, then 1 tab PO 1hr later x 1 Renal Caps 1 mg Capsule 1 cap PO QAM Qty: 30 0RF triamcinolone acetonide [Triderm] 0.5 % cream 1 applic topical BID PRN (Reason: skin irritation) Referrals Referrals: Shawanda Gomez DO [Primary Care Provider] - Discharge Problem: Acute intractable headache Qualifiers: Headache type: unspecified Qualified Code(s): R51.9 - Headache, unspecified Hypertension Qualifiers: Hypertension type: unspecified Qualified Code(s): I10 - Essential (primary) hypertension
[2024-07-17] MEDS: diphenhydrAMINE 50 MG/ML VIAL IV STA (17:59)
[2024-07-17] MEDS: ACETAMINOPHEN 1,000 MG/100 ML VIAL IV STA (18:03)
[2024-07-17] MEDS: PROMETHAZINE 12.5 MG/50.5 ML BAG IV STA (18:07)
[2024-07-17 18:25] LABS: Appearance Urine Clear (Clear); Bacteria Urine Automated None Seen (None Seen); Bilirubin Urine Negative (Negative); Blood Urine Negative (Negative); Cast Urine Automated 0-2 /lpf (0-2); Color Urine Yellow; Glucose Urine UA Negative (Negative); Ketones Urine Negative (Negative); Leukocyte Esterase Urine Negative (Negative); Nitrite Urine Negative (Negative); Protein Urine 3+ (Negative); RBC Urine Automated 0-2 /hpf (0-2); Specific Gravity Urine 1.017 (1.000-1.030); Urobilinogen Urine Negative (Negative); WBC Urine Automated 0-5 /hpf (0-5); pH Urine >= 9.0 (4.5-7.5)
[2024-07-17 19:28] LABS: INR 1.1 (0.9-1.1); Partial Thromboplastin Ratio 0.9; Partial Thromboplastin Time 24 Seconds (21-31); Prothrombin Time 11.4 Seconds (9.0-12.0)
[2024-07-17] MEDS: hydrALAZINE HCL 20 MG/ML VIAL IV ONE (19:32)
[2024-07-17 20:10] LABS: Influenza A virus by PCR Negative (Neg); Influenza B virus by PCR Negative (Neg); RSV by PCR Negative (Neg); SARS CoV2 RNA(COVID-19) Ceph NEGATIVE (Negative)
--- NOTE | 2024-07-17 20:10 | History & Physical Report ---
Date of Service July 17, 2024 Assessment & Plan (1) Hypertension: Plan: Admit to the PCU on telemetry and pulse oximetry Currently still hypertensive at 208/83 but otherwise stable Presented to the ED with nausea, vomiting, nonbloody diarrhea, headache, and hypertension Patient confirms that symptoms started with nausea/vomiting and diarrhea, hypertension and headache following Confirms she has not had any antihypertensives today due to her symptoms which is likely what is driving her hypertension at the time of admission Patient is on home clonidine, hydralazine, carvedilol, suspect she is experiencing significant rebound hypertension due to not taking home clonidine No focal neuro defects, no acute changes and CT temporal without contrast For now will plan to resume her home antihypertensives when she is able to tolerate p.o. intake Will start as needed IV hydralazine every 4 hours for systolic blood pressure greater than 180 mmHg/diastolic blood pressure greater than 110 mmHg for heart rate < 70 Will start as needed IV labetalol every 4 hours for systolic blood pressure greater than 180 mmHg/diastolic blood pressure greater than 110 mmHg for heart rate > 70 Bilateral SCDs for DVT prophylaxis Clear liquid diet for now AM CBC, CMP, mag, PT/INR (2) Headache: Plan: Patient has been experiencing a frontal headache since her hypertension started CT of the head and brain without contrast was negative for acute findings, no focal neuro defects on exam Suspect this is mainly due to her hypertension caused by poor p.o. intake and inability to keep her home meds down over the past day No focal neurologic changes, unsure if this is a migraine as symptoms started after she was unable to keep her antihypertensives down and became hypotensive For now we will work on controlling her blood pressure and continuing as needed Tylenol (3) Elevated troponin I level: Plan: Initial high-sensitivity troponin elevated at 68, repeat is in process which was ordered at time of the admission Patient denies recent chest pain/discomfort, no acute ST segment or T wave changes on ECG Suspect her troponin is elevated due to her hypertension and end-stage renal disease status Will follow repeat high-sensitivity troponin and continue to monitor on telemetry (4) Nausea and vomiting: Plan: Suspect patient's nausea and vomiting is due to gastroenteritis Lower suspicion for food poisoning at this time as multiple other family numbers ate from the same restaurant without similar symptoms Patient for multiple times she is without abdominal discomfort, low suspicion for peritonitis at this time Has been also associated with multiple episodes of nonbloody diarrhea over the past 12 hours No recent antibiotic for well water use Will try to obtain stool studies if she has further episodes, hold an tidiarrheals for now Continue as needed Zofran (5) End stage chronic kidney disease: Plan: Currently uses nightly home peritoneal dialysis with a full session last night Renal function electrolytes currently stable Nephrology has been consulted to assist with dialysis during admission Patient does have left upper extremity AV fistula which was last used in March of this year Monitor daily renal function electrolytes (6) COPD (chronic obstructive pulmonary disease): Plan: In no respiratory distress, mild expiratory wheezing Patient uses 2 L nasal cannula O2 at night instead of CPAP for her NAE Continue incentive spirometry, as needed albuterol and home breathing treatments As needed O2 to keep SpO2 between 89-92% Plan The patient was discussed with Dr. Brennan at time of admission History of Present Illness Chief Complaint: Nausea, vomiting, diarrhea, headache, hypertension Primary Care Provider: DO Eleanor Oliverne is a 74-year-old female with a past medical history significant for end-stage renal disease previously on hemodialysis but recently switched peritoneal dialysis, COPD and NAE on 2 L at bedtime O2, hypertension, diabetes mellitus who presented to [facility] ED on 07/17/2024 with complaints of nausea, vomiting, headache, and hypertension. On arrival she was noted to be hypertensive at 223/92 but was initially otherwise stable. After initially receiving 12.5 mg IV diphenhydramine and 12.5 mg promethazine she became hypoxic at 85% on room air initially. Labs were significant for a leukocytosis of 11 with neutrophil predominance of 10, creatinine of 2.69, initial high-sensitivity troponin of 68, UA with 3+ protein otherwise unremarkable, with SARS-CoV-2, influenza, and RSV screens in process. ECG showed normal sinus rhythm without acute ST segment or T wave changes. Prior to admission the patient was given 1 g IV Tylenol, 12.5 mg IV Benadryl, 5 mg IV hydralazine, 4 mg IV Zofran, and 12.5 mg IV promethazine. Patient was seen in bed no acute distress at time of exam with her daughter sitting bedside, history is obtained from both. Patient explains that she started develop nausea with nonbloody emesis overnight. This has been associated with approximately 5 total episodes of nonbloody diarrhea over the past 24 hours. Denies recent fever, chills, chest pain, shortness of breath, cough, abdominal pain, bloody diarrhea. When asked, she does still make urine but denies recent dysuria or increased urinary frequency. She currently uses nightly peritoneal dialysis and confirms that she had a full session overnight. Again confirms that she has been without any abdominal pain/discomfort with her other symptoms. She has not been able to take any of her home medications since last night which includes her home clonidine, carvedilol, hydralazine, and Imdur. Denies recent antibiotic use, they state that she did have a hoagie approximately 48 hours ago but multiple other family members also had similar food and her without symptoms. No recent well water use. Symptoms are improved but not completely resolved at this time. When asked about her headache, she states that is mainly a frontal headache. Confirms that she does have a previous history of migraine headaches and confirms that she has been experiencing some photophobia at times since the beginning of her headache. No recent changes in vision, hearing, taste, smell, new paresthesias, or unilateral weakness. Confirm she is a full code and would want her daughter to make medical decisions for her if she amicable herself. Please refer to Dr. Brennan's attestation for any changes to treatment plan Allergies Allergy/AdvReac Type Severity Reaction Status Date / Time amlodipine Allergy Intermediate swelling Verified 07/17/24 16:52 of feet tramadol Allergy Intermediate "FELT Verified 07/17/24 16:52 WEIRD" Home Medications Medication Instructions Recorded Confirmed Type acetaminophen 500 mg capsule 500 mg PO QID PRN Pain 04/04/19 07/17/24 History cyanocobalamin (vitamin B-12) 1,000 mcg IM MONTHLY 04/04/19 07/17/24 History 1,000 mcg/mL injection solution Oxygen Home 09/04/19 03/27/24 History blood-glucose meter,continuous 08/23/21 03/27/24 History (Dexcom G6 Gravel Weigher) blood-glucose sensor (Dexcom G6 08/23/21 03/27/24 History Sensor device) blood-glucose transmitter (Dexcom 08/23/21 03/27/24 History G6 Transmitter device) lancets 33 gauge (OneTouch Delica #100 ea 06/29/22 03/27/24 Rx Lancets) Walking Cane #1 ea 10/05/22 03/27/24 Rx ipratropium 20 mcg-albuterol 100 1 puff inhalation Q6H PRN 10/11/22 07/17/24 Rx mcg/actuation mist for inhalation sob/wheezing #4 grams (Combivent Respimat) pen needle, diabetic 31 gauge x #500 ea 12/14/22 03/27/24 Rx 5/16" (BD Ultra-Fine Short Pen Needle) diclofenac sodium 1 % topical gel 1 g topical TID PRN Pain #100 grams 08/22/23 07/17/24 Rx albuterol sulfate 90 mcg/actuation 2 puff inhalation QID PRN 09/07/23 07/17/24 Rx aerosol inhaler shortness of breath or wheezing #6.7 grams simvastatin 40 mg tablet (Zocor) 40 mg PO QPM #90 tabs 10/30/23 07/17/24 Rx pantoprazole 40 mg tablet,delayed 40 mg PO QAM #90 tabs 11/12/23 07/17/24 Rx release colchicine 0.6 mg tablet (Colcrys) See Rx Instructions .Route 03/27/24 07/17/24 Rx .COMPLEX #3 tabs gabapentin 300 mg capsule 300 mg PO HS #90 caps 03/27/24 07/17/24 Rx hydralazine 100 mg tablet 100 mg PO QID #360 tabs 03/27/24 07/17/24 Rx isosorbide mononitrate 60 mg 60 mg PO QAM #90 tabs 03/27/24 07/17/24 Rx tablet,extended release 24 hr carvedilol 25 mg tablet 25 mg PO BID #180 tabs 05/12/24 07/17/24 Rx semaglutide 2 mg/dose (8 mg/3 mL) 2 mg (0.75 mL) subcut Q7D #3 mL 05/30/24 07/17/24 Rx subcutaneous pen injector (Ozempic) insulin glargine 100 unit/mL (3 75 unit (0.75 mL) subcut BID 90 06/24/24 07/17/24 Rx mL) subcutaneous pen (Lantus days #135 mL Solostar U-100 Insulin) insulin lispro 100 unit/mL 60 unit (0.6 mL) subcut TID 90 06/24/24 07/17/24 Rx subcutaneous pen (Humalog #165 mL (U-100) Insulin) OneTouch Ultra Test (blood sugar #50 ea 07/01/24 Rx diagnostic) allopurinol 100 mg tablet 200 mg (2 x 100 mg) PO QAM #180 07/01/24 07/17/24 Rx tabs clonidine HCl 0.1 mg tablet 0.2 mg (2 x 0.1 mg) PO TID #540 07/01/24 07/17/24 Rx tabs furosemide 40 mg tablet (Lasix) 80 mg (2 x 40 mg) PO BID Leg 07/01/24 07/17/24 Rx swelling or weight change #360 tabs calcitriol 0.25 mcg capsule 0.25 mcg PO 3XWK 07/17/24 07/17/24 History doxycycline hyclate 100 mg capsule 100 mg PO BID 07/17/24 07/17/24 History gentamicin 0.1 % topical cream 1 applic topical DAILY 07/17/24 07/17/24 History ketoconazole 2 % shampoo 1 applic topical .2-3 TIMES WEEKLY 07/17/24 07/17/24 History Past Med/Surg History Problem List (Updated 07/17/24 @ 21:05 by Jey Wu PA-C) Nausea and vomiting Headache Elevated troponin I level (Acute) Hypertension (Acute) Acute intractable headache (Acute) Obesity Central venous catheter in place 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) "Incidental finding of mass left conjunctiva at the time of cataract surgery Status post excision 03/02/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 Status post completion of radiation [id number] received 3060 cGy" On 03/24/16 11:07 Colleen Jasso wrote "Incidental finding of mass left conjunctiva at the time of cataract surgery Status post excision 03/02/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" Dysplastic nevi Controlled diabetes mellitus with renal manifestations Chronic osteoarthritis Stasis dermatitis Abnormal TSH Metabolic syndrome Uncontrolled hypertension Arthritis of right knee Chronic acquired lymphedema End stage chronic kidney disease UTI (urinary tract infection) Medical History Port-A-Cath in place unknown details type, right chest History of anesthesia reaction had nerve block for av fistual Nov 2022 - arm limp for about a week after - prefers not to have nerve block if possible for upcoming procedure. History of recent hospitalization [facility] last week /kidney failure. Anemia HTN (hypertension) Venous stasis ulcer of both lower extremities without varicose veins Venous stasis ulcers COPD (chronic obstructive pulmonary disease) stable per pt Diabetic peripheral neuropathy associated with type 2 diabetes mellitus Loss of protective sensation of skin of foot Venous ulcer size of pin hole/current right leg - upcoming wound clinic Jun 25 2023 - to evaluate for discharge. Type 2 diabetes mellitus with diabetic neuropathy, unspecified IDDM (has Dexcom reader) Cirrhosis of liver Chronic venous insufficiency DVT (deep venous thrombosis) (10/2021) 10/2021 right knee, treated with eliquis for several months Chronic diastolic heart failure Chronic kidney disease, stage 4 (severe) Follows with [facility] nephrology-dialysis Tues, Thur and Sat. 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 History of vascular access device a port right chest / ? type. S/P colonoscopy Status post endovenous radiofrequency ablation (RFA) of saphenous vein LLE and RLE 2021 S/P dilatation and curettage S/P tubal ligation S/P cholecystectomy Family History Father Prostate cancer Mother Myocardial infarction Deep vein thrombosis Denies family history of Ovarian cancer Breast cancer Lung cancer Colorectal cancer Social History Smoking Status: Never smoker Second Hand Exposure: No; Do You Dip or Chew Tobacco: No; Hx Alcohol Use: Yes Alcohol type: wine Alcohol Intake Frequency: Monthly or Less Hx Substance Use: No Preferred Language: Salvadorean Communication Ability: Effective Visual Impairment: No Limitations Hearing Ability: Normal District Adviser Required: No Beliefs That Will Affect Care: None marital status: Current Living Situation: Spouse Current Living Situation Comment: Patient lives at home with spouse and pet dog 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 occupational 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 [employer] How many Children do You have: 4 Feels Safe at Home: Yes Safety Concerns: Feels Safe At This Time Childhood Exposure to Second-Hand Smoke: Yes Diet: regular Diet Comment: Regular caffeine: Yes during the past year weight has: remained stable Dental Care, Regularly: Yes Physical Activity Frequency: 1-2 Times per Week Physical Activity Frequency Comment: walking Seatbelt Use: always Sunscreen Use: Yes Assistive Devices: Cane, Glasses and Oxygen - Continuous Assistive Devices Comment: Oxygen at home 2 liters Physical Exam Physical Exam: Physical Exam: General: In no acute distress, stated age, well-nourished, nontoxic-appearing HEENT: Normocephalic, atraumatic, no scleral icterus, pupils around round, symmetrical, and reactive to light, dry mucus membranes, trachea midline, no thyromegaly Chest/Pulm: No respiratory distress, symmetrical chest expansion, scattered expiratory wheezing Cardiac: RRR, no murmurs noted Abdomen: Negative for ascites and bruising, normoactive bowel sounds, soft, non-tender to palpation throughout Musculoskeletal: Symmetrical and without signs of acute trauma, upper and lower extremities with full ROM, no atrophy, spasticity, or flaccidity Extremities: Radial, dorsalis pedis, and posterior tibial pulses are intact and symmetrical, chronic lymphedema in the bilateral lower extremities Skin: Warm, dry, no rashes , lesions, or scars noted Neuro: Alert and oriented to person, place, month, year, and president, no focal defects, CN II-XII tested and intact,no tremors noted Psych: No acute distress, calm and cooperative during the exam Results & Data Results & Data Vital Signs (Past 12 Hours) Vital Signs Temp Pulse Pulse Resp BP BP Pulse Ox 07/17/24 19:40 71 20 202/79 H 97 07/17/24 19:15 71 20 166/138 H 85 L 07/17/24 19:00 71 20 129/102 H 94 07/17/24 17:52 68 07/17/24 17:42 72 16 223/92 H 98 07/17/24 15:53 36.6 C 70 18 207/75 H 94 O2 Del Method O2 Flow Rate 07/17/24 19:40 Nasal Cannula 2 07/17/24 19:15 Room Air 07/17/24 19:00 Room Air 07/17/24 17:52 07/17/24 17:42 07/17/24 15:53 Laboratory Results Abnormal lab results 07/17/24 07/17/24 Range/Units 16:55 17:51 WBC 11.86 H (4.8-10.8) K/ul RBC 4.17 L (4.20-5.40) M/uL RDW Std Deviation 51.0 H (36.4-46.3) fL MPV 9.1 L (9.4-12.4) fL Neut # (Auto) 10.23 H (1.40-6.50) K/uL Lymph # (Auto) 0.86 L (1.20-3.40) K/uL Carbon Dioxide 34 H (21-32) mmol/L BUN 30 H (6-23) mg/dl Creatinine 2.69 H (0.6-1.2) mg/dl Glucose 164 H (70-99(Fasting)) mg/dl Troponin I High Sens 68.0 H* (0-14) pg/ml Urine pH >= 9.0 H (4.5-7.5) Urine Protein 3+ H (Negative) U Epithel Cells (Auto) 6-10 H (0-2) /hpf Diagnostic Findings Head CT 07/17/24 17:45 Exam(s): CT HEAD Without Contrast EXAM: CT Head Without Intravenous Contrast CLINICAL HISTORY: Reason for exam: BUCKNER. TECHNIQUE: Axial computed tomography images of the head/brain without intravenous contrast. CTDI is 35.51 mGy and DLP is 624.41 mGy-cm. Automated exposure control was utilized for the study. A dose lowering technique was utilized adhering to the principles of ALARA. COMPARISON: CT head on 09/01/2010 FINDINGS: Brain: No acute infarct or hemorrhage identified. No extra-axial fluid collection. No mass effect or midline shift. Scattered areas of hypoattenuation in the supratentorial white matter likely represent chronic small vessel ischemic changes. Ventricles and sulci: Prominence of the ventricles and sulci is likely secondary to cerebral volume loss. Bones: Normal. No bony lesion or acute fracture. Subcutaneous tissues: Normal. Sinuses: Moderate mucosal thickening in the left maxillary sinus. Minimal mucosal thickening in the right maxillary sinus. Mastoid air cells: Normal. Orbits: Bilateral lens implants. Other: Atherosclerotic calcifications in the intracranial vasculature. IMPRESSION: 1. No acute intracranial abnormality. 2. Mild chronic small vessel ischemic changes and cerebral volume loss. Electronically signed by: Kristin Chow M.D. 07/17/24 20:12 PM ECG Additional Comments: Normal sinus rhythm without acute ST segment or T wave changes compared to previous Code Status & VTE Plan Code Status Full code VTE Prophylaxis Plan VTE Prophylaxis will be ordered: Yes Supervising Physician Co-Signing Physician Notes Attending addendum: I have physically seen this patient, have supervised the MOSES's activities, and agree with the H&P unless as otherwise noted. Assessment and Plan: Uncontrolled hypertension/elevated troponin/CAD- The patient will be admitted to telemetry for serial cardiac enzymes, serial EKG's, cardiac rhythm monitoring Current troponin 68.0, with follow-up pending Patient with elevated blood pressure associated with inability to take medications due to nausea and vomiting Patient has previously been on clonidine 0.2 mg p.o. 3 times daily, carvedilol 25 mg p.o. twice daily, hydralazine 100 mg p.o. 4 times daily, and isosorbide mononitrate 60 mg every morning, which will be resumed Will place patient on labetalol 10 mg IV every 4 hours as needed systolic blood pressure greater than 160 if heart rate is greater than 70 Hydralazine 10 mg IV every 4 hours as needed systolic blood pressure greater than 160 if heart rate less than 70 Headache- CT head without contrast negative Follow resolution of headache as blood pressure control improves Acetaminophen 650 mg by mouth every 6 hours as needed for mild pain or fever Nausea and vomiting- Likely secondary to gastroenteritis Symptomatic treatment with Zofran Stool PCR and C. difficile studies End-stage kidney disease- Presently on peritoneal dialysis, with last full session last evening Renal function laboratories stable Consult nephrology Remaining orders and notations as noted PG Care Time/CCT Total # of Minutes Spent Total Time Spent with Patient: Total time spent is greater than 50% in coordination of care (as documented) at patient's floor/unit and/or counseling patient: Coding [place] [address] INT INP/OBS CARE MIN Patient Type Established Medical Decision Making High Complexity Diagnoses Hypertension I10 Hypertension type: unspecified Headache R51.9 Elevated troponin I level R79.89 Nausea and vomiting R11.2 End stage chronic kidney disease N18.6 COPD (chronic obstructive pulmonary disease) J44.9 (1) Hypertension Hypertension type: unspecified Qualified Code(s): I10 - Essential (primary) hypertension
--- NOTE | 2024-07-17 20:13 | CT Scan Report ---
Exam(s): CT HEAD Without Contrast EXAM: CT Head Without Intravenous Contrast CLINICAL HISTORY: Reason for exam: BUCKNER. TECHNIQUE: Axial computed tomography images of the head/brain without intravenous contrast. CTDI is 35.51 mGy and DLP is 624.41 mGy-cm. Automated exposure control was utilized for the study. A dose lowering technique was utilized adhering to the principles of ALARA. COMPARISON: CT head on 09/01/2010 FINDINGS: Brain: No acute infarct or hemorrhage identified. No extra-axial fluid collection. No mass effect or midline shift. Scattered areas of hypoattenuation in the supratentorial white matter likely represent chronic small vessel ischemic changes. Ventricles and sulci: Prominence of the ventricles and sulci is likely secondary to cerebral volume loss. Bones: Normal. No bony lesion or acute fracture. Subcutaneous tissues: Normal. Sinuses: Moderate mucosal thickening in the left maxillary sinus. Minimal mucosal thickening in the right maxillary sinus. Mastoid air cells: Normal. Orbits: Bilateral lens implants. Other: Atherosclerotic calcifications in the intracranial vasculature. IMPRESSION: 1. No acute intracranial abnormality. 2. Mild chronic small vessel ischemic changes and cerebral volume loss. Electronically signed by: Kristin Chow M.D. 07/17/24 20:12 PM
[2024-07-17] MEDS ORDERED: PHARMACY GLYCEMIC MGMT CONSULT PRN (20:36)
[2024-07-17] MEDS ORDERED: GLUCOSE 40% GEL 15 GM TUBE PO PRN (20:36)
[2024-07-17] MEDS ORDERED: GLUCOSE 10 TAB/TUBE PO PRN (20:36)
[2024-07-17] MEDS ORDERED: DEXTROSE 50% 50 ML SYRINGE IV PRN (20:36)
[2024-07-17] MEDS ORDERED: CARBOHYDRATES FOR HYPOGLYCEMIA PO PRN (20:36)
[2024-07-17] MEDS ORDERED: GLUCAGON FOR INJ 1 MG VIAL SQ PRN (20:36)
[2024-07-17] MEDS: FAMOTIDINE 20MG IV PUSH 20 MG/5 ML SYR IV STA (20:59)
[2024-07-17] MEDS: hydrALAZINE HCL 20 MG/ML VIAL IV PRN (21:15)
[2024-07-17] MEDS: ONDANSETRON INJ 2 MG/ML 2 ML VIAL IV PRN (21:15)
[2024-07-17] MEDS: ONDANSETRON INJ 2 MG/ML 2 ML VIAL ONE (21:21)
[2024-07-17] MEDS ORDERED: ALBUTEROL HFA 8 GM INHALER INH PRN (21:37)
[2024-07-17] MEDS: PANTOprazole 40 MG in SYRINGE 0 ML IV ONE (22:28)
[2024-07-17] MEDS: carvediloL 25 MG TAB PO SCH (22:57)
[2024-07-17] MEDS: cloNIDine HCL 0.1 MG TAB PO SCH (22:57)
[2024-07-17] MEDS: DOXYCYCLINE HYCLATE 100 MG CAP PO SCH (22:57)
[2024-07-17] MEDS: SIMVASTATIN 40 MG TAB PO SCH (22:57)
[2024-07-17] MEDS: GABAPENTIN 300 MG CAP PO SCH (22:57)
[2024-07-17] MEDS: hydrALAZINE TAB 50 MG TAB PO SCH (23:01)
[2024-07-17] MEDS: INSULIN ASPART PER UNIT CHARGE SC STA (23:27)
[2024-07-17] MEDS: LANTUS PER UNIT CHARGE SQ STA (23:28)
[2024-07-18] MEDS: LABETALOL HCL IV 5 MG/ML 20ML IV PRN (03:16)
[2024-07-18] MEDS: ACETAMINOPHEN 1,000 MG/100 ML VIAL IV PRN (03:34)
[2024-07-18] MEDS: LANTUS PER UNIT CHARGE SQ STA (05:07)
--- NOTE | 2024-07-18 06:57 | XRay Report ---
XR chest 1V portable HISTORY: 74 years-old Female banks acute chest pain COMPARISON: 06/22/2023 TECHNIQUE: AP view the chest FINDINGS: Cardiac silhouette is enlarged. There is pulmonary vascular congestion with interstitial coarsening. No pneumothorax or large pleural effusion. Status post removal of the hemodialysis catheter. The bone s appear intact. An electronic device projects over the lateral right abdomen. IMPRESSION: Cardiomegaly with pulmonary vascular congestion. ACT 112: Negative or not required by law. The above report was generated using voice recognition software. It may contain grammatical, syntax o r spelling errors. Electronically signed by: Anibal Watts M.D. 07/18/2024 6:55 AM
[2024-07-18 07:24] LABS: Basophils # (auto) 0.05 K/uL (0.00-0.20); Basophils % (auto) 0.6 %; Eosinophils # (auto) 0.12 K/uL (0.00-0.50); Eosinophils % (auto) 1.3 %; Hematocrit (blood only) 36.9 % (37.0-47.0); Hemoglobin 11.9 g/dl (12.0-16.0); Immature Granulocytes # (auto) 0.04 K/uL (0.01-0.20); Immature Granulocytes % (auto) 0.4 %; Lymphocytes # (auto) 1.67 K/uL (1.20-3.40); Lymphocytes % (auto) 18.6 %; Mean Corpuscular Hemoglobin 32.1 pg (25.0-34.0); Mean Corpuscular Hgb Conc 32.2 g/dL (32.0-36.0); Mean Corpuscular Volume 99.5 fL (80.0-100.0); Mean Platelet Volume 9.3 fL (9.4-12.4); Monocytes # (auto) 0.71 K/uL (0.11-0.59); Monocytes % (auto) 7.9 %; Neutrophils # (auto) 6.41 K/uL (1.40-6.50); Neutrophils % (auto) 71.2 %; Platelet Count 204 K/uL (130-400); RDW Coefficient of Variation 14.6 % (11.5-14.5); RDW Standard Deviation 53.2 fL (36.4-46.3); Red Blood Count 3.71 M/uL (4.20-5.40)
[2024-07-18 07:48] LABS: Albumin Globulin Ratio 1.2 (0.9-2); Albumin Level 3.3 gm/dl (3.4-5.0); BUN Creatinine Ratio 10.7 (10-20); Bilirubin,Total 0.3 mg/dl (0.2-1.0); Calcium 8.7 mg/dl (8.6-10.3); Creatinine Clr Calc Pharmacy 21.1 ml/min; Est GFR (African American) 17.9 ml/min; Est GFR (Non-African American) 15.4 ml/min; Globulin 2.7 gm/dl (2.5-4.0); Magnesium 1.6 mg/dl (1.7-2.4); Potassium 3.4 mmol/L (3.5-5.1)
[2024-07-18 07:52] LABS: INR 1.1 (0.9-1.1); Prothrombin Time 11.6 Seconds (9.0-12.0)
[2024-07-18] MEDS: INSULIN ASPART PER UNIT CHARGE SC SCH (08:35)
[2024-07-18] MEDS: LANTUS PER UNIT CHARGE SC ONE (08:39)
[2024-07-18] MEDS ORDERED: LANTUS PER UNIT CHARGE SQ SCH (09:00)
[2024-07-18] MEDS: allopurinoL 100 MG TAB PO SCH (09:45)
[2024-07-18] MEDS: PANTOprazole 40 MG TAB PO SCH (09:46)
[2024-07-18] MEDS: CALCITRIOL 0.25 MCG CAPSULE PO SCH (09:47)
[2024-07-18] MEDS: ISOSORBIDE MONO EXTENDED REL 60 MG TABCR PO SCH (09:48)
--- NOTE | 2024-07-18 10:23 | Nephrology Consultation ---
Date of Consultation July 18, 2024 Assessment & Plan (1) End stage chronic kidney disease: * ESKD due to DKD, hypertensive nephrosclerosis, R heart failure and microvascular disease * NCCPD 7x/week, 4 exchanges/night, 2L fill vol, 2.5% Delflex, 90 min dwell, EDW 117 kg * Will provide PD tonight according to outpatient orders (2) Nausea and vomiting: * Suspect viral gastroenteritis * Patient is afebrile without leukocytosis this am * She has no abdominal pain and abdominal exam is benign. PD exit site has no erythema or drainage * Will order peritoneal fluid for cell count, differential, gram stain, C&S * Hold antibiotic therapy at this time as patient has no fever, leukocytosis and abdominal exam is benign (3) Hypertension: * Hypertensive urgency due to N&V, inability to keep down oral medications * Now tolerating oral diet & medications. BP improved. Resume home medications History of Present Illness Reason for Consultation: ESKD-D Attending Physician: Aaron Damian MD History of Present Illness Mrs. Poe is a 74-year-old white female who is seen at the request of [facility] hospitalist service to provide inpatient hemodialysis to assist with medical management. Information for the HPI is obtained from direct patient interview and review of the EMR. HPI is summarized as follows: Mrs. Poe has ESKD due to DKD, hypertensive nephrosclerosis, R heart failure and microvascular disease. She underwent L BC AVF creation by Dr. Tello 12/22/22 and started HD 06/20. 02/19 Mrs. Poe had PD catheter placed by Dr. Figueredo. She transitioned of NCCPD 06/21. Her outpatient PD regimen consists of NCCPD 7x/week, 4 exchanges/night, 2L fill vol, 2.5% Delflex, 90 min dwell, EDW 117 kg. Mrs. Poe was admitted last evening due to nausea, diarrhea and recurrent emesis. She was unable to take her antihypertensive medication and developed a severe headache. Upon pr esentation to the emergency department her systolic pressure was greater than 200 mmHg. Since admission to the hospital she has been given IV Zofran. She has been able to take her blood pressure medication. Systolic blood pressure has improved to 155 mmHg. She remains nauseated but currently denies fever, abdominal pain. Her diarrhea has resolved. She reports no complications with her peritoneal dialysis. Specifically she has had no inflow or drainage pain. She reports that her effluent is clear. 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 Allergies Allergy/AdvReac Type Severity Reaction Status Date / Time amlodipine Allergy Intermediate swelling Verified 07/17/24 16:52 of feet tramadol Allergy Intermediate "FELT Verified 07/17/24 16:52 WEIRD" Home Medications Medication Instructions Recorded Confirmed Type acetaminophen 500 mg capsule 500 mg PO QID PRN Pain 04/04/19 07/17/24 History cyanocobalamin (vitamin B-12) 1,000 mcg IM MONTHLY 04/04/19 07/17/24 History 1,000 mcg/mL injection solution Oxygen Home 09/04/19 03/27/24 History blood-glucose meter,continuous 08/23/21 03/27/24 History (Dexcom G6 Engine Testing Supervisor) blood-glucose sensor (Dexcom G6 08/23/21 03/27/24 History Sensor device) blood-glucose transmitter (Dexcom 08/23/21 03/27/24 History G6 Transmitter device) lancets 33 gauge (OneTouch Delica #100 ea 06/29/22 03/27/24 Rx Lancets) Walking Cane #1 ea 10/05/22 03/27/24 Rx ipratropium 20 mcg-albuterol 100 1 puff inhalation Q6H PRN 10/11/22 07/17/24 Rx mcg/actuation mist for inhalation sob/wheezing #4 grams (Combivent Respimat) pen needle, diabetic 31 gauge x #500 ea 12/14/22 03/27/24 Rx 5/16" (BD Ultra-Fine Short Pen Needle) diclofenac sodium 1 % topical gel 1 g topical TID PRN Pain #100 grams 08/22/23 07/17/24 Rx albuterol sulfate 90 mcg/actuation 2 puff inhalation QID PRN 09/07/23 07/17/24 Rx aerosol inhaler shortness of breath or wheezing #6.7 grams simvastatin 40 mg tablet (Zocor) 40 mg PO QPM #90 tabs 10/30/23 07/17/24 Rx pantoprazole 40 mg tablet,delayed 40 mg PO QAM #90 tabs 11/12/23 07/17/24 Rx release colchicine 0.6 mg tablet (Colcrys) See Rx Instructions .Route 03/27/24 07/17/24 Rx .COMPLEX #3 tabs gabapentin 300 mg capsule 300 mg PO HS #90 caps 03/27/24 07/17/24 Rx hydralazine 100 mg tablet 100 mg PO QID #360 tabs 03/27/24 07/17/24 Rx isosorbide mononitrate 60 mg 60 mg PO QAM #90 tabs 03/27/24 07/17/24 Rx tablet,extended release 24 hr carvedilol 25 mg tablet 25 mg PO BID #180 tabs 05/12/24 07/17/24 Rx semaglutide 2 mg/dose (8 mg/3 mL) 2 mg (0.75 mL) subcut Q7D #3 mL 05/30/24 07/17/24 Rx subcutaneous pen injector (Ozempic) insulin glargine 100 unit/mL (3 75 unit (0.75 mL) subcut BID 90 06/24/24 07/17/24 Rx mL) subcutaneous pen (Lantus days #135 mL Solostar U-100 Insulin) insulin lispro 100 unit/mL 60 unit (0.6 mL) subcut TID 90 06/24/24 07/17/24 Rx subcutaneous pen (Humalog KwikPen days #165 mL (U-100) Insulin) OneTouch Ultra Test (blood sugar #50 ea 07/01/24 Rx diagnostic) allopurinol 100 mg tablet 200 mg (2 x 100 mg) PO QAM #180 07/01/24 07/17/24 Rx tabs clonidine HCl 0.1 mg tablet 0.2 mg (2 x 0.1 mg) PO TID #540 07/01/24 07/17/24 Rx tabs furosemide 40 mg tablet (Lasix) 80 mg (2 x 40 mg) PO BID Leg 07/01/24 07/17/24 Rx swelling or weight change #360 tabs calcitriol 0.25 mcg capsule 0.25 mcg PO 3XWK 07/17/24 07/17/24 History doxycycline hyclate 100 mg capsule 100 mg PO BID 07/17/24 07/17/24 History gentamicin 0.1 % topical cream 1 applic topical DAILY 07/17/24 07/17/24 History ketoconazole 2 % shampoo 1 applic topical .2-3 TIMES WEEKLY 07/17/24 07/17/24 History Patient History Medical History Port-A-Cath in place unknown details type, right chest History of anesthesia reaction had nerve block for av fistual Nov 2022 - arm limp for about a week after - prefers not to have nerve block if possible for upcoming procedure. History of recent hospitalization [facility] last week /kidney failure. Anemia HTN (hypertension) Venous stasis ulcer of both lower extremities without varicose veins Venous stasis ulcers COPD (chronic obstructive pulmonary disease) stable per pt Diabetic peripheral neuropathy associated with type 2 diabetes mellitus Loss of protective sensation of skin of foot Venous ulcer size of pin hole/current right leg - upcoming wound clinic Jun 25 2023 - to evaluate for discharge. Type 2 diabetes mellitus with diabetic neuropathy, unspecified IDDM (has Dexcom reader) Cirrhosis of liver Chronic venous insufficiency DVT (deep venous thrombosis) (10/2021) 10/2021 right knee, treated with eliquis for several months Chronic diastolic heart failure Chronic kidney disease, stage 4 (severe) Follows with [facility]-dialysis [facility] and [facility]. 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 History of vascular access device a port right chest / ? type. S/P colonoscopy Status post endovenous radiofrequency ablation (RFA) of saphenous vein LLE and RLE 2021 S/P dilatation and curettage S/P tubal ligation S/P cholecystectomy Family History Father Prostate cancer Mother Myocardial infarction Deep vein thrombosis Denies family history of Ovarian cancer Breast cancer Lung cancer Colorectal cancer Social History Smoking Status: Never smoker Second Hand Exposure: No; Do You Dip or Chew Tobacco: No; Hx Alcohol Use: Yes Alcohol type: wine Alcohol Intake Frequency: Monthly or Less Hx Substance Use: No Preferred Language: Tajik Communication Ability: Effective Visual Impairment: No Limitations Hearing Ability: Normal Oil Expeller Required: No Beliefs That Will Affect Care: None marital status: Current Living Situation: Spouse Current Living Situation Comment: Patient lives at home with spouse and pet dog 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 occupational 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 [employer] How many Children do You have: 4 Feels Safe at Home: Yes Safety Concerns: Feels Safe At This Time Childhood Exposure to Second-Hand Smoke: Yes Diet: regular Diet Comment: Regular caffeine: Yes during the past year weight has: remained stable Dental Care, Regularly: Yes Physical Activity Frequency: 1-2 Times per Week Physical Activity Frequency Comment: walking Seatbelt Use: always Sunscreen Use: Yes Assistive Devices: Cane, Glasses and Oxygen - Continuous Assistive Devices Comment: Oxygen at home 2 liters Review of Systems Constitutional: no fever Eyes: no problem reported Ear, Nose, Mouth, Throat: no problem reported Respiratory: no cough and no dyspnea Cardiovascular: no chest pain Gastrointestinal: + nausea; no abdominal pain, no vomiting and no diarrhea/loose stools Integumentary: no problem reported Physical Exam Constitutional: not in distress Eyes: PERRL, conjunctivae normal, anicteric sclerae ENMT: external ear and nose normal, oropharynx normal Neck: trachea midline, no thyromegaly Respiratory: normal respiratory effort, lungs clear to auscultation Cardiovascular: Rate/Rhythm: regular rate and regular rhythm Extremities: no edema Gastrointestinal (Abdomen): Inspection/Auscultation: abdomen normal to inspection and normal bowel sounds PD exit site without erythema or drainage Musculoskeletal: Extremities: no cyanosis Skin: no rashes, warm and dry Neurologic: Speech / Cognition: normal speech and normal cognition Psychiatric: Affect: euthymic affect Results & Data Vital Signs (Past 12 Hours) Vital Signs Temp Pulse Pulse Resp BP BP Pulse Ox 07/18/24 08:09 76 07/18/24 07:20 37.2 C 73 16 155/76 H 98 07/18/24 04:00 97 07/18/24 03:57 73 145/68 H 07/18/24 03:16 90 181/72 H 07/18/24 03:01 37 C 90 16 181/72 H 95 07/17/24 22:56 37.4 C 74 18 169/74 H 98 07/17/24 22:31 37.3 C 78 18 174/117 H 98 O2 Del Method O2 Flow Rate 07/18/24 08:09 07/18/24 07:20 Nasal Cannula 2 07/18/24 04:00 Nasal Cannula 3 07/18/24 03:57 07/18/24 03:16 07/18/24 03:01 Nasal Cannula 4 07/17/24 22:56 Nasal Cannula 4 07/17/24 22:31 Nasal Cannula 4 Laboratory Results Laboratory Results WBC 9.00 K/ul (4.8-10.8) 07/18/24 06:50 RBC 3.71 M/uL (4.20-5.40) L 07/18/24 06:50 Hgb 11.9 g/dl (12.0-16.0) L 07/18/24 06:50 Hct 36.9 % (37.0-47.0) L 07/18/24 06:50 MCV 99.5 fL (80.0-100.0) 07/18/24 06:50 MCH 32.1 pg (25.0-34.0) 07/18/24 06:50 MCHC 32.2 g/dL (32.0-36.0) 07/18/24 06:50 RDW Std Deviation 53.2 fL (36.4-46.3) H 07/18/24 06:50 RDW Coeff of Marcus 14.6 % (11.5-14.5) H 07/18/24 06:50 Plt Count 204 K/uL (130-400) 07/18/24 06:50 MPV 9.3 fL (9.4-12.4) L 07/18/24 06:50 Immature Gran % (Auto) 0.4 % 07/18/24 06:50 Neut % (Auto) 71.2 % 07/18/24 06:50 Lymph % (Auto) 18.6 % 07/18/24 06:50 [place] % (Auto) 7.9 % 07/18/24 06:50 Eos % (Auto) 1.3 % 07/18/24 06:50 Baso % (Auto) 0.6 % 07/18/24 06:50 Neut # (Auto) 6.41 K/uL (1.40-6.50) 07/18/24 06:50 Lymph # (Auto) 1.67 K/uL (1.20-3.40) 07/18/24 06:50 [place] # (Auto) 0.71 K/uL (0.11-0.59) H 07/18/24 06:50 Eos # (Auto) 0.12 K/uL (0.00-0.50) 07/18/24 06:50 Baso # (Auto) 0.05 K/uL (0.00-0.20) 07/18/24 06:50 Immature Gran # (Auto) 0.04 K/uL (0.01-0.20) 07/18/24 06:50 PT 11.6 Seconds (9.0-12.0) 07/18/24 06:50 INR 1.1 (0.9-1.1) 07/18/24 06:50 APTT 24 Seconds (21-31) 07/17/24 18:25 PTT Ratio 0.9 07/17/24 18:25 Sodium 144 mmol/L (136-145) 07/18/24 06:50 Potassium 3.4 mmol/L (3.5-5.1) L 07/18/24 06:50 Chloride 101 mmol/L (98-107) 07/18/24 06:50 Carbon Dioxide 35 mmol/L (21-32) H 07/18/24 06:50 Anion Gap 8 (3-11) 07/18/24 06:50 BUN 31 mg/dl (6-23) H 07/18/24 06:50 Creatinine 2.90 mg/dl (0.6-1.2) H 07/18/24 06:50 Est Cr Clr Drug Dosing 21.1 ml/min 07/18/24 06:50 Est GFR ( Amer) 17.9 ml/min 07/18/24 06:50 Est GFR (Non-Af Amer) 15.4 ml/min 07/18/24 06:50 BUN/Creatinine Ratio 10.7 (10-20) 07/18/24 06:50 Glucose 121 mg/dl (70-99(Fasting)) H 07/18/24 06:50 POC Glucose 139 mg/dl (70-99) H 07/18/24 07:16 Calcium 8.7 mg/dl (8.6-10.3) 07/18/24 06:50 Magnesium 1.6 mg/dl (1.7-2.4) L 07/18/24 06:50 Total Bilirubin 0.3 mg/dl (0.2-1.0) 07/18/24 06:50 AST 22 U/L (13-39) 07/18/24 06:50 ALT 13 U/L (7-52) 07/18/24 06:50 Alkaline Phosphatase 77 U/L (34-104) 07/18/24 06:50 Troponin I High Sens 84.6 pg/ml (0-14) H* 07/18/24 03:18 Total Protein 6.0 gm/dl (6.0-8.3) 07/18/24 06:50 Albumin 3.3 gm/dl (3.4-5.0) L 07/18/24 06:50 Globulin 2.7 gm/dl (2.5-4.0) 07/18/24 06:50 Albumin/Globulin Ratio 1.2 (0.9-2) 07/18/24 06:50 Lipase 36 U/L (11-82) 07/17/24 16:55 HCG, Qual Negative (Negative) 07/17/24 16:55 Urine Color Yellow 07/17/24 17:51 Urine Appearance Clear (Clear) 07/17/24 17:51 Urine pH >= 9.0 (4.5-7.5) H 07/17/24 17:51 Ur Specific [place] 1.017 (1.000-1.030) 07/17/24 17:51 Urine Protein 3+ (Negative) H 07/17/24 17:51 Urine Glucose (UA) Negative (Negative) 07/17/24 17:51 Urine Ketones Negative (Negative) 07/17/24 17:51 Urine Blood Negative (Negative) 07/17/24 17:51 Urine Nitrite Negative (Negative) 07/17/24 17:51 Urine Bilirubin Negative (Negative) 07/17/24 17:51 Urine Urobilinogen Negative (Negative) 07/17/24 17:51 Ur Leukocyte Esterase Negative (Negative) 07/17/24 17:51 Urine WBC (Auto) 0-5 /hpf (0-5) 07/17/24 17:51 Urine RBC (Auto) 0-2 /hpf (0-2) 07/17/24 17:51 U Hyaline Cast (Auto) 0-2 /lpf (0-2) 07/17/24 17:51 U Epithel Cells (Auto) 6-10 /hpf (0-2) H 07/17/24 17:51 Urine Bacteria (Auto) None Seen (None Seen) 07/17/24 17:51 SARS-CoV-2 (PCR) NEGATIVE (Negative) 07/17/24 19:24 Influenza Type A (PCR) Negative (Neg) 07/17/24 19:24 Influenza Type B (PCR) Negative (Neg) 07/17/24 19:24 RSV (RT-PCR) Negative (Neg) 07/17/24 19:[address] 07/17/24 17:45 Exam(s): CT HEAD Without Contrast EXAM: CT Head Without Intravenous Contrast CLINICAL HISTORY: Reason for exam: BUCKNER. TECHNIQUE: Axial computed tomography images of the head/brain without intravenous contrast. CTDI is 35.51 mGy and DLP is 624.41 mGy-cm. Automated exposure control was utilized for the study. A dose lowering technique was utilized adhering to the principles of ALARA. COMPARISON: CT head on 09/01/2010 FINDINGS: Brain: No acute infarct or hemorrhage identified. No extra-axial fluid collection. No mass effect or midline shift. Scattered areas of hypoattenuation in the supratentorial white matter likely represent chronic small vessel ischemic changes. Ventricles and sulci: Prominence of the ventricles and sulci is likely secondary to cerebral volume loss. Bones: Normal. No bony lesion or acute fracture. Subcutaneous tissues: Normal. Sinuses: Moderate mucosal thickening in the left maxillary sinus. Minimal mucosal thickening in the right maxillary sinus. Mastoid air cells: Normal. Orbits: Bilateral lens implants. Other: Atherosclerotic calcifications in the intracranial vasculature. IMPRESSION: 1. No acute intracranial abnormality. 2. Mild chronic small vessel ischemic changes and cerebral volume loss. Electronically signed by: Kristin Chow M.D. 07/17/24 20:12 PM Chest X-Ray 07/17/24 19:19 XR chest 1V portable HISTORY: 74 years-old Female buckner acute chest pain COMPARISON: 06/22/2023 TECHNIQUE: AP view the chest FINDINGS: Cardiac silhouette is enlarged. There is pulmonary vascular congestion with interstitial coarsening. No pneumothorax or large pleural effusion. Status post removal of the hemodialysis catheter. The bones appear intact. An electronic device projects over the lateral right abdomen. IMPRESSION: Cardiomegaly with pulmonary vascular congestion. ACT 112: Negative or not required by law. The above report was generated using voice recognition software. It may contain grammatical, syntax or spelling errors. Electronically signed by: Anibal Watts M.D. 07/18/2024 6:55 AM PG Care Time/CCT Total # of Minutes Spent Total Time Spent with Patient: Total time spent is greater than 50% in coordination of care (as documented) at patient's floor/unit and/or counseling patient: Coding Level of Care Code 16817 IN/OBS CONSULT LVL 5,80M Diagnoses End stage chronic kidney disease N18.6 Nausea and vomiting R11.2 Hypertension I10 Hypertension type: unspecified (3) Hypertension Hypertension type: unspecified Qualified Code(s): I10 - Essential (primary) hypertension
--- NOTE | 2024-07-18 12:17 | Electrocardiogram Report ---
Test Reason : Blood Pressure : */* mmHG Vent. Rate : 74 BPM Atrial Rate : 74 BPM P-R Int : 158 ms QRS Dur : 82 ms QT Int : 422 ms P-R-T Axes : 53 45 58 degrees QTcB Int : 468 ms Normal sinus rhythm Low voltage QRS Borderline ECG When compared with ECG of 12-Jun-2023 17:16, No significant change was found Confirmed by Tripp Pereira ([id number]) on 07/18/2024 12:16:41 PM Referred By: REFERRED SELF Confirmed By: Tripp Pereira
--- NOTE | 2024-07-18 13:33 | Hospitalist Progress Note ---
Date of Service July 18, 2024 Assessment & Plan (1) Hypertensive urgency: Plan: Admitted to blood pressure of 200 systolic with headache with nausea and vomiting CT scan of the head did not show any acute pathology blood pressure now under better control following IV hydralazine and labetealol (2) Headache: Plan: Patient has been experiencing a frontal headache since her hypertension starte d CT of the head and brain without contrast was negative for acute findings, no focal neuro defects on exam Suspect this is mainly due to her hypertension caused by poor p.o. intake and inability to keep her home meds down over the past day No focal neurologic changes, unsure if this is a migraine as symptoms started after she was unable to keep her antihypertensives down and became hypotensive For now we will work on controlling her blood pressure and continuing as needed Tylenol (3) Elevated troponin I level: Plan: Initial high-sensitivity troponin elevated at 68, repeat is in process which was ordered at time of the admission Patient denies recent chest pain/discomfort, no acute ST segment or T wave changes on ECG Suspect her troponin is elevated due to her hypertension and end-stage renal disease status Will follow repeat high-sensitivity troponin and continue to monitor on telemetry (4) Nausea and vomiting: Plan: Suspect patient's nausea and vomiting is due to gastroenteritis Lower suspicion for food poisoning at this time as multiple other family numbers ate from the same restaurant without similar symptoms Patient for multiple times she is without abdominal discomfort, low suspicion for peritonitis at this time Has been also associated with multiple episodes of nonbloody diarrhea over the past 12 hours No recent antibiotic for well water use Will try to obtain stool studies if she has further episodes, hold antidiarrheals for now Continue as needed Zofran (5) End stage chronic kidney disease: Plan: Currently uses nightly home peritoneal dialysis with a full session last night Renal function electrolytes currently stable Nephrology has been consulted to assist with dialysis during admission Patient does have left upper extremity AV fistula which was last used in March of this year Monitor daily renal function electrolytes (6) COPD (chronic obstructive pulmonary disease): Plan: In no respiratory distress, mild expiratory wheezing Patient uses 2 L nasal cannula O2 at night instead of CPAP for her NAE Continue incentive spirometry, as needed albuterol and home breathing treatments As needed O2 to keep SpO2 between 89-92% (7) Morbid obesity: Plan: Advised on diet and exercise and lifestyle changes (8) Chronic congestive heart failure: Plan: Appears compensated (9) Hypertension: Plan: Admit to the PCU on telemetry and pulse oximetry Currently still hypertensive at 208/83 but otherwise stable Presented to the ED with nausea, vomiting, nonbloody diarrhea, headache, and hypertension Patient confirms that symptoms started with nausea/vomiting and diarrhea, hypertension and headache following Confirms she has not had any antihypertensives today due to her symptoms which is likely what is driving her hypertension at the time of admission Patient is on home clonidine, hydralazine, carvedilol, suspect she is experiencing significant rebound hypertension due to not taking home clonidine No focal neuro defects, no acute changes and CT temporal without contrast For now will plan to resume her home antihypertensives when she is able to tolerate p.o. intake Will start as needed IV hydralazine every 4 hours for systolic blood pressure greater than 180 mmHg/diastolic blood pressure greater than 110 mmHg for heart rate < 70 Will start as needed IV labetalol every 4 hours for systolic blood pressure greater than 180 mmHg/diastolic blood pressure greater than 110 mmHg for heart rate > 70 Bilateral SCDs for DVT prophylaxis Clear liquid diet for now AM CBC, CMP, mag, PT/INR Plan Due to monitor in the hospital, hopefully discharge in the next 24 hours Admission and Anticipated Discharge Date Admission Date: July 17, 2024 Subjective Patient seen and examined, still having some mild headache, but nausea improved Review of Systems Review of Systems: All systems reviewed are negative, apart from the ones contained in the history. Physical Exam Physical Exam: The patient is awake, alert and oriented 3, well developed and well nourished, normocephalic and atraumatic, lying in bed and in no acute distress. HEENT--PERRL, EOMI, mucous membranes and oropharynx mildly dry Neck--supple. No JVD. No bruits. Thyroid normal, trachea midline, no adenopathy. Heart--normal S1 and S2. No murmurs, rubs or gallops. Lungs--clear bilaterally, no respiratory distress, no accessory muscle use. Abdomen--normal bowel sounds and soft. Extremities--no cyanosis or clubbing. No edema. Dermatologic--normal skin turgor, normal color, no abnormal lymph nodes, no rash. Neurologic--cranial nerves II through XII grossly intact. Rheumatologic--normal range of motion. Psychiatric--normal affect. Results & Data Results & Data Vital Signs (Past 12 Hours) Vital Signs Temp Pulse Pulse Resp BP BP Pulse Ox 07/18/24 11:04 98.6 F 79 18 105/57 L 93 07/18/24 09:00 88 L 07/18/24 08:09 76 07/18/24 07:20 99.0 F 73 16 155/76 H 98 07/18/24 04:00 97 07/18/24 03:57 73 145/68 H 07/18/24 03:16 90 181/72 H 07/18/24 03:01 98.6 F 90 16 181/72 H 95 O2 Del Method O2 Flow Rate 07/18/24 11:04 Nasal Cannula 2 07/18/24 09:00 Room Air 07/18/24 08:09 07/18/24 07:20 Nasal Cannula 2 07/18/24 04:00 Nasal Cannula 3 07/18/24 03:57 07/18/24 03:16 07/18/24 03:01 Nasal Cannula 4 PG Care Time/CCT Total # of Minutes Spent Total Time Spent with Patient: Total time spent is greater than 50% in coordination of care (as documented) at patient's floor/unit and/or counseling patient: Coding Level of Care Code 57828 SUB INP/OBS CARE 2/35MIN Diagnoses Hypertensive urgency I16.0 Headache R51.9 Elevated troponin I level R79.89 Nausea and vomiting R11.2 End stage chronic kidney disease N18.6 COPD (chronic obstructive pulmonary disease) J44.9 Morbid obesity E66.01 Chronic congestive heart failure I50.9 Hypertension I10 Hypertension type: unspecified Time Spent (min) 35 (9) Hypertension Hypertension type: unspecified Qualified Code(s): I10 - Essential (primary) hypertension
--- NOTE | 2024-07-18 14:43 | Pharmacy Report ---
Pharmacy Glycemic Short Note 2 - Date of Service July 18, 2024 - Glycemic Short BSG Results (Last 24 hours): 07/17/24 07/17/24 07/18/24 16:55 22:08 06:50 Glucose 164 H 121 H POC Glucose 183 H 07/18/24 07/18/24 07:16 11:30 Glucose POC Glucose 139 H 142 H OUTPATIENT ANTIDIABETIC REGIMEN: * Lantus 75 units SQ bid * Lispro 60 units SQ tid * Ozempic 2mg SQ weekly HbA1C 6.8% on 06/12/24 ASSESSMENT: * 74yo F admitted on 07/17 for acute intractable headache and acute hypertension. She also presents with nausea, vomiting, and diarrhea and reported not eating 07/17 due to this. She is a Type 2 diabetic and pharmacy has been consulted to assist with inpatient glycemic management * BSG upon presentation last evening was 183. Half of home basal insulin was initiate last evening and this morning due to N/V/D. Fasting BSG improved to 121 this morning. * Novolog initiated at weight based stress of 2 PLAN FOR INPATIENT GLYCEMIC CONTROL: * Basal insulin * Lantus 35 units SQ 07/17 PM x 1 * Lantus 35 units SQ 07/18 AM x 1 * Basal scale (10-35 units) going forward bid * Bolus insulin * NovoLog per scale ACHS or Q6hrs while NPO * Goal Range: Low 110 mg/dL - High 140 mg/dL * Correction Factor: 20 mg/dL/unit * Nutritional / Prandial insulin per carb ratio of 1 unit per 7 grams CHO consumed
[2024-07-18 19:27] LABS: Appearance Peritoneal Fluid Clear; Color Peritoneal Fluid Colorless; Eosinophils, Fluid 2 %; Lymphocytes, Fluid 6 %; Mono,Macrophage,Mesothelial 84 %; Neutrophils, Fluid 8 %; RBC Peritoneal Fluid Auto < 2000 /uL; WBC Peritoneal Fluid Auto 37 /ul (0-300)
[2024-07-18] MEDS: LANTUS PER UNIT CHARGE SC SCH (21:16)
[2024-07-19 08:28] VITALS: BP 131/72; RESP 17; TEMP 98.6; O2SAT 93
[2024-07-19 08:42] LABS: Basophils # (auto) 0.03 K/uL (0.00-0.20); Basophils % (auto) 0.3 %; Eosinophils % (auto) 1.9 %; Hematocrit (blood only) 35.5 % (37.0-47.0); Hemoglobin 11.5 g/dl (12.0-16.0); Immature Granulocytes # (auto) 0.04 K/uL (0.01-0.20); Immature Granulocytes % (auto) 0.4 %; Lymphocytes % (auto) 13.5 %; Mean Corpuscular Hgb Conc 32.4 g/dL (32.0-36.0); Mean Corpuscular Volume 98.9 fL (80.0-100.0); Mean Platelet Volume 8.9 fL (9.4-12.4); Monocytes # (auto) 0.78 K/uL (0.11-0.59); Monocytes % (auto) 7.5 %; Neutrophils # (auto) 7.91 K/uL (1.40-6.50); Neutrophils % (auto) 76.4 %; Platelet Count 193 K/uL (130-400); RDW Coefficient of Variation 14.6 % (11.5-14.5); RDW Standard Deviation 53.6 fL (36.4-46.3); Red Blood Count 3.59 M/uL (4.20-5.40); White Blood Count 10.36 K/ul (4.8-10.8)
[2024-07-19 09:02] LABS: Albumin Globulin Ratio 1.2 (0.9-2); Albumin Level 3.5 gm/dl (3.4-5.0); BUN Creatinine Ratio 8.8 (10-20); Bilirubin,Total 0.4 mg/dl (0.2-1.0); Calcium 8.8 mg/dl (8.6-10.3); Creatinine Clr Calc Pharmacy 15.8 ml/min; Est GFR (African American) 12.7 ml/min; Est GFR (Non-African American) 10.9 ml/min; Magnesium 1.6 mg/dl (1.7-2.4); Potassium 3.4 mmol/L (3.5-5.1); Total Protein 6.5 gm/dl (6.0-8.3)
[2024-07-19 09:06] LABS: INR 1.1 (0.9-1.1); Prothrombin Time 11.6 Seconds (9.0-12.0)
[2024-07-19 10:00] VITALS: PULSE 77
--- NOTE | 2024-07-19 10:50 | Discharge Summary ---
Date of Service July 19, 2024 Admission HPI Per Admitting Provider Marika is a 74-year-old female with a past medical history significant for end-stage renal disease previously on hemodialysis but recently switched peritoneal dialysis, COPD and NAE on 2 L at bedtime O2, hypertension, diabetes mellitus who presented to [facility] ED on 07/17/2024 with complaints of nausea, vomiting, headache, and hypertension. On arrival she was noted to be hypertensive at 223/92 but was initially otherwise stable. After initially receiving 12.5 mg IV diphenhydramine and 12.5 mg promethazine she became hypoxic at 85% on room air initially. Labs were significant for a leuk ocytosis of 11 with neutrophil predominance of 10, creatinine of 2.69, initial high-sensitivity troponin of 68, UA with 3+ protein otherwise unremarkable, with SARS-CoV-2, influenza, and RSV screens in process. ECG showed normal sinus rhythm without acute ST segment or T wave changes. Prior to admission the patient was given 1 g IV Tylenol, 12.5 mg IV Benadryl, 5 mg IV hydralazine, 4 mg IV Zofran, and 12.5 mg IV promethazine. Patient was seen in bed no acute distress at time of exam with her daughter sitting bedside, history is obtained from both. Patient explains that she started develop nausea with nonbloody emesis overnight. This has been associated with approximately 5 total episodes of nonbloody diarrhea over the past 24 hours. Denies recent fever, chills, chest pain, shortness of breath, cough, abdominal pain, bloody diarrhea. When asked, she does still make urine but denies recent dysuria or increased urinary frequency. She currently uses nightly peritoneal dialysis and confirms that she had a full session overnight. Again confirms that she has been without any abdominal pain/discomfort with her other symptoms. She has not been able to take any of her home medications since last night which includes her home clonidine, carvedilol, hydralazine, and Imdur. Denies recent antibiotic use, they state that she did have a hoagie approximately 48 hours ago but multiple other family members also had similar food and her without symptoms. No recent well water use. Symptoms are improved but not completely resolved at this time. When asked about her headache, she st ates that is mainly a frontal headache. Confirms that she does have a previous history of migraine headaches and confirms that she has been experiencing some photophobia at times since the beginning of her headache. No recent changes in vision, hearing, taste, smell, new paresthesias, or unilateral weakness. Confirm she is a full code and would want her daughter to make medical decisions for her if she amicable herself. Admission Exam (Per Admitting) Constitutional The patient is awake, alert and oriented 3, well developed and well nourished, normocephalic and atraumatic, lying in bed and in no acute distress. HEENT--PERRL, EOMI, mucous membranes and oropharynx mildly dry Neck--supple. No JVD. No bruits. Thyroid normal, trachea midline, no adenopathy. Heart--normal S1 and S2. No murmurs, rubs or gallops. Lungs--clear bilaterally, no respiratory distress, no accessory muscle use. Abdomen--normal bowel sounds and soft. Extremities--no cyanosis or clubbing. No edema. Dermatologic--normal skin turgor, normal color, no abnormal lymph nodes, no rash. Neurologic--cranial nerves II through XII grossly intact. Rheumatologic--normal range of motion. Psychiatric--normal affect. Discharge Data Consultations 07/17/24 20:03 ED Decision to Admit Stat 07/17/24 20:39 Consult Nephrology Routine Hospital Course (1) Hypertensive urgency: Admitted to blood pressure of 200 systolic with headache with nausea and vomiting CT scan of the head did not show any acute pathology blood pressure now under better control following IV hydralazine and labetealol (2) Headache: Patient has been experiencing a frontal headache since her hypertension started CT of the head and brain without contrast was negative for acute findings, no focal neuro defects on exam Suspect this is mainly due to her hypertension caused by poor p.o. intake and inability to keep her home meds down over the past day No focal neurologic changes, unsure if this is a migraine as symptoms started after she was unable to keep her antihypertensives down and became hypotensive For now we will work on controlling her blood pressure and continuing as n eeded Tylenol (3) Elevated troponin I level: Initial high-sensitivity troponin elevated at 68, repeat is in process which was ordered at time of the admission Patient denies recent chest pain/discomfort, no acute ST segment or T wave changes on ECG Suspect her troponin is elevated due to her hypertension and end-stage renal disease status Will follow repeat high-sensitivity troponin and continue to monitor on telemetry (4) Nausea and vomiting: Suspect patient's nausea and vomiting is due to gastroenteritis Lower suspicion for food poisoning at this time as multiple other family numbers ate from the same restaurant without similar symptoms Patient for multiple times she is without abdominal discomfort, low suspicion for peritonitis at this time Has been also associated with multiple episodes of nonbloody diarrhea over the past 12 hours No recent antibiotic for well water use Will try to obtain stool studies if she has further episodes, hold antidiarrheals for now Continue as needed Zofran (5) End stage chronic kidney disease: Currently uses nightly home peritoneal dialysis with a full session last night Renal function electrolytes currently stable Nephrology has been consulted to assist with dialysis during admission Patient does have left upper extremity AV fistula which was last used in March of this year Monitor daily renal function electrolytes (6) COPD (chronic obstructive pulmonary disease): In no respiratory distress, mild expiratory wheezing Patient uses 2 L nasal cannula O2 at night instead of CPAP for her NAE Continue incentive spirometry, as needed albuterol and home breathing treatments As needed O2 to keep SpO2 between 89-92% (7) Morbid obesity: Advised on diet and exercise and lifestyle changes (8) Chronic congestive heart failure: Appears compensated (9) Hypertension: Presented to the ED with nausea, vomiting, nonbloody diarrhea, headache, and hypertension Patient confirms that symptoms started with nausea/vomiting and diarrhea, hypertension and headache following Confirms she has not had any antihypertensives today due to her symptoms which is likely what is driving her hypertension at the time of admission Patient is on home clonidine, hydralazine, carvedilol, suspect she is experiencing significant rebound hypertension due to not taking home clonidine No focal neuro defects, no acute changes and CT temporal without contrast For now will plan to resume her home antihypertensives when she is able to tolerate p.o. intake Will start as needed IV hydralazine every 4 hours for systolic blood pressure greater than 180 mmHg/diastolic blood pressure greater than 110 mmHg for heart rate < 70 Will start as needed IV labetalol every 4 hours for systolic blood pressure greater than 180 mmHg/diastolic blood pressure greater than 110 mmHg for heart rate > 70 Bilateral SCDs for DVT prophylaxis BP under better control now Plan d/c home Coding Level of Care Code 81514 INP/OBS DISCH >30 MIN Diagnoses Hypertensive urgency I16.0 Headache R51.9 Elevated troponin I level R79.89 Nausea and vomiting R11.2 End stage chronic kidney disease N18.6 COPD (chronic obstructive pulmonary disease) J44.9 Morbid obesity E66.01 Chronic congestive heart failure I50.9 Hypertension I10 Hypertension type: unspecified Time Spent (min) 35
== END 2024-07-19 11:49 | disposition home or self-care (01) | DRG 304 ==
LOC: ED 15:52 → SUATTDRO 20:11 → 2S 20:11